=== PATIENT | female | born 1980 | race African-American/Black ===

== ENCOUNTER 2017-07-25 23:16 | Inpatient (IN) | payer OTHER ==
[2017-07-25 23:51] LABS: #Eosinphils 0.1 thou/uL (0.0-0.7); #Lymphocytes 2.3 thou/uL (1.20-3.40); #Monocytes 0.5 thou/uL (0.11-0.59); %Basophils 0.2 % (0.0-1.0); %Eosinophils 0.7 % (0.0-10.0); %Lymphocytes 15.5 % (21.0-51.0); %Monocytes 3.2 % (0.0-10.0); Hematocrit 41.9 % (36.0-47.0); Mean Platelet Volume 6.8 fL (7.4-10.4); Red Blood Cell (RBC) Count 4.53 mill/uL (4.20-5.40); White Blood Cell (WBC) Count 14.9 thou/uL (4.8-10.8)
[2017-07-26] MEDS ORDERED: niCARdipine 20MG In NaCl 20 MG/200 ML BAG ONE ×2 (00:06→06:13)
[2017-07-26 00:18] LABS: ALT (SGPT) 34 U/L (8-55); AST (SGOT) 27 U/L (5-34); Alkaline Phosphatase 141 U/L (40-150); Anion Gap 14 mmol/L (10-20); BUN (Urea Nitrogen) 11 mg/dL (7.0-18.7); Bilirubin, Total 0.3 mg/dL (0.2-1.2); CK (CPK) 45 U/L (29-168); Calc. Creatinine Clearance 0 mL/min (70-130); Calcium 9.8 mg/dL (7.8-10.44); Carbon Dioxide 25 mmol/L (22-29); Chloride 101 mmol/L (98-107); Estimated GFR-MDRD Greater than 90; Globulin 4.7 g/dL (2.4-3.5); Lipase 20 U/L (8-78); Protein, Total 8.9 g/dL (6.0-8.3)
[2017-07-26 00:18] LABS: Prothrombin Time 12.8 SEC (12.0-14.7)
[2017-07-26 00:26] LABS: Acetaminophen Less than 6.0 mcg/mL (10.0-30.0); Salicylate Less than 8.0 mg/dL (15.0-30.0)
[2017-07-26] MEDS ORDERED: Ondansetron HCl/PF 4 MG/2 ML Vial ONE ×4 (00:44→06:05)
[2017-07-26 04:46] LABS: Troponin I 0.043 ng/mL (< 0.028)
[2017-07-26 04:58] LABS: Bilirubin Negative (Negative); Blood, Urine Negative (Negative); Glucose, Urine (Dipstick) Negative (Negative); Ketone, Urine 40 mg/dL (Negative); Nitrite Negative (Negative); Protein, Urine (Dipstick) 100 mg/dL (Neg-Trace); Urobilinogen 0.2 mg/dL (0.2-1.0)
[2017-07-26 05:01] LABS: Bacteria/HPF 1+ HPF (None Seen); RBC/HPF 0-3 HPF (0-3); Squamous Epithelial 21-50 HPF (0-3)
[2017-07-26 05:20] LABS: Hyaline Casts/LPF NONE SEEN LPF (0-3 Hyaline)
[2017-07-26 05:21] LABS: Amphetamine Not Detected (NotDetected); Methadone Not Detected (NotDetected); Methamphetamine Not Detected (NotDetected)
[2017-07-26] MEDS ORDERED: niCARdipine 20MG In NaCl 20 MG/200 ML BAG IVPB SCH (06:15)
[2017-07-26] MEDS ORDERED: Ondansetron HCl/PF 4 MG/2 ML Vial IVP PRN (07:17)
[2017-07-26] MEDS ORDERED: Sodium Chloride 0.9% 1,000 ML IV SCH (07:17)
[2017-07-26] MEDS ORDERED: Ondansetron ODT 4 MG TAB SL PRN (07:17)
[2017-07-26] MEDS ORDERED: niCARdipine HCl 25 MG in Sodium Chloride 0.9% 250 ML 240 ML IVPB SCH (07:30)
[2017-07-26 07:37] LABS: Troponin I 0.052 ng/mL (< 0.028)
--- NOTE | 2017-07-26 08:11 | RAD ---
SINGLE VIEW OF THE CHEST: COMPARISON: 05/05/2017 HISTORY: High blood pressure and chest pain. FINDINGS: Single view of the chest shows a normal sized cardiomediastinal silhouette. There is no evidence of consolidation, mass, or pleural effusion. The bones are unremarkable. IMPRESSION: No evidence of acute cardiopulmonary disease. POS: [facility]
[2017-07-26 08:25] VITALS: BMI 46.6
--- NOTE | 2017-07-26 08:41 | CT ---
PRELIMINARY REPORT/[facility]/EMERGENCY AFTER HOURS PROCEDURE: EXAM: CT Angiography Chest With Intravenous Contrast CLINICAL HISTORY: 36 years old, female; Pain; Chest pain; Type not specified; Abdominal pain; Generalized; Patient HX: R/O dissection TECHNIQUE: Axial computed tomographic angiography images of the chest with intravenous contrast using pulmonary embolism protocol. CONTRAST: 100 mL of ISOVUE administered intravenously. COMPARISON: No relevant prior studies available. FINDINGS: Pulmonary arteries: There is no evidence of peripheral filling defects within the pulmonary arterial circulation to suggest pulmonary embolism. Aorta: The aorta is normal. There is no evidence of aortic dissection, leak, rupture, or other compl ications. Compression. Lungs: Normal. No mass. No consolidation. Pleural space: Normal. No significant effusion. No pneumothorax. Heart: Normal. No cardiomegaly. No significant pericardial effusion. No evidence of RV dysfunction. Bones/joints: No acute fracture. No dislocation. Soft tissues: Normal. Lymph nodes: Normal. No enlarged lymph nodes. IMPRESSION: There is no CT evidence of acute pulmonary embolism. EXAM: CT Angiography Abdomen With Intravenous Contrast EXAM DATE/TIME: Exam ordered 07/26/2017 4:58 AM CLINICAL HISTORY: 36 years old, female; Pain; Chest pain; Type not specified; Abdominal pain; Generalized; Patient HX: R/O dissection TECHNIQUE: Axial computed tomographic angiography images of the abdomen with intravenous contrast. CONTRAST: 100 mL of ISOVUE administered intravenously. COMPARISON: No relevant prior studies available. FINDINGS: Lower thorax: No acute findings. Aorta: There is no evidence of aortic dissection, leak, rupture, or other complications. Celiac trunk and mesenteric arteries: No acute findings. No occlusion or significant stenosis. Renal arteries: No acute findings. No occlusion or significant stenosis. Liver: There are no focal liver lesions present. Gallbladder and bile ducts: There has been a cholecystectomy. No ductal dilation. Pancreas: The pancreas is normal. No ductal dilation. Spleen: The spleen is normal. Adrenals: The adrenal glands are normal. Kidneys and ureters: The kidneys are normal. No hydronephrosis. Stomach and bowel: The stomach is normal. The duodenum is unremarkable. The colon is normal. No obst ruction. No mucosal thickening. Appendix: A normal appendix is identified. Intraperitoneal space: Normal. No significant fluid collection. No free air. Bones/joints: No acute fracture. No dislocation. Soft tissues: Normal. No mass. Lymph nodes: Normal. No enlarged lymph nodes. Other findings: The uterus is normal. IMPRESSION: There is no evidence of aortic dissection, leak, rupture, or other complications. Thank you for allowing us to participate in the care of your patient. Dictated and Authenticated by: Luis Briseno MD 07/26/2017 5:20 AM Central Time ([place] \T\ [place]) FINAL REPORT CT AORTIC DISSECTION PROTOCOL: Date: 07/25/17 FINDINGS: I agree with the preliminary report provided by [facility]. No central pulmonary embolus is evident. The v isualized aorta is of normal caliber. The celiac, SMA, renal, and NATALIE arteries are widely patent. Th e common iliac arteries and iliac bifurcations are widely patent. There is fatty infiltration of the liver, Pancreas, spleen, kidneys, and adrenal glands are normal a ppearing. No free fluid is evident. There is a normal appendix in the right lower quadrant. No definite acute osseous abnormality is evident. IMPRESSION: No acute aortic stenosis, occlusion, or aneurysm formation demonstrated. POS: [facility]
[2017-07-26] MEDS ORDERED: Dextrose 5% in Water 1,000 ML IV PRN ×2 (08:45→08:50)
[2017-07-26] MEDS ORDERED: Dextrose 50% Abboject 50 ML SYRINGE SLOW IVP PRN ×2 (08:45→08:50)
[2017-07-26] MEDS ORDERED: Metoclopramide HCl 10 MG TAB PO PRN (08:51)
[2017-07-26] MEDS ORDERED: traMADol HCl 50 MG TAB PO PRN (08:51)
[2017-07-26] MEDS ORDERED: FLU VACC QS2017-18 36 mo. & older 0.5 ML SYRINGE IM ONE (09:15)
[2017-07-26] MEDS: Pantoprazole 40 MG VIAL IVP SCH ×2 (09:59→21:39)
[2017-07-26] MEDS: Lisinopril 20 MG TAB PO SCH (09:59)
[2017-07-26] MEDS ORDERED: Labetalol HCl 100 MG/20 ML VIAL SLOW IVP PRN (11:34)
[2017-07-26] MEDS ORDERED: Carvedilol 25 MG TAB PO SCH (11:45)
[2017-07-26] MEDS: Sucralfate 1 GM/10 ML UDCUP PO SCH ×3 (11:48→21:41)
--- NOTE | 2017-07-26 11:58 | HP ---
PRIMARY CARE PHYSICIAN: Not unspecified at [facility]. SPECIALISTS: None. HISTORY OF PRESENT ILLNESS: The patient is a 36-year-old female with a past medical history of hypertension, diabetes mellitus complicated by gastroparesis for which the patient is on Reglan and as needed Zofran at home, presented to the emergency room at [facility] with a chief complaint of upper abdominal pain and chest pain for 2 days. The patient reports that she had onset of aggressively increasing nausea, vomiting beginning approximately 2 days ago follow by the patient unable to keep her medications down. This eventually resulted in upper abdominal pain with intractable nausea and vomiting. The patient reports that she has had small specks of blood in her emesis, but no gross bleeding. The patient reports that she is unable to keep all of her medications down including her lisinopril and Coreg. She does report that she ran out of her clonidine 4 days ago. She does report blurriness in her right eye which has resolved and also seeing \\\\"stars\\\\" which also resolves. She reports having some mild numbness in her left second toe as well as her left fifth finger. The patient reports the pain in her mid abdomen will radiate to back. Reports incidental pain in her left knee and her right great toe. She endorses headache in the bilateral temporal regions which are approximately 5/10 in severity. She is otherwise compliant with the medications other than running out of her clonidine 2 days ago. The patient has had a similar presentation in 10/2016. From review of previous records she underwent a cardiac catheterization by Dr. Celestin around 03/2016, which was negative for obstructive atherosclerotic cardiovascular disease. Denies any blood per rectum, hematuria, muscle weakness or any other episodes of numbness. Currently no chest pain, no shortness of breath. The patient is hungry. PAST MEDICAL HISTORY: 1. Diabetes mellitus type 2 complicated by diabetic gastroparesis. 2. Essential hypertension. 3. Morbid obesity, body mass index of 46. 4. Chronic low back pain. 5. History of gout. PAST SURGICAL HISTORY: 1. Laparoscopic cholecystectomy in 08/[address] Dutton . 2. section x2. 3. Cardiac catheterization in 03/[address] Celestin. ALLERGIES: NKDA. The patient does report having headache with nausea with nitroglycerin. SOCIAL HISTORY: Denies any tobacco, alcohol or drug use. The patient is single , has a single mother. FAMILY HISTORY: Notable for mother having heart disease, high blood pressure and stroke. No history of diabetes in the family. No blood clots or cancer. REVIEW OF SYSTEMS: A 14-point review of systems reviewed and negative with the exception to HPI. OUTPATIENT MEDICATIONS: Please see medication reconciliation form, which includes clonidine 0.2 mg t.i.d., Coreg 25 mg b.i.d., lisinopril 20 mg daily, metformin 500 mg once daily, Reglan 10 mg t.i.d. as needed, Indomethacin as needed. PHYSICAL EXAMINATION: VITAL SIGNS: Blood pressure 170/85 with a Cardene drip running at 12.5 mg per hour, pulse of 119, respiration rate 18, O2 saturation 100% on 2 liters nasal cannula. GENERAL: The patient is awake, alert, in no apparent distress, obese. HEENT: Atraumatic, normocephalic. Extraocular movements intact. Pupils react to light and accommodation. Posterior pharynx is clear. NECK: Supple, no lymphadenopathy, no thyromegaly, no carotid bruits noted upon exam. LUNGS: Clear to auscultation bilaterally with equal expansion. No wheeze or rhonchi. CARDIOVASCULAR: S1, S2, tachycardia, no murmurs appreciated. Peripheral pulses are 2+ and symmetrical in the bilateral radial, dorsalis pedis and posterior tibialis pulses. ABDOMEN: Soft, nondistended. Positive bowel sounds. There is mild epigastric tenderness with deep palpation. No palpable aortic pulse. No rebound, no guarding. MUSCULOSKELETAL: Strength is 5/5 in all 4 extremities, full range of motion. NEUROLOGIC: Sensation is diminished in the left great toe and left fifth digit , otherwise intact. Motor function grossly intact, 5/5. Cranial nerves II-XII grossly intact. PSYCHOLOGICAL: Alert and oriented x3. No psychomotor agitation. Appropriate mood, affect, insight and judgment. PERTINENT LABORATORY AND RADIOGRAPHICAL DATA: White blood cell count 14.9, hemoglobin 13.6, platelets 482, glucose 196, creatinine 0.84, bicarbonate 25, potassium 4. Troponin; #1 0.052, #2 is 0.043, #3 0.040. Urinalysis revealing positive for protein. However, leukocyte esterase or nitrite are negative and there are multiple squamous cells. Urine drug screening negative. CT scan of the abdomen and pelvis dissection protocol was negative for aneurysm or dissection. Imaging of intra-abdominal organs are all grossly within normal limits. No evidence of colitis or bowel inflammation. Renal architecture is grossly within normal limits. Chest x-ray; no mediastinal enlargement. INR 1.0. Serum negative. EKG revealed a normal sinus rhythm, 98 beats per minute, left ventricular hypertrophy pattern noted, QTC 439 milliseconds, no ST elevations or depressions. ASSESSMENT AND PLAN: 1. Hypertensive crisis, attributed to diabetic gastroparesis exacerbation: The gastroparesis led to the patient's intractable nausea and vomiting ultimately unable to keep her antihypertensive regimen down. This is independent of the patient "running out" of her clonidine 0.2 mg t.i.d. approximately 4 days ago. The patient is unaware of what her blood pressure is when she is not taking her clonidine. Currently, the patient's blood pressure has been stabilized with a Cardene drip, currently, 12.5 mg per hour. We will initiated her lisinopril therapy and continue to stabilize her blood pressure and maintain permissive hypertension at this point in time and slowly decrease her blood pressure over the next 24-48 hours. Anticipate initiating Coreg therapy in the morning on 07/27/2017 with further titration down of her Cardene drip and then resuming her clonidine. We will repeat her troponin in the morning. The patient had a cardiac catheterization performed by Dr. Celestin on 03/19/2016 reveals no significant atherosclerotic cardiovascular disease with a left ventricular ejection fraction 65%. We will check a CT scan of the head without contrast to rule out for signs of ischemia or hemorrhage; however, clinically this is low suspicion. 2. Elevated troponin consistent with demand ischemia. As noted, the patient does have no evidence of atherosclerotic cardiovascular disease in 03/2016. There is no true spike in her troponin's and we will trend her troponin once again in the morning. Should there be any concerns for cardiovascular issues, Dr. Celestin and his team of cardiologists can be consulted. 3. Diabetes mellitus type 2. The patient is on metformin monotherapy; however , cannot recall if she is on extended release version or not. We will utilize sliding scale coverage for now as the patient did receive contrast earlier this morning. Anticipate on resuming metformin no sooner than on 07/29/2017. 4. Upper gastrointestinal bleeding. This is a trace blood specks with intractable nausea and vomiting, very likely be early signs of Mindi-Balderas tears. We will continue with proton pump inhibitor therapy and add Carafate as needed. 5. Morbid obesity, body mass index 46. Lifestyle modifications will need to be addressed prior to discharge. 6. Left great toe gout exacerbation. Continue with indomethacin as needed. Time spent approximately 1 hour. [facility]
--- NOTE | 2017-07-26 12:05 | CT ---
CT HEAD WITHOUT IV CONTRAST: Date: 07-26-17 History: Hypertensive crisis. Headache, blurred vision. Comparison: 05-22-14 FINDINGS: There is no evidence of a hemorrhage, acute infarction, mass effect, or midline shift. Ventricular s ystem is normal in size, shape, and position. Again noted is a metallic foreign body which appears t o be within the subcutaneous soft tissues in the region of the right eyelid anterior to the right gl obe. This is unchanged in position. Calvarial structures are intact. There has been no interval read ge from the prior exam. IMPRESSION: l. No acute cardiopulmonary process. 2. Punctate metallic foreign body anterior to the right globe and appears to be within the subcutane ous soft tissues of the right eyelid. POS: [facility]
--- NOTE | 2017-07-26 13:53 | CON ---
DATE OF SERVICE: 07/26/2017 SERVICE: Pulmonary Medicine. HISTORY OF PRESENT ILLNESS: The patient is a 36-year-old -[place] female with past medical history significant for horrendous hypertension. She is on multiple medications including clonidine. She ran out of these medications at the end of last week. She started having some headaches with nausea. She had blurred vision and some neurologic changes. She presented to the Emergency Department with the same. She was started on a Cardene drip and placed in the ICU. She currently denies any fevers, chills, nausea, or vomiting. The headache is much improved and otherwise has returned to her usual state of health. She remains on the Cardene drip at a fairly good clip. Otherwise, there were no changes overnight. Her nausea is no longer present. She is starting to tolerate some p.o. PAST MEDICAL HISTORY: 1. Hypertension. 2. Type 2 diabetes mellitus. 3. Gastroparesis. PAST SURGICAL HISTORY: Cholecystectomy. SOCIAL HISTORY: Negative for alcohol, tobacco or illicit drug use. She denies any exposure to chemicals, dust, asbestos or tuberculosis. FAMILY HISTORY: Noncontributory. ALLERGIES: No known drug allergies. MEDICATIONS LIST: Her inpatient medicines were reviewed. Multiple updates were made at this time. REVIEW OF SYSTEMS: General, head, ears, eyes, nose, throat, cardiovascular, respiratory, GI, , musculoskeletal, neurologic and skin is negative except as mentioned in the HPI. PHYSICAL EXAMINATION: VITAL SIGNS: Afebrile, pulse 124, blood pressure 157/79, respirations 19, saturation 98% on room air. GENERAL: Patient is awake, alert, in no apparent distress. LUNGS: Excellent air entry. No prolonged expiratory phase, wheeze, rhonchi or crackles. HEART: Normal rate, regular. ABDOMEN: Soft, nontender, nondistended, bowel sounds positive. MUSCULOSKELETAL: No cyanosis or clubbing. No pitting in the bilateral lower extremities. NEUROLOGIC: Grossly nonfocal. LABORATORY DATA: WBC 14.9, hemoglobin 13.6, platelets 482,000. INR 1.0. Troponin 0.052 and gently up trending. Basic metabolic profile, liver function studies are otherwise unremarkable. BNP is normal. Urinalysis is unremarkable and is not a very good clean catch. There is a little bit of proteinuria. Opiates are positive. Urine drug screen is otherwise unremarkable. Salicylates , acetaminophen, and alcohol were all unremarkable. IMAGIN. Chest x-ray demonstrates no evidence for acute cardiopulmonary disease. 2. CT of the aorta demonstrates no evidence of acute pulmonary embolism or dissection. 3. CT of the brain demonstrates no evidence of intracranial hemorrhage. Official radiology read is currently pending. ASSESSMENT: 1. Hypertensive emergency. 2. Gastroparesis. PLAN: We will resume the patient's home medicines including clonidine. We will wean off the Cardizem drip if possible. IV fluids will be interrupted. We will continue to follow while the patient remains in the ICU. JENNA
[2017-07-26] MEDS: Indomethacin 25 mg Capsule PO PRN (14:17)
[2017-07-26] MEDS: Metoclopramide HCl 10 MG TAB PO SCH ×2 (14:21→21:38)
[2017-07-26] MEDS: Carvedilol 25 MG TAB PO SCH (16:52)
[2017-07-26] MEDS: HumaLOG 300 UNITS/3 ML VIAL SC PRN (17:07)
[2017-07-26] MEDS ORDERED: Aluminum & Magnesium Hydroxide 60 ML, Lidocaine 2% Viscous Solution 30 ML, diphenhydrAM... SSW PRN ×3 (17:31)
[2017-07-26] MEDS: Morphine Sulfate 2 MG/ML SYRINGE SLOW IVP PRN ×2 (18:02→21:53)
[2017-07-26] MEDS: Zolpidem Tartrate 5 MG TAB PO SCH (21:38)
[2017-07-27] MEDS: Morphine Sulfate 2 MG/ML SYRINGE SLOW IVP PRN (04:32)
[2017-07-27] MEDS: Sucralfate 1 GM/10 ML UDCUP PO SCH ×4 (04:38→22:40)
[2017-07-27 05:03] LABS: Hematocrit 33.4 % (36.0-47.0); Mean Platelet Volume 7.1 fL (7.4-10.4); Red Blood Cell (RBC) Count 3.59 mill/uL (4.20-5.40); White Blood Cell (WBC) Count 11.7 thou/uL (4.8-10.8)
[2017-07-27 05:05] LABS: Neutrophil 74 % (42-75)
[2017-07-27 05:22] LABS: Anion Gap 14 mmol/L (10-20); BUN (Urea Nitrogen) 18 mg/dL (7.0-18.7); Calc. Creatinine Clearance 141 mL/min (70-130); Calcium 8.4 mg/dL (7.8-10.44); Carbon Dioxide 24 mmol/L (22-29); Chloride 102 mmol/L (98-107); Estimated GFR-MDRD 71; Magnesium 1.7 mg/dL (1.6-2.6); Phosphorus 3.5 mg/dL (2.3-4.7)
[2017-07-27] MEDS ORDERED: Acetaminophen 325 MG TAB PO PRN (07:22)
[2017-07-27] MEDS ORDERED: Potassium Chloride 20 MEQ TAB PO SCH (07:30)
--- NOTE | 2017-07-27 07:51 | PRG ---
DATE OF SERVICE: 07/27/2017 SERVICE: Pulmonary Medicine INTERVAL HISTORY: The patient is doing really well from a cardiovascular and respiratory standpoint . She denies any current fevers, chills, nausea, vomiting or chest discomfort. Her blood pressures have been under excellent control ever since restarting her home medicines. She continues to wake up from a deep sleep and when prompted, has 8/10 pain, requesting morphine. Otherwise, there were n o events overnight. PHYSICAL EXAMINATION: VITAL SIGNS: Afebrile, pulse 77, blood pressure 124/77, respirations 16, saturation 99% on room air . GENERAL: Patient is awake, alert, in no apparent distress. LUNGS: Excellent air entry with no prolonged expiratory phase, wheezing, rhonchi or crackles. HEART: Normal rate, regular. ABDOMEN: Soft, nontender, nondistended. Bowel sounds positive. MUSCULOSKELETAL: No cyanosis or clubbing. No pitting in the bilateral lower extremities. NEUROLOGIC: Grossly nonfocal. LABORATORY DATA: WBC 11.7, hemoglobin 10.9, platelets 340,000. Basic metabolic profile, magnesium, and phosphorus are all unremarkable. Potassium is 3.6. ASSESSMENT: 1. Hypertensive emergency, improved. 2. Gastroparesis. PLAN: Morphine will once again be discontinued. We will give the patient Tylenol as needed for gagan n. I will back off on her clonidine a little bit and we might should try to get rid of this medicat ion in the outpatient setting as I believe her presentation was largely secondary to rebound hyperte nsion associated withdrawal from clonidine. The potassium is 3.6 and will be replaced. We will tra nsition the patient out of the ICU to the floor.
[2017-07-27] MEDS: cloNIDine HCl 0.1 MG TAB PO SCH ×3 (08:05→20:56)
[2017-07-27] MEDS: Metoclopramide HCl 10 MG TAB PO SCH ×3 (08:06→20:56)
[2017-07-27] MEDS: Lisinopril 20 MG TAB PO SCH (08:06)
[2017-07-27] MEDS: Carvedilol 25 MG TAB PO SCH ×2 (08:06→18:06)
--- NOTE | 2017-07-27 08:51 | PRG ---
DATE OF SERVICE: 07/27/2017 SUBJECTIVE: The patient seen and examined at the bedside. She is doing very well. She had some co mplaints of abdominal discomfort, but she does not have more vomiting. She ate her breakfast withou t any problems, tolerating food. OBJECTIVE: VITAL SIGNS: Blood pressure is 115/68, pulse is 97, respiratory rate is 18, and pulse oximetry is 9 9% on room air. HEENT: Head is atraumatic, normocephalic. Eyes PERRLA. Conjunctivae pinkish. Oral mucosa is mois t. NECK: Supple, no lymphadenopathy. Thyroid is not palpable. LUNGS: Clear. HEART: S1, S2 normal, no S3, no S4, no murmur. ABDOMEN: Somewhat distended, obese. Bowel sounds present. There is tenderness in the mid portion of the abdomen, most likely related to protracted vomiting for the last 2-3 days. Bowel sounds are present. EXTREMITIES: No clubbing, cyanosis or edema. NEUROLOGIC: She is alert and oriented x4. There is no sensory or motor deficits present. Cranial nerves are intact. LABORATORY DATA: Showed a white count of 11.7, hemoglobin 10.9, hematocrit 33.4, platelet count is 340, normal BNP. Glycemia is ranging from 138 to 112. Rest of chemistry within normal limits IMPRESSION: 1. Hypertensive emergency, improved status post Cardene drip which was discontinued and she was tra nsferred to p.o. meds. The patient was seen by Dr. Mortensen, operations support specialist. This morning he recommended to decrease the dose of clonidine since her blood pressure is down to 115. She is g oing to be transferred to the telemetry floor. 2. Diabetes mellitus type 2. 3. Morbid obesity with body mass index of 46. 4. Chronic low back pain. 5. Abdominal pain secondary to protracted vomiting. 6. History of gout. PLAN: She will continue on her carvedilol 25 mg twice a day, clonidine was decreased to 0.1 mg 3 ti mes a day. She will continue lisinopril 20 mg once a day and her glycemia is in good range, so we a re going to keep holding her metformin and she would be put on her metformin tomorrow when she is di scharged from the hospital if she is stable.
[2017-07-27] MEDS: Indomethacin 25 mg Capsule PO PRN (10:51)
--- NOTE | 2017-07-27 14:38 | EKG ---
Test Reason : CHEST PAIN Blood Pressure : / mmHG Vent. Rate : 098 BPM Atrial Rate : 098 BPM P-R Int : 136 ms QRS Dur : 072 ms QT Int : 344 ms P-R-T Axes : 053 032 051 degrees QTc Int : 439 ms Normal sinus rhythm with sinus arrhythmia Possible Left atrial enlargement Left ventricular hypertrophy Abnormal ECG Confirmed by ANNY GOYAL, ANA ([id number]), editor farm journal PEGGY HAWTHORNE ([id number]) on 07/27/2017 2:37:56 PM Referred By: Confirmed By:ANA MCCORMICK MD
[2017-07-27] MEDS: traMADol HCl 50 MG TAB PO PRN ×2 (15:48→22:39)
[2017-07-27] MEDS: HumaLOG 300 UNITS/3 ML VIAL SC PRN (18:08)
[2017-07-27] MEDS: Zolpidem Tartrate 5 MG TAB PO SCH (20:56)
[2017-07-28] MEDS: traMADol HCl 50 MG TAB PO PRN ×4 (04:27→23:56)
[2017-07-28] MEDS: Sucralfate 1 GM/10 ML UDCUP PO SCH ×4 (04:29→23:57)
[2017-07-28] MEDS: Carvedilol 25 MG TAB PO SCH ×2 (08:39→17:35)
[2017-07-28] MEDS: cloNIDine HCl 0.1 MG TAB PO SCH (08:39)
[2017-07-28] MEDS: Metoclopramide HCl 10 MG TAB PO SCH ×3 (08:40→20:36)
[2017-07-28] MEDS: Lisinopril 20 MG TAB PO SCH ×2 (08:40→20:35)
[2017-07-28] MEDS ORDERED: cloNIDine HCl 0.1 MG TAB PO SCH ×2 (09:13→09:30)
[2017-07-28 12:35] LABS: Troponin I 0.049 ng/mL (< 0.028)
--- NOTE | 2017-07-28 18:38 | PRG ---
DATE OF SERVICE: 07/28/2017 SERVICE: Pulmonary Medicine. INTERVAL HISTORY: The patient is doing fine from a respiratory standpoint. She denies any current fevers, chills, nausea or vomiting or chest discomfort. She continues to have some back discomfort, which is slightly worse than what she has on a daily basis at home. There were no overnight events . Her blood pressure is under much better control. PHYSICAL EXAMINATION: VITAL SIGNS: Afebrile with a T-max of 99.2, pulse 76, blood pressure 160/96, respirations 16, satur ation 100% on room air. GENERAL: Patient is awake and alert, in no apparent distress. LUNGS: Excellent air entry. There is no prolonged expiratory phase, wheezing, rhonchi or crackles. HEART: Normal rate, regular. ABDOMEN: Soft, nontender, nondistended, bowel sounds positive. MUSCULOSKELETAL: No cyanosis or clubbing. No pitting in the bilateral lower extremities. NEUROLOGIC: Grossly nonfocal. LABORATORY DATA: Troponin is down trending to 0.049. Blood sugars ranged from 115-246 Urine cultu res negative to date. ASSESSMENT: 1. Hypertensive emergency, improving. 2. Gastroparesis. PLAN: The patient no longer has requirements for Pulmonary or Critical Care opinion. She will like ly require a daily diuretic in the outpatient setting to help control her severe blood pressures. I f she decompensates., clinically please give me a phone call.
[2017-07-28] MEDS: Zolpidem Tartrate 5 MG TAB PO SCH (20:35)
[2017-07-29] MEDS: traMADol HCl 50 MG TAB PO PRN ×2 (05:56→12:09)
[2017-07-29] MEDS: Sucralfate 1 GM/10 ML UDCUP PO SCH ×2 (05:57→12:08)
[2017-07-29] MEDS: Lisinopril 20 MG TAB PO SCH (08:48)
[2017-07-29] MEDS: Metoclopramide HCl 10 MG TAB PO SCH (08:48)
[2017-07-29] MEDS: Carvedilol 25 MG TAB PO SCH (08:48)
[2017-07-29 09:10] VITALS: TEMP 98.1
[2017-07-29 12:09] VITALS: BP 160/91
--- NOTE | 2017-07-29 21:39 | DIS ---
DATE OF ADMISSION: 07/26/2017 DATE OF DISCHARGE: 07/29/2017 PRIMARY CARE PHYSICIAN: [facility]. ADMITTING DIAGNOSES: 1. Hypertensive crisis. 2. Elevated troponin. 3. Diabetes mellitus type 2 without long-term insulin therapy. 4. Upper gastrointestinal bleed. 5. Morbid obesity, BMI 46. 6. Left great toe gout exacerbation. DISCHARGE DIAGNOSES: 1. Hypertensive crisis. 2. Elevated troponin due to demand ischemia. 3. Diabetes mellitus type 2, controlled. 4. Upper gastrointestinal bleed secondary to Mindi-Balderas tear. 5. Morbid obesity, BMI of 46. 6. History of gout with left great toe (podagra). DISPOSITION: Home. CONSULTANTS: [facility], Dr. Mortensen. PHYSICAL EXAMINATION: GENERAL: On the day of discharge, the patient is awake and alert, no complaints. Tolerating oral d iet. Reports that she feels much better since admission. Denies any blood per rectum, no dyspepsia . VITAL SIGNS: Blood pressure ranging from 127/74-179/111, pulse was 78, respiration rate 18 and satu ration 97% on room air. LUNGS: Clear to auscultation bilaterally with equal expansion, rales or rhonchi. CARDIOVASCULAR: S1 and S2. No murmurs. ABDOMEN: Soft, nontender and nondistended. Positive bowel sounds. NEUROLOGIC: Nonfocal. PERTINENT LABORATORY AND RADIOGRAPHICAL DATA: Creatinine 0.84. Troponin ranging from 0.040-0.052. BRIEF HISTORY AND HOSPITAL COURSE: The patient is a 36-year-old female with a past medical history of morbid obesity, essential hypertension, diabetes mellitus type 2 on metformin monotherapy, gout, presented to the emergency room at [facility] in 07/26/2017, with a chief complaint of upper abdominal pain and chest pain for 2 days. Please see history and physical for details. Patient's initial blood pressure upon presentation has been as high as 170/85 while on a Cardene adm inistered in the emergency room. Patient's blood pressure does frequently escalate into the 220+ ra nge systolic when off of the Cardene. Patient was initially admitted to the ICU for the Cardene dri p. Patient's nausea was controlled with scheduled p.r.n. antiemetics. The patient was initiated on her antihypertensive regimen and was able to be weaned off of her Cardene drip. Patient was monito red and treated medically for her gastroparesis and associated symptoms, which prevented her from to lerating her oral intake. By the day of discharge, the patient has been tolerating her oral diet an d has had a blood pressure as low as in the 120s and as high as in the 179 range. The patient's mary kate nidine will be revealed at this time and she is instructed to take this every 8 hours instead of t.i .d. for better 24-hour control. In addition, amlodipine 5 mg daily will be added to her regimen. T he patient will be asked to follow up with her primary care physician at [facility] for fur ther management. Otherwise, patient's other medical comorbidities are stable at this time. DISCHARGE MEDICATIONS: Please see medication reconciliation form. Time spent approximately 40 minutes.
== END 2017-07-29 13:37 | disposition home or self-care (01) | DRG 304 ==
LOC: ERS 23:16 → CCU 07-26 05:28 → 2NO 07-27 08:41
PROVIDERS: ADMIT Family Medicine; ATTEND Family Medicine
DX: I16.9 Hypertensive crisis, unspecified (principal); K22.6 Gastro-esophageal laceration-hemorrhage syndrome; I24.8 Other forms of acute ischemic heart disease; Z68.42 Body mass index [BMI] 45.0-49.9, adult; K31.84 Gastroparesis; E11.43 Type 2 diabetes mellitus with diabetic autonomic (poly)neuropathy; E66.01 Morbid (severe) obesity due to excess calories; M10.9 Gout, unspecified; M54.5 Low back pain; G89.29 Other chronic pain; Z79.4 Long term (current) use of insulin
CPT/HCPCS: 36415; 36416; 36556; 51701; 70450; 71010; 71275; 80048; 80053; 80306; 80307; 81003; 81015; 82553; 83690; 83735; 83880; 84100; 84443; 84484; 84703; 85007; 85025; 85027; 85610; 85730; 87086; 93005; 96365; 96366; 96375; 96376; A4216; A4353; C9113; J2270; J2405; J7050

== ENCOUNTER 2017-08-15 03:47 | Emergency (ER) | payer OTHER ==
[2017-08-15 04:32] LABS: #Eosinphils 0.1 thou/uL (0.0-0.7); #Lymphocytes 2.9 thou/uL (1.20-3.40); #Monocytes 0.7 thou/uL (0.11-0.59); #Neutrophils 9.1 thou/uL (1.40-6.50); %Basophils 0.3 % (0.0-1.0); %Lymphocytes 22.8 % (21.0-51.0); %Monocytes 5.1 % (0.0-10.0); Hematocrit 38.6 % (36.0-47.0); Mean Platelet Volume 6.9 fL (7.4-10.4); Red Blood Cell (RBC) Count 4.21 mill/uL (4.20-5.40); White Blood Cell (WBC) Count 12.8 thou/uL (4.8-10.8)
[2017-08-15] MEDS ORDERED: Ondansetron HCl/PF 4 MG/2 ML Vial ONE (04:40)
[2017-08-15] MEDS ORDERED: Milk Of Magnesia 30 ML UDCUP ONE (04:40)
[2017-08-15] MEDS ORDERED: cloNIDine 0.1 MG TAB ONE (04:40)
[2017-08-15] MEDS ORDERED: Lidocaine Viscous Sol 2% 15 ml UD Cup ONE (04:40)
[2017-08-15] MEDS ORDERED: Ondansetron ODT 4 MG TAB ONE (04:41)
[2017-08-15 04:43] LABS: ALT (SGPT) 30 U/L (8-55); AST (SGOT) 26 U/L (5-34); Alkaline Phosphatase 123 U/L (40-150); Anion Gap 12 mmol/L (10-20); BUN (Urea Nitrogen) 12 mg/dL (7.0-18.7); Bilirubin, Total 0.3 mg/dL (0.2-1.2); Calc. Creatinine Clearance 0 mL/min (70-130); Calcium 10.1 mg/dL (7.8-10.44); Carbon Dioxide 28 mmol/L (22-29); Chloride 103 mmol/L (98-107); Estimated GFR-MDRD Greater than 90; Globulin 4.3 g/dL (2.4-3.5); Lipase 18 U/L (8-78); Magnesium 1.9 mg/dL (1.6-2.6); Protein, Total 8.5 g/dL (6.0-8.3)
[2017-08-15 04:46] LABS: Troponin I 0.016 ng/mL (< 0.028)
[2017-08-15] MEDS ORDERED: Potassium Chloride 20 MEQ TAB ONE (05:18)
[2017-08-15] MEDS ORDERED: Sucralfate 1 GM/10 ML UDCUP ONE ×2 (05:52→05:55)
--- NOTE | 2017-08-15 07:58 | CT ---
PRELIMINARY REPORT/[facility]/EMERGENCY AFTER HOURS PROCEDURE: EXAM: CT Head Without Intravenous Contrast CLINICAL HISTORY: 36 years old, female; Signs and symptoms; Altered mental status/memory loss; Confusion or disorienta tion; Patient HX: AMS TECHNIQUE: Axial computed tomography images of the head/brain without intravenous contrast. COMPARISON: Head CT report dated 05/22/2014 FINDINGS: Brain: Mild volume loss No hemorrhage. No significant white matter disease. No edema. Ventricles: Unremarkable. No ventriculomegaly. Bones/joints: Unremarkable. No acute fracture. Soft tissues: Right periorbital 3 mm radiopaque foreign body may be related to remote trauma Sinuses: Unremarkable as visualized. No acute sinusitis. Mastoid air cells: Unremarkable as visualized. No mastoid effusion. IMPRESSION: No intracranial hemorrhage.Please see discussion above. Thank you for allowing us to participate in the care of your patient. Dictated and Authenticated by: Oneal Rey MD 08/15/2017 5:13 AM Central Time ([place] \[place]\ [place]) FINAL REPORT EMERGENT AFTER HOURS CT HEAD WITHOUT IV CONTRAST: 08/15/2017 HISTORY: Altered mental status. COMPARISON: 07/26/2017 IMPRESSION: 1. No acute intracranial abnormality is demonstrated. 2. Stable metallic foreign body anterior to the right globe in the region of the eyelid which may be related to either metallic foreign body or possibly iatrogenic. Clinical correlation recommended. Nevertheless, this is a stable finding. 3. Findings are in agreement with preliminary report by [facility]. POS: [facility]
--- NOTE | 2017-08-15 08:02 | RAD ---
PORTABLE AP CHEST X-RAY: 08/15/2017 HISTORY: Chest pain for the past 2 days. COMPARISON: 07/26/2017 FINDINGS: Cardiac silhouette is magnified by projection but stable in size from prior study. Pulmonary vascul ature is within normal limits, and the lungs remain clear. There has been no interval change from t he prior study. IMPRESSION: No acute cardiopulmonary process. POS: [facility]
--- NOTE | 2017-08-17 20:12 | EKG ---
Test Reason : Blood Pressure : / mmHG Vent. Rate : 074 BPM Atrial Rate : 074 BPM P-R Int : 136 ms QRS Dur : 076 ms QT Int : 408 ms P-R-T Axes : 045 029 021 degrees QTc Int : 452 ms Normal sinus rhythm Possible Left atrial enlargement Borderline ECG Confirmed by MARIAM WHITTEN D.O. ([id number]), sports editor PEGGY HAWTHORNE ([id number]) on 08/17/2017 8:12:18 PM Referred By: Confirmed By:MARIAM WHITTEN D.O.
== END 2017-08-15 06:00 | disposition home or self-care (01) ==
LOC: ERS 03:47
DX: K29.00 Acute gastritis without bleeding (principal); I10 Essential (primary) hypertension; M10.9 Gout, unspecified; E11.9 Type 2 diabetes mellitus without complications; Z79.84 Long term (current) use of oral hypoglycemic drugs; Z79.899 Other long term (current) drug therapy
CPT/HCPCS: 36416; 70450; 71010; 80053; 82553; 83690; 83735; 83880; 84484; 85025; 93005; J2405; Q0162

== ENCOUNTER 2017-10-03 00:38 | Emergency (ER) | payer OTHER | END 2017-10-03 02:16 | disposition home or self-care (01) | LOC: ERS 00:38 | DX: M10.9 Gout, unspecified (principal); E11.9 Type 2 diabetes mellitus without complications; I10 Essential (primary) hypertension; G89.29 Other chronic pain; F17.200 Nicotine dependence, unspecified, uncomplicated; Z79.84 Long term (current) use of oral hypoglycemic drugs; Z79.899 Other long term (current) drug therapy | CPT/HCPCS: 99283 ==

== ENCOUNTER 2017-10-30 12:10 | Emergency (ER) | payer OTHER ==
[2017-10-30 12:50] LABS: #Basophils 0.1 thou/uL (0.0-0.2); #Lymphocytes 1.4 thou/uL (1.20-3.40); #Monocytes 0.1 thou/uL (0.11-0.59); #Neutrophils 10.8 thou/uL (1.40-6.50); %Basophils 0.5 % (0.0-1.0); %Eosinophils 0.1 % (0.0-10.0); %Lymphocytes 11.1 % (21.0-51.0); %Monocytes 0.5 % (0.0-10.0); %Neutrophils 87.8 % (42.0-75.0); Hemoglobin 14.1 g/dL (12.0-16.0); Mean Corpuscular Hemoglobin 28.9 pg (27.0-31.0); Mean Corpuscular Volume 90.6 fl (81.0-99.0); Mean Platelet Volume 7.1 fL (7.4-10.4); Platelet Count 409 thou/uL (130-400); Red Blood Cell (RBC) Count 4.86 mill/uL (4.20-5.40); White Blood Cell (WBC) Count 12.2 thou/uL (4.8-10.8)
[2017-10-30] MEDS ORDERED: Ketorolac Tromethamine 30 MG/ML VIAL ONE (13:09)
[2017-10-30] MEDS ORDERED: cloNIDine 0.1 MG TAB ONE (13:09)
--- NOTE | 2017-10-30 13:09 | RAD ---
CHEST ONE VIEW: History: Dyspnea. Comparison: 08-15-17 FINDINGS: Cardiac silhouette is magnified by projection. Pulmonary vasculature is unremarkable. Mediastinum is midline. There is no lobar consolidation or evidence of pneumothorax. ammunition and explosives handler leads overlie t he chest. IMPRESSION: 1. No active cardiopulmonary abnormalities are demonstrated. POS: [facility]
[2017-10-30 13:17] LABS: ALT (SGPT) 17 U/L (8-55); AST (SGOT) 14 U/L (5-34); Albumin 4.4 g/dL (3.5-5.0); Alkaline Phosphatase 88 U/L (40-150); Anion Gap 20 mmol/L (10-20); BUN (Urea Nitrogen) 13 mg/dL (7.0-18.7); Bilirubin, Total 0.2 mg/dL (0.2-1.2); CK (CPK) 45 U/L (29-168); Calc. Creatinine Clearance 0 mL/min (70-130); Calcium 10.7 mg/dL (7.8-10.44); Carbon Dioxide 20 mmol/L (22-29); Chloride 101 mmol/L (98-107); Estimated GFR-MDRD 86; Globulin 4.1 g/dL (2.4-3.5); Glucose 199 mg/dL (70-105); Potassium 3.7 mmol/L (3.5-5.1); Protein, Total 8.5 g/dL (6.0-8.3); Sodium 137 mmol/L (136-145)
[2017-10-30 13:21] LABS: CKMB 0.8 ng/mL (0-6.6); Troponin I 0.055 ng/mL (< 0.028)
[2017-10-30] MEDS ORDERED: Ondansetron HCl/PF 4 MG/2 ML Vial ONE (14:28)
[2017-10-30] MEDS ORDERED: Colchicine 0.6 MG TAB PO SCH (14:30)
[2017-10-30 14:34] LABS: Bilirubin Negative (Negative); Blood, Urine Trace (Negative); Clarity CLEAR (Clear); Glucose, Urine (Dipstick) 250 mg/dL (Negative); Leukocyte Negative (Negative); Nitrite Negative (Negative); Protein, Urine (Dipstick) 100 mg/dL (Neg-Trace); Specific Gravity, Urine 1.015 (1.002-1.036); Urobilinogen 0.2 mg/dL (0.2-1.0)
[2017-10-30 14:37] LABS: Bacteria/HPF None Seen HPF (None Seen); Hyaline Casts/LPF 0-3 HYALINE CAST LPF (0-3 Hyaline); RBC/HPF 0-3 HPF (0-3); Squamous Epithelial 0-3 HPF (0-3); WBC/HPF 0-3 HPF (0-3)
== END 2017-10-30 15:23 | disposition home or self-care (01) ==
LOC: ERS 12:10
DX: M25.572 Pain in left ankle and joints of left foot (principal); M25.571 Pain in right ankle and joints of right foot; M10.9 Gout, unspecified; E11.9 Type 2 diabetes mellitus without complications; I10 Essential (primary) hypertension; Z79.899 Other long term (current) drug therapy; Z79.84 Long term (current) use of oral hypoglycemic drugs
CPT/HCPCS: 36415; 71045; 80053; 81003; 81015; 82553; 83605; 84484; 85025; 93005; 94760; 96361; 96374; 96375; J1885; J2405

== ENCOUNTER 2017-12-01 17:59 | Observation (INO) | payer OTHER ==
[~2017-12-01 17:59] MED LIST: ISOVUE-370 76%-LOCM 1 ML ONE
[2017-12-01] MEDS ORDERED: Metoclopramide HCl 10 MG/2 ML VIAL ONE ×2 (18:27→22:39)
[2017-12-01 18:52] LABS: #Lymphocytes 2.3 thou/uL (1.20-3.40); #Monocytes 0.7 thou/uL (0.11-0.59); #Neutrophils 7.6 thou/uL (1.40-6.50); %Basophils 0.4 % (0.0-1.0); %Eosinophils 0.2 % (0.0-10.0); %Lymphocytes 21.6 % (21.0-51.0); %Monocytes 6.1 % (0.0-10.0); %Neutrophils 71.6 % (42.0-75.0); Hemoglobin 13.7 g/dL (12.0-16.0); Mean Corpuscular HGB CONC 32.2 g/dL (32.0-36.0); Mean Corpuscular Hemoglobin 29.9 pg (27.0-31.0); Mean Corpuscular Volume 92.8 fl (81.0-99.0); Mean Platelet Volume 7.1 fL (7.4-10.4); Platelet Count 382 thou/uL (130-400); RBC Distribution Width 14.3 % (11.5-14.5); Red Blood Cell (RBC) Count 4.57 mill/uL (4.20-5.40); White Blood Cell (WBC) Count 10.6 thou/uL (4.8-10.8)
[2017-12-01] MEDS ORDERED: hydrALAZINE 20 MG/ML VIAL ONE (19:09)
[2017-12-01 19:14] LABS: ALT (SGPT) 83 U/L (8-55); AST (SGOT) 71 U/L (5-34); Albumin 4.3 g/dL (3.5-5.0); Alkaline Phosphatase 102 U/L (40-150); Anion Gap 19 mmol/L (10-20); BUN (Urea Nitrogen) 13 mg/dL (7.0-18.7); Bilirubin, Total 0.4 mg/dL (0.2-1.2); CK (CPK) 141 U/L (29-168); Calc. Creatinine Clearance 0 mL/min (70-130); Calcium 9.5 mg/dL (7.8-10.44); Carbon Dioxide 21 mmol/L (22-29); Chloride 100 mmol/L (98-107); Estimated GFR-MDRD 73; Globulin 3.8 g/dL (2.4-3.5); Glucose 205 mg/dL (70-105); Lipase 14 U/L (8-78); Magnesium 1.6 mg/dL (1.6-2.6); Potassium 3.5 mmol/L (3.5-5.1); Protein, Total 8.1 g/dL (6.0-8.3); Sodium 136 mmol/L (136-145)
[2017-12-01 19:18] LABS: CKMB 0.8 ng/mL (0-6.6); Troponin I 0.076 ng/mL (< 0.028)
[2017-12-01 19:21] LABS: Base Excess-Venous -1.1 mmol/L (-30.0-30.0); Bicarbonate (HCO3v) 21.9 mmol/L (1.0-85.0); CO2 Tension (PvCO2) 31.3 mmHg (41.0-51.0); Calcium, Ionized 0.98 mmol/L (1.12-1.32); Hemoglobin - Calc 15.3 g/dL (12.0-18.0); O2 Tension (PvO2) 90.7 mmHg (35.0-45.0); Potassium 3.5 mmol/L (3.4-4.7); T. Carbon Dioxide 22.8 mmol/L (1.0-85.0); pH (Venous) 7.452 (7.35-7.45); vO2 Saturation-calc 97.5 % (0.0-100.0)
[2017-12-01] MEDS ORDERED: Promethazine HCl 25 MG/ML VIAL ONE ×2 (19:40→22:39)
[2017-12-01 19:47] LABS: Bilirubin Moderate (Negative); Blood, Urine Large (Negative); Clarity TURBID (Clear); Glucose, Urine (Dipstick) 250 mg/dL (Negative); Leukocyte Trace (Negative); Nitrite Negative (Negative); Protein, Urine (Dipstick) 100 mg/dL (Neg-Trace); pH, Urine 5.5 (5.0-9.0)
[2017-12-01 19:48] LABS: Bacteria/HPF Rare-Few HPF (None Seen); RBC/HPF GREATER THAN 50-TNTC HPF (0-3)
[2017-12-01 19:55] LABS: Hyaline Casts/LPF 4-6 HYALINE CAST LPF (0-3 Hyaline); Manual Microscopic Reviewed? No Path Casts Seen; Pathc Cast-AUWi Flag 2.84 (0-2.49); Renal Epithelial None Seen HPF (0-3); Transitional Epithelial NONE SEEN HPF (0-3)
--- NOTE | 2017-12-01 20:15 | RAD ---
FRONTAL VIEW CHEST: Indication: Chest pain. Comparison: 08-15-17 FINDINGS: There is no consolidation, effusion, or pneumothorax. Cardiac silhouette is within normal in size for portable technique. IMPRESSION: No focal consolidation. POS: [facility]
--- NOTE | 2017-12-01 21:52 | CT ---
ABDOMEN AND PELVIC CT WITH CONTRAST: Indication: Abdominal pain, nausea, vomiting, diarrhea. Comparison: 09-22-17 FINDINGS: No significant abnormality at the imaged lung bases. Punctate ground glass subpleural nodularity is t oo small to definitely characterize. Fatty infiltration of the liver is present with evidence of prio r cholecystectomy. No hydronephrosis of the kidneys or evidence of adrenal mass. No peripancreatic in flammation. Spleen is unremarkable. Bowel is not reliably assessed without enteric contrast. There is no free air seen. There is a right adnexal cyst which may be physiologic if patient is premenopausal . Correlate clinically. Aorta is normal in caliber. No ascites of significance visualized. Mild colon ic diverticulosis is present. No acute osseous pathology. Non-inflamed fat containing periumbilical h ernia present. IMPRESSION: 1. Hepatic steatosis with evidence of prior cholecystectomy. 2. Presumed physiologic cyst at the right adnexa if the patient is premenopausal. 6 week follow up pe lvic ultrasound would prove useful to document resolution. 3. Incomplete assessment of the bowel without enteric contrast administration. POS: [facility]
[2017-12-01] MEDS ORDERED: Dextrose 5% in Water 1,000 ML IV PRN (23:37)
[2017-12-01] MEDS ORDERED: HYDROcodone/Acetaminophen 5/325 mg Tablet PO PRN (23:37)
[2017-12-01] MEDS ORDERED: Dextrose 50% Abboject 50 ML SYRINGE SLOW IVP PRN (23:37)
[2017-12-01] MEDS ORDERED: Acetaminophen 325 MG TAB PO PRN (23:37)
[2017-12-01] MEDS ORDERED: HYDROcodone/Acetaminophen 7.5/325 mg Tablet PO PRN (23:37)
[2017-12-01] MEDS ORDERED: HumaLOG 300 UNITS/3 ML VIAL SC PRN (23:37)
[2017-12-01] MEDS ORDERED: Promethazine HCl 25 MG/ML VIAL IM/IV PRN (23:40)
[2017-12-01] MEDS ORDERED: cloNIDine 0.2 MG TAB PO SCH (23:45)
--- NOTE | 2017-12-02 00:24 | HP ---
CHIEF COMPLAINT: Nausea, vomiting, and chest discomfort. HISTORY OF PRESENT ILLNESS: The patient is a 36-year-old female, who presents with 3 days' worth of nausea and vomiting. Nausea and vomiting is also accompanied by some chest discomfort. The patient has not been able to keep anything down from a p.o. standpoint. She states that she has had prior ch est discomfort and has been admitted last year; however, had not had a full evaluation. PAST MEDICAL HISTORY: Patient significant for coronary artery disease, type 2 diabetes, and hyperten martha as well as gastroparesis and gastritis. PAST SURGICAL HISTORY: The patient has had prior cholecystectomy, x2, and left thumb cyst removed. SOCIAL HISTORY: Negative tobacco or alcohol use. REVIEW OF SYSTEMS: See HPI. Rest of 14-point review of system is negative. FAMILY HISTORY: Reviewed and noncontributory. LABORATORY AND X-RAY DATA: Patient's CBC white count is 10, H and H 13 and 42 with a platelet of 382 . Sodium 136, potassium 3.5, chloride 100, bicarbonate 21, BUN 13, creatinine 1.0. Troponin 0.076. Patient's chest x-ray was unremarkable. CT of the abdomen and pelvis does not show any acute changes . PHYSICAL EXAMINATION: VITAL SIGNS: Initial blood pressure was 199/113, pulse 146, respirations 18. The patient satting 95 % on room air. T-max is 98.4. GENERAL: Patient is awake, alert, and oriented x3, somewhat nauseous and in slight distress from thi s. HEENT: Pupils equal, round, react to light and accommodation. Extraocular muscles intact. TMs gisel r. No thyromegaly. NECK: No JVD, no lymphadenopathy. CARDIOVASCULAR: Regular rhythm. LUNGS: Clear to auscultation bilaterally and positive bowel sounds. ABDOMEN: Soft, nontender, nondistended. EXTREMITIES: No clubbing, cyanosis, or edema. NEUROLOGIC: Cranial nerves II through XII are grossly intact. Muscle strength was equal throughout and 5/5. PSYCHIATRIC: Psychiatrically, the patient is cooperative and answering questions appropriately. ASSESSMENT AND PLAN: 1. Chest discomfort. Continue her serial EKGs and enzymes further risk stratification as warranted. 2. Nausea, vomiting, most likely secondary to gastroparesis. Continue with symptom control. Contin ue with blood pressure control. 3. Type 2 diabetes. Continue with outpatient regimen and insulin sliding scale. 4. Hypertension. Restart outpatient meds. Control nausea symptoms to improve blood pressure. CODE STATUS: Patient is a FULL CODE.
[2017-12-02] MEDS: Sodium Chloride 0.9% 1,000 ML IV SCH ×2 (00:25→13:56)
[2017-12-02] MEDS ORDERED: Zolpidem Tartrate 5 MG TAB PO SCH ×2 (00:30→21:00)
[2017-12-02] MEDS: traMADol HCl 50 MG TAB PO PRN ×3 (01:06→18:55)
[2017-12-02 05:06] LABS: #Basophils 0.1 thou/uL (0.0-0.2); #Eosinphils 0.1 thou/uL (0.0-0.7); #Lymphocytes 2.5 thou/uL (1.20-3.40); #Monocytes 0.7 thou/uL (0.11-0.59); %Basophils 0.6 % (0.0-1.0); %Eosinophils 0.8 % (0.0-10.0); %Lymphocytes 30.2 % (21.0-51.0); %Monocytes 8.7 % (0.0-10.0); %Neutrophils 59.7 % (42.0-75.0); Hemoglobin 11.9 g/dL (12.0-16.0); Mean Corpuscular Hemoglobin 30.5 pg (27.0-31.0); Mean Corpuscular Volume 92.3 fl (81.0-99.0); Mean Platelet Volume 6.9 fL (7.4-10.4); Platelet Count 291 thou/uL (130-400); RBC Distribution Width 14.3 % (11.5-14.5); Red Blood Cell (RBC) Count 3.89 mill/uL (4.20-5.40); White Blood Cell (WBC) Count 8.3 thou/uL (4.8-10.8)
[2017-12-02 05:33] LABS: Anion Gap 17 mmol/L (10-20); BUN (Urea Nitrogen) 10 mg/dL (7.0-18.7); Calc. Creatinine Clearance 0 mL/min (70-130); Calcium 8.3 mg/dL (7.8-10.44); Carbon Dioxide 22 mmol/L (22-29); Chloride 105 mmol/L (98-107); Estimated GFR-MDRD Greater than 90; Glucose 152 mg/dL (70-105); Potassium 3.5 mmol/L (3.5-5.1); Sodium 140 mmol/L (136-145)
[2017-12-02 05:37] LABS: Troponin I 0.091 ng/mL (< 0.028)
[2017-12-02 05:46] VITALS: BMI 47.2
[2017-12-02] MEDS: cloNIDine 0.2 MG TAB PO SCH ×3 (06:25→23:10)
[2017-12-02] MEDS: Lisinopril 20 MG TAB PO SCH ×2 (08:40→23:11)
[2017-12-02] MEDS: metFORMIN 500 MG TAB PO SCH (08:40)
[2017-12-02] MEDS: Enoxaparin Sodium 30 MG/0.3 ML SYRINGE SC SCH (08:40)
[2017-12-02] MEDS: Carvedilol 25 MG TAB PO SCH ×2 (08:40→17:59)
[2017-12-02] MEDS: Amlodipine 5 MG TAB PO SCH (08:40)
[2017-12-02] MEDS: Aspirin 325 MG TAB PO SCH (08:40)
[2017-12-02] MEDS: Metoclopramide HCl 10 MG TAB PO PRN ×2 (12:14→18:55)
--- NOTE | 2017-12-02 12:30 | PDOC.PN ---
- Subjective Encounter Start Date: 12/02/17 Encounter Start Time: 12:29 Subjective: N/V resolved, epigastric pressure - Objective Resuscitation Status: Resuscitation Status FULL:Full Resuscitation MAR Reviewed: Yes Vital Signs & Weight: Vital Signs (12 hours) Temp Pulse Resp BP BP BP Pulse Ox 12/02/17 11:10 97.5 F L 97 24 H 96/52 L 100 12/02/17 08:00 98.6 F 120 H 16 12/02/17 07:15 98.6 F 120 H 16 134/86 100 12/02/17 06:25 169/89 H 12/02/17 03:01 99.2 F 119 H 26 H 128/58 L 100 12/02/17 01:59 98.9 F 127 H 20 12/02/17 01:51 178/100 H Weight Weight 275 lb 1.6 oz I&O: 12/01/17 12/02/17 12/03/17 06:59 06:59 06:59 Intake Total 641 Balance 641 Result Diagrams: 12/02/17 04:49 12/02/17 04:49 Additional Labs: Accuchecks 12/02/17 12/02/17 10:48 00:25 POC Glucose 152 H 169 H Phys Exam - Physical Examination Constitutional: NAD Neck: no JVD Respiratory: clear to auscultation bilateral Cardiovascular: RRR, no significant murmur Gastrointestinal: soft, positive bowel sounds Musculoskeletal: edema present Dx/Plan (1) Nausea & vomiting Code(s): R11.2 - NAUSEA WITH VOMITING, UNSPECIFIED Status: Acute Qualifiers: Vomiting Intractability: unspecified (2) Abnormal cardiac enzyme level Code(s): R74.8 - ABNORMAL LEVELS OF OTHER SERUM ENZYMES Status: Acute (3) Hypertensive emergency Code(s): I16.1 - HYPERTENSIVE EMERGENCY Status: Acute Comment: improving (4) Diabetes type 2, controlled Code(s): E11.9 - TYPE 2 DIABETES MELLITUS WITHOUT COMPLICATIONS Status: Chronic Qualifiers: Diabetes mellitus complication status: without complication (5) Gastroparesis Code(s): K31.84 - GASTROPARESIS Status: Chronic - Plan cont reglan etc -: stat troponin. probable sterss test * .
[2017-12-02 13:23] LABS: Troponin I 0.088 ng/mL (< 0.028)
[2017-12-03] MEDS: Sodium Chloride 0.9% 1,000 ML IV SCH (03:56)
[2017-12-03] MEDS: cloNIDine 0.2 MG TAB PO SCH (06:13)
[2017-12-03] MEDS ORDERED: Polyethylene Glycol 3350 17 GM Packet PO PRN (07:32)
[2017-12-03] MEDS: metFORMIN 500 MG TAB PO SCH (08:23)
[2017-12-03] MEDS: Aspirin 325 MG TAB PO SCH (08:23)
[2017-12-03] MEDS: Carvedilol 25 MG TAB PO SCH (08:23)
[2017-12-03] MEDS: Lisinopril 20 MG TAB PO SCH (08:23)
[2017-12-03] MEDS: Enoxaparin Sodium 30 MG/0.3 ML SYRINGE SC SCH (08:23)
[2017-12-03] MEDS: Amlodipine 5 MG TAB PO SCH (08:24)
--- NOTE | 2017-12-03 08:48 | DIS ---
DATE OF ADMISSION: 12/01/2017 DATE OF DISCHARGE: 12/03/2017 PRIMARY CARE PROVIDER: Matt Patel. DISCHARGE DISPOSITION: Discharged home. FINAL DIAGNOSES: 1. Nausea and vomiting, resolved. 2. Hypertensive urgency, resolved. 3. Diabetes mellitus type 2 with normal renal function. 4. Elevated troponins. DISCHARGE MEDICATIONS: Tramadol 50 mg q.6 hours p.r.n., metformin 500 mg a day, clonidine 0.2 mg q.8 hours, lisinopril 20 mg twice a day, Protonix 40 mg a day, Reglan 10 mg p.o. t.i.d. with meals, Core g 25 mg p.o. b.i.d., aspirin 325 mg a day, amlodipine 5 mg a day. ALLERGIES: NITROGLYCERIN. CODE STATUS: FULL. PENDING AT THE TIME OF DISCHARGE: Nothing. CONSULTATIONS: None. PROCEDURES: None. HOSPITAL COURSE: The patient was admitted with nausea, vomiting, some vague chest discomfort. It is really epigastric discomfort. The patient had a chest x-ray that was clear. A CT abdomen and pelvi s revealed nothing. Her laboratory admitting complete metabolic profile showed minimal elevations of AST and ALT 71 and 83. She did have elevated troponin 0.076, 0.091, 0.088. I have reviewed her old chart. This is consistent with previous numbers. It is pertinent that this young woman had a perfe ctly normal cardiac catheterization in less than 2 years ago. She was treated with IV Reglan and the n p.o. Reglan. Blood pressure has remained well controlled during her hospital stay. She is comfort able, desirous of going home. She is being discharged for followup with her PCP in 7 days.
[2017-12-03 11:49] VITALS: BP 132/75; TEMP 98.5
--- NOTE | 2017-12-07 17:05 | EKG ---
Test Reason : CP Blood Pressure : / mmHG Vent. Rate : 143 BPM Atrial Rate : 143 BPM P-R Int : 120 ms QRS Dur : 068 ms QT Int : 352 ms P-R-T Axes : 056 026 055 degrees QTc Int : 543 ms Sinus tachycardia Right atrial enlargement Moderate voltage criteria for LVH, may be normal variant Nonspecific T wave abnormality Abnormal ECG Confirmed by MARIAM WHITTEN D.O. ([id number]), graphics editor PEGGY HAWTHORNE ([id number]) on 12/07/2017 5:04:27 PM Referred By: Confirmed By:MARIAM WHITTEN D.O.
== END 2017-12-03 12:49 | disposition home or self-care (01) ==
LOC: ERS 17:59 → 2SW 21:19
PROVIDERS: ADMIT Hospitalist; ATTEND Hospitalist
DX: R11.2 Nausea with vomiting, unspecified (principal); I16.0 Hypertensive urgency; R79.89 Other specified abnormal findings of blood chemistry; R10.13 Epigastric pain; I25.10 Atherosclerotic heart disease of native coronary artery without angina pectoris; I10 Essential (primary) hypertension; E11.43 Type 2 diabetes mellitus with diabetic autonomic (poly)neuropathy; K31.84 Gastroparesis; Z79.84 Long term (current) use of oral hypoglycemic drugs; Z79.899 Other long term (current) drug therapy; Z88.8 Allergy status to other drugs, medicaments and biological substances
CPT/HCPCS: 36415; 36416; 71045; 74177; 80048; 80053; 81003; 81015; 82010; 82330; 82553; 82803; 83690; 83735; 84484; 85025; 93005; 96361; 96365; 96366; 96372; 96375; 96376; G0378; J0360; J1650; J2270; J2550; J2765

== ENCOUNTER 2017-12-20 03:24 | Inpatient (IN) | payer OTHER ==
[2017-12-20 04:09] LABS: #Basophils 0.1 thou/uL (0.0-0.2); #Eosinphils 0.1 thou/uL (0.0-0.7); #Monocytes 0.6 thou/uL (0.11-0.59); #Neutrophils 7.1 thou/uL (1.40-6.50); %Basophils 0.5 % (0.0-1.0); %Eosinophils 0.9 % (0.0-10.0); %Lymphocytes 27.6 % (21.0-51.0); %Monocytes 5.3 % (0.0-10.0); %Neutrophils 65.7 % (42.0-75.0); Hemoglobin 13.2 g/dL (12.0-16.0); Mean Corpuscular Hemoglobin 30.4 pg (27.0-31.0); Mean Corpuscular Volume 89.2 fl (81.0-99.0); Mean Platelet Volume 7.4 fL (7.4-10.4); Platelet Count 374 thou/uL (130-400); Red Blood Cell (RBC) Count 4.34 mill/uL (4.20-5.40); White Blood Cell (WBC) Count 10.8 thou/uL (4.8-10.8)
[2017-12-20] MEDS ORDERED: Ondansetron HCl/PF 4 MG/2 ML Vial ONE (04:14)
[2017-12-20] MEDS ORDERED: Morphine 4 MG/ML VIAL ONE ×2 (04:15→06:46)
[2017-12-20 04:29] LABS: ALT (SGPT) 99 U/L (8-55); AST (SGOT) 111 U/L (5-34); Alkaline Phosphatase 154 U/L (40-150); Anion Gap 18 mmol/L (10-20); BUN (Urea Nitrogen) 11 mg/dL (7.0-18.7); Bilirubin, Total 0.2 mg/dL (0.2-1.2); CK (CPK) 39 U/L (29-168); Calc. Creatinine Clearance 0 mL/min (70-130); Calcium 9.6 mg/dL (7.8-10.44); Carbon Dioxide 25 mmol/L (22-29); Chloride 99 mmol/L (98-107); Estimated GFR-MDRD Greater than 90; Globulin 3.9 g/dL (2.4-3.5); Glucose 187 mg/dL (70-105); Lipase 52 U/L (8-78); Potassium 3.8 mmol/L (3.5-5.1); Protein, Total 7.9 g/dL (6.0-8.3); Sodium 138 mmol/L (136-145)
[2017-12-20 04:46] LABS: CKMB 0.6 ng/mL (0-6.6); Troponin I 0.057 ng/mL (< 0.028)
[2017-12-20] MEDS ORDERED: Senokot 8.6 MG TAB PO PRN (05:09)
[2017-12-20] MEDS ORDERED: Benzonatate 100 MG CAP PO PRN (05:09)
[2017-12-20] MEDS ORDERED: Dextrose 5% in Water 1,000 ML IV PRN (05:09)
[2017-12-20] MEDS ORDERED: Ondansetron HCl/PF 4 MG/2 ML Vial IVP PRN (05:09)
[2017-12-20] MEDS ORDERED: Diabetic Tussin 200 MG/10 ML UDCUP PO PRN (05:09)
[2017-12-20] MEDS ORDERED: Acetaminophen 325 MG TAB PO PRN (05:09)
[2017-12-20] MEDS ORDERED: Calcium Carbonate 500 MG ChewTAB PO PRN ×2 (05:09)
[2017-12-20] MEDS ORDERED: Bisacodyl 5 MG TAB PO PRN (05:09)
[2017-12-20] MEDS ORDERED: hydrALAZINE 20 MG/ML VIAL SLOW IVP PRN (05:09)
[2017-12-20] MEDS ORDERED: Insulin Regular 300 UNITS/3 ML VIAL SC PRN ×2 (05:09)
[2017-12-20] MEDS ORDERED: cloNIDine 0.1 MG TAB PO PRN (05:09)
[2017-12-20] MEDS ORDERED: Mag-Al 1200 mg/1200 mg/30 ML UDCUP PO PRN ×2 (05:09)
[2017-12-20] MEDS ORDERED: Dextrose 50% Abboject 50 ML SYRINGE SLOW IVP PRN (05:09)
[2017-12-20] MEDS ORDERED: Nitroglycerin 0.4 MG TAB (25 Tab Bottle) ONE (05:12)
[2017-12-20 05:15] LABS: Bilirubin Small (Negative); Blood, Urine Negative (Negative); Clarity CLEAR (Clear); Glucose, Urine (Dipstick) 100 mg/dL (Negative); Leukocyte Negative (Negative); Nitrite Negative (Negative); Protein, Urine (Dipstick) 100 mg/dL (Neg-Trace); Specific Gravity, Urine 1.027 (1.002-1.036)
[2017-12-20 05:20] LABS: Bacteria/HPF None Seen HPF (None Seen); Hyaline Casts/LPF 4-6 HYALINE CAST LPF (0-3 Hyaline); RBC/HPF 0-3 HPF (0-3); Squamous Epithelial 0-3 HPF (0-3); WBC/HPF 0-3 HPF (0-3)
[2017-12-20] MEDS ORDERED: cloNIDine 0.1 MG TAB ONE (06:08)
[2017-12-20] MEDS ORDERED: Labetalol HCl 100 MG/20 ML VIAL ONE (06:10)
--- NOTE | 2017-12-20 06:34 | HP ---
DATE OF ADMISSION: 12/20/2017 PRIMARY CARE PHYSICIAN: [facility]. CHIEF COMPLAINT: Epigastric pain and right lower extremity pain. HISTORY OF PRESENT ILLNESS: Ms. Berumen is a pleasant 37-year-old obese -Guyanese female with p ast medical history of diabetes mellitus, hypertension as well as diabetic gastroparesis who presente d to the emergency room with the above-mentioned complaints. History is mainly obtained by the patie nt herself and her electronic medical records have been reviewed. The patient was recently admitted to our facility less than a month ago for further workup of chest pain, hypertensive urgency, nausea and vomiting. She was discharged on Reglan as needed. She was noted to have elevated troponin, whic h is actually largely chronic for this patient. She also has chronic elevation of liver enzymes on a nd off. Today, she came to the ER because she is having significant amount of epigastric pain for the last 2 days. She tried to take some Tums and Maalox without any benefit. She also has been having signific ant pain in her left knee, left ankle, and left big toe. She describes the leg pain as a sharp shoot ing pain. The epigastric pain is making her nauseous, but she is not throwing up. She denies any co nstipation or diarrhea. No fever or chills. Upon presentation to the emergency room, she was significantly hypertensive with a blood pressure of 198/110 and tachycardic, pulse of 111 because of the pain. She was found to have once again elevated borderline troponin of 0.057 with some EKG changes in the lateral leads. She has undergone lower ex tremity Doppler and CT angio of the chest because of an elevated D-dimer, both negative for any blood clots. Her liver enzymes were found to be elevated more than her usual. Her AST is 111, ALT is 99 and her alkaline phosphatase is 154. She is status post cholecystectomy, multiple years ago. Her ur inalysis shows bilirubin along with proteinuria and glucosuria. She is now being admitted for [facility] evaluation and care. She has a normal cardiac catheterization 2 years ago in 03/19/2016. PAST MEDICAL HISTORY: 1. Diabetes mellitus. 2. Hypertension. 3. Fatty liver. 4. Diabetic gastroparesis. PAST SURGICAL HISTORY: 1. Cholecystectomy. 2. section. 3. Left thumb cyst removal. SOCIAL HISTORY: She denies any drug, tobacco or alcohol abuse. FAMILY HISTORY: Notable for mother having heart disease, high blood pressure and stroke. No family history of diabetes. No blood clots or cancer. ALLERGIES: No known medication allergies. CURRENT MEDICATIONS: As per the most recent discharge summary on 12/03/2017, she takes the following : Metformin 500 mg in the morning, unclear if it is longer acting or not. Clonidine 0.2 mg every 8 hours, Protonix 40 mg daily, but the patient denies taking any antacid, Reglan 10 mg p.o. t.i.d. p.r. n., lisinopril 20 mg p.o. b.i.d., carvedilol 25 mg p.o. b.i.d., aspirin 325 mg daily, Norvasc 5 mg da beau. I am not sure if the patient is taking all of these medications or not. There is also some que stion of compliance. REVIEW OF SYSTEMS: The following complete review of systems was negative, unless otherwise mentioned in the HPI or below: Constitutional: Weight loss or gain, ability to conduct usual activities. Skin: Rash, itching. Eyes: Double vision, pain. ENT/Mouth: Nose bleeding, neck stiffness, pain, tenderness. Cardiovascular: Palpitations, dyspnea on exertion, orthopnea. Respiratory: Shortness of breath, wheezing, cough, hemoptysis, fever or night sweats. Gastrointestinal: Poor appetite, abdominal pain, heartburn, nausea, vomiting, constipation, or diarr hea. Genitourinary: Urgency, frequency, dysuria, nocturia. Musculoskeletal: Pain, swelling. Neurologic/Psychiatric: Anxiety, depression. Allergy/Immunologic: Skin rash, bleeding tendency. It is negative except for those mentioned in the history and physical. PHYSICAL EXAMINATION: VITAL SIGNS: Upon presentation, blood pressure 198/110, pulse of 111, respirations 22, temperature 9 8.9, and saturating 100% on room air. GENERAL: She appears uncomfortable and somewhat scared. She is having pain in the epigastric region . Otherwise, awake, alert, and oriented x3. HEENT: Mucous membrane is moist and pink. No oropharyngeal exudate or erythema. Head is normocepha lic, atraumatic. Pupils equal, reactive to light and accommodation. Extraocular movement intact. NECK: Supple without any lymphadenopathy, JVD or bruit. CHEST: Clear to auscultation without any wheezing, rales or rhonchi. Rate and rhythm is regular wit hout any murmur, rubs or gallops. ABDOMEN: Tender to palpation in the epigastric region, somewhat distended, but soft. She does have right upper quadrant tenderness on deep palpation. No rebound, guarding or rigidity. EXTREMITIES: Show some nonpitting edema both lower extremities. She does not have any joint swellin g, erythema, or warmth. NEUROLOGIC: Nonfocal. SKIN: Free of any rashes or bruises. PSYCHIATRIC: Normal affect. LABORATORY DATA: CBC is unremarkable. D-dimer elevated to 1.54. Serum chemistries, liver enzymes a s per HPI. Blood sugar 187. Lipase is normal. Urinalysis is negative for any evidence of infection . Chest x-ray by my review has no evidence to suggest pleural effusion, edema or infiltrate. Twelve lead EKG showed some lateral lead changes suggestive of ischemia, but are nonspecific. IMPRESSION AND PLAN: 1. Epigastric pain. This is most likely secondary to fatty liver, but retained common bile duct sto alverto cannot be ruled out. She also has elevated liver enzymes as well as high bilirubin in the urine. At this time, we will start her on proton pump inhibitor and consult Gastroenterology for further r ecommendations. A right upper quadrant ultrasound has been performed. I highly doubt that this is a cardiac pain. She has a normal cardiac catheterization 2 years ago. However, we will continue to t rend the serial cardiac enzymes. They are still in the indeterminate range, which is chronic for thi s patient. Continue symptomatic and supportive care. 2. Left leg pain, it does not seem like that the patient has any joint infection or effusion. It do es not appear to be gout. Most likely she has neuropathic pain, which has been untreated for so many years. We will start her on low dose gabapentin and she is instructed to follow up with PCP for up titration of the medication and monitoring of the side effects. 3. Hypertensive urgency. The patient will be restarted on her home medication and we will adjust as needed. She will be continued on amlodipine, carvedilol as well as lisinopril. 4. Chest pain, rather this is an epigastric pain. The patient does not really have any chest pain. Her CT angio is negative for any pulmonary embolism as a D-dimer was elevated. 5. Uncontrolled diabetes mellitus. We will restart her on metformin long-acting once a day instead of short-acting. Insulin while in the hospital. The patient will need glucometer at the time of dis charge with other supplies. At this time, she is not checking her blood sugars at home at all. 6. Morbid obesity. 7. Fatty liver. The patient has been educated about low fat diet and weight loss and healthy lifest yle. She is motivated. 8. History of diabetic gastroparesis, currently not having any symptoms. 9. Deep venous thrombosis and gastrointestinal prophylaxis. DISPOSITION: The patient is currently being admitted for further workup for epigastric pain and julien tment of hypertensive urgency. Estimated length of stay at this time is 2 to 3 midnights for treatme nt of hypertensive urgency and further evaluation of her epigastric pain. Further management will de pend upon her clinical course.
[2017-12-20 07:59] LABS: Troponin I 0.054 ng/mL (< 0.028)
[2017-12-20] MEDS ORDERED: metFORMIN 500 MG TAB PO SCH (08:00)
--- NOTE | 2017-12-20 08:05 | RAD ---
ONE VIEW CHEST: HISTORY: Pain. Nausea and vomiting. COMPARISON: 12/01/17. FINDINGS: Normal cardiac silhouette. The lungs and pleural spaces are clear. No pneumothorax or osseous abnor malities. IMPRESSION: No acute cardiopulmonary process. POS: [facility]
[2017-12-20 08:38] VITALS: BMI 49.6
[2017-12-20] MEDS ORDERED: Famotidine 20 MG TAB PO SCH (09:00)
--- NOTE | 2017-12-20 09:23 | CT ---
PRELIMINARY REPORT/[facility]/EMERGENCY AFTER HOURS PROCEDURE: EXAM: CT Angiography Chest With Intravenous Contrast CLINICAL HISTORY: 37 years old, female; Dyspnea, SOB; upper abdominal pain. left knee / left foot pain x 3 days. nausea and palpitations. TECHNIQUE: Axial computed tomographic angiography images of the chest with intravenous contrast using pulmonary embolism protocol. MIP reconstructed images were created and reviewed. Oblique reformatted images were created and reviewed. COMPARISON: No relevant prior studies available. FINDINGS: Pulmonary arteries: No evidence of pulmonary embolism. Aorta: Normal caliber thoracic aorta without dissection or aneurysm. Lungs: No alveolar infiltrate. No mass. Pleural space: No pleural fluid collection. No pneumothorax. Heart: No pericardial effusion. No evidence of RV dysfunction. Bones/joints: No acute fracture. No dislocation. Soft tissues: Unremarkable. Lymph nodes: No pathologically enlarged lymph nodes. Liver: Areas of mild geographic fatty infiltration in the liver. IMPRESSION: 1. No evidence of pulmonary embolism. 2. No alveolar infiltrate. Thank you for allowing us to participate in the care of your patient. Dictated and Authenticated by: Andrew Garay MD 12/20/2017 5:09 AM Central Time ([place] & [place]) FINAL REPORT CT ANGIOGRAM OF CHEST: COMPARISON: 09/11/16. HISTORY: Dyspnea. TECHNIQUE: CT angiogram of the chest was performed in the axial plane. Bilateral oblique and coronal 3-dimensio nal reformatted images are submitted for interpretation. FINDINGS: This report is in agreement with the preliminary report by [facility]. No evidence of pulmonary artery embo lism to the level of the segmental arteries. POS: [facility]
--- NOTE | 2017-12-20 09:25 | ULT ---
PRELIMINARY REPORT/[facility]/EMERGENCY AFTER HOURS PROCEDURE: EXAM: US Duplex Left Lower Extremity Veins CLINICAL HISTORY: 37 years old, female; LLE extremity pain and edema TECHNIQUE: Real-time ultrasound scan of the veins of the left lower extremity with color Doppler flow, spectral waveform analysis and compression. COMPARISON: No relevant prior studies available. FINDINGS: Deep veins: Unremarkable. No DVT in the visualized common femoral, femoral, proximal deep femoral or popliteal veins. The veins demonstrate normal color flow, are normally compressible, with normal phas ic flow and/or augmentation response. Superficial veins: Unremarkable. No thrombus in the visualized great saphenous vein. Soft tissues: No acute findings. No popliteal cyst. IMPRESSION: No deep venous thrombosis of the left lower extremity. Thank you for allowing us to participate in the care of your patient. Dictated and Authenticated by: Andrew Garay MD 12/20/2017 5:13 AM Central Time ([place] & [place]) FINAL REPORT BY DR. BLAKELY EMERGENCY AFTER HOURS STUDY ULTRASOUND WITH DOPPLER DUPLEX VENOUS LOWER EXTREMITY LEFT: HISTORY: 37-year-old female with left lower extremity pain and edema. TECHNIQUE: Color flow Doppler, spectral waveform analysis of pulsed Doppler, and navarrete-scale imaging with mariela martha and augmentation, were used to evaluate the left common femoral, femoral, popliteal, posterior t ibial, and superficial femoral, veins; and the proximal portions of the profunda femoral and greater saphenous, veins. FINDINGS: There is normal compressibility, demonstration of blood flow by color Doppler and pulsed Doppler, and response to augmentation, in all interrogated veins. This report agrees with the preliminary report by [facility]. IMPRESSION: Negative. No deep vein thrombosis in the left lower extremity. jn[] POS: [facility]
--- NOTE | 2017-12-20 09:36 | ULT ---
PRELIMINARY REPORT/[facility]/EMERGENCY AFTER HOURS PROCEDURE: EXAM: US Abdomen Limited, Right Upper Quadrant EXAM DATE/TIME: 12/20/2017 5:17 AM CLINICAL HISTORY: 37 years old, female; Pain; Abdominal pain; Epigastric; Prior surgery; Surgery date: 6+ months; Surge ry type: Cholecystectomy TECHNIQUE: Real-time ultrasound of the right upper quadrant with image documentation. COMPARISON: No relevant prior studies available. FINDINGS: Liver: -The liver is echogenic likely fatty infiltration. Liver 17 cm No intrahepatic bile duct dilat ion. Gallbladder: Prior cholecystectomy. Common bile duct: Common bile duct normal. Common bile duct 4 mm Pancreas: Visualized portions of the pancreas normal. Right kidney: Right kidney is normal. Right kidney 11.8 cm No stones. No hydronephrosis. IMPRESSION: 1. -The liver is echogenic likely fatty infiltration. 2. Prior cholecystectomy. Thank you for allowing us to participate in the care of your patient. Dictated and Authenticated by: Rigo Epstein MD 12/20/2017 5:47 AM Central Time ([place]) FINAL REPORT BY DR. BLAKELY EMERGENCY AFTER HOURS STUDY ULTRASOUND ABDOMEN LIMITED: (RIGHT UPPER QUADRANT) Date: 12/20/17 Time: 0530 hours HISTORY: 37-year-old female with epigastric pain. FINDINGS: Gallbladder: Surgically absent. Common duct: 4 mm. Liver: Diffusely increased echogenicity consistent with fatty liver. Mildly enlarged. Pancreas: Nonspecific sonographic appearance. Partially obscured by shadowing from bowel gas. Right kidney: Normal. This report agrees with the preliminary report by [facility]. IMPRESSION: 1. Status post cholecystectomy. 2. Hepatic steatosis and mild hepatomegaly. DEVIN Huddleston POS: [facility]
[2017-12-20 10:43] LABS: Troponin I 0.039 ng/mL (< 0.028)
[2017-12-20] MEDS: Aspirin 325 MG TAB PO SCH (10:48)
[2017-12-20] MEDS: Amlodipine 5 MG TAB PO SCH (10:48)
[2017-12-20] MEDS: traMADol HCl 50 MG TAB PO PRN ×3 (10:51→21:38)
[2017-12-20] MEDS: Lorazepam 1 MG TAB PO PRN ×3 (10:51→21:38)
[2017-12-20] MEDS: metFORMIN XR 500 MG TAB PO SCH (10:52)
[2017-12-20] MEDS: Gabapentin 300 MG CAP PO SCH ×3 (10:53→20:34)
[2017-12-20] MEDS: Carvedilol 25 MG TAB PO SCH ×2 (10:53→17:09)
[2017-12-20] MEDS: Lisinopril 20 MG TAB PO SCH ×2 (10:53→20:34)
[2017-12-20] MEDS: cloNIDine 0.2 MG TAB PO SCH ×3 (10:53→21:38)
[2017-12-20] MEDS: Enoxaparin Sodium 40 MG/0.4 ML SYRINGE SC SCH (10:54)
--- NOTE | 2017-12-20 12:41 | PDOC.PN ---
- Subjective Encounter Start Date: 12/20/17 Encounter Start Time: 10:15 Subjective: feels better, is able to tolerate oral intake this am - Objective MAR Reviewed: Yes Vital Signs & Weight: Vital Signs (12 hours) Temp Pulse Resp BP BP Pulse Ox 12/20/17 11:00 98 F 101 H 16 171/78 H 99 12/20/17 10:48 92 171/78 H 12/20/17 07:50 99 F 92 18 98 12/20/17 07:45 99 F 92 18 144/69 H 98 Weight Weight 289 lb 1 oz Result Diagrams: 12/20/17 04:05 12/20/17 03:46 Additional Labs: Accuchecks 12/20/17 10:45 POC Glucose 209 H Phys Exam - Physical Examination HEENT: PERRLA, moist MMs Neck: no JVD, supple Respiratory: no wheezing, no rales Cardiovascular: RRR, no significant murmur Gastrointestinal: soft, non-tender, positive bowel sounds Musculoskeletal: no edema, pulses present Neurological: non-focal, moves all 4 limbs Psychiatric: A&O x 3 Dx/Plan (1) Abnormal cardiac enzyme level Code(s): R74.8 - ABNORMAL LEVELS OF OTHER SERUM ENZYMES Status: Acute (2) Nausea & vomiting Code(s): R11.2 - NAUSEA WITH VOMITING, UNSPECIFIED Status: Acute Qualifiers: Vomiting type: unspecified (3) Diabetes type 2, controlled Code(s): E11.9 - TYPE 2 DIABETES MELLITUS WITHOUT COMPLICATIONS Status: Chronic Qualifiers: Diabetes mellitus complication status: with unspecified complications Diabetes mellitus fci insulin use: without petroleum terminal plant operator use Qualified Code( s): E11.8 - Type 2 diabetes mellitus with unspecified complications (4) Gastroparesis Code(s): K31.84 - GASTROPARESIS Status: Chronic (5) Morbid obesity with BMI of 45.0-49.9, adult Code(s): E66.01 - MORBID (SEVERE) OBESITY DUE TO EXCESS CALORIES; Z68.42 - BODY MASS INDEX (BMI) 45.0-49.9, ADULT Status: Chronic (6) HTN (hypertension) Code(s): I10 - ESSENTIAL (PRIMARY) HYPERTENSION Status: Chronic Qualifiers: Hypertension type: essential hypertension Qualified Code(s): I10 - Essential (primary) hypertension - Plan for EGD in am -: hemostable -: to ambulate in hallway as tolerated -: continue reglan prn -: htn is better controlled now * . Review of Systems - Medications/Allergies Allergies/Adverse Reactions: Allergies Allergy/AdvReac Type Severity Reaction Status Date / Time nitroglycerin Allergy Verified 12/20/17 08:13 Medications: Current Medications Acetaminophen (Tylenol) 650 mg PO Q4H PRN PRN Reason: Headache/Fever or Pain Al Hydroxide/Mg Hydroxide (Maalox) 30 ml PO Q6H PRN PRN Reason: Heartburn or Indigestion Al Hydroxide/Mg Hydroxide (Maalox) 15 ml PO Q4H PRN PRN Reason: Heartburn or Indigestion Amlodipine Besylate (Norvasc) 5 mg PO DAILY [facility] Last Admin: 12/20/17 10:48 Dose: 5 mg Aspirin (Aspirin) 325 mg PO DAILY [facility] Last Admin: 12/20/17 10:48 Dose: 325 mg Benzonatate (Tessalon) 100 mg PO Q4H PRN PRN Reason: Cough Bisacodyl (Dulcolax) 10 mg PO DAILYPRN PRN PRN Reason: Constipation Calcium Carbonate (Tums) 1,000 mg PO Q4H PRN PRN Reason: Heartburn or Indigestion Calcium Carbonate (Tums) 1,000 mg PO Q4H PRN PRN Reason: Heartburn or Indigestion Carvedilol (Coreg) 25 mg PO BID-[facility] Last Admin: 12/20/17 10:53 Dose: 25 mg Clonidine (Catapres) 0.1 mg PO Q4H PRN PRN Reason: Systolic BP > 160 Clonidine (Catapres) 0.2 mg PO Q8HR [facility] Last Admin: 12/20/17 10:53 Dose: Not Given Dextrose/Water (Dextrose 50%) 25 gm SLOW IVP PRN PRN PRN Reason: Hypoglycemia Enoxaparin Sodium (Lovenox) 40 mg SC 0900 [facility] Last Admin: 12/20/17 10:54 Dose: 40 mg Gabapentin (Neurontin) 300 mg PO TID [facility] Last Admin: 12/20/17 10:53 Dose: 300 mg Glucagon (Glucagon) 1 mg IM PRN PRN PRN Reason: Hypoglycemia Guaifenesin (Robitussin Sf) 200 mg PO Q4H PRN PRN Reason: Cough Hydralazine HCl (Apresoline) 10 mg SLOW IVP Q4H PRN PRN Reason: Systolic BP > 170 Dextrose/Water (D5w) 1,000 mls @ 0 mls/hr IV .Q0M PRN; As Directed PRN Reason: Hypoglycemia Insulin Human Regular (Humulin R) 0 units SC .MODERATE SLIDING SC PRN PRN Reason: Moderate Correctional Scale Insulin Human Regular (Humulin R) 0 units SC .BEDTIME SLIDING SC PRN PRN Reason: Bedtime Correctional Scale Lisinopril (Zestril) 20 mg PO BID [facility] Last Admin: 12/20/17 10:53 Dose: 20 mg Loratadine (Claritin) 10 mg PO DAILYPRN PRN PRN Reason: Sinus Symptoms Lorazepam (Ativan) 1 mg PO Q4H PRN PRN Reason: Anxiety/Agitation Last Admin: 12/20/17 10:51 Dose: 1 mg Metformin HCl (Glucophage Xr) 500 mg PO QA-[facility] Last Admin: 12/20/17 10:52 Dose: 500 mg Metoclopramide HCl (Reglan) 10 mg PO TIDPRN PRN PRN Reason: Nausea/Vomiting Ondansetron HCl (Zofran) 4 mg IVP Q6H PRN PRN Reason: Nausea/Vomiting Ondansetron HCl (Zofran) 4 mg IVP Q6H PRN PRN Reason: Nausea/Vomiting Pantoprazole Sodium (Protonix) 40 mg PO DAILY [facility] Last Admin: 12/20/17 10:53 Dose: 40 mg Senna (Senokot) 2 tab PO HSPRN PRN PRN Reason: Constipation Tramadol HCl (Ultram) 50 mg PO Q4H PRN PRN Reason: Moderate Pain (4-6) Last Admin: 12/20/17 10:51 Dose: 50 mg
[2017-12-20] MEDS: Loratadine 10 MG TAB PO PRN (13:28)
[2017-12-20] MEDS: Ondansetron HCl/PF 4 MG/2 ML Vial IVP PRN ×2 (13:29→21:44)
--- NOTE | 2017-12-20 17:53 | CON ---
DATE OF CONSULTATION: 12/20/2017 REFERRING PHYSICIAN: Dr. Belen De La Cruz REASON FOR CONSULTATION: Abdominal pain. HISTORY OF PRESENT ILLNESS: Ms. Aime Berumen is a 37-year-old female with diabetes mellitus and hypertension. The patient is status post laparoscopic cholecystectomy by Dr. José Miguel Dutton in 08/2016. The patient has been hospitalized several times in this hospital because of abdominal pain, nausea, and vomiting. She has seen me in 2016 and had an EGD done. The EGD was basically negative. At that time, she had an abdominal sonogram, which was negative for gallstones. She also had a negative HIDA scan. The patient has been hospitalized several times with abdominal pain, nausea, and vomiting. At one time, it was felt that she mostly had gastroparesis and was placed on Reglan. The patient was on Reglan for a while and then she stopped taking the Reglan. The patient's abdominal pain started about two days ago. The pain is in the epigastric area, and she has had nausea with it. The pain is worse after meals. This is the same pain what she had before. The patient has no heartburn or any painful swallowing. There is no history of fever. She is actually feeling better today. With the abdominal pain she has also had some pain over the right lower extremity. When she came to the ER she had markedly elevated blood pressure range of 198/110. Today, her pressure is much better dropping down to 171/70. At the time of the consultation, she appears very comfortable. She is in no distress. Her pain is not as bad as before, but she still had some pain. She was able to eat a few bites of food and she was able to keep it down and had no nausea and vomiting. No other relevant history. MEDICAL ILLNESSES: 1. Hypertension. 2. Diabetes mellitus. 3. Obesity. 4. Fatty liver. 5. Diabetic gastroparesis. 6. Status post laparoscopic cholecystectomy in 08/2016. 7. . 8. Left thumb cyst removed in the past. SOCIAL HISTORY: The patient denies any smoking or alcohol abuse. FAMILY HISTORY: Mother has heart disease, high blood pressure and stroke. No family history of cancer or diabetes. ALLERGIES: None. MEDICATIONS: List reviewed which include metformin, clonidine, Protonix, lisinopril, carvedilol, aspirin, . REVIEW OF SYSTEMS: A 10-point system review is remarkable for basically abdominal pain, nausea, pain in lower extremities. PHYSICAL EXAMINATION: GENERAL: Patient is obese, appears comfortable. VITAL SIGNS: Vital signs are much better this morning. Afebrile. Her pulse is around 78, blood pressure 170/78. HEENT: Conjunctivae clear. NECK: Supple. No adenitis or thyromegaly noted. CARDIOVASCULAR: First and second heart sounds normal. LUNGS: Clear to auscultation. ABDOMEN: Soft to palpate. Abdomen is nondistended. Abdomen is mildly tender over the epigastric area. There is no rebound or guarding. No organomegaly or masses. EXTREMITIES: No edema. LABORATORY DATA: CBC shows WBC 10,800, hemoglobin 13.2, hematocrit 38.7, MCV 89.2, platelet count 374,000, polymorphs 65, lymphocytes 27, monocytes 5. Serum chemistries: Sodium 138, potassium 3.8, chloride 99, bicarbonate is 25, BUN is 17.0, creatinine 0.77, glucose 187, calcium 9.6, bilirubin 0.2, AST 111, ALT 19, alkaline phosphatase 154, total protein 7.9, albumin 4, globulin 3.9, lipase 5852. Troponin 0.39. She had an abdominal sonogram this morning. The sonogram showed fatty liver, normal size bile duct at 4 mm. CLINICAL IMPRESSION: 1. Abdominal pain, etiology is unclear. Most likely gastroparesis. She had a negative EGD in 2016. She had negative abdominal sonogram and HIDA scan. She had a laparoscopic cholecystectomy in 08/2016 for bilious sludge. Abnormal liver function tests, possible fatty liver. The patient had no gallstones to begin with. It is very unlikely she has any bile duct stone. 2. Diabetes mellitus. 3. Hypertension. 4. Obesity. RECOMMENDATIONS: 1. Symptomatic treatment. 2. We will plan for EGD tomorrow. She had an EGD about 2 years ago and it is possible that she could have developed a new problem. 4. If the EGD is negative, will treat her symptomatically. MTDD
[2017-12-21] MEDS: Metoclopramide HCl 10 MG TAB PO PRN ×2 (03:15→13:04)
[2017-12-21] MEDS: Lorazepam 1 MG TAB PO PRN ×2 (03:15→12:58)
[2017-12-21] MEDS: traMADol HCl 50 MG TAB PO PRN ×2 (03:15→14:07)
[2017-12-21] MEDS: cloNIDine 0.2 MG TAB PO SCH ×3 (05:24→13:01)
[2017-12-21 05:32] LABS: ALT (SGPT) 97 U/L (8-55); AST (SGOT) 84 U/L (5-34); Albumin 3.7 g/dL (3.5-5.0); Alkaline Phosphatase 137 U/L (40-150); Anion Gap 14 mmol/L (10-20); BUN (Urea Nitrogen) 8 mg/dL (7.0-18.7); Bilirubin, Total 0.3 mg/dL (0.2-1.2); Calc. Creatinine Clearance 237 mL/min (70-130); Calcium 9.2 mg/dL (7.8-10.44); Carbon Dioxide 23 mmol/L (22-29); Chloride 102 mmol/L (98-107); Estimated GFR-MDRD Greater than 90; Globulin 3.4 g/dL (2.4-3.5); Glucose 152 mg/dL (70-105); Potassium 3.8 mmol/L (3.5-5.1); Protein, Total 7.1 g/dL (6.0-8.3); Sodium 135 mmol/L (136-145)
[2017-12-21] MEDS: Ondansetron HCl/PF 4 MG/2 ML Vial IVP PRN (07:49)
--- NOTE | 2017-12-21 11:51 | PDOC.PN ---
- Subjective Encounter Start Date: 12/21/17 Encounter Start Time: 09:30 Subjective: no new complaints - Objective MAR Reviewed: Yes Vital Signs & Weight: Vital Signs (12 hours) Temp Pulse Resp BP BP Pulse Ox 12/21/17 07:30 98.8 F 77 18 136/64 99 12/21/17 05:24 154/80 H 12/21/17 03:22 98.0 F 75 19 158/71 H 99 12/20/17 23:58 98.3 F 84 20 128/60 97 Weight Weight 287 lb 6.4 oz I&O: 12/20/17 12/21/17 12/22/17 06:59 06:59 07:59 Intake Total 1440 Output Total 1250 Balance 190 Result Diagrams: 12/20/17 04:05 12/21/17 05:02 Additional Labs: Accuchecks 12/21/17 12/20/17 12/20/17 05:37 20:14 16:30 POC Glucose 151 H 242 H 220 H Phys Exam - Physical Examination HEENT: PERRLA, moist MMs Neck: no JVD, supple Respiratory: no wheezing, no rales Cardiovascular: RRR, no significant murmur Gastrointestinal: soft, no distention, positive bowel sounds Musculoskeletal: no edema, pulses present Neurological: non-focal, moves all 4 limbs Psychiatric: A&O x 3 Dx/Plan (1) Abnormal cardiac enzyme level Code(s): R74.8 - ABNORMAL LEVELS OF OTHER SERUM ENZYMES Status: Acute Comment: resolving (2) Nausea & vomiting Code(s): R11.2 - NAUSEA WITH VOMITING, UNSPECIFIED Status: Acute Qualifiers: Vomiting type: unspecified (3) Diabetes type 2, controlled Code(s): E11.9 - TYPE 2 DIABETES MELLITUS WITHOUT COMPLICATIONS Status: Chronic Qualifiers: Diabetes mellitus complication status: with unspecified complications Diabetes mellitus medical terminologist insulin use: without medical terminologist use Qualified Code( s): E11.8 - Type 2 diabetes mellitus with unspecified complications (4) Gastroparesis Code(s): K31.84 - GASTROPARESIS Status: Chronic (5) Morbid obesity with BMI of 45.0-49.9, adult Code(s): E66.01 - MORBID (SEVERE) OBESITY DUE TO EXCESS CALORIES; Z68.42 - BODY MASS INDEX (BMI) 45.0-49.9, ADULT Status: Chronic (6) HTN (hypertension) Code(s): I10 - ESSENTIAL (PRIMARY) HYPERTENSION Status: Chronic Qualifiers: Hypertension type: essential hypertension Qualified Code(s): I10 - Essential (primary) hypertension - Plan htn is controlled better -: for EGD today -: may dc home if cleared by -: to continue norvasc, coreg, clonidine, lisinopril and asp if EGD is normal * . Review of Systems - Medications/Allergies Allergies/Adverse Reactions: Allergies Allergy/AdvReac Type Severity Reaction Status Date / Time nitroglycerin Allergy Verified 12/20/17 08:13 Medications: Current Medications Acetaminophen (Tylenol) 650 mg PO Q4H PRN PRN Reason: Headache/Fever or Pain Last Admin: 12/20/17 13:28 Dose: 650 mg Al Hydroxide/Mg Hydroxide (Maalox) 30 ml PO Q6H PRN PRN Reason: Heartburn or Indigestion Al Hydroxide/Mg Hydroxide (Maalox) 15 ml PO Q4H PRN PRN Reason: Heartburn or Indigestion Amlodipine Besylate (Norvasc) 5 mg PO DAILY [facility] Last Admin: 12/20/17 10:48 Dose: 5 mg Aspirin (Aspirin) 325 mg PO DAILY [facility] Last Admin: 12/20/17 10:48 Dose: 325 mg Benzonatate (Tessalon) 100 mg PO Q4H PRN PRN Reason: Cough Bisacodyl (Dulcolax) 10 mg PO DAILYPRN PRN PRN Reason: Constipation Calcium Carbonate (Tums) 1,000 mg PO Q4H PRN PRN Reason: Heartburn or Indigestion Calcium Carbonate (Tums) 1,000 mg PO Q4H PRN PRN Reason: Heartburn or Indigestion Carvedilol (Coreg) 25 mg PO BID-[facility] Last Admin: 12/20/17 17:09 Dose: 25 mg Clonidine (Catapres) 0.1 mg PO Q4H PRN PRN Reason: Systolic BP > 160 Clonidine (Catapres) 0.2 mg PO Q8HR [facility] Last Admin: 12/21/17 05:24 Dose: 0.2 mg Dextrose/Water (Dextrose 50%) 25 gm SLOW IVP PRN PRN PRN Reason: Hypoglycemia Enoxaparin Sodium (Lovenox) 40 mg SC 0900 [facility] Last Admin: 12/20/17 10:54 Dose: 40 mg Gabapentin (Neurontin) 300 mg PO TID [facility] Last Admin: 12/20/17 20:34 Dose: 300 mg Glucagon (Glucagon) 1 mg IM PRN PRN PRN Reason: Hypoglycemia Guaifenesin (Robitussin Sf) 200 mg PO Q4H PRN PRN Reason: Cough Hydralazine HCl (Apresoline) 10 mg SLOW IVP Q4H PRN PRN Reason: Systolic BP > 170 Dextrose/Water (D5w) 1,000 mls @ 0 mls/hr IV .Q0M PRN; As Directed PRN Reason: Hypoglycemia Insulin Human Regular (Humulin R) 0 units SC .MODERATE SLIDING SC PRN PRN Reason: Moderate Correctional Scale Last Admin: 12/20/17 17:14 Dose: 4 unit Insulin Human Regular (Humulin R) 0 units SC .BEDTIME SLIDING SC PRN PRN Reason: Bedtime Correctional Scale Last Admin: 12/20/17 20:35 Dose: 2 unit Lisinopril (Zestril) 20 mg PO BID [facility] Last Admin: 12/20/17 20:34 Dose: 20 mg Loratadine (Claritin) 10 mg PO DAILYPRN PRN PRN Reason: Sinus Symptoms Last Admin: 12/20/17 13:28 Dose: 10 mg Lorazepam (Ativan) 1 mg PO Q4H PRN PRN Reason: Anxiety/Agitation Last Admin: 12/21/17 03:15 Dose: 1 mg Metformin HCl (Glucophage Xr) 500 mg PO QAM-[facility] Last Admin: 12/20/17 10:52 Dose: 500 mg Metoclopramide HCl (Reglan) 10 mg PO TIDPRN PRN PRN Reason: Nausea/Vomiting Last Admin: 12/21/17 03:15 Dose: 10 mg Ondansetron HCl (Zofran) 4 mg IVP Q6H PRN PRN Reason: Nausea/Vomiting Last Admin: 12/21/17 07:49 Dose: 4 mg Ondansetron HCl (Zofran) 4 mg IVP Q6H PRN PRN Reason: Nausea/Vomiting Pantoprazole Sodium (Protonix) 40 mg PO DAILY [facility] Last Admin: 12/20/17 10:53 Dose: 40 mg Senna (Senokot) 2 tab PO HSPRN PRN PRN Reason: Constipation Tramadol HCl (Ultram) 50 mg PO Q4H PRN PRN Reason: Moderate Pain (4-6) Last Admin: 12/21/17 03:15 Dose: 50 mg
[2017-12-21] MEDS ORDERED: Morphine 2 MG/ML SYRINGE ONE (11:55)
[2017-12-21] MEDS ORDERED: hydrALAZINE 20 MG/ML VIAL ONE (12:03)
[2017-12-21] MEDS: Aspirin 325 MG TAB PO SCH (12:58)
[2017-12-21] MEDS: Lisinopril 20 MG TAB PO SCH (12:58)
[2017-12-21] MEDS: metFORMIN XR 500 MG TAB PO SCH (12:59)
[2017-12-21] MEDS: Carvedilol 25 MG TAB PO SCH (12:59)
[2017-12-21] MEDS: Gabapentin 300 MG CAP PO SCH ×2 (12:59→14:07)
[2017-12-21] MEDS: Amlodipine 5 MG TAB PO SCH (12:59)
[2017-12-21] MEDS: Enoxaparin Sodium 40 MG/0.4 ML SYRINGE SC SCH (13:00)
--- NOTE | 2017-12-21 13:21 | OP ---
DATE OF PROCEDURE: 12/21/2017 OPERATIVE PROCEDURE: Esophagogastroduodenoscopy. PREOPERATIVE DIAGNOSES: Abdominal pain and nausea. POSTOPERATIVE DIAGNOSES: Normal gastroscopy except for mild mucous hyperemia most likely from bile r eflux. Overall, the exam is benign and does not have any pathology except abdominal pain. PROCEDURE IN DETAIL: The patient was placed on her left lateral position and undergone sedation by A nesthesia Department. A [employer]ax video gastroscope under direct vision was passed in the oropharynx, p assed GE junction, into the stomach and subsequently into the descending duodenum. The esophageal mu cosa appeared normal throughout. The GE junction, no pathology seen. Retroflexion failed to show an y lesion in fundus and cardia. The gastric body, no pathology seen. The gastric and antral mucosa w as slightly hyperemic, mostly likely from bile reflux. The duodenal bulb and descending duodenum, no pathology seen. OVERALL IMPRESSION: Negative exam.
[2017-12-21] MEDS ORDERED: ISOVUE-370 76%-LOCM 1 ML ONE (13:37)
[2017-12-21] MEDS: Loratadine 10 MG TAB PO PRN (14:07)
[2017-12-21 15:18] VITALS: BP 132/63; TEMP 97.8
[2017-12-21] MEDS ORDERED: Propofol 200 MG/20 ML VIAL ONE (16:55)
[2017-12-21] MEDS ORDERED: Lidocaine 1% PF 5 ML VIAL ONE (16:55)
--- NOTE | 2017-12-21 19:07 | DIS ---
DATE OF ADMISSION: 12/20/2017 DATE OF DISCHARGE: 12/21/2017 DISCHARGE DISPOSITION: To home. PRIMARY DISCHARGE DIAGNOSES: Intractable nausea and vomiting, resolved; initial hypertensive emergen cy, secondary to nausea and vomiting, resolved; diabetes mellitus, type 2; history of gastroparesis; morbid obesity; hypertension. PROCEDURES DONE DURING HOSPITALIZATION: The patient has had ultrasound venous Doppler done of left l ower extremity, which showed no evidence of DVT. Ultrasound of the right upper quadrant done showed liver to be echogenic likely fatty infiltration with a prior history of cholecystectomy. CT angio ch est showed no evidence of PE. There was no acute infiltrate seen. Upper endoscopy done showed bright l gastroscopy except for mild mucosal hyperemia most likely from bile reflux. H&H 13 and 38, platele t count 374, BUN 8, creatinine 0.6, AST 84, ALT 97, alkaline phosphatase 137, albumin is 3.7. Has ch ronic indeterminate troponin, elevations with peaking up to 0.05. CK-MB 0.6. DISCHARGE MEDICATIONS: The patient to continue all her home medication as before including aspirin, clonidine 0.2 mg p.o. 3 times daily, lisinopril 20 mg daily, metformin 500 mg p.o. q.a.m., Reglan 10 mg p.o. 3 times daily p.r.n., Protonix 40 mg p.o. daily, Ultram p.r.n., Ambien 10 mg p.o. at bedtime. ALLERGIES: NITROGLYCERIN. INPATIENT CONSULTS: Dr. Luna for Gastroenterology. BRIEF COURSE DURING HOSPITALIZATION: The patient initially got admitted on the with complaints o f intractable nausea, vomiting, and epigastric pain. She also had elevated blood pressures on arriva l, likely due to her nauseating feeling. The patient was admitted to telemetry due to chronic indete rminate troponin. She has had multiple workups as mentioned above, which have all been negative. melania has had consultation with Dr. Luna for Gastroenterology as well. Her upper endoscopy did not reveal any significant pathology. She is tolerating oral solid diet. Her hypertension is well contr olled. She was counseled regarding medication compliance and dietary compliance. She has remained h emodynamically stable and will be shortly discharged home. Please see a [id number] documentation f or the day of discharge on [facility].
== END 2017-12-21 16:08 | disposition home or self-care (01) | DRG 305 ==
LOC: ERS 03:24 → 2NO 05:21 → OBSVTOIN 05:21
PROVIDERS: ADMIT Internal Medicine; ATTEND Internal Medicine
PROC: 0DJ08ZZ Inspection of Upper Intestinal Tract, Via Natural or Artificial Opening Endoscopic (ICD-10-PCS; principal; 2017-12-21)
DX: I16.0 Hypertensive urgency (principal); K31.84 Gastroparesis; E11.43 Type 2 diabetes mellitus with diabetic autonomic (poly)neuropathy; E66.01 Morbid (severe) obesity due to excess calories; K76.0 Fatty (change of) liver, not elsewhere classified; Z68.42 Body mass index [BMI] 45.0-49.9, adult; I16.1 Hypertensive emergency; R74.8 Abnormal levels of other serum enzymes; R11.2 Nausea with vomiting, unspecified; I10 Essential (primary) hypertension; K31.89 Other diseases of stomach and duodenum
CPT/HCPCS: 36415; 36416; 71045; 71275; 76705; 80053; 81003; 81015; 82550; 82553; 83690; 84484; 85025; 85379; 93005; 96361; 96374; 96375; 96376; J0360; J1650; J1815; J2001; J2270; J2405; J2704

== ENCOUNTER 2018-01-15 20:27 | Emergency (ER) | payer OTHER ==
[2018-01-15 22:03] LABS: #Eosinphils 0.1 thou/uL (0.0-0.7); #Lymphocytes 2.7 thou/uL (1.20-3.40); #Monocytes 0.5 thou/uL (0.11-0.59); #Neutrophils 7.5 thou/uL (1.40-6.50); %Basophils 0.1 % (0.0-1.0); %Lymphocytes 24.5 % (21.0-51.0); %Monocytes 4.8 % (0.0-10.0); %Neutrophils 69.6 % (42.0-75.0); Hemoglobin 13.2 g/dL (12.0-16.0); Mean Corpuscular HGB CONC 33.6 g/dL (32.0-36.0); Mean Corpuscular Hemoglobin 29.9 pg (27.0-31.0); Mean Corpuscular Volume 89.1 fl (81.0-99.0); Mean Platelet Volume 7.6 fL (7.4-10.4); Platelet Count 393 thou/uL (130-400); RBC Distribution Width 12.4 % (11.5-14.5); Red Blood Cell (RBC) Count 4.41 mill/uL (4.20-5.40); White Blood Cell (WBC) Count 10.8 thou/uL (4.8-10.8)
[2018-01-15 22:11] LABS: BHCG - Serum Negative (NEGATIVE); Pregs Control Background? CLEAR/WHITE (CLR/WHITE); Pregs Control Bar Appear? YES (CONTROL BAR)
[2018-01-15 22:42] LABS: ALT (SGPT) 27 U/L (8-55); AST (SGOT) 15 U/L (5-34); Albumin 4.3 g/dL (3.5-5.0); Alkaline Phosphatase 119 U/L (40-150); Anion Gap 16 mmol/L (10-20); BUN (Urea Nitrogen) 12 mg/dL (7.0-18.7); Bilirubin, Total Less than 0.2 mg/dL (0.2-1.2); Calc. Creatinine Clearance 0 mL/min (70-130); Carbon Dioxide 26 mmol/L (22-29); Chloride 97 mmol/L (98-107); Estimated GFR-MDRD Greater than 90; Glucose 191 mg/dL (70-105); Lipase 24 U/L (8-78); Potassium 3.8 mmol/L (3.5-5.1); Protein, Total 8.3 g/dL (6.0-8.3); Sodium 135 mmol/L (136-145)
[2018-01-15] MEDS ORDERED: Ondansetron HCl/PF 4 MG/2 ML Vial ONE (23:08)
[2018-01-15 23:11] LABS: Bilirubin Negative (Negative); Blood, Urine Large (Negative); Clarity CLEAR (Clear); Glucose, Urine (Dipstick) 100 mg/dL (Negative); Leukocyte Trace (Negative); Nitrite Negative (Negative); Protein, Urine (Dipstick) 100 mg/dL (Neg-Trace); Specific Gravity, Urine 1.019 (1.002-1.036)
[2018-01-15 23:12] LABS: Pregnancy Test - Urine (BHCG) Negative (Negative); Pregu Control Background? CLEAR/WHITE (CLR/WHITE); Pregu Control Bar Appear? YES (CONTROL BAR); Specific Gravity 1.019 (1.002-1.036)
[2018-01-15 23:13] LABS: Bacteria/HPF None Seen HPF (None Seen); Hyaline Casts/LPF 0-3 HYALINE CAST LPF (0-3 Hyaline); Pathc Cast-AUWi Flag 0.14 (0-2.49); RBC/HPF GREATER THAN 50-TNTC HPF (0-3); Squamous Epithelial 0-3 HPF (0-3)
[2018-01-15] MEDS ORDERED: Lidocaine Viscous Sol 2% 15 ml UD Cup ONE (23:48)
[2018-01-15] MEDS ORDERED: Mag-Al 1200 mg/1200 mg/30 ML UDCUP ONE (23:48)
[2018-01-15] MEDS ORDERED: Famotidine 20 MG TAB ONE (23:53)
[2018-01-16] MEDS ORDERED: Gabapentin 100 MG CAP PO SCH (00:15)
[2018-01-16] MEDS ORDERED: Acetaminophen/Codeine 30-300mg Tablet ONE (00:49)
--- NOTE | 2018-01-16 07:47 | RAD ---
LEFT KNEE 4 VIEWS: HISTORY: Left knee pain. FINDINGS/IMPRESSION: No fracture, dislocation, or bony destruction is identified. POS: [facility]
--- NOTE | 2018-01-16 07:48 | RAD ---
LEFT ANKLE 3 VIEWS: HISTORY: Left ankle pain. FINDINGS/IMPRESSION: The ankle mortise is maintained. No fracture, dislocation, or eve destruction is identified. POS: [facility]
--- NOTE | 2018-01-16 08:14 | RAD ---
ABDOMINAL SURVEY WITH UPRIGHT CHEST: PA chest and upright views of abdomen obtained. HISTORY: Abdominal pain. FINDINGS: Bowel gas pattern is unremarkable with scattered stool and gas in the colon. No free air. Lungs janna ear clear. IMPRESSION: Unremarkable bowel gas pattern. POS: [facility]
--- NOTE | 2018-01-16 09:43 | ULT ---
PRELIMINARY REPORT/[facility]/EMERGENTY AFTER-HOURS PROCEDURE US Duplex Left Lower Extremity Veins CLINICAL HISTORY: 37 years old, female; Pain; Foot and other: Left knee; Patient HX: Leg knee and foot pain x 3 day. Pain, on/off x 1 year TECHNIQUE: Real-time duplex ultrasound scan of the left lower extremity veins integrating B-mode two dimensional vascular structure, Doppler spectral analysis, color flow Doppler imaging and compression. COMPARISON: US Venous Doppler Lt Unilat 2017-12-20 04:44 FINDINGS: Deep veins: No acute findings. No DVT in the common femoral, femoral, popliteal, visualized calf vein s. The veins demonstrate normal color flow, are normally compressible, with normal phasic flow and/or augmentation response. Superficial veins: No acute findings. No thrombus in the visualized great saphenous vein. Soft tissues: No popliteal cyst. IMPRESSION: No deep venous thrombosis. Thank you for allowing us to participate in the care of your patient. Dictated and Authenticated by: Bobby Kelley MD 01/16/2018 12:31 AM Central Time ([place] & [place]) FINAL REPORT VENOUS DOPPLER ULTRASOUND OF LEFT LOWER EXTREMITY: Date: 01/15/18 FINDINGS/IMPRESSION: I agree with the preliminary report given by Savanah. POS: [facility]
== END 2018-01-16 01:02 | disposition home or self-care (01) ==
LOC: ERS 20:27
DX: G89.29 Other chronic pain (principal); M79.605 Pain in left leg; R10.13 Epigastric pain; E11.9 Type 2 diabetes mellitus without complications; I10 Essential (primary) hypertension; I25.2 Old myocardial infarction; M10.9 Gout, unspecified; Z79.84 Long term (current) use of oral hypoglycemic drugs; Z79.899 Other long term (current) drug therapy
CPT/HCPCS: 36415; 74022; 80053; 81003; 81015; 81025; 83690; 84703; 85025; 86140; 87086; 96374; J2405

== ENCOUNTER 2018-02-09 20:01 | Observation (INO) | payer OTHER ==
[2018-02-09 21:07] LABS: #Basophils 0.1 thou/uL (0.0-0.2); #Eosinphils 0.1 thou/uL (0.0-0.7); #Lymphocytes 2.5 thou/uL (1.20-3.40); #Monocytes 0.8 thou/uL (0.11-0.59); #Neutrophils 10.7 thou/uL (1.40-6.50); %Basophils 0.4 % (0.0-1.0); %Eosinophils 0.6 % (0.0-10.0); %Lymphocytes 17.6 % (21.0-51.0); %Monocytes 5.8 % (0.0-10.0); %Neutrophils 75.7 % (42.0-75.0); Hemoglobin 14.1 g/dL (12.0-16.0); Mean Corpuscular HGB CONC 33.3 g/dL (32.0-36.0); Mean Platelet Volume 7.3 fL (7.4-10.4); Platelet Count 430 thou/uL (130-400); RBC Distribution Width 12.8 % (11.5-14.5); Red Blood Cell (RBC) Count 4.71 mill/uL (4.20-5.40); White Blood Cell (WBC) Count 14.1 thou/uL (4.8-10.8)
--- NOTE | 2018-02-09 21:16 | RAD ---
PORTABLE CHEST ONE VIEW: Date: 02-09-18 Time: 9:05 p.m. History: Chest pain, epigastric pain. FINDINGS: Comparison made with exam of 12-20-17. The heart size is normal. The lungs are expanded without focal areas of consolidation, pneumothorax o r pleural effusions. IMPRESSION: No radiographic evidence of acute cardiopulmonary process. POS: [facility]
[2018-02-09] MEDS ORDERED: Morphine 4 MG/ML VIAL ONE (21:27)
[2018-02-09 21:28] LABS: ALT (SGPT) 27 U/L (8-55); AST (SGOT) 18 U/L (5-34); Albumin 4.5 g/dL (3.5-5.0); Alkaline Phosphatase 113 U/L (40-150); Anion Gap 21 mmol/L (10-20); BUN (Urea Nitrogen) 25 mg/dL (7.0-18.7); Bilirubin, Total 0.2 mg/dL (0.2-1.2); Calc. Creatinine Clearance 0 mL/min (70-130); Calcium 9.7 mg/dL (7.8-10.44); Carbon Dioxide 24 mmol/L (22-29); Chloride 94 mmol/L (98-107); Estimated GFR-MDRD 61; Globulin 4.3 g/dL (2.4-3.5); Glucose 258 mg/dL (70-105); Potassium 4.3 mmol/L (3.5-5.1); Protein, Total 8.8 g/dL (6.0-8.3); Sodium 135 mmol/L (136-145)
[2018-02-09] MEDS ORDERED: Ketorolac Tromethamine 30 MG/ML VIAL ONE (21:28)
--- NOTE | 2018-02-09 21:28 | RAD ---
LEFT KNEE FOUR VIEWS: History: Left knee pain. FINDINGS/IMPRESSION: No fracture, dislocation, or bony destruction identified. No joint effusion is seen. POS: NISSA
--- NOTE | 2018-02-09 21:29 | RAD ---
LEFT FOOT THREE VIEWS: History: Left foot pain. FINDINGS/IMPRESSION: No fracture, dislocation, or bony destruction is seen. POS: NISSA
[2018-02-09 21:32] LABS: CKMB 1.1 ng/mL (0-6.6); Troponin I 0.039 ng/mL (< 0.028)
[2018-02-09] MEDS ORDERED: Ondansetron ODT 4 MG TAB ONE (22:26)
[2018-02-09] MEDS ORDERED: Colchicine 0.6 MG TAB PO SCH (23:00)
[2018-02-09] MEDS ORDERED: Benzocaine 20% Spray 60 ML CAN ONE (23:01)
--- NOTE | 2018-02-09 23:11 | CT ---
CTA CHEST WITH IV CONTRAST AND 3D POST PROCESSING CTA ABDOMEN WITH IV CONTRAST AND 3D POST PROCESSING: History: Chest pain, epigastric pain. Concern for aortic dissection. Comparison: 07-26-17 FINDINGS: There is good contrast opacification of the thoracoabdominal aorta without aneurysmal dilatation or i ntimal flap dissection. The pulmonary arteries are well opacified without filling defects or aneurysm. No pericardial effusio ns are seen. No pneumothoraces, focal areas of consolidation, or masses identified. No free air, free fluid, or lymphadenopathy seen in the abdomen. Fatty infiltration of the liver is a gain seen. There are post op changes of cholecystectomy. Pancreas, adrenal glands, and kidneys are no rmal. There is good flow without significant stenosis in the renal arteries, celiac axis, SMA and NATALIE . IMPRESSION: 1. No CT evidence of aortic dissection or pulmonary embolism. 2. Fatty liver. POS: NISSA
[2018-02-09] MEDS ORDERED: Labetalol HCl 100 MG/20 ML VIAL ONE (23:52)
[2018-02-09] MEDS ORDERED: Dextrose 50% Abboject 50 ML SYRINGE SLOW IVP PRN (23:55)
[2018-02-09] MEDS ORDERED: HumaLOG 300 UNITS/3 ML VIAL SC PRN (23:55)
[2018-02-09] MEDS ORDERED: Dextrose 5% in Water 1,000 ML IV PRN (23:55)
[2018-02-10] MEDS ORDERED: hydrALAZINE 20 MG/ML VIAL SLOW IVP PRN (00:02)
[2018-02-10] MEDS ORDERED: Insulin Detemir 100 UNITS/ML 5 UNITS in Pre-Filled Syringe 1 EACH SC SCH ×2 (00:15→21:00)
[2018-02-10] MEDS ORDERED: Morphine 4 MG/ML VIAL SLOW IVP PRN (00:21)
[2018-02-10] MEDS ORDERED: Morphine 4 MG/ML VIAL ONE (00:50)
--- NOTE | 2018-02-10 01:15 | HP ---
PRIMARY CARE PHYSICIAN: [facility]. CHIEF COMPLAINT: Left foot pain and epigastric pain. HISTORY OF PRESENT ILLNESS: Patient is a very young 37-year-old female who presents to the hospital with complaints of left foot pain and epigastric pain which started today. The patient stated that h er left foot pain has been going on for the past couple of days; however, her epigastric pain started today. The patient states that she is nauseated, but denies any vomiting. She states that her pain around the epigastric area is sharp, which radiates to her back. She denies any fevers or chills. She denies any radiating of her pain to her right or left upper extremity. The patient also states t hat she has been constipated, has not had a bowel movement for the past 4 days. The patient states t hat she is compliant with her medication; however, she did run out of her clonidine. PAST MEDICAL HISTORY: Hypertension, diabetes. PAST SURGICAL HISTORY: Cholecystectomy, x2, history of orthopedic surgery, and a left cyst from the thumb removed. SOCIAL HISTORY: She denies any drug use, alcohol, or smoking history. FAMILY HISTORY: She said that her mother had a stroke when she was younger in her 50s. ALLERGIES: She is allergic to NITROGLYCERIN. CURRENT MEDICATIONS: She takes lisinopril 2.5 mg daily, metformin 500 mg p.o. daily, Ambien 10 mg at bedtime, clonidine 0.2 mg 1 tab 3 times a day, and hydrochlorothiazide unknown dose. REVIEW OF SYSTEMS: The following complete review of systems was negative, unless otherwise mentioned in the HPI or below: Constitutional: Weight loss or gain, ability to conduct usual activities. Sk in: Rash, itching. Eyes: Double vision, pain. ENT/Mouth: Nose bleeding, neck stiffness, pain, te nderness. Cardiovascular: Palpitations, dyspnea on exertion, orthopnea. Respiratory: Shortness of breath, wheezing, cough, hemoptysis, fever or night sweats. Gastrointestinal: Poor appetite, abdom inal pain, heartburn, nausea, vomiting, constipation, or diarrhea. Genitourinary: Urgency, frequenc y, dysuria, nocturia. Musculoskeletal: Pain, swelling. Neurologic/Psychiatric: Anxiety, depressio n. Allergy/Immunologic: Skin rash, bleeding tendency. PHYSICAL EXAMINATION: VITAL SIGNS: Temperature of 98.7, 99% on room air, respirations are 18, pulse is 105, blood pressure of 182/116. GENERAL: She is awake, alert, oriented x3, is obese, does not appear in distress. CARDIOVASCULAR: S1, S2 present. No murmurs, rubs, or gallops. LUNGS: Clear to auscultation. No rhonchi or wheezes noted. ABDOMEN: Obese. Bowel sounds are present x2. No pain upon palpation to her right upper quadrant or anywhere in her abdomen. No chest tenderness on palpation. Did not appreciate any hepatomegaly or splenomegaly. EXTREMITIES: No edema. Pedal pulses are present x2. However, she does have some pain on first tars al of her left foot. No swelling or erythema noted. She does have pain upon mild palpation and she also does have some pain on her right first toe on light palpation; however, she states that her left toe has more pain than her right. LABORATORY AND DIAGNOSTIC DATA: As the following: WBCs are 14.1, hemoglobin of 14.1, hematocrit of 42.4, platelets of 430,000. Chemistry: She has got sodium of 135, potassium of 4.3, BUN of 25, crea tinine 1.19, sugar of 258. Troponin x1 is 0.039. BNP is 35. Lipase is 38. She did have a CT disse ction protocol did indicate no evidence of aortic dissection or pulmonary embolism, but she does have a fatty liver. She also had an x-ray of her left knee and no fractures or dislocation noted. She h ad an x-ray of her left foot, did not indicate any fractures or any bony destruction. Chest x-ray th at was done indicates no cardiopulmonary process noted. No consolidations or effusions noted. ASSESSMENT AND PLAN: The patient is a very pleasant 37-year-old female who presents to the hospital with complaints of epigastric pain and also left foot pain. 1. Epigastric pain. It appears to be very atypical, most likely I would see atypical chest pain. P atient states that she feels a sharp pain that starts around her epigastric area and radiates to her back. CT of the chest negative for dissection or pulmonary embolism. We will start patient on Pepci d b.i.d. Also, she did have mildly positive troponins. We will continue to trend. If her troponins are in the intermediate range, we will order a stress test in the morning; however, if they continue to worsen, may consider getting Cardiology. No significant changes in her EKG. We will also check a lipid panel in the morning and check a hemoglobin A1c. We will start the patient on a statin. 2. Hypertension, uncontrolled. We will start the patient's home medications. I believe her medicat ions could be titrated up; however for now, we will continue with the clonidine. We will also add hy dralazine. We will hold off on the beta reno since she is going for a stress test and continue to monitor. 3. Diabetes. Her sugar was 258. We will check a hemoglobin A1c. We will put patient on sliding sc dylon. She takes metformin. Continue to monitor. 4. Left foot pain. The patient states that she has been diagnosed with gout in the past. We will c heck a uric acid. I do not see any erythema, it is just pain as this could be possible peripheral di abetic neuropathy. We will hold off on giving any anti-inflammatories since she does also have mild acute kidney injury. We will continue to monitor. 5. Morbid obesity. The patient appears to have metabolic syndrome. She is diabetic. She is obese and she has got a fatty liver on the scan. We did explain to her the importance of diet, exercise, w eight loss, and low-salt diet. We will consult dietary for further management of this patient.
[2018-02-10 01:48] VITALS: BMI 49.0
[2018-02-10] MEDS ORDERED: Zolpidem Tartrate 5 MG TAB PO SCH ×2 (02:30→21:00)
[2018-02-10] MEDS: traMADol HCl 50 MG TAB PO PRN ×2 (03:26→10:37)
[2018-02-10 04:27] LABS: Troponin I 0.026 ng/mL (< 0.028)
[2018-02-10] MEDS: Ondansetron ODT 4 MG TAB PO PRN ×3 (05:26→14:36)
[2018-02-10 06:38] LABS: Hemoglobin 12.5 g/dL (12.0-16.0); Mean Corpuscular HGB CONC 33.4 g/dL (32.0-36.0); Mean Corpuscular Hemoglobin 30.2 pg (27.0-31.0); Mean Corpuscular Volume 90.2 fl (81.0-99.0); Mean Platelet Volume 7.2 fL (7.4-10.4); Platelet Count 389 thou/uL (130-400); RBC Distribution Width 12.8 % (11.5-14.5); Red Blood Cell (RBC) Count 4.15 mill/uL (4.20-5.40); White Blood Cell (WBC) Count 13.8 thou/uL (4.8-10.8)
[2018-02-10 06:50] LABS: Band 3 % (5-11); Lymphocytes 27 % (21-51); MDiff Complete? YES; Monocytes 3 % (0-10); Neutrophil 67 % (42-75)
[2018-02-10 07:00] LABS: ALT (SGPT) 23 U/L (8-55); AST (SGOT) 14 U/L (5-34); Alkaline Phosphatase 91 U/L (40-150); Anion Gap 16 mmol/L (10-20); BUN (Urea Nitrogen) 21 mg/dL (7.0-18.7); Bilirubin, Total 0.3 mg/dL (0.2-1.2); Calc. Creatinine Clearance 177 mL/min (70-130); Calcium 8.7 mg/dL (7.8-10.44); Carbon Dioxide 23 mmol/L (22-29); Cardiac Risk 3.6 (Less than 4.5); Chloride 98 mmol/L (98-107); Cholesterol 158 mg/dl (< 200 Desired); Estimated GFR-MDRD 88; Globulin 3.5 g/dL (2.4-3.5); Glucose 179 mg/dL (70-105); HDL Cholesterol 44 mg/dL (>60 Neg Risk); LDL Cholesterol, Calculated 75 mg/dL; Potassium 3.9 mmol/L (3.5-5.1); Protein, Total 7.5 g/dL (6.0-8.3); Sodium 133 mmol/L (136-145); Triglycerides 193 mg/dL (Less than 150); Uric Acid 9.5 mg/dL (2.6-6.0)
[2018-02-10 07:05] LABS: CKMB 0.9 ng/mL (0-6.6); Troponin I 0.022 ng/mL (< 0.028)
[2018-02-10] MEDS: Heparin 5,000 UNITS/ML VIAL SC SCH ×2 (08:36→13:53)
[2018-02-10] MEDS ORDERED: cloNIDine 0.2 MG TAB PO SCH (09:00)
[2018-02-10] MEDS ORDERED: Aspirin 325 MG TAB PO SCH (09:00)
--- NOTE | 2018-02-10 11:27 | NM ---
CARDIAC SPECT: CLINICAL HISTORY: 37-year-old black female with chest pain, hypertension, and diabetes. TECHNIQUE: A stress-only myocardial perfusion scan was performed following the intravenous administration of 31 mCi technetium-99m sestamibi. Pharmacologic stress with Adenosine was monitored and interpreted by Dr Emerita Ferrera. FINDINGS: Homogeneous tracer distribution is seen in the myocardial segments on the post stress images. GATED SPECT LVEF: 59%. WALL MOTION EXAM: Normal. IMPRESSION: Normal post stress myocardial perfusion scan. POS: NISSA
[2018-02-10] MEDS ORDERED: Gabapentin 100 MG CAP PO SCH (15:00)
[2018-02-10] MEDS ORDERED: Hydrochlorothiazide 25 MG TAB PO SCH (15:45)
[2018-02-10] MEDS ORDERED: Lisinopril 20 MG TAB PO SCH (15:45)
[2018-02-10 15:48] VITALS: BP 182/97; TEMP 98.8
--- NOTE | 2018-02-11 02:50 | DIS ---
DATE OF ADMISSION: 02/09/2018 DATE OF DISCHARGE: 02/10/2018 DISCHARGE DIAGNOSES: 1. Acute gouty arthropathy. 2. Epigastric/chest pain, noncardiac. 3. Hypertension, labile. 4. Diabetes mellitus type 2, labile. 5. Morbid obesity. CONSULTATIONS: None. PERTINENT LABORATORY AND X-RAY FINDINGS: Hemoglobin A1c 8.0. Uric acid level 9.5. LFTs within norm al limits. Troponin I ranged between 0.022-0.040. Total cholesterol 158, triglycerides 193, HDL 44, LDL 75. CBC showed a white blood cell count ranged between 13.8-14.1. CT of the chest and abdomen with dissection protocol showed no evidence of aortic dissection or pulmonary embolism. Portable isidoro st x-ray dated 02/09/2018 showed no acute cardiopulmonary process. Three views of the left foot date d 02/09/2018 showed no acute process. Four views of the left knee dated 02/09/2018 showed no acute p rocess. Cardiolite stress test dated 02/10/2018 showed no evidence of reversible or fixed ischemia w ith calculated ejection fraction of 59%. HOSPITAL COURSE: The patient was observed on the telemetry unit after initially presenting with mide pigastric and left foot pain. The patient underwent extensive evaluation with multiple radiographic studies and metabolic workup essentially showing evidence of gouty arthropathy. The patient underwen t cardiac workup due to history of hypertension and diabetes, poorly controlled. Cardiolite stress t esting was unremarkable with calculated ejection fraction of 59%. The patient was treated with colch icine and gabapentin for lower extremity pain and likely acute gouty arthropathy. Current recommenda tions are to continue with colchicine as well as tramadol for pain relief after discharge. Telemetry monitoring showed a sinus mechanism with occasional tachycardia without evidence of acute arrhythmia or dysrhythmia. The patient overall remained clinically stable throughout the hospital course. I carlos valdes examined the patient and discussed laboratory and radiographic findings as well as followup instr uctions, at which the patient has verbalized agreement and understanding. The patient overall clinic ally stable and ready for discharge on 02/10/2018. DISCHARGE MEDICATIONS: 1. Aspirin 325 mg 1 tab p.o. daily. 2. Catapres 0.2 mg p.o. q.8 hours. 3. Colchicine 0.6 mg p.o. b.i.d. x7 days. 4. Neurontin 100 mg p.o. t.i.d. 5. Hydrochlorothiazide 25 mg p.o. daily. 6. Lisinopril 20 mg p.o. daily. 7. Metformin 500 mg p.o. q.a.m. 8. Reglan 10 mg p.o. t.i.d. p.r.n. 9. Protonix 40 mg p.o. daily. 10. Tramadol 50 mg p.o. q.6 hours p.r.n. pain, #20 given. 11. Ambien 10 mg p.o. at bedtime p.r.n. FOLLOWUP: The patient may follow up with [facility] in [place], [place] within 7 days of discharge. CONDITION ON DISCHARGE: Stable. ACTIVITY: Ad-darrian. DIET: Heart healthy and ADA. CODE STATUS: FULL. DISPOSITION: Home on 02/10/2018.
[2018-02-11] MEDS ORDERED: Lisinopril 20 MG TAB PO SCH (09:00)
[2018-02-11] MEDS ORDERED: Hydrochlorothiazide 25 MG TAB PO SCH (09:00)
--- NOTE | 2018-02-20 13:40 | STRESS ---
Acquisition Time: 2018-02-10 08:57:42 Total Exercise Time: 00:04:00 Test Indications: CHEST PAIN Medications: Protocol: ADENOSINE Max HR: 117 BPM 64% of Pred: 181 BPM Max BP: 168/080 mmHG Max Work Load: 1.0 METS RESTING ECG: NORMAL SINUS RHYTHM AT 90 BPM WITH NON-SPECIFIC ST SEGMENT AND T-WAVE CHANGES SYMPTOMS: NONE NORMAL BP RESPONSE ECTOPY: NONE ECG STRESS: NO SIGNIFICANT CHANGES; INFERIOR T-WAVE CHANGES/NON-SPECIFIC ST CHANGES INTERPRETATION: INDETERMINATE ECG/AWAIT NUCLEAR IMAGES FOR DEFINITIVE DIAGNOSIS Confirmed by DR. Albert LOPEZ ([id number]), editor book MILTON MUELLER ([id number]) on 02/20/2018 1:39:52 PM Referred By: MD Albert HINSON Confirmed By:DR. Albert LOPEZ
== END 2018-02-10 17:19 | disposition home or self-care (01) ==
LOC: ERS 20:01 → 2SW 23:30
PROVIDERS: ADMIT Internal Medicine; ATTEND Internal Medicine
DX: M10.072 Idiopathic gout, left ankle and foot (principal); R07.89 Other chest pain; R10.13 Epigastric pain; I10 Essential (primary) hypertension; E66.01 Morbid (severe) obesity due to excess calories; E11.65 Type 2 diabetes mellitus with hyperglycemia; K59.00 Constipation, unspecified; Z68.42 Body mass index [BMI] 45.0-49.9, adult; Z79.84 Long term (current) use of oral hypoglycemic drugs; Z79.82 Long term (current) use of aspirin; Z79.899 Other long term (current) drug therapy; Z88.8 Allergy status to other drugs, medicaments and biological substances; Z90.49 Acquired absence of other specified parts of digestive tract; Z98.891 History of uterine scar from previous surgery; Z98.890 Other specified postprocedural states
CPT/HCPCS: 36415; 36416; 71045; 71275; 78452; 80053; 80061; 82553; 83036; 83690; 83880; 84484; 84550; 85007; 85025; 85027; 93005; 93017; 94760; 96361; 96372; 96374; 96375; 96376; A9500; G0378; J0153; J1644; J1815; J1885; J2270; Q0162

== ENCOUNTER 2018-03-16 04:56 | Inpatient (IN) | payer OTHER ==
[2018-03-16] MEDS ORDERED: Ondansetron ODT 8 MG TAB ONE ×2 (05:35→06:21)
[2018-03-16] MEDS ORDERED: Morphine 4 MG/ML VIAL ONE (05:35)
[2018-03-16 05:43] LABS: #Eosinphils 0.1 thou/uL (0.0-0.7); #Lymphocytes 3.1 thou/uL (1.20-3.40); #Monocytes 0.5 thou/uL (0.11-0.59); #Neutrophils 4.5 thou/uL (1.40-6.50); %Eosinophils 1.4 % (0.0-10.0); %Lymphocytes 37.8 % (21.0-51.0); %Monocytes 5.5 % (0.0-10.0); %Neutrophils 55.2 % (42.0-75.0); Hemoglobin 14.3 g/dL (12.0-16.0); Mean Corpuscular HGB CONC 32.5 g/dL (32.0-36.0); Mean Corpuscular Volume 89.2 fl (81.0-99.0); Mean Platelet Volume 7.6 fL (7.4-10.4); Platelet Count 389 thou/uL (130-400); RBC Distribution Width 12.7 % (11.5-14.5); Red Blood Cell (RBC) Count 4.92 mill/uL (4.20-5.40); White Blood Cell (WBC) Count 8.1 thou/uL (4.8-10.8)
[2018-03-16 05:49] LABS: ALT (SGPT) 87 U/L (8-55); AST (SGOT) 46 U/L (5-34); Albumin 4.5 g/dL (3.5-5.0); Alkaline Phosphatase 117 U/L (40-150); Anion Gap 17 mmol/L (10-20); BUN (Urea Nitrogen) 11 mg/dL (7.0-18.7); Bilirubin, Total 0.3 mg/dL (0.2-1.2); CK (CPK) 106 U/L (29-168); Calc. Creatinine Clearance 0 mL/min (70-130); Calcium 9.6 mg/dL (7.8-10.44); Carbon Dioxide 22 mmol/L (22-29); Chloride 101 mmol/L (98-107); Estimated GFR-MDRD Greater than 90; Globulin 4.1 g/dL (2.4-3.5); Glucose 213 mg/dL (70-105); Potassium 3.5 mmol/L (3.5-5.1); Protein, Total 8.6 g/dL (6.0-8.3); Sodium 136 mmol/L (136-145)
[2018-03-16 05:53] LABS: CKMB 1.3 ng/mL (0-6.6); Troponin I 0.052 ng/mL (< 0.028)
[2018-03-16] MEDS ORDERED: Labetalol HCl 100 MG/20 ML VIAL ONE (06:07)
[2018-03-16] MEDS ORDERED: Enoxaparin Sodium 100 MG/ML SYRINGE ONE (06:21)
[2018-03-16] MEDS ORDERED: Nitroglycerin 2% Ointment 1 INCH/1 GM Packet ONE (06:21)
[2018-03-16] MEDS ORDERED: Acetaminophen 500 MG TAB ONE (06:22)
[2018-03-16] MEDS ORDERED: Acetaminophen 325 MG TAB ONE (06:27)
[2018-03-16] MEDS ORDERED: hydrALAZINE 20 MG/ML VIAL SLOW IVP PRN (06:35)
[2018-03-16] MEDS ORDERED: Dextrose 50% Abboject 50 ML SYRINGE SLOW IVP PRN (06:55)
[2018-03-16] MEDS ORDERED: Dextrose 5% in Water 1,000 ML IV PRN (06:55)
[2018-03-16] MEDS ORDERED: Lidocaine 2% Viscous Solution 10 ML, Aluminum & Magnesium Hydroxide 30 ML SSW SCH (07:00)
[2018-03-16 07:19] LABS: Bilirubin Negative (Negative); Blood, Urine Trace (Negative); Clarity CLEAR (Clear); Glucose, Urine (Dipstick) Negative (Negative); Leukocyte Negative (Negative); Nitrite Negative (Negative); Protein, Urine (Dipstick) 100 mg/dL (Neg-Trace); Specific Gravity, Urine 1.013 (1.002-1.036); Urobilinogen 0.2 mg/dL (0.2-1.0); pH, Urine 5.5 (5.0-9.0)
[2018-03-16 07:22] LABS: Bacteria/HPF None Seen HPF (None Seen); Hyaline Casts/LPF 0-3 HYALINE CAST LPF (0-3 Hyaline); RBC/HPF 0-3 HPF (0-3); Squamous Epithelial 0-3 HPF (0-3)
--- NOTE | 2018-03-16 07:22 | RAD ---
LEFT FOOT 3 VIEWS: Date: 03/16/18 HISTORY: 37-year-old female with history of foot pain. COMPARISON: 02/09/18. FINDINGS/IMPRESSION: Mild degenerative changes. No acute fracture or dislocation. Stable from 02/09/18. POS: CLAUDIA
--- NOTE | 2018-03-16 07:27 | HP ---
PRIMARY CARE PROVIDER: Sree Musa. CHIEF COMPLAINT: Epigastric pain. HISTORY OF PRESENT ILLNESS: Ms. Berumen is a pleasant 37-year-old lady who was seen at [facility] on 03/16/2018. She was hospitalized at this facility from 02/09/2018 to 02/10/2018 for left foot pain and epigastric pain. During that admission, she had a normal post-stress myocardial perfusion scan. She reports doing well until 3 days ago. Around that time, she developed left foot pain. She descri bes it as both sharp and dull, worse with walking. She denies any trauma to the foot. She reports t hat the pain is nonradiating and cannot recall any relieving factors. Two days ago, she developed epigastric pain. She describes it as a pressure-like sensation, radiatin g to her back, 10/10 at its worst, no known aggravating or relieving factors. She reports that it wa s accompanied by nausea, vomiting, and diarrhea. The diarrhea started last night. She reports havin g more than 10 loose stools overnight. She also reports vomiting multiple times yesterday. She has been unable to tolerate any oral diet. She took her medications yesterday morning, but it is unsure if she vomited them out. REVIEW OF SYSTEMS: All other systems reviewed and found to be negative. PAST MEDICAL HISTORY: Hypertension and diabetes. PAST SURGICAL HISTORY: Cholecystectomy, section x2 and removal of cyst from left thumb. SOCIAL HISTORY: She denies tobacco use, alcohol use or recreational drug use. FAMILY HISTORY: Her mother had a stroke when she was in her 50s. ALLERGIES: NITROGLYCERIN. CURRENT MEDICATIONS: Lisinopril 2.5 mg daily, metformin 500 mg daily, Ambien 10 mg at bedtime, cloni dine 0.2 mg 3 times a day, hydrochlorothiazide 25 mg daily, Reglan 10 mg 3 times a day. PHYSICAL EXAMINATION: GENERAL: Ms. Berumen is awake and alert, in mild distress. She is obese. VITAL SIGNS: Blood pressure is 197/136. Pulse is 132. She is breathing at rate of 20 and saturatin g 97% on room air. She is afebrile. EYES: No scleral icterus. No conjunctival pallor. ENT: Moist mucosal membranes, no oropharyngeal erythema or exudates. NECK: Supple, nontender, normal range of movement. Trachea is midline. RESPIRATORY: Accessory muscles of breathing are not active. Chest wall movements are symmetric bila terally. LUNGS: Clear to auscultation without wheeze, rhonchi or crepitations. CARDIOVASCULAR: S1 and S2 are heard, tachycardic and regular. Peripheral pulses palpable. No carot id bruit, no pericardial rub. ABDOMEN: She has epigastric tenderness, no guarding or rigidity. Bowel sounds are heard. No hepato megaly, no splenomegaly. NEUROLOGIC: Cranial nerves II through XII intact. Deep tendon reflexes are 2+. MUSCULOSKELETAL: Power is 5/5 in all 4 extremities. Left foot is tender over the arch of the foot a s well as the dorsum of the foot. LYMPHATIC: No cervical lymphadenopathy. SKIN: No rashes or subcutaneous nodules. PSYCHIATRIC: Normal mood, normal affect, patient is oriented to person, place, and time. LABORATORY DATA AND IMAGING: Ms. Sharp labs and investigations were reviewed. I reviewed her elect rocardiogram, which shows sinus tachycardia, no ST changes to suggest an acute coronary syndrome. I also reviewed her chest x-ray, which does not show any pulmonary infiltrates. She has a normal CBC, elevated D-dimer of 1.51, normal electrolytes, normal creatinine, normal total bilirubin, elevated T of 46, elevated ALT of 87, normal alkaline phosphatase, elevated troponin I of 0.052, last known tr oponin I 0.022 on 02/10/2018, normal BNP level, normal albumin level and normal calcium level. ASSESSMENT AND PLAN: Ms. Berumen is a pleasant 37-year-old lady who was seen at [facility] on 03/16/2018. Her problem list includes: 1. Epigastric pain: Etiology is unclear. We will administer GI cocktail. 2. Elevated troponin. I note that her troponins were elevated in the past as well. However, her mo re recent troponins were normal. Elevated troponin could be related to infection in the form of corina roenteritis or demand ischemia from a sinus tachycardia. We will consult Cardiology Service for opin ion, since she recently had a normal stress test. The patient is also awaiting a CT scan to rule out pulmonary embolism, given elevated D-dimer and elevated troponin. 3. Hypertensive urgency: The patient is currently in hypertensive urgency. She has received labeta lol. We will await effect of labetalol. I will also start her on p.r.n. IV antihypertensives in the form of hydralazine and labetalol. 4. Foot pain: She had foot pain during her last hospitalization as well, x-rays at that time were n egative. We will repeat x-rays to rule out any recent changes. I will start her on p.r.n. pain medi cations. 5. Diabetes mellitus type 2: Start the patient on Accu-Cheks, insulin sliding scale. 6. Nausea, vomiting, and diarrhea: Suspicious for gastroenteritis, either bacterial or viral. We w ill check stool cultures and Clostridium difficile screen. 7. Gout: Patient has a history of gout. Given her foot pain, we will trial colchicine to rule out gout flare. 8. Sinus tachycardia: The patient is currently awaiting CT angiogram to rule out pulmonary embolism . Many thanks for allowing me to participate in your patient's care. Please feel free to contact me wi th any questions or concerns. LEVEL OF RISK: High. LEVEL OF COMPLEXITY: High.
[2018-03-16] MEDS ORDERED: hydrALAZINE 20 MG/ML VIAL ONE ×2 (08:37→09:15)
[2018-03-16] MEDS ORDERED: cloNIDine 0.1 MG TAB ONE ×2 (09:14→09:15)
[2018-03-16] MEDS ORDERED: Promethazine HCl 25 MG/ML VIAL ONE (09:16)
--- NOTE | 2018-03-16 09:38 | RAD ---
UPRIGHT PORTABLE CHEST 1 VIEW: Date: 03/16/18 HISTORY: 37-year-old female with history of abdominal pain, elevated blood glucose. COMPARISON: 02/09/18. FINDINGS: Heart size is normal. The lungs are clear. IMPRESSION: No acute intrathoracic disease. Stable from prior study. POS: NISSA
[2018-03-16] MEDS ORDERED: niCARdipine 20MG In NaCl 20 MG/200 ML BAG ONE (10:14)
--- NOTE | 2018-03-16 10:14 | CT ---
CT ANGIOGRAM CHEST WITH 3D RENDERING: Date: 03/16/18 HISTORY: 37-year-old female with history of tachycardia, chest pain, and elevated D-Dimer. FINDINGS: Contrast density within the pulmonary artery system is somewhat suboptimal because of bolus timing. T here is certainly no evidence for central pulmonary artery thrombosis. Some of the smaller caliber pe ripheral pulmonary arteries are less than optimally opacified. No pleural effusion or pericardial eff usion. Marked fatty changes of the liver. IMPRESSION: No significant CT evidence for acute pulmonary embolism. The more peripheral smaller caliber pulmonar y arteries are somewhat less than optimum because of overall low contrast density. Marked fatty donahue es in the liver. POS: [facility]
[2018-03-16] MEDS ORDERED: Lisinopril 20 MG TAB PO SCH (10:15)
[2018-03-16] MEDS ORDERED: Hydrochlorothiazide 25 MG TAB PO SCH (10:15)
[2018-03-16] MEDS: Morphine 4 MG/ML VIAL SLOW IVP PRN ×3 (11:46→20:08)
[2018-03-16] MEDS: Sodium Chloride 0.9% 1,000 ML IV SCH ×3 (11:50→18:43)
[2018-03-16] MEDS: Colchicine 0.6 MG TAB PO SCH ×3 (11:50→20:53)
[2018-03-16] MEDS: Aspirin 325 MG TAB PO SCH (12:42)
[2018-03-16] MEDS: Enoxaparin Sodium 40 MG/0.4 ML SYRINGE SC SCH (12:43)
[2018-03-16] MEDS ORDERED: Lorazepam 2 MG/ML VIAL ONE (12:48)
[2018-03-16] MEDS ORDERED: Lorazepam 2 MG/ML VIAL SLOW IVP SCH (13:00)
[2018-03-16] MEDS: HumaLOG 300 UNITS/3 ML VIAL SC PRN ×3 (13:28→20:56)
[2018-03-16] MEDS: Labetalol HCl 100 MG/20 ML VIAL SLOW IVP PRN ×2 (13:52→18:45)
[2018-03-16] MEDS ORDERED: methylPREDNISolone Sod Succ/PF 125 MG/2 ML VIAL IVP SCH (14:15)
[2018-03-16] MEDS ORDERED: Fluticasone Propionate Nasal Spray 16 gm Bottle NASAL PRN (14:25)
--- NOTE | 2018-03-16 15:05 | CON ---
DATE OF CONSULTATION: 03/16/2018 REASON FOR CONSULTATION: Tachycardia and chest pain. HISTORY OF PRESENT ILLNESS: Mrs. Berumen is a pleasant 37-year-old -English female who comes t o the hospital for abdominal pain and foot pain. She is diagnosed with gout and thus probably the re ason for her foot pain, but she has been complaining of epigastric pain radiated to the left upper qu adrant and right upper quadrant for the last 2 days. She describes it as sharp. She was admitted as she was tachycardic in the 150s and blood pressure was also elevated in the 200s/120s range. She wa s admitted for hypertensive emergency. Her blood pressure is much better now in the 160s/90s and her heart rate has responded well to beta blockers in the 130s now. She is in sinus tachycardia. In my evaluation, her only complaint is epigastric pain. She does have a history of chest pains in the wa st with mildly elevated troponin. She had a heart catheterization back in 2015. At this point, she was found to have no significant coronary artery disease with normal anatomy. Her LV function was no rmal with an elevated LVEDP consistent with her hypertension. She had mildly elevated troponins in t he same manner as she is having today at that time when she was catheterized. PAST MEDICAL HISTORY: 1. Hypertension. 2. Type 2 diabetes. PAST SURGICAL HISTORY: 1. Cholecystectomy. 2. C-sections x2. 3. Cyst noted from left thumb. SOCIAL HISTORY: No alcohol, tobacco or drugs. FAMILY HISTORY: Noncontributory. ALLERGIES: NITROGLYCERIN. OUTPATIENT MEDICATIONS: Include; 1. Lisinopril 2.5 mg a day. 2. Metformin 500 mg. 3. Ambien 10 mg a day. 4. Clonidine 0.2 mg 3 times a day. 5. Hydrochlorothiazide 25 mg a day. 6. Reglan 10 mg 3 times a day. REVIEW OF SYSTEMS: A 12 point review of systems was done and is all negatives as stated in the histo ry of present illness. PHYSICAL EXAMINATION: VITAL SIGNS: Temperature 97.6; pulse 131 currently, but has been in the 150s; blood pressure 161/90; respiratory rate 18; satting 99% on 2 liters nasal cannula. GENERAL: Awake, alert, oriented x3, in mild pain. HEENT: Normocephalic, atraumatic. NECK: Supple. LUNGS: Clear. CARDIOVASCULAR: S1, S2, no S3, S4. No murmurs. ABDOMEN: Soft, positive bowel sounds. There is tenderness to palpation in the epigastric area as we ll as the right and left upper quadrants. No guarding or rebound. Hood sign is negative. EXTREMITIES: No edema. SKIN: Warm and dry. LABORATORY WORK: Reviewed. CBC is unremarkable. Coags: D-dimer is little bit high 1.5. Metabolic profile was unremarkable except for glucose of 213. Uric acid 9.3, AST of 46, ALT of 87, normal tot al bilirubin. Troponin was 0.05, 0.07, 0.09. Albumin of 4.5. BNP was 44. UA showed trace ketones and trace blood with 4-[address] of the chest showed no evidence of pulmonary embolism with fatty changes in the liver. ASSESSMENT: 1. Tachycardia. 2. Epigastric pain. 3. Normal coronaries 2 years ago. 4. Mildly elevated troponins. 5. Hypertensive emergency. 6. Toe pain, likely gouty arthritis. 7. Fatty liver. PLAN: 1. At this point, I doubt that her heart is an issue. I think she is in sinus tachycardia given her underlying condition. We will check a lipase to make sure she does not have pancreatitis as her gagan n is much worse than expected. We would also get lactic acid. We will get an echocardiogram to asse ss LV function and valvular structures to make sure they will remain unchanged from last evaluation. 2. No evidence of supraventricular tachycardia or any arrhythmias. Thank you for letting us participate in the care of your patient. We will follow.
[2018-03-16 17:08] LABS: Amphetamine Not Detected (NotDetected); Barbiturates Screen Not Detected (NotDetected); Benzodiazepine Screen Not Detected (NotDetected); Cocaine Metabolite Screen Not Detected (NotDetected); Medtox Control Line Valid? VALID (VALID); Medtox Reader # READER 4; Methadone Not Detected (NotDetected); Methamphetamine Not Detected (NotDetected); Opiate Screen Detected (NotDetected); Oxycodone Screen Not Detected (NotDetected); Phencyclidine (PCP) Not Detected (NotDetected); THC/Cannabinoid Screen Not Detected (NotDetected); Tricyclic Screen Not Detected (NotDetected)
[2018-03-16] MEDS ORDERED: Sodium Chloride 0.9% 1,000 ML IV SCH (17:45)
[2018-03-16] MEDS ORDERED: ISOVUE-370 76%-LOCM 1 ML ONE (18:34)
[2018-03-16] MEDS: Labetalol 100 MG TAB PO SCH (20:02)
[2018-03-16] MEDS: Gabapentin 100 MG CAP PO SCH (20:53)
[2018-03-16] MEDS ORDERED: Zolpidem Tartrate 5 MG TAB PO SCH (21:00)
[2018-03-16] MEDS: Acetaminophen 500 MG TAB PO PRN (22:38)
--- NOTE | 2018-03-17 02:17 | CON ---
DATE OF CONSULTATION: 03/16/2018 HISTORY OF PRESENT ILLNESS: Ms. Berumen is a 37-year-old female. Apparently, she presented before 7:0 0 this morning with complaints of toe pain. She had a chest x-ray done at 5:10 this morning and was normal. She had a CT pulmonary angiogram done that was normal with the exception of fatty infiltrati ve changes in her liver. There was peripheral opacification of pulmonary arteries. She had a foot films done showed no change from past foot films. The ER record says she presented for abdominal pain, but she told me she came in for toe pain. She says she has noted that her heart has been racing for 2 days. She says this has happened in the past, but never this bad. I found thyroid lab from last year that was not suggestive of a suppressed TSH. She has had multiple visits at this hospital and was in the ER inpatient. On 02/10, she had a stress test here with a nuclear imaging that was unremarkable. In December of this year, she was admitted for intractable nausea and vomiting as well as a hypertensive emergency. She has a history of gastroparesis and diabetes according to the discharge summary then. She has history of hypertension, says her blood pressure has been elevated lately. She has had a cholecystectomy, and a thumb cyst removed. SOCIAL HISTORY: She is a nonsmoker, nondrinker. She does not use drugs. FAMILY HISTORY: Negative for lung disease. SOCIAL HISTORY: She denies having major life stresses, but sometimes wonders if she has panic attack s. REVIEW OF SYSTEMS: Otherwise negative. She denies cough, chest congestion, headache. She said she was nauseated in the emergency room. She denies abdominal pain at the time I evaluated her. PHYSICAL EXAMINATION: VITAL SIGNS: Blood pressure 180/85, heart rate was 155, narrow complex when I arrived in the ICU. S he received a dose of IV labetalol and her heart rate came down to the 120s. It was noted to be a si nus rhythm, respiratory rate was in the high teens to low 20s. She denied shortness of breath. Oxim etry is 99%. HEENT: Pupils are equal. Sclerae is anicteric. NECK: Supple. LUNGS: Clear. HEART: Regular rhythm, no S3. ABDOMEN: Soft and nontender. I do not palpate any masses. LABORATORY DATA: White count 8.1, hemoglobin 14.3, platelets 389,000. Sodium 136, potassium 3.5, ch loride 101, bicarbonate 22, BUN 11, creatinine 0.8. Liver enzymes were mildly elevated consistent wi th fatty liver. Serum protein is 8.6, globulin is 4.1. IMPRESSION: Hypertension and tachycardia of unclear etiology. Her great toe certainly is tender on the left consistent with gout. Colchicine was already ordered and I ordered one dose of steroids. I doubt she is septic. Per response to labetalol, may be wonder about hyperthyroidism, but no lab recently has suggested claude t. I doubt she has a pheochromocytoma. I have asked Cardiology to look at her. They have seen her in the past. Critical care time was 30 minutes.
[2018-03-17] MEDS: Morphine 4 MG/ML VIAL SLOW IVP PRN ×5 (02:37→20:33)
[2018-03-17] MEDS: HumaLOG 300 UNITS/3 ML VIAL SC PRN ×4 (04:11→16:55)
[2018-03-17] MEDS: Sodium Chloride 0.9% 1,000 ML IV SCH ×2 (04:12→16:49)
[2018-03-17] MEDS: Acetaminophen 500 MG TAB PO PRN ×2 (04:16→10:13)
[2018-03-17 05:56] LABS: Anion Gap 21 mmol/L (10-20); BUN (Urea Nitrogen) 7 mg/dL (7.0-18.7); Calc. Creatinine Clearance 156 mL/min (70-130); Calcium 9.2 mg/dL (7.8-10.44); Carbon Dioxide 14 mmol/L (22-29); Cardiac Risk 4.5 (Less than 4.5); Chloride 106 mmol/L (98-107); Cholesterol 172 mg/dl (< 200 Desired); Estimated GFR-MDRD 78; Glucose 267 mg/dL (70-105); HDL Cholesterol 38 mg/dL (>60 Neg Risk); LDL Cholesterol, Calculated 116 mg/dL; Potassium 3.8 mmol/L (3.5-5.1); Sodium 137 mmol/L (136-145); Triglycerides 89 mg/dL (Less than 150)
[2018-03-17] MEDS: Labetalol HCl 100 MG/20 ML VIAL SLOW IVP PRN (06:03)
[2018-03-17 06:04] LABS: Band 3 % (5-11); Hemoglobin 14.2 g/dL (12.0-16.0); Lymphocytes 9 % (21-51); MDiff Complete? YES; Mean Corpuscular Hemoglobin 29.3 pg (27.0-31.0); Mean Corpuscular Volume 91.4 fl (81.0-99.0); Mean Platelet Volume 8.6 fL (7.4-10.4); Monocytes 3 % (0-10); Neutrophil 85 % (42-75); PLT Morphology Comment Appears Adequate; Platelet Count 299 thou/uL (130-400); RBC Distribution Width 13.1 % (11.5-14.5); Red Blood Cell (RBC) Count 4.84 mill/uL (4.20-5.40); White Blood Cell (WBC) Count 10.9 thou/uL (4.8-10.8)
[2018-03-17 06:07] LABS: Free T4 (Free Thyroxine) 0.99 ng/dL (0.70-1.48)
[2018-03-17 06:16] LABS: Thyroid Stimulating Hormone 0.3022 uIU/mL (0.35-4.94)
[2018-03-17] MEDS: niCARdipine HCl 25 MG in Sodium Chloride 0.9% 250 ML 240 ML IVPB SCH ×2 (06:56→11:35)
[2018-03-17] MEDS: Aspirin 325 MG TAB PO SCH (07:48)
[2018-03-17] MEDS: Enoxaparin Sodium 40 MG/0.4 ML SYRINGE SC SCH (07:48)
[2018-03-17] MEDS: Labetalol 100 MG TAB PO SCH ×2 (07:48→20:34)
[2018-03-17] MEDS: Gabapentin 100 MG CAP PO SCH ×3 (07:49→20:35)
[2018-03-17] MEDS: Colchicine 0.6 MG TAB PO SCH (07:49)
[2018-03-17 07:57] LABS: Hemoglobin A1c 8.7 % (4.0-6.0)
[2018-03-17] MEDS: ALPRAZolam 0.25 MG TAB PO PRN ×2 (10:13→20:41)
[2018-03-17] MEDS: Ondansetron HCl/PF 4 MG/2 ML Vial IVP PRN ×2 (11:50→20:33)
[2018-03-17] MEDS ORDERED: Dextrose 50% Abboject 50 ML SYRINGE SLOW IVP PRN (12:41)
[2018-03-17] MEDS ORDERED: Dextrose 5% in Water 1,000 ML IV PRN (12:41)
--- NOTE | 2018-03-17 12:56 | PDOC.CTH ---
Cardiology Progress Note - Subjective She is doing better. Her HR remains in the 120's after fluid and her BP has been in the 150's over 90's with nicardipine drip. - Objective Vital Signs Temp Pulse Resp BP Pulse Ox 03/17/18 12:00 98.5 F 03/17/18 08:00 98.4 F 100 16 98 03/17/18 07:48 125 H 176/98 H 03/17/18 06:03 125 H 176/98 H 03/17/18 04:00 98.6 F Admit Weight 276 lb Weight 276 lb 14.409 oz 03/16/18 03/17/18 03/18/18 06:59 06:59 06:59 Intake Total 5743 720 Output Total 5865 500 Balance -122 220 - Physical Examination General/Neuro: alert & oriented x3, NAD Neck: no JVD present Lungs: CTA, unlabored respirations Heart: RRR Abdomen: NT/ND Extremities: + edema B (trace) - Telemetry Telemetry Rhythm: S tach - Labs Result Diagrams: 03/17/18 04:32 03/17/18 04:32 Troponin/CKMB CK-MB (CK-2) 1.3 ng/mL (0-6.6) 03/16/18 05:24 Troponin I 0.090 ng/mL (< 0.028) H 03/16/18 13:08 - Assessment/Plan 1. Sinus tachycardia 2. Hyperdynamic LV 3. Hypertension, malignant. 4. LVH, cannot rule out LVOT obstruction but patient not hypotensive. PLAN: - Will switch nicardipine to diltiazem to get better HR control. - No obvious source of her tachycardia.
[2018-03-17] MEDS ORDERED: Diltiazem 125 MG in Sodium Chloride 0.9% 100 ML IVPB SCH (13:00)
--- NOTE | 2018-03-17 13:48 | PRG ---
DATE OF SERVICE: 03/17/2018 SUBJECTIVE: Aime Berumen has no new complaints. She says her toe feels a little bit better, but sudha gao sometimes feels like it is on fire. Not sure all of her symptoms involving her toes were gout rela ria. PHYSICAL EXAMINATION: VITAL SIGNS: Heart rate is 115, blood pressure 159/92, respiratory rate is 13, oximetry is 100%. LUNGS: Clear. HEART: Regular rhythm. ABDOMEN: Soft. LABORATORY DATA: White count 10.9, hemoglobin 14.2, platelets 299. Sodium 137, potassium 3.8, chlor rosalinda 106, bicarbonate 14, BUN 7, creatinine 0.96, and glucose 267, anion gap 17. IMPRESSION: 1. Resting tachycardia with a negative CT angiogram. 2.? gout. 3. Hypertrophic cardiomyopathy. 4. Severe hypertension on presentation. 5. Metabolic acidosis with an anion gap of 17. We will check blood gas today. LABORATORY DATA: Her TSH is suppressed. Her free T4 is normal. Free thyroxine index was ordered an d is pending. Continue to keep her in the Critical Care Unit because of variability of her vital signs and the stephany rity of her hypertrophic cardiomyopathy. It is absolutely imperative to get blood pressure under con trol and her heart rate as well. This appears to be sinus tachycardia. I doubt she is hyperthyroid.
[2018-03-17] MEDS ORDERED: Lidocaine 2% Viscous Solution 10 ML, Aluminum & Magnesium Hydroxide 30 ML SSW SCH (15:45)
[2018-03-17 17:22] LABS: Free Thyroxine Index 1.99 (1.4-3.1); T4 7.9 ug/dL (4.87-11.72)
[2018-03-17] MEDS ORDERED: Famotidine/PF 20 mg/2ml Vial SLOW IVP SCH (21:00)
--- NOTE | 2018-03-17 21:53 | PDOC.PN ---
- Subjective Encounter Start Date: 03/17/18 Encounter Start Time: 13:00 Subjective: pt up in bed complains of pain to her epigastric area - Objective Vital Signs & Weight: Vital Signs (12 hours) Temp Pulse Resp BP Pulse Ox 03/17/18 20:34 130 H 183/103 H 03/17/18 20:00 99.7 F H 03/17/18 19:49 99.7 F H 130 H 25 H 99 03/17/18 16:00 98.9 F 03/17/18 12:00 98.5 F Weight Admit Weight 276 lb Weight 276 lb 14.409 oz Most Recent Monitor Data Heart Rate from ECG 118 NIBP 135/80 NIBP BP-Mean 105 Respiration from ECG 24 SpO2 99 I&O: 03/16/18 03/17/18 03/18/18 06:59 06:59 06:59 Intake Total 5743 3063.9 Output Total 5865 1375 Balance -122 1688.9 Result Diagrams: 03/17/18 04:32 03/17/18 04:32 Additional Labs: Accuchecks 03/17/18 03/17/18 03/17/18 16:54 11:35 07:01 POC Glucose 180 H 258 H 255 H 03/17/18 04:08 POC Glucose 278 H Phys Exam - Physical Examination HEENT: PERRLA, moist MMs, sclera anicteric, TM's clear, oral pharynx no lesions , 2+ tonsils Neck: no nodes, no JVD, supple, full ROM Respiratory: no wheezing, no rales, no rhonchi, wheezing present, clear to auscultation bilateral tachycardia sinus obse, bs x2, tenderness on palpation of epigastric area and RUQ Musculoskeletal: no edema, pulses present, edema present Dx/Plan - Plan 1) epigastric pain 2) n/v 3) sinus tachycardia 4) Hypertension uncontrolled 5) left foot pain most likely gout 6) fatty liver plan: pt has been put on pepcid today. She is s/p cholecystectomy will mild elevated lfts but normal bili most likely due to fatty liver. Pt continues to have n/v. lipase is normal. if pt's epigastric pain does not improve may consider gi consult. unclear etiology for her ST. Thyroid is normal, ?pain related. Pt was on nicardipine hich has been changed to cardizem. pt on colchicine stated on 03/17 will continue until her left foot pain resolves. * . Review of Systems - Review of Systems Respiratory: negative: Cough, Dry, Shortness of Breath, Hemoptysis, SOB with Excertion, Pleuritic Pain, Sputum, Wheezing Gastrointestinal: Nausea, Abdominal Pain Genitourinary: negative: Dysuria, Frequency, Incontinence, Hematuria, Retention , Other Musculoskeletal: negative: Neck Pain, Shoulder Pain, Arm Pain, Back Pain, Hand Pain, Leg Pain, Foot Pain, Other - Medications/Allergies Allergies/Adverse Reactions: Allergies Allergy/AdvReac Type Severity Reaction Status Date / Time nitroglycerin Allergy Verified 02/10/18 01:40 Medications: Current Medications Acetaminophen (Tylenol) 1,000 mg PO Q6H PRN PRN Reason: Headache/Fever or Pain Last Admin: 03/17/18 10:13 Dose: 1,000 mg Alprazolam (Xanax) 0.25 mg PO QIDPRN PRN PRN Reason: Anxiety Last Admin: 03/17/18 20:41 Dose: 0.25 mg Aspirin (Aspirin) 325 mg PO DAILY [facility] Last Admin: 03/17/18 07:48 Dose: 325 mg Colchicine (Colcrys) 0.6 mg PO DAILY [facility] Last Admin: 03/17/18 07:49 Dose: 0.6 mg Dextrose/Water (Dextrose 50%) 25 gm SLOW IVP PRN PRN PRN Reason: Hypoglycemia Dextrose/Water (Dextrose 50%) 25 gm SLOW IVP PRN PRN PRN Reason: Hypoglycemia Enoxaparin Sodium (Lovenox) 40 mg SC 0900 [facility] Last Admin: 03/17/18 07:48 Dose: 40 mg Famotidine (Pepcid) 20 mg PO BID [facility] Last Admin: 03/18/18 00:53 Dose: 20 mg Fluticasone Propionate (Flonase Nasal [place]) 0 gm NASAL DAILYPRN PRN PRN Reason: Allergies Gabapentin (Neurontin) 100 mg PO TID [facility] Last Admin: 03/17/18 20:35 Dose: 100 mg Glucagon (Glucagon) 1 mg IM PRN PRN PRN Reason: Hypoglycemia Glucagon (Glucagon) 1 mg IM PRN PRN PRN Reason: Hypoglycemia Hydralazine HCl (Apresoline) 10 mg SLOW IVP Q6H PRN PRN Reason: SBP Greater Than 170 Dextrose/Water (D5w) 1,000 mls @ 0 mls/hr IV .Q0M PRN; As Directed PRN Reason: Hypoglycemia Sodium Chloride (Normal Saline 0.9%) 1,000 mls @ 100 mls/hr IV .Q10H [facility] Last Admin: 03/18/18 02:17 Dose: 1,000 mls Dextrose/Water (D5w) 1,000 mls @ 0 mls/hr IV .Q0M PRN; As Directed PRN Reason: Hypoglycemia Diltiazem HCl 125 mg/ Sodium (Chloride) 125 mls @ 10 mls/hr IVPB INF [facility]; 10 MG /HR PRN Reason: Protocol Last Admin: 03/18/18 02:56 Dose: 125 mls Insulin Human Lispro (Humalog) 0 units SC .MODERATE SLIDING SC PRN PRN Reason: Moderate Correctional Scale Last Admin: 03/17/18 16:55 Dose: 2 unit Labetalol HCl (Normodyne) 10 mg SLOW IVP Q4H PRN PRN Reason: SBP Greater Than 180 Last Admin: 03/18/18 04:12 Dose: 10 mg Labetalol HCl (Normodyne) 200 mg PO BID [facility] Last Admin: 03/17/18 20:34 Dose: 200 mg Morphine Sulfate (Morphine) 2 mg SLOW IVP Q4H PRN PRN Reason: Pain Last Admin: 03/18/18 05:29 Dose: 2 mg Ondansetron HCl (Zofran) 4 mg IVP Q6H PRN PRN Reason: Nausea/Vomiting Last Admin: 03/17/18 20:33 Dose: 4 mg Sodium Chloride (Flush - Normal Saline) 10 ml IVF Q12HR [facility] Last Admin: 03/17/18 20:35 Dose: 10 ml Sodium Chloride (Flush - Normal Saline) 10 ml IVF PRN PRN PRN Reason: Saline Flush Zolpidem Tartrate (Ambien) 10 mg PO HSPRN PRN PRN Reason: SLEEP. Last Admin: 03/18/18 00:54 Dose: 10 mg
[2018-03-18] MEDS ORDERED: Zolpidem Tartrate 5 MG TAB PO PRN (00:04)
[2018-03-18] MEDS: Famotidine 20 MG TAB PO SCH ×3 (00:53→20:19)
[2018-03-18] MEDS: Morphine 4 MG/ML VIAL SLOW IVP PRN ×3 (00:54→09:47)
[2018-03-18] MEDS: Sodium Chloride 0.9% 1,000 ML IV SCH ×2 (02:17→15:10)
[2018-03-18] MEDS ORDERED: Diltiazem 125 MG in Sodium Chloride 0.9% 100 ML IVPB SCH (02:45)
[2018-03-18] MEDS: Labetalol HCl 100 MG/20 ML VIAL SLOW IVP PRN ×2 (04:12→09:47)
[2018-03-18] MEDS: HumaLOG 300 UNITS/3 ML VIAL SC PRN (05:31)
[2018-03-18] MEDS: Labetalol 100 MG TAB PO SCH (08:01)
[2018-03-18] MEDS: Gabapentin 100 MG CAP PO SCH ×3 (08:01→20:18)
[2018-03-18] MEDS: Acetaminophen 500 MG TAB PO PRN (08:01)
[2018-03-18] MEDS: Aspirin 325 MG TAB PO SCH (08:01)
[2018-03-18] MEDS: Colchicine 0.6 MG TAB PO SCH (08:01)
[2018-03-18] MEDS: ALPRAZolam 0.25 MG TAB PO PRN ×2 (08:01→16:13)
[2018-03-18] MEDS: Enoxaparin Sodium 40 MG/0.4 ML SYRINGE SC SCH (08:02)
--- NOTE | 2018-03-18 11:18 | PRG ---
DATE OF SERVICE: 03/18/2018 SERVICE: Pulmonary Medicine. INTERVAL HISTORY: The patient is doing fantastic from a respiratory standpoint. She does not have any shortness of breath. Her chest pain is resolved. She continues to have left foot pain, but it seems to be improving. Otherwise, there has been no interval change to her condition. PHYSICAL EXAMINATION: VITAL SIGNS: Afebrile, pulse 107, blood pressure 170/89, respirations 18, saturation 99% on room air. GENERAL: The patient is awake and alert, in no apparent distress. LUNGS: Excellent air entry. There is no prolonged expiratory phase, wheezing, rhonchi, or crackles present. HEART: Tachycardic. Regular. ABDOMEN: Soft, nontender, nondistended. Bowel sounds are positive. MUSCULOSKELETAL: No cyanosis or clubbing. There is no pitting in the bilateral lower extremities. NEUROLOGIC: Grossly nonfocal. LABORATORY DATA: WBC 10.9, hemoglobin 14.2, platelets 299,000. Neutrophils 85% . D-dimer 1.51. Hemoglobin A1c 8.7. Basic metabolic profile is essentially unremarkable otherwise. Anion gap is trending upward to 21, bicarbonate was previously decreasing to 14. TSH 0.3. ASSESSMENT: 1. Hypertrophic cardiomyopathy. 2. Obstructive sleep apnea, suspected. 3. Hypertension. DISCUSSION AND PLAN: Antihypertensive medications per Cardiology. From my perspective, she is stable for transition out of the IMCU to the telemetry unit. Pulmonary Critical Care will continue to follow along in this location. In the outpatient setting, the patient would benefit from following up with Dr. Chappell to set her up for a polysomnogram. [facility]PITALGabby
[2018-03-18] MEDS ORDERED: Labetalol 100 MG TAB PO SCH (12:58)
--- NOTE | 2018-03-18 12:58 | PDOC.CTH ---
Cardiology Progress Note - Subjective She is doing better. Her BP is better after PRN's labetalol on top of her scheduled PO dose. - Objective Vital Signs Temp Pulse Resp BP BP BP Pulse Ox 03/18/18 11:35 98.9 F 96 22 H 145/86 H 98 03/18/18 09:47 107 H 199/100 H 03/18/18 08:01 107 H 177/101 H 03/18/18 08:00 98.3 F 107 H 18 99 03/18/18 07:39 98.2 F 107 H 22 H 100 03/18/18 05:00 170/89 H 03/18/18 04:12 112 H 173/103 H 03/18/18 04:00 98.3 F 112 H 16 173/103 H 99 Admit Weight 276 lb Weight 287 lb 12.8 oz 03/17/18 03/18/18 03/19/18 06:59 06:59 06:59 Intake Total 5743 4735.9 Output Total 5865 2025 Balance -122 2710.9 - Physical Examination General/Neuro: alert & oriented x3, NAD Neck: no JVD present Lungs: CTA, unlabored respirations Heart: RRR Abdomen: NT/ND Extremities: + edema B (trace) - Telemetry Telemetry Rhythm: NSR - Labs Result Diagrams: 03/17/18 04:32 03/17/18 04:32 Troponin/CKMB CK-MB (CK-2) 1.3 ng/mL (0-6.6) 03/16/18 05:24 Troponin I 0.090 ng/mL (< 0.028) H 03/16/18 13:08 - Assessment/Plan 1. Sinus tachycardia 2. Hyperdynamic LV 3. Hypertension, malignant. 4. LVH, cannot rule out LVOT obstruction but patient not hypotensive. PLAN: - Will switch diltiazem to PO. - Will increase her home labelatolol to 300 mg BID and will switch her IV drip to PO dilt. - May transfer to medical floor .
[2018-03-18] MEDS ORDERED: traMADol HCl 50 MG TAB PO PRN (15:01)
[2018-03-18] MEDS: traMADol HCl 50 MG TAB PO PRN ×2 (16:13→22:14)
[2018-03-18] MEDS: cloNIDine 0.2 MG TAB PO SCH ×2 (16:13→22:14)
--- NOTE | 2018-03-18 18:28 | EKG ---
Test Reason : Blood Pressure : / mmHG Vent. Rate : 137 BPM Atrial Rate : 137 BPM P-R Int : 142 ms QRS Dur : 072 ms QT Int : 372 ms P-R-T Axes : 065 044 013 degrees QTc Int : 561 ms Sinus tachycardia Right atrial enlargement Left ventricular hypertrophy with repolarization abnormality Abnormal ECG When compared with ECG of 09-FEB-2018 20:12, T wave inversion more evident in Inferior leads T wave inversion now evident in Lateral leads Confirmed by Marian CASTELLANOS ([id number]) on 03/18/2018 6:28:06 PM Referred By: HUMZA Confirmed By:Marian CASTELLANOS
[2018-03-18] MEDS ORDERED: Gabapentin 100 MG CAP PO SCH (21:00)
[2018-03-18] MEDS ORDERED: Diltiazem HCl SR 60 mg Capsule PO SCH (21:00)
--- NOTE | 2018-03-18 23:27 | PDOC.PN ---
- Subjective Encounter Start Date: 03/18/18 Encounter Start Time: 10:45 Subjective: pt up in bed still has some pain to her left foot - Objective Vital Signs & Weight: Vital Signs (12 hours) Temp Pulse Resp BP BP Pulse Ox 03/18/18 22:14 179/109 H 03/18/18 20:19 105 H 03/18/18 20:00 98.3 F 105 H 18 139/80 97 03/18/18 17:58 98 F 105 H 18 157/89 H 97 03/18/18 16:13 179/109 H 03/18/18 15:45 98.4 F 109 H 17 172/98 H 98 03/18/18 11:35 98.9 F 96 22 H 145/86 H 98 Weight Admit Weight 276 lb Weight 287 lb 12.8 oz Most Recent Monitor Data Heart Rate from ECG 118 NIBP 135/80 NIBP BP-Mean 105 Respiration from ECG 24 SpO2 99 I&O: 03/17/18 03/18/18 03/19/18 06:59 06:59 06:59 Intake Total 5743 4735.9 Output Total 5865 2024 Balance -122 2710.9 Result Diagrams: 03/17/18 04:32 03/17/18 04:32 Additional Labs: Accuchecks 03/18/18 03/18/18 03/18/18 20:07 10:27 05:30 POC Glucose 210 H 201 H 216 H Phys Exam - Physical Examination HEENT: PERRLA, moist MMs, sclera anicteric, TM's clear, oral pharynx no lesions , 2+ tonsils Neck: no nodes, no JVD, supple, full ROM Respiratory: no wheezing, no rales, no rhonchi, wheezing present, clear to auscultation bilateral Cardiovascular: RRR, no significant murmur, no rub, gallop, irregular Gastrointestinal: soft mild pain on palpation of epigastric area pt has pain on palpation of left foot Dx/Plan - Plan 1) epigastric pain 2) n/v 3) sinus tachycardia 4) Hypertension uncontrolled 5) left foot pain most likely gout 6) fatty liver plan: pt has been put on pepcid today. She is s/p cholecystectomy will mild elevated lfts but normal bili most likely due to fatty liver. Pt continues to have n/v. lipase is normal. if pt's epigastric pain does not improve may consider gi consult. unclear etiology for her ST. Thyroid is normal, ?pain related. Pt was on nicardipine hich has been changed to cardizem. pt on colchicine stated on 03/17 will continue until her left foot pain resolves. * . 03/18 pt's iv cardizem has been converted to po. will start her home meds. Also pt has been eating and states that her abdominal pain has improved. will discontinue her morphine and will increase her tramadol. pt also is on colchicine. pt states that indomethacin and naproxen has not worked for her in the past. * . Review of Systems - Review of Systems Eyes: negative: Pain, Vision Change, Conjunctivae Inflammation, Eyelid Inflammation, Redness, Other ENT: negative: Ear Pain, Ear Discharge, Nose Pain, Nose Discharge, Nose Congestion, Mouth Pain, Mouth Swelling, Throat Pain, Throat Swelling, Other Gastrointestinal: Abdominal Pain Musculoskeletal: Other (foot pain left) - Medications/Allergies Allergies/Adverse Reactions: Allergies Allergy/AdvReac Type Severity Reaction Status Date / Time nitroglycerin Allergy Verified 02/10/18 01:40 Medications: Current Medications Acetaminophen (Tylenol) 1,000 mg PO Q6H PRN PRN Reason: Headache/Fever or Pain Last Admin: 03/18/18 08:01 Dose: 1,000 mg Alprazolam (Xanax) 0.25 mg PO QIDPRN PRN PRN Reason: Anxiety Last Admin: 03/18/18 16:13 Dose: 0.25 mg Aspirin (Aspirin) 325 mg PO DAILY [facility] Last Admin: 03/18/18 08:01 Dose: 325 mg Clonidine (Catapres) 0.2 mg PO Q8H [facility] Last Admin: 03/18/18 22:14 Dose: 0.2 mg Colchicine (Colcrys) 0.6 mg PO DAILY [facility] Last Admin: 03/18/18 08:01 Dose: 0.6 mg Dextrose/Water (Dextrose 50%) 25 gm SLOW IVP PRN PRN PRN Reason: Hypoglycemia Dextrose/Water (Dextrose 50%) 25 gm SLOW IVP PRN PRN PRN Reason: Hypoglycemia Diltiazem HCl (Cardizem Sr) 60 mg PO BID [facility] Last Admin: 03/18/18 20:18 Dose: 60 mg Enoxaparin Sodium (Lovenox) 40 mg SC 0900 [facility] Last Admin: 03/18/18 08:02 Dose: 40 mg Famotidine (Pepcid) 20 mg PO BID [facility] Last Admin: 03/18/18 20:19 Dose: 20 mg Fluticasone Propionate (Flonase Nasal [place]) 0 gm NASAL DAILYPRN PRN PRN Reason: Allergies Gabapentin (Neurontin) 100 mg PO TID [facility] Last Admin: 03/18/18 20:18 Dose: 100 mg Glucagon (Glucagon) 1 mg IM PRN PRN PRN Reason: Hypoglycemia Glucagon (Glucagon) 1 mg IM PRN PRN PRN Reason: Hypoglycemia Hydralazine HCl (Apresoline) 10 mg SLOW IVP Q6H PRN PRN Reason: SBP Greater Than 170 Hydrochlorothiazide (Hydrochlorothiazide) 25 mg PO QAM [facility] Dextrose/Water (D5w) 1,000 mls @ 0 mls/hr IV .Q0M PRN; As Directed PRN Reason: Hypoglycemia Dextrose/Water (D5w) 1,000 mls @ 0 mls/hr IV .Q0M PRN; As Directed PRN Reason: Hypoglycemia Insulin Human Lispro (Humalog) 0 units SC .MODERATE SLIDING SC PRN PRN Reason: Moderate Correctional Scale Last Admin: 03/18/18 05:31 Dose: 4 unit Labetalol HCl (Normodyne) 10 mg SLOW IVP Q4H PRN PRN Reason: SBP Greater Than 180 Last Admin: 03/18/18 09:47 Dose: 10 mg Labetalol HCl (Normodyne) 300 mg PO BID [facility] Last Admin: 03/18/18 20:19 Dose: 300 mg Lisinopril (Zestril) 20 mg PO DAILY [facility] Ondansetron HCl (Zofran) 4 mg IVP Q6H PRN PRN Reason: Nausea/Vomiting Last Admin: 03/17/18 20:33 Dose: 4 mg Sodium Chloride (Flush - Normal Saline) 10 ml IVF Q12HR [facility] Last Admin: 03/18/18 20:19 Dose: 10 ml Sodium Chloride (Flush - Normal Saline) 10 ml IVF PRN PRN PRN Reason: Saline Flush Tramadol HCl (Ultram) 100 mg PO Q6H PRN PRN Reason: Pain Last Admin: 03/18/18 22:14 Dose: 100 mg Zolpidem Tartrate (Ambien) 10 mg PO HSPRN PRN PRN Reason: SLEEP. Last Admin: 03/18/18 00:54 Dose: 10 mg Zolpidem Tartrate (Ambien) 10 mg PO HS PRN PRN Reason: Insomnia
[2018-03-19] MEDS: Zolpidem Tartrate 5 MG TAB PO PRN ×2 (00:09→21:48)
[2018-03-19] MEDS: traMADol HCl 50 MG TAB PO PRN ×3 (04:59→17:11)
[2018-03-19] MEDS: HumaLOG 300 UNITS/3 ML VIAL SC PRN ×2 (06:59→11:11)
[2018-03-19] MEDS: cloNIDine 0.2 MG TAB PO SCH ×3 (06:59→23:45)
[2018-03-19 07:29] LABS: Calcium 9.1 mg/dL (7.8-10.44); Chloride 106 mmol/L (98-107); Magnesium 1.5 mg/dL (1.6-2.6); Potassium 3.4 mmol/L (3.5-5.1); Sodium 140 mmol/L (136-145)
[2018-03-19 07:30] LABS: Glucose 174 mg/dL (70-105)
[2018-03-19 07:32] LABS: Anion Gap 14 mmol/L (10-20); Carbon Dioxide 23 mmol/L (22-29)
[2018-03-19 07:34] LABS: BUN (Urea Nitrogen) 11 mg/dL (7.0-18.7); Calc. Creatinine Clearance 226 mL/min (70-130); Estimated GFR-MDRD Greater than 90
[2018-03-19] MEDS ORDERED: Labetalol 100 MG TAB PO SCH (08:14)
--- NOTE | 2018-03-19 08:21 | PDOC.CTH ---
Cardiology Progress Note - Subjective She is doing better. She is not feeling her heart racing anymore. - Objective Vital Signs Temp Pulse Resp BP BP Pulse Ox 03/19/18 07:00 99.5 F 92 16 185/103 H 96 03/19/18 06:59 179/109 H 03/19/18 04:00 95 18 141/80 H 97 03/18/18 23:47 97.9 F 84 20 133/77 98 03/18/18 22:14 179/109 H Admit Weight 276 lb Weight 287 lb 12.8 oz 03/18/18 03/19/18 03/20/18 06:59 06:59 06:59 Intake Total 4735.9 Output Total 2025 Balance 2710.9 - Physical Examination General/Neuro: alert & oriented x3, NAD Neck: no JVD present Lungs: CTA, unlabored respirations Heart: RRR Abdomen: NT/ND Extremities: + edema B (trace) - Telemetry Telemetry Rhythm: NSR - Labs Result Diagrams: 03/17/18 04:32 03/19/18 06:47 Troponin/CKMB CK-MB (CK-2) 1.3 ng/mL (0-6.6) 03/16/18 05:24 Troponin I 0.090 ng/mL (< 0.028) H 03/16/18 13:08 - Assessment/Plan 1. Sinus tachycardia 2. Hyperdynamic LV 3. Hypertension, malignant. 4. LVH, cannot rule out LVOT obstruction but patient not hypotensive. PLAN: - Will up titrate diltiazem to 90 mg BID. - Will increase her home labelatolol to 400 mg BID. - Home in the next 24 to 48 hrs. - Replace Albert
[2018-03-19] MEDS: Enoxaparin Sodium 40 MG/0.4 ML SYRINGE SC SCH (08:29)
[2018-03-19] MEDS: Insulin Glargine 8 UNITS in Pre-Filled Syringe 1 EACH SC SCH (08:29)
[2018-03-19] MEDS: ALPRAZolam 0.25 MG TAB PO PRN ×3 (08:30→21:38)
[2018-03-19] MEDS: Gabapentin 100 MG CAP PO SCH ×3 (08:30→21:38)
[2018-03-19] MEDS: Lisinopril 10 MG TAB PO SCH (08:30)
[2018-03-19] MEDS: Famotidine 20 MG TAB PO SCH ×2 (08:30→21:38)
[2018-03-19] MEDS: Colchicine 0.6 MG TAB PO SCH (08:30)
[2018-03-19] MEDS: Hydrochlorothiazide 25 MG TAB PO SCH (08:30)
[2018-03-19] MEDS: Aspirin 325 MG TAB PO SCH (08:30)
[2018-03-19] MEDS: Diltiazem HCl SR 90 mg Capsule PO SCH ×2 (08:31→21:47)
[2018-03-19] MEDS: Labetalol 100 MG TAB PO SCH ×2 (09:06→21:47)
--- NOTE | 2018-03-19 09:34 | PDOC.PN ---
- Subjective Encounter Start Date: 03/19/18 Encounter Start Time: 09:33 Subjective: no complaints today - Objective MAR Reviewed: Yes Vital Signs & Weight: Vital Signs (12 hours) Temp Pulse Resp BP BP Pulse Ox 03/19/18 09:06 102 H 140/88 03/19/18 07:00 99.5 F 92 16 185/103 H 96 03/19/18 06:59 179/109 H 03/19/18 04:00 95 18 141/80 H 97 03/18/18 23:47 97.9 F 84 20 133/77 98 03/18/18 22:14 179/109 H Weight Admit Weight 276 lb Weight 287 lb 12.8 oz Most Recent Monitor Data Heart Rate from ECG 118 NIBP 135/80 NIBP BP-Mean 105 Respiration from ECG 24 SpO2 99 I&O: 03/18/18 03/19/18 03/20/18 06:59 06:59 06:59 Intake Total 4735.9 240 Output Total 2025 Balance 2710.9 240 Result Diagrams: 03/17/18 04:32 03/19/18 06:47 Additional Labs: Accuchecks 03/19/18 03/18/18 03/18/18 05:56 20:07 10:27 POC Glucose 185 H 210 H 201 H Phys Exam - Physical Examination Neck: no JVD Respiratory: clear to auscultation bilateral Cardiovascular: RRR, no significant murmur Gastrointestinal: soft, non-tender, positive bowel sounds Musculoskeletal: edema present morbid obesity Dx/Plan (1) HTN (hypertension), malignant Code(s): I10 - ESSENTIAL (PRIMARY) HYPERTENSION Status: Chronic (2) Abnormal cardiac enzyme level Code(s): R74.8 - ABNORMAL LEVELS OF OTHER SERUM ENZYMES Status: Chronic Comment: resolving (3) Diabetes type 2, controlled Code(s): E11.9 - TYPE 2 DIABETES MELLITUS WITHOUT COMPLICATIONS Status: Chronic Qualifiers: Diabetes mellitus halfway insulin use: without terminal operations supervisor use Diabetes mellitus complication status: with unspecified complications Qualified Code(s) : E11.8 - Type 2 diabetes mellitus with unspecified complications (4) Gastroparesis Code(s): K31.84 - GASTROPARESIS Status: Chronic (5) Morbid obesity with BMI of 45.0-49.9, adult Code(s): E66.01 - MORBID (SEVERE) OBESITY DUE TO EXCESS CALORIES; Z68.42 - BODY MASS INDEX (BMI) 45.0-49.9, ADULT Status: Chronic (6) Sinus tachycardia Code(s): R00.0 - TACHYCARDIA, UNSPECIFIED Status: Acute - Plan BP still labile with diastolic BP > 100 at times -: discuss with Dr Celestin -: cont diltiazem, labetalol. EVELYN, diuretic -: accu high, cont SS/ reinstitute metformin * .
[2018-03-19] MEDS: Acetaminophen 500 MG TAB PO PRN ×2 (11:11→17:11)
--- NOTE | 2018-03-19 12:32 | PRG ---
DATE OF SERVICE: 03/19/2018 SERVICE: Pulmonary Medicine. INTERVAL HISTORY: The patient is doing fine from a respiratory standpoint. She is breathing comfort ably. She has no chest pain, shortness of breath, nausea or vomiting. She has been able to walk trung und the room a little bit. Her foot discomfort is much improved. Otherwise, there has been no inter ashley change to her condition. PHYSICAL EXAMINATION: VITAL SIGNS: Afebrile, pulse 80, blood pressure 116/74, respirations 15, saturation 98% on room air. GENERAL: The patient is awake, alert, no apparent distress. LUNGS: Excellent air entry with no prolonged expiratory phase, wheezing, rhonchi or crackles. HEART: Normal rate, regular. ABDOMEN: Soft, nontender, and nondistended. Bowel sounds are positive. MUSCULOSKELETAL: No cyanosis or clubbing. No pitting in the bilateral lower extremities. NEUROLOGIC: Grossly nonfocal. LABORATORY DATA: Magnesium 1.5, potassium 3.4, otherwise basic metabolic profile is completely unrem arkable. Blood cultures x2 are negative. ASSESSMENT: 1. Hypertrophic cardiomyopathy. 2. Obstructive sleep apnea, suspected. 3. Hypertension. DISCUSSION AND PLAN: I will replace magnesium and potassium today. From a purely lung perspective, the patient is stable for transition out of the hospital. She will need a follow up with Dr. Misti friend n the outpatient setting to pursue polysomnogram. At this point, she has no further requirements for inpatient Pulmonary or Critical Care opinion and I will sign off. Please call with additional quest ions or concerns.
[2018-03-19] MEDS ORDERED: Magnesium 2 GM/NS 0.9% 100 ML 2 GM in Premix Bag 1 BAG IVPB SCH (12:45)
[2018-03-19] MEDS: Potassium Chloride 20 MEQ TAB PO SCH ×2 (12:57→17:10)
[2018-03-19 13:00] VITALS: BMI 49.4
[2018-03-19] MEDS ORDERED: Clopidogrel Bisulfate 75 MG TAB ONE (16:10)
[2018-03-20] MEDS: traMADol HCl 50 MG TAB PO PRN ×4 (01:43→21:16)
[2018-03-20] MEDS: Acetaminophen 500 MG TAB PO PRN (01:45)
[2018-03-20] MEDS: cloNIDine 0.2 MG TAB PO SCH ×2 (04:04→15:18)
[2018-03-20] MEDS: ALPRAZolam 0.25 MG TAB PO PRN ×4 (04:06→21:17)
[2018-03-20] MEDS: HumaLOG 300 UNITS/3 ML VIAL SC PRN ×2 (06:44→12:42)
[2018-03-20] MEDS: Aspirin 325 MG TAB PO SCH (08:55)
[2018-03-20] MEDS: Colchicine 0.6 MG TAB PO SCH (08:55)
[2018-03-20] MEDS: Hydrochlorothiazide 25 MG TAB PO SCH (08:55)
[2018-03-20] MEDS: Famotidine 20 MG TAB PO SCH ×2 (08:55→21:15)
[2018-03-20] MEDS: Lisinopril 10 MG TAB PO SCH (08:55)
[2018-03-20] MEDS: Labetalol 100 MG TAB PO SCH ×2 (08:58→21:15)
[2018-03-20] MEDS: Diltiazem HCl SR 90 mg Capsule PO SCH ×2 (08:59→21:15)
[2018-03-20] MEDS: metFORMIN 500 MG TAB PO SCH (08:59)
[2018-03-20] MEDS: Gabapentin 100 MG CAP PO SCH ×3 (08:59→21:16)
[2018-03-20] MEDS: Insulin Glargine 8 UNITS in Pre-Filled Syringe 1 EACH SC SCH (09:00)
[2018-03-20] MEDS: Enoxaparin Sodium 40 MG/0.4 ML SYRINGE SC SCH (09:00)
--- NOTE | 2018-03-20 10:34 | PDOC.PN ---
- Subjective Encounter Start Date: 03/20/18 Encounter Start Time: 10:32 Subjective: palpatations - Objective MAR Reviewed: Yes Vital Signs & Weight: Vital Signs (12 hours) Temp Pulse Resp BP BP Pulse Ox 03/20/18 08:58 175/101 H 03/20/18 08:55 175/101 H 03/20/18 08:00 98.0 F 83 18 175/101 H 99 03/20/18 04:04 106/80 03/20/18 03:58 97.8 F 98 19 166/94 H 98 03/19/18 23:52 98.5 F 89 16 122/84 96 03/19/18 23:45 106/80 Weight Admit Weight 285 lb 11.505 oz Weight 287 lb 12.8 oz Most Recent Monitor Data Heart Rate from ECG 118 NIBP 135/80 NIBP BP-Mean 105 Respiration from ECG 24 SpO2 99 I&O: 03/19/18 03/20/18 03/21/18 06:59 06:59 06:59 Intake Total 1460 240 Output Total 1650 Balance -190 240 Result Diagrams: 03/17/18 04:32 03/19/18 06:47 Additional Labs: Accuchecks 03/20/18 03/19/18 03/19/18 06:02 20:37 16:16 POC Glucose 263 H 195 H 132 H 03/19/18 11:02 POC Glucose 246 H Phys Exam - Physical Examination Neck: no JVD Respiratory: clear to auscultation bilateral Cardiovascular: RRR, no significant murmur Gastrointestinal: soft, positive bowel sounds Musculoskeletal: edema present Dx/Plan (1) HTN (hypertension), malignant Code(s): I10 - ESSENTIAL (PRIMARY) HYPERTENSION Status: Chronic (2) Abnormal cardiac enzyme level Code(s): R74.8 - ABNORMAL LEVELS OF OTHER SERUM ENZYMES Status: Chronic Comment: resolving (3) Diabetes type 2, controlled Code(s): E11.9 - TYPE 2 DIABETES MELLITUS WITHOUT COMPLICATIONS Status: Chronic Qualifiers: Diabetes mellitus intermediate manager insulin use: without nursing home use Diabetes mellitus complication status: with unspecified complications Qualified Code(s) : E11.8 - Type 2 diabetes mellitus with unspecified complications (4) Gastroparesis Code(s): K31.84 - GASTROPARESIS Status: Chronic (5) Morbid obesity with BMI of 45.0-49.9, adult Code(s): E66.01 - MORBID (SEVERE) OBESITY DUE TO EXCESS CALORIES; Z68.42 - BODY MASS INDEX (BMI) 45.0-49.9, ADULT Status: Chronic (6) Sinus tachycardia Code(s): R00.0 - TACHYCARDIA, UNSPECIFIED Status: Acute - Plan increase lisinopril to 20 bid -: cont hctz, labetolol, diltiazem * .
--- NOTE | 2018-03-20 16:24 | PDOC.CTH ---
Cardiology Progress Note - Subjective Doing better. HR better controlled but still hypertensive. - Objective Vital Signs Temp Pulse Resp BP BP Pulse Ox 03/20/18 15:18 136/63 03/20/18 12:00 97.5 F L 85 16 140/76 97 03/20/18 08:58 175/101 H 03/20/18 08:55 175/101 H 03/20/18 08:00 98.0 F 83 18 175/101 H 99 Admit Weight 285 lb 11.505 oz Weight 287 lb 12.8 oz 03/19/18 03/20/18 03/21/18 06:59 06:59 06:59 Intake Total 1460 480 Output Total 1650 Balance -190 480 - Physical Examination General/Neuro: alert & oriented x3, NAD Neck: no JVD present Lungs: CTA, unlabored respirations Heart: RRR Abdomen: NT/ND Extremities: + edema B (trace) - Telemetry Telemetry Rhythm: NSR, Stach - Labs Result Diagrams: 03/17/18 04:32 03/19/18 06:47 Troponin/CKMB CK-MB (CK-2) 1.3 ng/mL (0-6.6) 03/16/18 05:24 Troponin I 0.090 ng/mL (< 0.028) H 03/16/18 13:08 - Assessment/Plan 1. Sinus tachycardia 2. Hyperdynamic LV 3. Hypertension, malignant. 4. Severe LVH without significnat LVOT obstruction. PLAN: - Will start work up for secondary causes. - Free plasma metanephrines, renin activity, aldosterone level, renal dupplex. - Continue other meds. - Agree with increased ACEI dose.
[2018-03-20] MEDS: Lisinopril 20 MG TAB PO SCH (21:15)
[2018-03-20] MEDS: Zolpidem Tartrate 5 MG TAB PO PRN (21:18)
[2018-03-21] MEDS: cloNIDine 0.2 MG TAB PO SCH ×2 (00:17→08:14)
[2018-03-21] MEDS: ALPRAZolam 0.25 MG TAB PO PRN ×2 (05:06→11:13)
[2018-03-21] MEDS: traMADol HCl 50 MG TAB PO PRN ×2 (05:06→11:13)
[2018-03-21] MEDS: Insulin Glargine 8 UNITS in Pre-Filled Syringe 1 EACH SC SCH (08:08)
--- NOTE | 2018-03-21 08:08 | ULT ---
RENAL SONOGRAM: HISTORY: Hypertension. Renal artery stenosis. FINDINGS: The right kidney is 10.5 cm and the left is 12.2 cm. Each has a normal sonographic appearance with n o evidence of hydronephrosis or mass. Urinary bladder is obscured by bowel gas and decompressed. Good color and spectral Doppler flow are present within each renal artery. No abnormally elevated pe ak systolic velocities. Resistive index associated with the arcuate arteries of the right kidney is 0.6 and the left kidney 0.5. IMPRESSION: 1. Elevated resistive indices associated with the arcuate arteries of the left kidney is nonspecific and often reflects chronic renal disease. 2. No evidence of urinary tract obstruction. POS: H
[2018-03-21] MEDS: Enoxaparin Sodium 40 MG/0.4 ML SYRINGE SC SCH (08:09)
[2018-03-21] MEDS: HumaLOG 300 UNITS/3 ML VIAL SC PRN (08:09)
[2018-03-21] MEDS: Hydrochlorothiazide 25 MG TAB PO SCH (08:10)
[2018-03-21] MEDS: metFORMIN 500 MG TAB PO SCH (08:10)
[2018-03-21] MEDS: Gabapentin 100 MG CAP PO SCH (08:10)
[2018-03-21] MEDS: Diltiazem HCl SR 90 mg Capsule PO SCH (08:10)
[2018-03-21] MEDS: Famotidine 20 MG TAB PO SCH (08:10)
[2018-03-21] MEDS: Lisinopril 20 MG TAB PO SCH (08:10)
[2018-03-21] MEDS: Colchicine 0.6 MG TAB PO SCH (08:10)
[2018-03-21] MEDS: Labetalol 100 MG TAB PO SCH (08:11)
[2018-03-21] MEDS: Aspirin 325 MG TAB PO SCH (08:11)
--- NOTE | 2018-03-21 08:42 | PDOC.CTH ---
Cardiology Progress Note - Subjective She is doing better. No chest pain. HR and BP controlled. - Objective Vital Signs Temp Pulse Resp BP BP Pulse Ox 03/21/18 08:11 83 03/21/18 03:34 98.5 F 83 14 131/90 94 L 03/21/18 00:17 136/88 03/21/18 00:00 75 136/88 03/20/18 21:15 83 135/79 Admit Weight 285 lb 11.505 oz Weight 287 lb 12.8 oz 03/20/18 03/21/18 03/22/18 06:59 06:59 06:59 Intake Total 1460 1760 Output Total 1650 900 Balance -190 860 - Physical Examination General/Neuro: alert & oriented x3, NAD Neck: no JVD present Lungs: CTA, unlabored respirations Heart: RRR Abdomen: NT/ND Extremities: + edema B (trace) - Telemetry Telemetry Rhythm: NSR, HR 80-90's - Labs Result Diagrams: 03/17/18 04:32 03/19/18 06:47 Troponin/CKMB CK-MB (CK-2) 1.3 ng/mL (0-6.6) 03/16/18 05:24 Troponin I 0.090 ng/mL (< 0.028) H 03/16/18 13:08 - Assessment/Plan 1. Sinus tachycardia 2. Hyperdynamic LV 3. Hypertension, malignant. 4. Severe LVH without significnat LVOT obstruction. PLAN: - No renal artery stenosis. - Other studies pending. - BP and HR back to normal. - Pain well controlled. - She may be discharged home from cardiac perspective. - Follow up in office in 1 month. - Will sign off. Please call with any questions.
--- NOTE | 2018-03-21 09:55 | DIS ---
TRANSFER OF CARE NOTE PRIMARY CARE PROVIDER: Yamilet Balbuena DATE OF ADMISSION: 03/16/2018 DATE OF DISCHARGE: 03/21/2018 DISPOSITION: Discharged home. DISCHARGE DIAGNOSES: 1. Hypertensive urgency with malignant hypertension. 2. Diabetes mellitus type 2. 3. Gout. 4. Obstructive sleep apnea. 5. Morbid obesity. 6. History of gastroparesis. DISCHARGE MEDICATIONS: Gabapentin 100 mg 3 times a day, colchicine 0.6 mg b.i.d., aspirin 325 mg a d ay, metoprolol, Reglan 10 mg p.o. t.i.d. with meals, clonidine 0.2 mg p.o. q.8h., hydrochlorothiazide 25 mg a day, tramadol 50 mg p.o. q.6 hours p.r.n., metformin 500 mg a day, Zestril 20 mg p.o. b.i.d. , labetalol 400 mg p.o. b.i.d., Cardizem 90 mg p.o. b.i.d. ALLERGIES: NITROGLYCERIN. CODE STATUS: FULL. PENDING AT THE TIME OF DISCHARGE: Aldosterone level, catecholamine fractionation, metanephrine fract ionation, rennin activity. HOSPITAL COURSE: The patient was admitted to [facility] with epigastric pain. Blood pressure 197/136, pulse 132. EKG showed sinus tachycardia, no evide nce of acute coronary syndrome. She had some minimal elevations of the liver function studies, eleva ria troponin at 0.05, normal BNP. Electrolyte panel was normal. Uric acid was 9.3. Toxicology scre en was unremarkable except for opiates. CBC was normal. CONSULTS OBTAINED DURING HOSPITAL STAY: Dr. Kamar Chappell, Pulmonology, Dr. Pratik Celestin, Cardiolo gy. Echocardiogram done revealed LVH with an EF of 70-75%. Renal ultrasound was unrevealing. The patien t's blood pressure proved difficult to control requiring frequent adjustments. It is now well contro lled with 131/90, 136/88, 135/79, 140/76. She is being discharged home. Prescriptions have been written. She has stable cardiopulmonary status, reveals clear lungs. Heart has a regular rate and rhythm with no murmurs or gallops. She has no edema. She is being discharged to follow up with [facility] in 1 week, to follow up with Dr. Chappell for a sleep study for obstructi ve sleep apnea. Follow up with Dr. Celestin in 1 month Thirty-five minutes spent preparing this discharge.
[2018-03-21 12:40] VITALS: BP 133/85; TEMP 98.3
[2018-03-24 18:09] LABS: Metanephrine,Plasma <10 pg/mL (0-62); Normetanephrine,Pl 40 pg/mL (0-145)
[2018-03-25 08:22] LABS: Dopamine Less than 30 pg/mL (0-48); Epinephrine 22 pg/mL (0-62); Norepinephrine 801 pg/mL (0-874)
--- NOTE | 2018-03-25 12:46 | ULT ---
RENAL SONOGRAM: ABD PEL DUPART SHREYA FLOW CMP: HISTORY: Hypertension. Renal artery stenosis. FINDINGS: The right kidney is 10.5 cm and the left is 12.2 cm. Each has a normal sonographic appearance with n o evidence of hydronephrosis or mass. Urinary bladder is obscured by bowel gas and decompressed. Good color and spectral Doppler flow are present within each renal artery. No abnormally elevated pe ak systolic velocities. Resistive index associated with the arcuate arteries of the right kidney is 0.6 and the left kidney 0.5. IMPRESSION: 1. Elevated resistive indices associated with the arcuate arteries of the left kidney is nonspecific and often reflects chronic renal disease. 2. No evidence of urinary tract obstruction.
== END 2018-03-21 12:10 | disposition home or self-care (01) | DRG 305 ==
LOC: ERS 04:56 → CCU 10:05 → IMCU/EMU 03-17 20:53 → 2NO 03-18 17:37
PROVIDERS: ADMIT Internal Medicine; ATTEND Internal Medicine
DX: I16.1 Hypertensive emergency (principal); E87.2 Acidosis; Z68.42 Body mass index [BMI] 45.0-49.9, adult; I42.2 Other hypertrophic cardiomyopathy; E66.09 Other obesity due to excess calories; E11.9 Type 2 diabetes mellitus without complications; I10 Essential (primary) hypertension; Z88.8 Allergy status to other drugs, medicaments and biological substances; Z79.899 Other long term (current) drug therapy; Z79.84 Long term (current) use of oral hypoglycemic drugs; G47.33 Obstructive sleep apnea (adult) (pediatric); R00.0 Tachycardia, unspecified; M10.9 Gout, unspecified; K76.0 Fatty (change of) liver, not elsewhere classified; K31.84 Gastroparesis
CPT/HCPCS: 36415; 36416; 71045; 71275; 76700; 76770; 80048; 80053; 80061; 80306; 81003; 81015; 82088; 82384; 82553; 83036; 83605; 83690; 83735; 83835; 83880; 84244; 84436; 84439; 84443; 84479; 84484; 84550; 85025; 85379; 87040; 93005; 93010; 93306; 94760; 96361; 96365; 96368; 96372; 96375; 96376; A4216; J0360; J1650; J2060; J2270; J2405; J2550; J2930; J3475; J7050

== ENCOUNTER 2018-05-06 23:23 | Emergency (ER) | payer OTHER ==
[2018-05-07 00:14] LABS: Bilirubin Negative (Negative); Blood, Urine Negative (Negative); Clarity CLEAR (Clear); Glucose, Urine (Dipstick) Negative (Negative); Leukocyte Negative (Negative); Nitrite Negative (Negative); Protein, Urine (Dipstick) Negative (Neg-Trace); Specific Gravity, Urine 1.006 (1.002-1.036); Urobilinogen 0.2 mg/dL (0.2-1.0); pH, Urine 5.5 (5.0-9.0)
== END 2018-05-06 23:55 | disposition home or self-care (01) ==
LOC: ERS 23:23
DX: M10.9 Gout, unspecified (principal); L25.9 Unspecified contact dermatitis, unspecified cause; E11.9 Type 2 diabetes mellitus without complications; I10 Essential (primary) hypertension; I25.2 Old myocardial infarction
CPT/HCPCS: 81003; 99283

== ENCOUNTER 2018-05-08 15:51 | Emergency (ER) | payer OTHER ==
[2018-05-08] MEDS ORDERED: Ketorolac Tromethamine 60 MG/2 ML VIAL ONE (16:43)
== END 2018-05-08 16:54 | disposition home or self-care (01) ==
LOC: ERS 15:51
DX: K02.9 Dental caries, unspecified (principal); M10.9 Gout, unspecified; I25.2 Old myocardial infarction; E11.9 Type 2 diabetes mellitus without complications; I10 Essential (primary) hypertension; Z79.899 Other long term (current) drug therapy; Z79.84 Long term (current) use of oral hypoglycemic drugs
CPT/HCPCS: 96372; J1885

== ENCOUNTER 2018-05-10 11:48 | Inpatient (IN) | payer OTHER ==
[2018-05-10] MEDS ORDERED: Promethazine HCl 25 MG/ML VIAL ONE (11:55)
[2018-05-10 13:59] LABS: #Lymphocytes 1.5 thou/uL (1.20-3.40); #Monocytes 0.3 thou/uL (0.11-0.59); #Neutrophils 7.9 thou/uL (1.40-6.50); %Basophils 0.2 % (0.0-1.0); %Eosinophils 0.5 % (0.0-10.0); %Lymphocytes 15.6 % (21.0-51.0); %Monocytes 3.5 % (0.0-10.0); %Neutrophils 80.3 % (42.0-75.0); Hemoglobin 13.8 g/dL (12.0-16.0); Mean Corpuscular HGB CONC 33.7 g/dL (32.0-36.0); Mean Corpuscular Hemoglobin 30.8 pg (27.0-31.0); Mean Corpuscular Volume 91.5 fL (78.0-98.0); Mean Platelet Volume 7.2 fL (7.4-10.4); Platelet Count 305 thou/uL (130-400); RBC Distribution Width 12.7 % (11.5-14.5); Red Blood Cell (RBC) Count 4.47 mill/uL (4.20-5.40); White Blood Cell (WBC) Count 9.8 thou/uL (4.8-10.8)
[2018-05-10] MEDS ORDERED: Lidocaine Viscous Sol 2% 15 ml UD Cup ONE (14:20)
[2018-05-10 14:21] LABS: ALT (SGPT) 39 U/L (8-55); AST (SGOT) 30 U/L (5-34); Albumin 4.6 g/dL (3.5-5.0); Alkaline Phosphatase 103 U/L (40-150); Anion Gap 22 mmol/L (10-20); BUN (Urea Nitrogen) 8 mg/dL (7.0-18.7); Bilirubin, Total 0.3 mg/dL (0.2-1.2); CK (CPK) 89 U/L (29-168); Calc. Creatinine Clearance 0 mL/min (70-130); Calcium 9.5 mg/dL (7.8-10.44); Carbon Dioxide 18 mmol/L (22-29); Chloride 104 mmol/L (98-107); Estimated GFR-MDRD 88; Globulin 3.7 g/dL (2.4-3.5); Glucose 207 mg/dL (70-105); Lipase 41 U/L (8-78); Potassium 3.2 mmol/L (3.5-5.1); Protein, Total 8.3 g/dL (6.0-8.3); Sodium 141 mmol/L (136-145)
[2018-05-10] MEDS ORDERED: Pantoprazole 40 MG VIAL ONE ×2 (14:21→18:04)
[2018-05-10] MEDS ORDERED: Ondansetron HCl/PF 4 MG/2 ML Vial ONE (14:21)
[2018-05-10] MEDS ORDERED: Mag-Al 1200 mg/1200 mg/30 ML UDCUP ONE (14:21)
[2018-05-10] MEDS ORDERED: Labetalol HCl 100 MG/20 ML VIAL ONE (14:21)
[2018-05-10 14:25] LABS: CKMB 1.3 ng/mL (0-6.6)
[2018-05-10 14:29] LABS: Bilirubin Negative (Negative); Blood, Urine Negative (Negative); Clarity CLOUDY (Clear); Glucose, Urine (Dipstick) 250 mg/dL (Negative); Leukocyte Negative (Negative); Nitrite Negative (Negative); Protein, Urine (Dipstick) 100 mg/dL (Neg-Trace); Specific Gravity, Urine 1.014 (1.002-1.036); Urobilinogen 0.2 mg/dL (0.2-1.0); pH, Urine 5.5 (5.0-9.0)
[2018-05-10 14:30] LABS: Troponin I 0.049 ng/mL (< 0.028)
[2018-05-10 14:32] LABS: Bacteria/HPF Rare-Few HPF (None Seen); Hyaline Casts/LPF 4-6 HYALINE CAST LPF (0-3 Hyaline); Pathc Cast-AUWi Flag 1.16 (0-2.49); RBC/HPF 0-3 HPF (0-3)
[2018-05-10] MEDS ORDERED: Haloperidol Lactate 5 MG/ML VIAL ONE ×2 (15:22→20:21)
[2018-05-10 15:49] LABS: Amphetamine Not Detected (NotDetected); Barbiturates Screen Not Detected (NotDetected); Benzodiazepine Screen Not Detected (NotDetected); Cocaine Metabolite Screen Not Detected (NotDetected); Medtox Control Line Valid? VALID (VALID); Medtox Reader # READER 1; Methadone Not Detected (NotDetected); Methamphetamine Not Detected (NotDetected); Opiate Screen Detected (NotDetected); Oxycodone Screen Not Detected (NotDetected); Phencyclidine (PCP) Not Detected (NotDetected); THC/Cannabinoid Screen Not Detected (NotDetected); Tricyclic Screen Not Detected (NotDetected)
[2018-05-10] MEDS ORDERED: Ketorolac Tromethamine 30 MG/ML VIAL ONE (16:20)
[2018-05-10] MEDS ORDERED: niCARdipine 20MG In NaCl 20 MG/200 ML BAG ONE (18:04)
[2018-05-10] MEDS ORDERED: cloNIDine 0.3mg/24 Hour PATCH TD SCH (19:00)
[2018-05-10 19:07] LABS: Troponin I 0.073 ng/mL (< 0.028)
[2018-05-10] MEDS ORDERED: Ondansetron HCl/PF 4 MG/2 ML Vial IVP PRN (21:04)
[2018-05-10] MEDS ORDERED: Acetaminophen 325 MG TAB PO PRN ×2 (21:04→21:32)
[2018-05-10] MEDS ORDERED: Ondansetron ODT 4 MG TAB SL PRN (21:04)
[2018-05-10] MEDS ORDERED: niCARdipine HCl 25 MG in Sodium Chloride 0.9% 250 ML 240 ML IVPB SCH (21:15)
[2018-05-10 21:26] VITALS: BMI 46.6
[2018-05-10] MEDS ORDERED: Magnesium Sulfate 4 GM in Sodium Chloride 0.9% 250 ML 250 ML IVPB SCH (21:30)
[2018-05-10] MEDS ORDERED: Senokot 8.6 MG TAB PO PRN (21:32)
[2018-05-10] MEDS ORDERED: Dextrose 5% in Water 1,000 ML IV PRN (21:32)
[2018-05-10] MEDS ORDERED: Dextrose 50% Abboject 50 ML SYRINGE SLOW IVP PRN (21:32)
[2018-05-10] MEDS ORDERED: traZODone HCl 50 MG TAB PO PRN (21:32)
[2018-05-10] MEDS ORDERED: Loratadine 10 MG TAB PO PRN (21:32)
[2018-05-10] MEDS ORDERED: traMADol HCl 50 MG TAB PO PRN (21:32)
[2018-05-10] MEDS ORDERED: Benzonatate 100 MG CAP PO PRN (21:32)
[2018-05-10] MEDS ORDERED: Diabetic Tussin 200 MG/10 ML UDCUP PO PRN (21:32)
[2018-05-10] MEDS ORDERED: Lorazepam 2 MG/ML VIAL SLOW IVP PRN (21:32)
[2018-05-10] MEDS ORDERED: Bisacodyl 5 MG TAB PO PRN (21:32)
[2018-05-10] MEDS ORDERED: cloNIDine 0.1 MG TAB PO PRN (21:32)
[2018-05-10] MEDS ORDERED: hydrALAZINE 20 MG/ML VIAL SLOW IVP PRN (21:32)
[2018-05-10] MEDS ORDERED: CCU Electrolyte Replacement 1 EACH FS ONE (21:33)
[2018-05-10] MEDS ORDERED: Potassium Chloride 40 MEQ in Sodium Chloride 0.9% 250 ML 250 ML IVPB PRN (21:46)
[2018-05-10] MEDS ORDERED: Potassium Phosphate 12 MMOL in Sodium Chloride 0.9% 250 ML 250 ML IV PRN (21:46)
[2018-05-10] MEDS ORDERED: Magnesium Oxide 400 MG TAB PO PRN ×2 (21:46)
[2018-05-10] MEDS ORDERED: Magnesium 2 GM/NS 0.9% 100 ML 2 GM in Premix Bag 1 BAG IVPB PRN (21:46)
[2018-05-10] MEDS ORDERED: Potassium Chloride 20 MEQ TAB PO PRN (21:46)
[2018-05-10] MEDS ORDERED: Potassium Phosphate 9 MMOL in Sodium Chloride 0.9% 100 ML IVPB PRN (21:46)
[2018-05-10] MEDS ORDERED: CCU ELECTROLYTE REPLACEMENT PROTOCOL FS PRN (21:46)
[2018-05-10] MEDS ORDERED: Potassium Phosphate 15 MMOL in Sodium Chloride 0.9% 250 ML 250 ML IV PRN (21:46)
[2018-05-10] MEDS ORDERED: Potassium Chloride 40 MEQ in Premix Bag 1 BAG IVPB PRN (21:46)
[2018-05-10] MEDS ORDERED: Gabapentin 100 MG CAP PO SCH ×2 (22:00)
[2018-05-10] MEDS ORDERED: Colchicine 0.6 MG TAB PO SCH (22:00)
[2018-05-10] MEDS ORDERED: Diltiazem HCl SR 90 mg Capsule PO SCH (22:00)
[2018-05-10] MEDS ORDERED: Labetalol 100 MG TAB PO SCH (22:00)
[2018-05-10] MEDS ORDERED: Lisinopril 20 MG TAB PO SCH (22:00)
[2018-05-10] MEDS ORDERED: Zolpidem Tartrate 5 MG TAB PO SCH (22:00)
[2018-05-10] MEDS: HumaLOG 300 UNITS/3 ML VIAL SC PRN (22:53)
[2018-05-10 22:56] LABS: Troponin I 0.066 ng/mL (< 0.028)
[2018-05-10] MEDS ORDERED: Haloperidol Lactate 5 MG/ML VIAL SLOW IVP SCH (23:30)
[2018-05-10] MEDS: Labetalol HCl 100 MG/20 ML VIAL SLOW IVP PRN (23:38)
[2018-05-11] MEDS: cloNIDine 0.2 MG TAB PO SCH ×4 (00:38→21:40)
[2018-05-11 01:04] LABS: Troponin I 0.064 ng/mL (< 0.028)
--- NOTE | 2018-05-11 01:43 | HP ---
DATE OF ADMISSION: 05/10/2018 Please note that the patient was seen prior to midnight. CHIEF COMPLAINT: Nausea and vomiting. PRIMARY CARE PHYSICIAN: Sree Patel. HISTORY OF PRESENT ILLNESS: Ms. Berumen is a 37-year-old female with known history of difficult to con trol hypertension as well as diabetes who came to the emergency room with the above-mentioned complai nt. History is mainly obtained by the patient herself who actually is a poor historian at this time and she is not feeling very well. Electronic medical records have been reviewed. The patient was recently admitted to our hospital last month from 03/16/2018 to 03/21/2018. At that time, she underwent extensive evaluation for uncontrolled hypertension. This is actually her fifth a dmission this year. Last admission in March, she underwent Cardiology evaluation for hypertensive urg ency. She underwent ultrasound of the renal arteries for renal artery stenosis, which was negative. She underwent workup for secondary hypertension including aldosterone, catecholamine, metanephrine, and renin activity, which are negative. She was discharged on lot of antihypertensives and the patie nt states that she is compliant with her medications up until this morning when she started to have v omiting and could not take them. She reports that she started to have abdominal pain earlier today with the pain radiating to her back and then started to throw up for the last 24 or more hours. She also reports pain to her left knee and left ankle. She denies any fever or chills. She denies any diarrhea. Upon presentation to the emergency room, she was significantly hypertensive 200/176 at one point. She required multiple dosag es of IV medications and eventually was started on IV Cardene drip when her blood pressure remained u ncontrolled. She is now being admitted to the hospital for uncontrolled hypertension, and hypertensi ve urgency. Her cardiac enzymes are in the indeterminant range, which seems to be rather chronic for this patient. PAST MEDICAL HISTORY: Hypertension, diabetes mellitus, diabetic gastroparesis, fatty liver, gout, an d morbid obesity. PAST SURGICAL HISTORY: Cholecystectomy, section, left thumb cyst removal. SOCIAL HISTORY: No history of drug, tobacco, or alcohol abuse. FAMILY HISTORY: No significant family history of premature coronary artery disease, stroke, or cance r. ALLERGIES: NITROGLYCERIN and TRAMADOL. CURRENT HOME MEDICATIONS: As follows: Metformin 500 mg in the morning, Catapres 0.2 mg every 8 hour s, Ambien 10 mg at bedtime, Reglan 10 mg p.o. t.i.d., lisinopril 20 mg p.o. b.i.d., labetalol 400 mg p.o. b.i.d., hydrochlorothiazide 25 mg in the morning, Neurontin 100 mg t.i.d., diltiazem 90 mg p.o. b.i.d., colchicine 0.6 mg p.o. b.i.d., aspirin 325 mg daily. REVIEW OF SYSTEMS: It is difficult to obtain as the patient is very nauseated at this time and is no t able to complete the review of systems. She denies any recent illnesses. She denies any chest gagan n at this time. She denies any shortness of breath. LABORATORY DATA: CBC is unremarkable. Serum chemistry shows potassium of 3.2, bicarbonate 18, anion gap of 22, blood sugar 207, magnesium of 1.1, troponin 0.049 with normal CK-MB. Lipase is normal. Urinalysis shows squamous epithelial cells with some wbc's. Urine drug screen is positive for opiate s. PHYSICAL EXAMINATION: VITAL SIGNS: Most recent vital signs, blood pressure 174/97, heart rate of 116, oxygen saturation 98 % on room air, temperature 98.9. GENERAL: No acute distress. She is lying in bed and keeps her eyes closed. She is feeling sick to her stomach at this time. HEENT: Mucous membrane is moist and pink. No oropharyngeal exudate or erythema. Head is normocepha lic, atraumatic. Pupils equal, reactive to light and accommodation. Extraocular movement intact. NECK: Supple without any lymphadenopathy, JVD or bruit. CHEST: Clear to auscultation without any wheezing, rales or rhonchi. Rate and rhythm is regular wit hout any murmur, rubs or gallops. ABDOMEN: Obese, soft, nontender, nondistended, positive bowel sounds. EXTREMITIES: Free of any cyanosis, clubbing, or edema. NEUROLOGIC: Nonfocal. SKIN: Free of any rashes or bruises. I feel warm and dry to touch. PSYCHIATRIC: Normal affect. IMPRESSION AND PLAN: 1. Hypertensive urgency. The patient will be continued on Cardene drip and we will start her on her home medications. The patient has received multiple dosages of Phenergan and Zofran and Haldol and is still nauseated, which is exacerbating her hypertension and tachycardia. We will repeat one dose of Haldol at this time and monitor symptoms closely. We will add p.r.n. labetalol as well given her tachycardia. The patient has extensive workup done during her recent hospitalization which was rathe r unremarkable. Given the fact that this is her fifth admission this year, most likely reason is med ication noncompliance. We will consult Nephrology Dr. Whitmore for blood pressure management and outp atient followup as well as in his hypertension clinic. 2. Diabetes mellitus. We will start her on insulin sliding scale with frequent Accu-Cheks. Hold th e metformin for now given acidosis and high anion gap. 3. History of gout. We will restart her medications once she is more stable. 4. Sinus tachycardia secondary to uncontrolled hypertension and nausea. Continue to monitor and use labetalol as permitted. 5. Elevated troponin. This seems to be chronic for the patient. She has cardiological evaluation i n the past which was unremarkable. Echocardiogram done last month was within normal limit. 6. Morbid obesity. DISPOSITION: Ms. Berumen is currently being admitted to the CCU for hypertensive urgency. Estimated l ength of stay at this time is at least 2-3 midnights. Further management will depend upon her clinic al course.
[2018-05-11] MEDS ORDERED: niCARdipine HCl 25 MG in Sodium Chloride 0.9% 250 ML 240 ML IVPB SCH (03:15)
[2018-05-11] MEDS: Labetalol HCl 100 MG/20 ML VIAL SLOW IVP PRN (03:49)
[2018-05-11 04:16] LABS: #Monocytes 0.9 thou/uL (0.11-0.59); #Neutrophils 9.6 thou/uL (1.40-6.50); %Basophils 0.3 % (0.0-1.0); %Eosinophils 0.1 % (0.0-10.0); %Lymphocytes 15.9 % (21.0-51.0); %Monocytes 6.9 % (0.0-10.0); %Neutrophils 76.8 % (42.0-75.0); Hemoglobin 13.5 g/dL (12.0-16.0); Mean Corpuscular HGB CONC 33.7 g/dL (32.0-36.0); Mean Corpuscular Hemoglobin 30.8 pg (27.0-31.0); Mean Corpuscular Volume 91.2 fL (78.0-98.0); Mean Platelet Volume 7.5 fL (7.4-10.4); Platelet Count 331 thou/uL (130-400); RBC Distribution Width 12.9 % (11.5-14.5); Red Blood Cell (RBC) Count 4.37 mill/uL (4.20-5.40); White Blood Cell (WBC) Count 12.5 thou/uL (4.8-10.8)
[2018-05-11 04:31] LABS: Anion Gap 20 mmol/L (10-20); BUN (Urea Nitrogen) 8 mg/dL (7.0-18.7); Calc. Creatinine Clearance 196 mL/min (70-130); Calcium 9.3 mg/dL (7.8-10.44); Carbon Dioxide 21 mmol/L (22-29); Chloride 100 mmol/L (98-107); Estimated GFR-MDRD Greater than 90; Glucose 224 mg/dL (70-105); Potassium 3.4 mmol/L (3.5-5.1); Sodium 138 mmol/L (136-145)
[2018-05-11 04:34] LABS: Troponin I 0.063 ng/mL (< 0.028)
[2018-05-11] MEDS ORDERED: Pantoprazole 40 MG VIAL IVP SCH (06:00)
[2018-05-11] MEDS: HumaLOG 300 UNITS/3 ML VIAL SC PRN ×3 (06:24→16:44)
[2018-05-11] MEDS: Aspirin 325 MG TAB PO SCH (09:08)
[2018-05-11] MEDS: Hydrochlorothiazide 25 MG TAB PO SCH (09:08)
[2018-05-11] MEDS: Labetalol 100 MG TAB PO SCH ×2 (09:09→21:40)
[2018-05-11] MEDS: Lisinopril 20 MG TAB PO SCH ×2 (09:09→21:40)
[2018-05-11] MEDS: Metoclopramide HCl 10 MG TAB PO SCH ×3 (09:10→16:33)
[2018-05-11] MEDS: Enoxaparin Sodium 40 MG/0.4 ML SYRINGE SC SCH (09:10)
[2018-05-11] MEDS: Gabapentin 100 MG CAP PO SCH ×3 (09:10→21:39)
[2018-05-11] MEDS: Colchicine 0.6 MG TAB PO SCH ×2 (09:14→21:44)
[2018-05-11] MEDS ORDERED: Haloperidol Lactate 5 MG/ML VIAL SLOW IVP SCH (09:45)
--- NOTE | 2018-05-11 09:49 | PDOC.PN ---
- Subjective Encounter Start Date: 05/11/18 Encounter Start Time: 09:47 Ms. Berumen was seen today in followup of Hypertensive Urgency. She is still feeling a bit nauseated. She also notes some pain in her back, she says she has had this before, but it is a bit worse. She says Morphine helped which was given in the ER. - Objective MAR Reviewed: Yes Vital Signs & Weight: Vital Signs (12 hours) Temp Pulse BP 05/11/18 09:09 138/73 05/11/18 08:00 99.8 F H 05/11/18 05:27 139/74 05/11/18 04:00 99.5 F 05/11/18 03:49 115 H 181/91 H 05/11/18 00:39 125 H 174/97 H 05/11/18 00:38 169/85 H 05/11/18 00:00 98.9 F 05/10/18 23:38 125 H 174/97 H Most Recent Monitor Data Heart Rate from ECG 118 NIBP 118/77 NIBP BP-Mean 96 Respiration from ECG 15 SpO2 100 I&O: 05/10/18 05/11/18 05/12/18 06:59 06:59 06:59 Intake Total 880 Output Total 1200 0 Balance -320 0 Result Diagrams: 05/11/18 03:32 05/11/18 03:32 Phys Exam - Physical Examination HEENT: PERRLA Respiratory: no wheezing, no rales, no rhonchi, clear to auscultation bilateral Cardiovascular: RRR, no significant murmur, no rub Gastrointestinal: soft, non-tender, positive bowel sounds Musculoskeletal: edema present trace pedal edema Dx/Plan (1) Diabetes type 2, controlled Code(s): E11.9 - TYPE 2 DIABETES MELLITUS WITHOUT COMPLICATIONS Status: Chronic Qualifiers: Diabetes mellitus sql bi developer insulin use: without penitentiary use Diabetes mellitus complication status: with unspecified complications Qualified Code(s) : E11.8 - Type 2 diabetes mellitus with unspecified complications (2) Gastroparesis Code(s): K31.84 - GASTROPARESIS Status: Chronic (3) HTN (hypertension), malignant Code(s): I10 - ESSENTIAL (PRIMARY) HYPERTENSION Status: Chronic (4) Morbid obesity with BMI of 45.0-49.9, adult Code(s): E66.01 - MORBID (SEVERE) OBESITY DUE TO EXCESS CALORIES; Z68.42 - BODY MASS INDEX (BMI) 45.0-49.9, ADULT Status: Chronic - Plan * HTN urgency- she is now off the Cardene drip- Her blood pressure has been in acceptable range * Nausea and vomiting- I suspect due to Diabetic gastroparesis- will treat symptomatically- and re-start reglan * DM-will continue to hold Metformin and treat with a SSI * Back pain- she has had similar symptoms, and a CT Dissection was done earlier this year in January- I suspect this may be musculoskeletal in origin- will to avoid strong opiates
[2018-05-11] MEDS: Diltiazem HCl SR 90 mg Capsule PO SCH ×2 (10:00→21:39)
[2018-05-11] MEDS ORDERED: Sodium Chloride 0.9% 500 ML IV SCH (10:15)
--- NOTE | 2018-05-11 14:19 | CON ---
DATE OF CONSULTATION: 05/11/2018 HISTORY OF PRESENT ILLNESS: Aime Berumen is a 37-year-old morbidly obese -English female, who saw Dr. Mascorro in 2016 for uncontrolled hypertension. She now states she has no primary care physi landon. In the process of finding one over the last 24-48 hours. She has had nausea and vomiting, whi ch has precluded her from taking her medication. She additionally tells me she has got a headache. Additionally, she says that, as of a year ago, she was hospitalized at [facility], and they told her she had an NE. She is having some abdominal discomfort, though she has had a bowel movement. Blood pressure was markedly elevated. She was started on a Cardene drip in the ICU. PAST MEDICAL HISTORY: Myocardial infarction, apparently diagnosed at [facility]; history of diabetes; h ypertension; unknown GI problem; gastritis. PAST SURGICAL HISTORY: Gallbladder, , left thumb surgery. Denies alcohol or tobacco abuse. MEDICATIONS: Her list of medicine from home has included metformin 500 a day, Catapres 0.2 every 8 h ours, Ambien 10, Reglan 10 three times a day, lisinopril 20 twice a day, Normodyne 400 b.i.d., hydroc hlorothiazide 25, Neurontin 100, Cardizem 90, colchicine 0.6, aspirin. SOCIAL/FAMILY HISTORY: She is presently unemployed. REVIEW OF SYSTEMS: Otherwise, 10-point negative. PHYSICAL EXAMINATION: GENERAL: Morbidly obese female. VITAL SIGNS: Blood pressure right now off the Cardene is 118/70, pulse rate is 18, sat 99%. CHEST: No wheezing, no crackles. CARDIAC: Normal S1 and S2, no gallops. ABDOMEN: Soft. EXTREMITIES: No edema. ENT: Throat reveals a Mallampati score of 4. LABORATORY DATA: White count 12,000, H and H 13 and 39, platelet count is normal. Electrolytes are normal. Urine was unremarkable. She had in March abdominal ultrasound done, which shows no evidence of any UT I. In fact, she was hospitalized in March for hypertrophic cardiomyopathy and controlled hypertension. PLAN: 1. Restart home medication. 2. Continue supportive care and PT. 3. Advised her to get a primary care physician. This is an ICU consultation note, 70 minutes, 50% in direct patient care.
--- NOTE | 2018-05-11 21:10 | CON ---
DATE OF CONSULTATION: 05/11/2018 CONSULTING PHYSICIAN: Dr. De La Cruz. REASON FOR CONSULTATION: Hypertensive urgency. REASON FOR ADMISSION: Nausea. HISTORY OF PRESENT ILLNESS: This is a 37-year-old -[place] female with history of hypertensi on, type 2 diabetes, gastroparesis, came to the hospital with hypertensive urgency and Nephrology is consulted for blood pressure management. No fever or chills. The patient is in pain and not able to give good history. No chest pain or palpitation, no diarrhea reported. No chest pain. PAST MEDICAL HISTORY: Positive for hypertension, type 2 diabetes, diabetic gastroparesis, fatty live r, and morbid obesity. PAST SURGICAL HISTORY: Cholecystectomy, . HOME MEDICATIONS: Metformin, Catapres, Ambien, Reglan, lisinopril, labetalol, hydrochlorothiazide, N eurontin, diltiazem, colchicine, and aspirin. ALLERGIES: NITROGLYCERIN and TRAMADOL. SOCIAL HISTORY: No smoking. Alcohol socially. FAMILY HISTORY: No history of any kidney disease. REVIEW OF SYSTEMS: The following complete review of systems was negative, unless otherwise mentioned in the HPI or below: CONSTITUTIONAL: Weight loss or gain, ability to conduct usual activities. SKIN: Rash, itching. EYES: Double vision, pain. ENT/MOUTH: Nose bleeding, neck stiffness, pain, tenderness. CARDIOVASCULAR: Palpitations, dyspnea on exertion, orthopnea. RESPIRATORY: Shortness of breath, wheezing, cough, hemoptysis, fever or night sweats. GASTROINTESTINAL: Poor appetite, abdominal pain, heartburn, nausea, vomiting, constipation, or diarr hea. GENITOURINARY: Urgency, frequency, dysuria, nocturia. MUSCULOSKELETAL: Pain, swelling. NEUROLOGIC/PSYCHIATRIC: Anxiety, depression. ALLERGY/IMMUNOLOGIC: Skin rash, bleeding tendency. PHYSICAL EXAMINATION: GENERAL: This is an obese female in no apparent distress. VITAL SIGNS: Temperature 99.8, pulse 79, respiratory rate 18, blood pressure 105/65. HEENT: Atraumatic, normocephalic. Oral mucosa is moist. NECK: Supple, no masses. HEART: S1, S2. Rate and rhythm regular. RESPIRATORY: Clear. GASTROINTESTINAL: Abdomen is soft. MUSCULOSKELETAL: 1+ edema. DERMATOLOGIC: No rash. NEUROLOGIC: Alert, awake. PSYCHIATRIC: Mood and affect normal. LABORATORY DATA: Hemoglobin is 13.5, potassium 3.4, BUN 8, creatinine 0.7. Urine with pyuria. She had a workup with , metanephrine which was all negative and she also had a renal ultrasound negative for any renal artery stenosis. ASSESSMENT AND PLAN: 1. Hypertensive urgency with resistant hypertension, most likely from obesity, noncompliance with me dication. The patient is currently on Cardene drip. Blood pressure is controlled, slowly up titrate the medication when she is able to tolerate p.o. and we will follow. 2. Hypokalemia, mild. 3. Chronic kidney disease, stage 2. 4. Edema, controlled. 5. Morbid obesity. Patient needs weight control and compliance with her medication. I will be happy to follow her as outpatient for blood pressure control. Thank you for the consult. We will follow.
[2018-05-11] MEDS: Zolpidem Tartrate 5 MG TAB PO SCH (21:39)
[2018-05-12] MEDS: cloNIDine 0.2 MG TAB PO SCH ×3 (06:06→21:21)
[2018-05-12] MEDS: metFORMIN 500 MG TAB PO SCH (07:36)
[2018-05-12] MEDS: Metoclopramide HCl 10 MG TAB PO SCH ×4 (07:36→16:02)
[2018-05-12] MEDS: Aspirin 325 MG TAB PO SCH (07:36)
[2018-05-12] MEDS: Enoxaparin Sodium 40 MG/0.4 ML SYRINGE SC SCH (09:19)
[2018-05-12] MEDS: Colchicine 0.6 MG TAB PO SCH ×2 (09:19→21:19)
[2018-05-12] MEDS: Ibuprofen 600 MG TAB PO PRN ×2 (09:19→16:02)
[2018-05-12] MEDS: Gabapentin 100 MG CAP PO SCH ×3 (09:20→21:21)
[2018-05-12] MEDS: Hydrochlorothiazide 25 MG TAB PO SCH (09:20)
[2018-05-12] MEDS: Labetalol 100 MG TAB PO SCH ×2 (10:18→21:22)
[2018-05-12] MEDS: Diltiazem HCl SR 90 mg Capsule PO SCH ×2 (10:19→21:22)
[2018-05-12] MEDS ORDERED: Ondansetron HCl/PF 4 MG/2 ML Vial IVP PRN (10:27)
[2018-05-12] MEDS ORDERED: Ondansetron ODT 8 MG TAB SL PRN (10:27)
[2018-05-12] MEDS: Lisinopril 20 MG TAB PO SCH ×2 (10:44→21:22)
--- NOTE | 2018-05-12 10:45 | PRG ---
DATE OF SERVICE: 05/12/2018 SUBJECTIVE: This is a 37-year-old female being seen for hypertension. The patient denies any nausea , vomiting or chest pain. PHYSICAL EXAMINATION: GENERAL: Patient is awake, alert. VITAL SIGNS: Afebrile, pulse 74, breathing 16, blood pressure 116/91. OBJECTIVE: See above. Awake, alert, in no acute distress. GENERAL APPEARANCE AND MENTAL STATUS: Fair. HEAD/NECK: Normocephalic. Atraumatic. EYES: EOMI. No deformity. EARS: Clear. No ulcers. NOSE: Intact. No lesions. MOUTH: Clear. No discharge. THROAT: Clear. No exudate. LUNGS: Clear. No crackles. CARDIAC: S1, S2. No rub. ABDOMEN: Benign. BS+. GENITALIA/RECTUM: Vargas absent. BACK/EXTREMITIES: Edema 0+ Ulcer- NEUROLOGICAL: Alert and motor intact. SKIN: Rash- Bruise- LYMPHATICS: Edema- Ulcer- LABORATORY: Creatinine was 0.75. ASSESSMENT AND RECOMMENDATIONS: 1. Chronic kidney disease, stage 2, stable. 2. Hypertension, stable. 3. Anemia, stable. 4. Medications based on glomerular filtration rate are appropriate. I will sign off on this patient. Please reconsult as needed.
--- NOTE | 2018-05-12 11:43 | PDOC.PN ---
- Subjective Encounter Start Date: 05/12/18 Encounter Start Time: 11:39 Ms. Berumen was seen today in follow-up of uncontrolled HTN. She says she continues to have nausea, and continues to have back pain in her mid back which radiates to to mid chest. - Objective MAR Reviewed: Yes Vital Signs & Weight: Vital Signs (12 hours) Temp Pulse Resp BP BP Pulse Ox 05/12/18 10:44 102/57 L 05/12/18 10:18 74 05/12/18 09:19 116/91 H 05/12/18 07:42 98.5 F 75 20 96/51 L 94 L 05/12/18 06:06 102/57 L 05/12/18 00:10 98.0 F 74 16 110/53 L Most Recent Monitor Data Heart Rate from ECG 113 NIBP 126/79 NIBP BP-Mean 91 Respiration from ECG 21 SpO2 98 I&O: 05/11/18 05/12/18 05/13/18 06:59 06:59 06:59 Intake Total 880 1010 Output Total 1200 325 Balance -320 685 Result Diagrams: 05/11/18 03:32 05/11/18 03:32 Additional Labs: Accuchecks 05/12/18 05/11/18 05/11/18 06:08 21:47 16:24 POC Glucose 174 H 132 H 161 H 05/11/18 05/10/18 06:25 22:51 POC Glucose 226 H 231 H Phys Exam - Physical Examination HEENT: PERRLA Respiratory: no wheezing, no rales, no rhonchi, clear to auscultation bilateral Cardiovascular: RRR, no significant murmur, no rub Gastrointestinal: soft, non-tender, positive bowel sounds Musculoskeletal: no edema Dx/Plan (1) Diabetes type 2, controlled Code(s): E11.9 - TYPE 2 DIABETES MELLITUS WITHOUT COMPLICATIONS Status: Chronic Qualifiers: Diabetes mellitus snf insulin use: without snf use Diabetes mellitus complication status: with unspecified complications Qualified Code(s) : E11.8 - Type 2 diabetes mellitus with unspecified complications (2) Gastroparesis Code(s): K31.84 - GASTROPARESIS Status: Chronic (3) HTN (hypertension), malignant Code(s): I10 - ESSENTIAL (PRIMARY) HYPERTENSION Status: Chronic (4) Morbid obesity with BMI of 45.0-49.9, adult Code(s): E66.01 - MORBID (SEVERE) OBESITY DUE TO EXCESS CALORIES; Z68.42 - BODY MASS INDEX (BMI) 45.0-49.9, ADULT Status: Chronic - Plan * HTN- her blood pressure is now low- ? due to volume depletion- continue IV saline infusion * I do not believe she is sure how well her blood pressure is controlled on average, as an outpatient- she does not check it regularly, but says when she was on all of her medication it was around 140 systolic on her last office visit , which was about 2 months ago- will likely need to watch her a few days to see what her trend will be, and if she needs adjustment up or even down on her blood pressure medication. * DM- blood glucose is stable * Diabetic gastroparesis- continue Reglan, and nausea medication
[2018-05-12] MEDS ORDERED: Iopamidol 370 76% 100 ML VIAL ONE (11:55)
[2018-05-12 12:06] LABS: #Basophils 0.1 thou/uL (0.0-0.2); #Eosinphils 0.1 thou/uL (0.0-0.7); #Lymphocytes 2.6 thou/uL (1.20-3.40); #Monocytes 0.6 thou/uL (0.11-0.59); #Neutrophils 5.2 thou/uL (1.40-6.50); %Basophils 0.7 % (0.0-1.0); %Eosinophils 1.4 % (0.0-10.0); %Lymphocytes 30.7 % (21.0-51.0); %Monocytes 6.9 % (0.0-10.0); %Neutrophils 60.3 % (42.0-75.0); Hemoglobin 11.4 g/dL (12.0-16.0); Mean Corpuscular HGB CONC 33.9 g/dL (32.0-36.0); Mean Corpuscular Volume 91.6 fL (78.0-98.0); Platelet Count 254 thou/uL (130-400); RBC Distribution Width 12.9 % (11.5-14.5); Red Blood Cell (RBC) Count 3.67 mill/uL (4.20-5.40); White Blood Cell (WBC) Count 8.6 thou/uL (4.8-10.8)
[2018-05-12] MEDS: Sodium Chloride 0.9% 1,000 ML IV SCH ×2 (12:07→22:33)
[2018-05-12] MEDS: HYDROcodone/Acetaminophen 5/325 mg Tablet PO PRN ×2 (12:24→21:20)
--- NOTE | 2018-05-12 12:43 | RAD ---
THORACIC SPINE THREE VIEWS: 05/12/18 HISTORY: Back pain. Minimal scoliotic change to the spine is seen. There is some degenerative osteophytes. Pedicles are i ntact. IMPRESSION: Minimal scoliosis and some very mild arthritic changes of the spine. POS: NISSA
[2018-05-12 12:45] LABS: BHCG - Serum Negative (NEGATIVE); Pregs Control Background? CLEAR/WHITE (CLR/WHITE); Pregs Control Bar Appear? YES (CONTROL BAR)
[2018-05-12 14:43] LABS: Chloride 101 mmol/L (98-107)
[2018-05-12 14:44] LABS: Calcium 8.3 mg/dL (7.8-10.44); Glucose 176 mg/dL (70-105); Potassium 3.3 mmol/L (3.5-5.1); Sodium 136 mmol/L (136-145)
[2018-05-12 14:46] LABS: Anion Gap 15 mmol/L (10-20); Carbon Dioxide 23 mmol/L (22-29)
[2018-05-12 14:49] LABS: BUN (Urea Nitrogen) 22 mg/dL (7.0-18.7)
[2018-05-12 14:50] LABS: Calc. Creatinine Clearance 95 mL/min (70-130); Estimated GFR-MDRD 45
--- NOTE | 2018-05-12 15:42 | CT ---
CT ANGIOGRAM CHEST AND ABDOMEN: 05/12/2018 COMPARISON: 02/09/2018 TECHNIQUE: Serial axial CT imaging at 2.5 mm intervals, from the thoracic inlet through the upper sacrum, with I V contrast, using a CT angiogram protocol. Coronal and sagittal 3D reformatted imaging obtained. FINDINGS: The imaged thyroid parenchyma is grossly unremarkable. No axillary, mediastinal, or hilar lymphadeno marii. No pleural, pericardial, or mediastinal fluid. Bronchial lesion noted. No pneumothorax. No air space disease/focal consolidation or suspicious pulmonary parenchymal mass l esion or nodule on either side. No evidence for aneurysm or dissection of the thoracic aorta. The pelvis is not imaged on this exam. The hepatic parenchyma is diffusely hypodense, evidence of st eatosis. Cholecystectomy clips are present. The spleen, pancreas, adrenal glands, and kidneys are g rossly unremarkable. No evidence for aneurysm or dissection of the abdominal aorta. Small fat-containing umbilical hernia noted. Imaged bowel grossly unremarkable. Osseous structures of abdomen demonstrate no acute findings. No abdominal lymphadenopathy. IMPRESSION: No evidence for abdominal aortic aneurysm or dissection. Incidental findings as detailed above. POS: NISSA
[2018-05-12] MEDS ORDERED: tiZANidine HCl 4 MG TAB PO PRN (16:12)
[2018-05-12] MEDS: Zolpidem Tartrate 5 MG TAB PO SCH (21:21)
[2018-05-12] MEDS: HumaLOG 300 UNITS/3 ML VIAL SC PRN (21:23)
[2018-05-12] MEDS: Lorazepam 1 MG TAB PO PRN (22:03)
[2018-05-13] MEDS: cloNIDine 0.2 MG TAB PO SCH ×2 (05:30→15:41)
[2018-05-13] MEDS: HYDROcodone/Acetaminophen 5/325 mg Tablet PO PRN ×3 (05:36→15:41)
[2018-05-13] MEDS: HumaLOG 300 UNITS/3 ML VIAL SC PRN (05:40)
[2018-05-13] MEDS: Lorazepam 1 MG TAB PO PRN ×3 (05:46→15:44)
[2018-05-13 06:29] LABS: #Basophils 0.1 thou/uL (0.0-0.2); #Eosinphils 0.1 thou/uL (0.0-0.7); #Lymphocytes 2.1 thou/uL (1.20-3.40); #Monocytes 0.4 thou/uL (0.11-0.59); #Neutrophils 3.8 thou/uL (1.40-6.50); %Basophils 0.9 % (0.0-1.0); %Eosinophils 2.1 % (0.0-10.0); %Lymphocytes 32.4 % (21.0-51.0); %Monocytes 5.7 % (0.0-10.0); %Neutrophils 58.9 % (42.0-75.0); Hemoglobin 12.1 g/dL (12.0-16.0); Mean Corpuscular HGB CONC 34.1 g/dL (32.0-36.0); Mean Corpuscular Volume 90.9 fL (78.0-98.0); Mean Platelet Volume 7.3 fL (7.4-10.4); Platelet Count 287 thou/uL (130-400); RBC Distribution Width 12.6 % (11.5-14.5); Red Blood Cell (RBC) Count 3.89 mill/uL (4.20-5.40); White Blood Cell (WBC) Count 6.5 thou/uL (4.8-10.8)
[2018-05-13 06:44] LABS: Anion Gap 15 mmol/L (10-20); BUN (Urea Nitrogen) 16 mg/dL (7.0-18.7); Calc. Creatinine Clearance 171 mL/min (70-130); Calcium 9.1 mg/dL (7.8-10.44); Carbon Dioxide 24 mmol/L (22-29); Chloride 103 mmol/L (98-107); Estimated GFR-MDRD 89; Glucose 185 mg/dL (70-105); Potassium 3.3 mmol/L (3.5-5.1); Sodium 139 mmol/L (136-145)
[2018-05-13] MEDS: Labetalol 100 MG TAB PO SCH ×2 (08:32→11:33)
[2018-05-13] MEDS: Enoxaparin Sodium 40 MG/0.4 ML SYRINGE SC SCH (08:32)
[2018-05-13] MEDS: Gabapentin 100 MG CAP PO SCH ×2 (08:32→15:42)
[2018-05-13] MEDS: Metoclopramide HCl 10 MG TAB PO SCH ×3 (08:33→15:42)
[2018-05-13] MEDS: Lisinopril 20 MG TAB PO SCH (08:33)
[2018-05-13] MEDS: Diltiazem HCl SR 90 mg Capsule PO SCH (08:33)
[2018-05-13] MEDS: metFORMIN 500 MG TAB PO SCH (08:34)
[2018-05-13] MEDS: Ibuprofen 600 MG TAB PO PRN (08:34)
[2018-05-13] MEDS: Colchicine 0.6 MG TAB PO SCH (08:34)
[2018-05-13] MEDS: Aspirin 325 MG TAB PO SCH (08:34)
[2018-05-13 11:36] VITALS: TEMP 98.7
[2018-05-13 16:01] VITALS: BP 138/76
--- NOTE | 2018-05-13 16:04 | PDOC.PN ---
- Subjective Encounter Start Date: 05/13/18 Encounter Start Time: 16:02 Ms. Berumen was seen today in follow-up of hypertensive Urgency. She is feeling better. Keeping food down. - Objective MAR Reviewed: Yes Vital Signs & Weight: Vital Signs (12 hours) Temp Pulse Resp BP BP BP Pulse Ox 05/13/18 15:41 167/100 H 05/13/18 13:10 138/76 05/13/18 11:35 98.7 F 88 20 167/100 H 05/13/18 11:33 88 167/100 H 05/13/18 08:33 110/75 05/13/18 08:32 80 119/61 05/13/18 08:15 98.7 F 88 20 05/13/18 07:46 98.9 F 80 20 119/61 99 05/13/18 05:32 98.2 F 84 18 110/75 97 05/13/18 05:30 110/75 Most Recent Monitor Data Heart Rate from ECG 113 NIBP 126/79 NIBP BP-Mean 91 Respiration from ECG 21 SpO2 98 I&O: 05/12/18 05/13/18 05/14/18 06:59 06:59 06:59 Intake Total 1010 1450 Output Total 325 850 Balance 685 600 Result Diagrams: 05/13/18 06:11 05/13/18 06:11 Additional Labs: Accuchecks 05/13/18 05/13/18 05/13/18 15:49 11:11 05:39 POC Glucose 114 H 171 H 166 H 05/12/18 05/12/18 20:54 17:09 POC Glucose 231 H 221 H Phys Exam - Physical Examination HEENT: PERRLA Respiratory: no wheezing, no rales, no rhonchi, clear to auscultation bilateral Cardiovascular: RRR, no significant murmur, no rub Gastrointestinal: soft, non-tender, positive bowel sounds Musculoskeletal: no edema Dx/Plan (1) Diabetes type 2, controlled Code(s): E11.9 - TYPE 2 DIABETES MELLITUS WITHOUT COMPLICATIONS Status: Chronic Qualifiers: Diabetes mellitus skilled nursing insulin use: without manager intermediate use Diabetes mellitus complication status: with unspecified complications Qualified Code(s) : E11.8 - Type 2 diabetes mellitus with unspecified complications (2) Gastroparesis Code(s): K31.84 - GASTROPARESIS Status: Chronic (3) HTN (hypertension), malignant Code(s): I10 - ESSENTIAL (PRIMARY) HYPERTENSION Status: Chronic (4) Morbid obesity with BMI of 45.0-49.9, adult Code(s): E66.01 - MORBID (SEVERE) OBESITY DUE TO EXCESS CALORIES; Z68.42 - BODY MASS INDEX (BMI) 45.0-49.9, ADULT Status: Chronic - Plan * .HTN- blood pressure is better * DM- better controlled * stable for discharge home.
--- NOTE | 2018-05-14 00:32 | DIS ---
DATE OF ADMISSION: 05/10/2018 DATE OF DISCHARGE: 05/13/2018 PRIMARY CARE PHYSICIAN: Sree Oliver. DISCHARGE DISPOSITION: Home. PRIMARY DISCHARGE DIAGNOSES: 1. Hypertensive urgency. 2. Nausea and vomiting, likely secondary to diabetic gastroparesis. 3. Diabetes mellitus, type 2. 4. Chronic low back pain. 5. Morbid obesity. DISCHARGE MEDICATIONS: Include Ambien 10 mg at bedtime, Zanaflex 4 mg t.i.d. as needed, Reglan 10 mg t.i.d. with meals, metformin 500 mg daily, Zestril 20 mg twice a day, Normodyne 400 mg twice a day, hydrochlorothiazide 25 mg daily, Neurontin 100 mg t.i.d., Cardizem 90 mg twice a day, colchicine 0.6 mg twice daily, clonidine 0.2 mg as needed, and aspirin 325 mg daily. PROCEDURES DONE DURING ADMISSION: The patient had a CT dissection protocol, which was negative for d issection and an x-ray of the thoracic spine which showed some DJD and minimal scoliosis. CODE STATUS: FULL CODE. ALLERGIES: NITROGLYCERIN and TRAMADOL. HOSPITAL COURSE: Ms. Berumen is a pleasant 37-year-old female who came to the emergency room with naus ea and vomiting and was also found to have a blood pressure which was extremely elevated. She has a history of known hypertension and difficult to control blood pressure. She had not been able to keep her medications down due to the nausea and vomiting. She was admitted and placed in the ICU on a Ca rdene drip. Her blood pressure was controlled as well as her nausea and vomiting. She complained of some back pain which she was asking for morphine periodically. For this reason, a CT scan of the est dissection protocol was done given her admission for hypertensive urgency. This was negative. Robert velázquez also got a plain x-ray of the thoracic spine which showed some minimal degenerative joint disease a nd mild scoliosis. Her complaints of pain seemed out of proportion to her clinical findings and that she appeared very comfortable. She would be asleep a lot of times shortly either before or after as marivel for pain medication. For this reason, we will not be sending her home on any narcotic pain medi cations. We will sent her home on a muscle relaxer in addition to the gabapentin which she had alfred mota been taken and she can discuss this further with her primary care physician.
== END 2018-05-13 16:40 | disposition home or self-care (01) | DRG 305 ==
LOC: ERS 11:48 → CCU 20:49 → 3SE 05-11 19:57
PROVIDERS: ADMIT Internal Medicine; ATTEND Internal Medicine
DX: I16.0 Hypertensive urgency (principal); Z68.42 Body mass index [BMI] 45.0-49.9, adult; E11.43 Type 2 diabetes mellitus with diabetic autonomic (poly)neuropathy; K31.84 Gastroparesis; M10.9 Gout, unspecified; E66.9 Obesity, unspecified; I12.9 Hypertensive chronic kidney disease with stage 1 through stage 4 chronic kidney disease, or unspecified chronic kidney disease; N18.2 Chronic kidney disease, stage 2 (mild); E11.22 Type 2 diabetes mellitus with diabetic chronic kidney disease; D64.9 Anemia, unspecified; Z88.8 Allergy status to other drugs, medicaments and biological substances
CPT/HCPCS: 36415; 36416; 71275; 72072; 80048; 80053; 80306; 81003; 81015; 82553; 83690; 83735; 84484; 84703; 85025; 93005; 94760; 96365; 96366; 96367; 96375; 96376; A4216; C9113; J1630; J1650; J1885; J2060; J2270; J2405; J2550; J3475; J3480; J7050

== ENCOUNTER 2018-06-10 12:35 | Outpatient (CLI) | payer OTHER | END 2018-06-10 12:36 | disposition home or self-care (01) | LOC: BICRAD 12:35 | PROVIDERS: ATTEND Specialist | DX: M25.562 Pain in left knee (principal); M54.5 Low back pain; M79.89 Other specified soft tissue disorders; E11.00 Type 2 diabetes mellitus with hyperosmolarity without nonketotic hyperglycemic-hyperosmolar coma (NKHHC); I10 Essential (primary) hypertension | CPT/HCPCS: 36415; 72100; 80053; 80061; 81003; 82043; 83036; 84550; 85025; 85652 ==

== ENCOUNTER 2018-10-30 14:54 | Emergency (ER) | payer OTHER ==
[2018-10-30 17:33] LABS: #Eosinphils 0.1 thou/uL (0.0-0.7); #Lymphocytes 2.7 thou/uL (1.20-3.40); #Monocytes 0.5 thou/uL (0.11-0.59); #Neutrophils 9.9 thou/uL (1.40-6.50); %Basophils 0.3 % (0.0-1.0); %Eosinophils 0.6 % (0.0-10.0); %Lymphocytes 20.5 % (21.0-51.0); %Monocytes 3.6 % (0.0-10.0); Hemoglobin 13.8 g/dL (12.0-16.0); Mean Corpuscular HGB CONC 32.9 g/dL (32.0-36.0); Mean Corpuscular Hemoglobin 30.9 pg (27.0-31.0); Mean Corpuscular Volume 93.9 fL (78.0-98.0); Mean Platelet Volume 8.2 fL (7.4-10.4); Platelet Count 450 thou/uL (130-400); RBC Distribution Width 12.1 % (11.5-14.5); Red Blood Cell (RBC) Count 4.46 mill/uL (4.20-5.40); White Blood Cell (WBC) Count 13.2 thou/uL (4.8-10.8)
[2018-10-30 17:58] LABS: ALT (SGPT) 34 U/L (8-55); AST (SGOT) 19 U/L (5-34); Albumin 4.4 g/dL (3.5-5.0); Alkaline Phosphatase 203 U/L (40-150); Anion Gap 14 mmol/L (10-20); BUN (Urea Nitrogen) 17 mg/dL (7.0-18.7); Bilirubin, Total 0.4 mg/dL (0.2-1.2); Calc. Creatinine Clearance 0 mL/min (70-130); Calcium 10.4 mg/dL (7.8-10.44); Carbon Dioxide 27 mmol/L (22-29); Chloride 89 mmol/L (98-107); Estimated GFR-MDRD 38; Magnesium 1.9 mg/dL (1.6-2.6); Phosphorus 3.1 mg/dL (2.3-4.7); Potassium 4.5 mmol/L (3.5-5.1); Protein, Total 8.4 g/dL (6.0-8.3); Sodium 125 mmol/L (136-145)
[2018-10-30 17:59] LABS: Glucose 552 mg/dL (70-105)
[2018-10-30] MEDS ORDERED: Acetaminophen 500 MG TAB ONE (21:25)
[2018-10-30] MEDS ORDERED: Ondansetron PF 4 MG/2 ML Vial ONE (21:25)
[2018-10-30] MEDS ORDERED: Morphine 4 MG/ML VIAL ONE (22:01)
[2018-10-30] MEDS ORDERED: Insulin Regular 300 UNITS/3 ML VIAL ONE (22:01)
--- NOTE | 2018-10-30 22:15 | RAD ---
RIGHT LOWER LEG TWO VIEWS: 10/30/18 HISTORY: Right leg injury. FINDINGS: Tibia and fibula are intact. No acute fracture or dislocation. IMPRESSION: No acute osseous abnormalities are demonstrated. POS: BST
[2018-10-30 23:00] LABS: Bilirubin Negative (Negative); Blood, Urine Negative (Negative); Clarity CLEAR (Clear); Glucose, Urine (Dipstick) >=1000 mg/dL (Negative); Leukocyte Negative (Negative); Nitrite Negative (Negative); Protein, Urine (Dipstick) Negative (Neg-Trace); Specific Gravity, Urine 1.034 (1.002-1.036); Urobilinogen 0.2 mg/dL (0.2-1.0)
[2018-10-30 23:01] LABS: Pregnancy Test - Urine (BHCG) Negative (Negative); Pregu Control Background? CLEAR/WHITE (CLR/WHITE); Pregu Control Bar Appear? YES (CONTROL BAR); Specific Gravity 1.034 (1.002-1.036)
== END 2018-10-31 00:24 | disposition home or self-care (01) ==
LOC: ERS 14:54
DX: E11.65 Type 2 diabetes mellitus with hyperglycemia (principal); I25.2 Old myocardial infarction; I10 Essential (primary) hypertension; M10.9 Gout, unspecified
CPT/HCPCS: 36415; 36416; 80053; 81003; 81025; 82010; 83690; 83735; 84100; 85025; 93005; 96361; 96374; 96375; J1815; J2270; J2405

== ENCOUNTER 2019-01-12 09:31 | Emergency (ER) | payer OTHER ==
[2019-01-12 10:24] LABS: #Basophils 0.1 thou/uL (0.0-0.2); #Eosinphils 0.1 thou/uL (0.0-0.7); #Lymphocytes 3.8 thou/uL (1.20-3.40); #Monocytes 0.7 thou/uL (0.11-0.59); #Neutrophils 9.1 thou/uL (1.40-6.50); %Basophils 0.8 % (0.0-1.0); %Eosinophils 0.9 % (0.0-10.0); %Lymphocytes 27.5 % (21.0-51.0); %Monocytes 4.9 % (0.0-10.0); Hemoglobin 13.4 g/dL (12.0-16.0); Mean Corpuscular Hemoglobin 30.2 pg (27.0-31.0); Mean Corpuscular Volume 91.6 fL (78.0-98.0); Mean Platelet Volume 7.9 fL (7.4-10.4); Platelet Count 427 thou/uL (130-400); Red Blood Cell (RBC) Count 4.42 mill/uL (4.20-5.40); White Blood Cell (WBC) Count 13.8 thou/uL (4.8-10.8)
[2019-01-12 10:39] LABS: ALT (SGPT) 20 U/L (8-55); AST (SGOT) 9 U/L (5-34); Albumin 3.8 g/dL (3.5-5.0); Alkaline Phosphatase 115 U/L (40-150); Anion Gap 14 mmol/L (10-20); BUN (Urea Nitrogen) 27 mg/dL (7.0-18.7); Bilirubin, Total 0.2 mg/dL (0.2-1.2); Calc. Creatinine Clearance 0 mL/min (70-130); Calcium 9.5 mg/dL (7.8-10.44); Carbon Dioxide 26 mmol/L (22-29); Chloride 92 mmol/L (98-107); Estimated GFR-MDRD 55; Globulin 3.6 g/dL (2.4-3.5); Glucose 437 mg/dL (70-105); Potassium 3.9 mmol/L (3.5-5.1); Protein, Total 7.4 g/dL (6.0-8.3); Sodium 128 mmol/L (136-145)
[2019-01-12] MEDS ORDERED: Morphine 4 MG/ML VIAL ONE (10:52)
[2019-01-12] MEDS ORDERED: Ketorolac Tromethamine 30 MG/ML VIAL ONE (10:52)
[2019-01-12] MEDS ORDERED: Insulin Regular 300 UNITS/3 ML VIAL ONE (10:53)
[2019-01-12 11:14] LABS: Base Excess-Venous -0.6 mmol/L (-2.0 to 3.0); Bicarbonate (HCO3v) 26.3 mmol/L (22.0-28.0); CO2 Tension (PvCO2) 50.8 mmHg (40.0-50.0); Calcium, Ionized 1.12 mmol/L (See Comments:); Chloride 94 mmol/L (98-107); Hemoglobin - Calc 15.8 g/dL (12.0-16.0); O2 Tension (PvO2) 34.8 mmHg (35.0-45.0); Potassium 3.9 mmol/L (3.5-5.1); Sodium 129 mmol/L (138-145); T. Carbon Dioxide 27.9 mmol/L (22.0-28.0); pH (Venous) 7.322 (7.320-7.430); vO2 Saturation-calc 61.3 % (60.0-85.0)
--- NOTE | 2019-01-12 12:06 | RAD ---
LEFT KNEE 4 VIEWS: HISTORY: Injury, left knee pain. FINDINGS: Comparison is made with the exam of 02/09/2018. The bones are intact. No fracture, dislocation, or bony destruction is seen. No joint effusion is i dentified. POS: TPC
== END 2019-01-12 13:29 | disposition home or self-care (01) ==
LOC: ERS 09:31
DX: E11.65 Type 2 diabetes mellitus with hyperglycemia (principal); S80.02XA Contusion of left knee, initial encounter; S80.01XA Contusion of right knee, initial encounter; I25.2 Old myocardial infarction; I10 Essential (primary) hypertension; M10.9 Gout, unspecified; F41.9 Anxiety disorder, unspecified; W19.XXXA Unspecified fall, initial encounter
CPT/HCPCS: 36416; 80053; 82010; 82330; 82803; 85025; 96361; 96374; 96375; J1815; J1885; J2270

== ENCOUNTER 2019-02-15 11:35 | Emergency (ER) | payer OTHER ==
[2019-02-15] MEDS ORDERED: Ketorolac Tromethamine 30 MG/ML VIAL ONE (12:52)
--- NOTE | 2019-02-15 13:11 | RAD ---
EXAM: XR Foot Lt 3 View STANDARD PROVIDED CLINICAL HISTORY: Pain without injury FINDINGS: There is no evidence for fracture or other acute osseous abnormality. Alignment appears anatomic. Keren nt spaces appear preserved. Small plantar calcaneal enthesophyte. IMPRESSION: No evidence for an acute osseous abnormality. If there is persistent clinical concern, conservative m anagement and follow-up imaging advised.
--- NOTE | 2019-02-15 14:45 | ULT ---
LEFT LOWER EXTREMITY PAIN: FINDINGS: Left lower extremity venous Doppler ultrasound evaluation is performed on 02/15/2019. Comparison study is not available. Multiple longitudinal and transverse images of the left lower extremity venous systems obtained using MultiHertz linear array transducer. Real-time, color flow and spectral waveform Doppler analysis are used to evaluate the left lower extremity venous system. No evidence of acute or old clot seen in the left common femoral, superficial femoral, femoral profun da, popliteal, posterior tibial vein and greater saphenous vein. IMPRESSION: No evidence of left lower extremity deep venous thrombosis seen. Transcribed Date/Time: 02/15/2019 2:47 PM
[2019-02-15] MEDS ORDERED: HYDROcodone/Acetaminophen 7.5/325 mg Tablet ONE (15:03)
== END 2019-02-15 15:06 | disposition home or self-care (01) ==
LOC: ERS 11:35
DX: M79.672 Pain in left foot (principal); M25.562 Pain in left knee; I25.2 Old myocardial infarction; E11.9 Type 2 diabetes mellitus without complications; I10 Essential (primary) hypertension; E11.40 Type 2 diabetes mellitus with diabetic neuropathy, unspecified; F41.9 Anxiety disorder, unspecified; M10.9 Gout, unspecified
CPT/HCPCS: 96372; J1885

== ENCOUNTER 2019-02-22 17:55 | Observation (INO) | payer OTHER ==
[~2019-02-22 17:55] MED LIST changes: -ISOVUE-370 76%-LOCM 1 ML ONE; +Iopamidol 370 76% 100 ML VIAL ONE
--- NOTE | 2019-02-22 18:13 | RAD ---
Exam: Chest one view HISTORY:Chest pain. Comparison: 03/16/2018 FINDINGS: Cardiac silhouette: Normal Pulmonary vessels: Normal Costophrenic angles: Clear LUNGS: No masses or consolidation. Pneumothorax: None Osseous abnormalities: None IMPRESSION: No acute cardiopulmonary process.
[2019-02-22 18:45] LABS: #Basophils 0.1 thou/uL (0.0-0.2); #Eosinphils 0.2 thou/uL (0.0-0.7); #Monocytes 0.6 thou/uL (0.11-0.59); #Neutrophils 10.4 thou/uL (1.40-6.50); %Basophils 0.4 % (0.0-1.0); %Eosinophils 1.3 % (0.0-10.0); %Lymphocytes 20.9 % (21.0-51.0); %Monocytes 4.4 % (0.0-10.0); Hemoglobin 13.2 g/dL (12.0-16.0); Mean Corpuscular HGB CONC 34.5 g/dL (32.0-36.0); Mean Corpuscular Hemoglobin 32.4 pg (27.0-31.0); Mean Corpuscular Volume 93.9 fL (78.0-98.0); Mean Platelet Volume 7.5 fL (7.4-10.4); Platelet Count 437 thou/uL (130-400); RBC Distribution Width 12.2 % (11.5-14.5); Red Blood Cell (RBC) Count 4.07 mill/uL (4.20-5.40); White Blood Cell (WBC) Count 14.2 thou/uL (4.8-10.8)
[2019-02-22 19:13] LABS: ALT (SGPT) 91 U/L (8-55); AST (SGOT) 69 U/L (5-34); Albumin 4.3 g/dL (3.5-5.0); Alkaline Phosphatase 160 U/L (40-150); Anion Gap 20 mmol/L (10-20); BUN (Urea Nitrogen) 23 mg/dL (7.0-18.7); Bilirubin, Total 0.2 mg/dL (0.2-1.2); Calc. Creatinine Clearance 0 mL/min (70-130); Calcium 9.5 mg/dL (7.8-10.44); Carbon Dioxide 20 mmol/L (22-29); Chloride 99 mmol/L (98-107); Estimated GFR-MDRD 69; Globulin 4.2 g/dL (2.4-3.5); Glucose 256 mg/dL (70-105); Lipase 96 U/L (8-78); Potassium 4.5 mmol/L (3.5-5.1); Protein, Total 8.5 g/dL (6.0-8.3); Sodium 134 mmol/L (136-145)
[2019-02-22] MEDS ORDERED: Morphine 4 MG/ML VIAL ONE ×2 (19:14→19:54)
[2019-02-22] MEDS ORDERED: Ondansetron PF 4 MG/2 ML Vial ONE (19:14)
[2019-02-22 19:34] LABS: CKMB 0.6 ng/mL (0-6.6)
[2019-02-22] MEDS ORDERED: Labetalol HCl 100 MG/20 ML VIAL ONE (19:36)
[2019-02-22] MEDS ORDERED: Metoclopramide HCl 10 MG/2 ML VIAL ONE (19:54)
--- NOTE | 2019-02-22 19:56 | CT ---
Exam: CT angiogram of the chest HISTORY: Chest pain COMPARISON: 03/16/2018 TECHNIQUE: CT angiogram of the chest is performed in the axial plane. Three-dimensional reformatted i mages are submitted for interpretation FINDINGS: Mediastinum: No mass, lymphadenopathy or hematoma. HEART: Normal size. No significant pericardial fluid. Aorta: No aneurysm or dissection Upper solid abdominal viscera: Hepatic steatosis. Otherwise, unremarkable visualized upper solid orga ns Trachea and central bronchi: Patent Pleural spaces: No effusion Lung parenchyma: No masses or consolidation. Pneumothorax: None Osseous structures: No lytic or blastic lesions Pulmonary arteries: Adequate contrast opacification pulmonary arterial system to the level of segment al arteries. No filling defect to suggest pulmonary embolism IMPRESSION: 1. No evidence of pulmonary artery embolism to the level segmental arteries 2. Hepatic steatosis.
[2019-02-22] MEDS ORDERED: Acetaminophen 325 MG TAB PO PRN (20:45)
[2019-02-22] MEDS ORDERED: Ondansetron PF 4 MG/2 ML Vial IVP PRN (20:45)
[2019-02-22] MEDS ORDERED: Ondansetron ODT 4 MG TAB PO PRN (20:45)
[2019-02-22] MEDS ORDERED: tiZANidine HCl 4 MG TAB PO PRN (20:50)
[2019-02-22] MEDS ORDERED: Zolpidem Tartrate 5 MG TAB PO SCH (21:00)
[2019-02-22] MEDS ORDERED: cloNIDine 0.2 MG TAB PO SCH (21:00)
[2019-02-22] MEDS ORDERED: Aspirin 325 MG TAB PO SCH (21:00)
[2019-02-22] MEDS ORDERED: Dextrose 50% Abboject 50 ML SYRINGE SLOW IVP PRN (21:10)
[2019-02-22] MEDS ORDERED: HumaLOG 300 UNITS/3 ML VIAL SC PRN (21:10)
[2019-02-22] MEDS ORDERED: Dextrose 5% in Water 1,000 ML IV PRN (21:10)
[2019-02-22 21:38] LABS: Troponin I 0.054 ng/mL (< 0.028)
--- NOTE | 2019-02-22 21:38 | HP ---
CODE STATUS: The patient goes to [facility]. CODE STATUS: Full code. TIME OF EVALUATION: 08:40 CHIEF COMPLAINT: Chest pain. HISTORY OF PRESENT ILLNESS: This is a 38-year-old female patient with past medical history of diabetes, previous [place], came to the hospital after having chest pain that was severe, pressure-like in the middle of the chest radiating to the back with no clear triggers. No alleviating factors associated with nausea. REVIEW OF SYSTEMS: CONSTITUTIONAL: No fever, chills, or generalized weakness. RESPIRATORY: No cough, sputum production, or shortness of breath. CARDIOVASCULAR: The patient has chest pain. No palpitations. GASTROINTESTINAL: No nausea, no vomiting, diarrhea, or abdominal pain. ASSEMBLER CARDS AND ANNOUNCEMENTS: No dizziness, headache, or feeling lightheaded. GENITOURINARY: No burning on urination. EXTREMITIES: No leg swelling. All other systems were reviewed and negative except for the findings mentioned above. PAST MEDICAL HISTORY: Includes myocardial infarction, diabetes type 2, hypertension, gastritis, gout, duodenal cyst, neuropathy. PAST SURGICAL HISTORY: The patient has a history of cholecystectomy, . PSYCHIATRIC HISTORY: Anxiety. SOCIAL HISTORY: No alcohol. No drug use. No smoking history. KNOWN ALLERGIES: Nitroglycerin and tramadol. FAMILY HISTORY:Reviewed and non contributory to current presentation. REPORTED MEDICATIONS: 1. Metformin. 2. Ambien. 3. Clonidine. 4. Gabapentin. 5. Allopurinol. PHYSICAL EXAMINATION: VITAL SIGNS: On presentation, blood pressure 129/89 with heart rate 109, respiratory rate was 18, temperature 99.1, pain 10/10. Oxygen saturation was 100% on room air. GENERAL APPEARANCE: The patient is alert, oriented, not in acute distress. HEENT: Eyes, normal conjunctiva. Moist oral mucosa. Anicteric. No JVD. RESPIRATORY: Bilateral air entry. No rales. No wheezing. Symmetric expansion. CARDIOVASCULAR: Normal rate. Regular rhythm. No murmurs. No gallop. No edema. ABDOMEN: Soft. Normal bowel sounds. MUSCULOSKELETAL: Baseline range of motion and strength. No tenderness. SKIN: Warm, intact. No pallor. No rash. No redness. Peripheral pulses are present. Capillary refill seems to be intact. NEUROLOGIC: No evidence of any new focal weakness. Baseline speech. Cranial nerves seems to be intact. PSYCHIATRIC: Patient is in good mood. No anxiety. Optimal judgment. EKG was reviewed. The patient has sinus tachycardia at a rate of 117, MD 134, QRS 72, QT corrected 465. Atrial enlargement. T-wave abnormality with inferolateral ischemia. Chest x-ray was reviewed. The patient has no acute cardiopulmonary process. Chest CT angio was done. The patient had no evidence of pulmonary artery embolism to the level of segmental arteries and hepatic steatosis. LABORATORY DATA: Reviewed. The patient has white count 14.2, hemoglobin 13.2, MCV 93.9, platelet count 437. Coagulation; D-dimer 1.32. Chemistry; sodium 134, potassium 4.5, chloride 99, carbon dioxide 20, anion gap 20, BUN 23, creatinine 1.0. GFR 69, glucose 256, calcium 9.5, AST 69, ALT 91, alkaline phosphatase 116, lipase 96. ASSESSMENT AND PLAN: The patient will be placed in the hospital with following medical problems; 1. Chest pain, rule out acute coronary syndrome. The patient has a previous history of coronary artery disease and diabetes, hypertension. We will trend troponins, monitor on tele. We will do a stress test in the morning if initial workup is negative. 2. Positive D-dimer of 1.32, however, CT angio was negative. 3. Leukocytosis with white count 14.2. No clear evidence. No source of infection at this point, might be due to acute physical distress. We will monitor. 4. Hyponatremia. Sodium 134, this is mild, we will monitor and replace as needed. 5. Uncontrolled diabetes with blood sugar of 256, reconcile home medication and start the patient on sliding scale. 6. Hypertensive urgency with systolic blood pressure 204 and diastolic 118. By the time of my examination, the blood pressure got back in control. We will reconcile home medications. We will monitor and might need IV p.r.n. medications for optimal control of blood pressure. 7. History of coronary artery disease. We will reconcile home medications. We will adjust treatment as needed. Job ID: [id number] [facility]
[2019-02-22 23:06] VITALS: BMI 43.3
[2019-02-22] MEDS: Colchicine 0.6 MG TAB PO SCH (23:17)
[2019-02-22] MEDS: Lisinopril 20 MG TAB PO SCH (23:17)
[2019-02-22] MEDS: Gabapentin 100 MG CAP PO SCH (23:18)
[2019-02-22] MEDS: Labetalol 100 MG TAB PO SCH (23:18)
[2019-02-22] MEDS: Diltiazem HCl SR 90 mg Capsule PO SCH (23:29)
[2019-02-23 00:52] LABS: #Eosinphils 0.2 thou/uL (0.0-0.7); #Lymphocytes 2.6 thou/uL (1.20-3.40); #Monocytes 0.6 thou/uL (0.11-0.59); #Neutrophils 7.9 thou/uL (1.40-6.50); %Basophils 0.3 % (0.0-1.0); %Eosinophils 1.5 % (0.0-10.0); %Lymphocytes 23.2 % (21.0-51.0); %Monocytes 5.2 % (0.0-10.0); %Neutrophils 69.8 % (42.0-75.0); Mean Corpuscular HGB CONC 33.3 g/dL (32.0-36.0); Mean Corpuscular Hemoglobin 31.3 pg (27.0-31.0); Mean Corpuscular Volume 94.1 fL (78.0-98.0); Mean Platelet Volume 7.1 fL (7.4-10.4); Platelet Count 357 thou/uL (130-400); RBC Distribution Width 11.9 % (11.5-14.5); Red Blood Cell (RBC) Count 3.52 mill/uL (4.20-5.40); White Blood Cell (WBC) Count 11.3 thou/uL (4.8-10.8)
[2019-02-23 01:16] LABS: Troponin I 0.043 ng/mL (< 0.028)
[2019-02-23 01:31] LABS: Anion Gap 16 mmol/L (10-20); BUN (Urea Nitrogen) 20 mg/dL (7.0-18.7); Calc. Creatinine Clearance 149 mL/min (70-130); Calcium 8.5 mg/dL (7.8-10.44); Carbon Dioxide 22 mmol/L (22-29); Chloride 104 mmol/L (98-107); Estimated GFR-MDRD 83; Glucose 282 mg/dL (70-105); Potassium 3.4 mmol/L (3.5-5.1); Sodium 139 mmol/L (136-145)
[2019-02-23] MEDS ORDERED: HYDROcodone/Acetaminophen 5/325 mg Tablet PO SCH (02:15)
[2019-02-23] MEDS: cloNIDine 0.2 MG TAB PO SCH ×2 (05:58→12:51)
[2019-02-23] MEDS ORDERED: Nitroglycerin 2% Ointment 1 INCH/1 GM Packet TOP SCH (09:00)
[2019-02-23] MEDS ORDERED: Allopurinol 300 MG TAB PO SCH (09:00)
[2019-02-23] MEDS ORDERED: Enoxaparin Sodium 40 MG/0.4 ML SYRINGE SC SCH (09:00)
[2019-02-23] MEDS ORDERED: Lisinopril 20 MG TAB PO SCH (09:00)
[2019-02-23] MEDS ORDERED: Hydrochlorothiazide 25 MG TAB PO SCH (09:00)
[2019-02-23] MEDS ORDERED: Aspirin 325 mg Enteric Coated Tablet PO SCH (09:00)
[2019-02-23] MEDS ORDERED: traMADol HCl 50 MG TAB PO PRN (09:09)
[2019-02-23] MEDS ORDERED: ADENOSINE 60 MG/20 ML VIAL ONE (09:48)
[2019-02-23] MEDS: Metoclopramide HCl 10 MG TAB PO SCH ×3 (10:46→17:20)
[2019-02-23] MEDS: Colchicine 0.6 MG TAB PO SCH (10:46)
[2019-02-23] MEDS: Gabapentin 100 MG CAP PO SCH ×2 (10:47→12:51)
[2019-02-23] MEDS: Labetalol 100 MG TAB PO SCH (10:48)
[2019-02-23] MEDS ORDERED: Pantoprazole 40 MG VIAL IVP SCH (11:00)
[2019-02-23] MEDS: Diltiazem HCl SR 90 mg Capsule PO SCH (12:52)
[2019-02-23] MEDS: Lisinopril 20 MG TAB PO SCH (13:02)
--- NOTE | 2019-02-23 13:16 | NM ---
EXAM: Cardiac SPECT HISTORY: Chest pain PROTOCOL: Stress only, single isotope TYPE OF STRESS: Pharmacologic stress with adenosine was monitored and interpreted by Dr. Flores RADIOPHARMACEUTICAL: 33 mCi technetium 99m-sestamibi injected intravenously FINDINGS: Homogeneous tracer distribution is seen in the myocardial segments on the post stress images. Gated SPECT LVEF: 64% Wall motion exam: Normal IMPRESSION: Normal post stress myocardial perfusion scan.
[2019-02-23] MEDS ORDERED: Ibuprofen 200 MG TAB PO PRN (15:00)
[2019-02-23] MEDS ORDERED: Gabapentin 300 MG CAP PO SCH (15:00)
[2019-02-23 15:08] LABS: ALT (SGPT) 64 U/L (8-55); AST (SGOT) 30 U/L (5-34); Albumin 3.9 g/dL (3.5-5.0); Alkaline Phosphatase 129 U/L (40-150); Bilirubin, Direct 0.1 mg/dL (0.1-0.3); Bilirubin, Total 0.2 mg/dL (0.2-1.2)
[2019-02-23 16:00] VITALS: BP 114/56; TEMP 98.3
--- NOTE | 2019-02-23 16:51 | ULT ---
SONOGRAM RIGHT UPPER QUADRANT: History: Right upper quadrant pain. Abnormal liver function test. FINDINGS: Gallbladder is surgically absent. Common duct is 0.2 cm. Liver is diffusely echogenic without focal m ass or intrahepatic biliary dilation. No free fluid. IMPRESSION: 1. Status post cholecystectomy. No evidence of biliary obstruction. 2. Hepatosteatosis. POS: CET
[2019-02-24] MEDS ORDERED: Alogliptin 25 MG TAB PO SCH (09:00)
--- NOTE | 2019-02-24 11:25 | DIS ---
DATE OF ADMISSION: 02/22/2019 DATE OF DISCHARGE: 02/23/2019 DISCHARGE DIAGNOSES: 1. Chest pain. 2. Positive D-dimer. 3. Leukocytosis. 4. Hyponatremia. 5. Diabetes. 6. Obesity. 7. Elevated LFTs, most likely from metabolic syndrome. 8. Hepatic steatosis. HOSPITAL COURSE: The patient is a 38-year-old female with past medical history of diabetes and obesity, who came into the hospital with complaints of chest pain. The patient at this time was evaluated for possible chest pain rule out. She did have some mildly elevated troponins; however, no significant EKG changes. She also had a CTA of her chest to rule out for possible PE, which was no evidence of PE was noted. She did have hepatic steatosis. The patient at this time underwent a stress test, which indicated an EF of 64% and normal post-stress myocardial perfusion scan. The patient also had a right upper quadrant ultrasound given her elevated LFTs indicated just hepatic steatosis, status post cholecystectomy. No evidence of biliary obstruction. The patient's LFTs continued to improve. She was just discharged home. PHYSICAL EXAMINATION: VITAL SIGNS: Temperature 98.3, heart rate 85, respirations 12, oxygen saturation 99% on room air, blood pressure 114/56. GENERAL: She is awake, alert, and oriented x3. Does not appear in distress. CV: S1 and S2 present. No murmurs, rubs, or gallops. ABDOMEN: Soft and nontender. Bowel sounds are present x2. MEDICATIONS: She is on, 1. Reglan 10 mg t.i.d. 2. Ambien 10 mg at bedtime. 3. Clonidine 0.2 q.8 hours. 4. Metformin 500 b.i.d. 5. Hydrochlorothiazide 25 daily. 6. Lisinopril 20 mg daily. 7. Gabapentin 300 mg t.i.d. 8. Allopurinol 300 mg daily. 9. Aspirin 325 daily. 10. Latuda 20 mg daily. 11. Zoloft 100 mg at bedtime. 12. Onglyza 5 mg p.o. daily. Initially given her metabolic syndrome, she should be on a statin. However, given her mildly elevated LFTs, I will defer this to her primary care doctor. I have advised her to follow up with her primary care doctor in a week or so for post hospital followup. The patient stated that she understood. Job ID: [id number]
--- NOTE | 2019-02-28 15:37 | EKG ---
Test Reason : Blood Pressure : / mmHG Vent. Rate : 117 BPM Atrial Rate : 117 BPM P-R Int : 134 ms QRS Dur : 072 ms QT Int : 334 ms P-R-T Axes : 046 033 -77 degrees QTc Int : 465 ms Sinus tachycardia Right atrial enlargement Voltage criteria for left ventricular hypertrophy T wave abnormality, consider inferolateral ischemia Abnormal ECG Confirmed by AMANDA LALA M.D. ([id number]), editorial intern IVETTE DUBON ([id number]) on 02/28/2019 3:36:55 PM Referred By: Confirmed By:AMANDA LALA M.D.
== END 2019-02-23 18:21 | disposition home or self-care (01) ==
LOC: ERS 17:55 → 2SW 20:15
PROVIDERS: ADMIT Hospitalist; ATTEND Hospitalist
DX: R07.89 Other chest pain (principal); I25.2 Old myocardial infarction; M10.9 Gout, unspecified; E11.40 Type 2 diabetes mellitus with diabetic neuropathy, unspecified; F41.9 Anxiety disorder, unspecified; E87.1 Hypo-osmolality and hyponatremia; I16.0 Hypertensive urgency; I25.10 Atherosclerotic heart disease of native coronary artery without angina pectoris; K76.0 Fatty (change of) liver, not elsewhere classified; R79.89 Other specified abnormal findings of blood chemistry; R79.1 Abnormal coagulation profile; D72.829 Elevated white blood cell count, unspecified; E66.9 Obesity, unspecified; Z68.43 Body mass index [BMI] 50.0-59.9, adult; Z79.82 Long term (current) use of aspirin; Z79.84 Long term (current) use of oral hypoglycemic drugs; Z79.899 Other long term (current) drug therapy; Z88.5 Allergy status to narcotic agent; Z88.8 Allergy status to other drugs, medicaments and biological substances
CPT/HCPCS: 36415; 36416; 71045; 71275; 76705; 78452; 80048; 80053; 80076; 82553; 83690; 83880; 84484; 85025; 85379; 93005; 93017; 94760; 96361; 96365; 96375; 96376; A9500; C9113; G0378; J0153; J2270; J2405; J2765; J8597; Q9967

== ENCOUNTER 2019-03-03 16:26 | Observation (INO) | payer OTHER ==
[~2019-03-03 16:26] MED LIST changes: +ISOVUE-370 76%-LOCM 1 ML ONE; -Iopamidol 370 76% 100 ML VIAL ONE
[2019-03-03 17:17] LABS: #Basophils 0.1 thou/uL (0.0-0.2); #Eosinphils 0.1 thou/uL (0.0-0.7); #Lymphocytes 2.7 thou/uL (1.20-3.40); #Monocytes 0.6 thou/uL (0.11-0.59); #Neutrophils 5.2 thou/uL (1.40-6.50); %Basophils 0.9 % (0.0-1.0); %Eosinophils 1.4 % (0.0-10.0); %Lymphocytes 30.9 % (21.0-51.0); %Monocytes 6.6 % (0.0-10.0); %Neutrophils 60.2 % (42.0-75.0); Hemoglobin 13.3 g/dL (12.0-16.0); Mean Corpuscular HGB CONC 33.3 g/dL (32.0-36.0); Mean Corpuscular Hemoglobin 30.6 pg (27.0-31.0); Mean Corpuscular Volume 91.7 fL (78.0-98.0); Mean Platelet Volume 7.7 fL (7.4-10.4); Platelet Count 387 thou/uL (130-400); RBC Distribution Width 11.6 % (11.5-14.5); Red Blood Cell (RBC) Count 4.35 mill/uL (4.20-5.40); White Blood Cell (WBC) Count 8.6 thou/uL (4.8-10.8)
[2019-03-03] MEDS ORDERED: cloNIDine 0.1 MG TAB ONE ×2 (17:36→19:58)
[2019-03-03 17:46] LABS: Chloride 98 mmol/L (98-107); Potassium 3.5 mmol/L (3.5-5.1); Sodium 137 mmol/L (136-145)
[2019-03-03 17:47] LABS: Calcium 10.4 mg/dL (7.8-10.44)
[2019-03-03 17:48] LABS: Glucose 223 mg/dL (70-105); Protein, Total 8.4 g/dL (6.0-8.3)
[2019-03-03 17:49] LABS: Anion Gap 14 mmol/L (10-20); Carbon Dioxide 29 mmol/L (22-29)
[2019-03-03 17:50] LABS: Alkaline Phosphatase 195 U/L (40-150); Bilirubin, Total 0.2 mg/dL (0.2-1.2)
[2019-03-03 17:51] LABS: Calc. Creatinine Clearance 0 mL/min (70-130); Estimated GFR-MDRD Greater than 90
[2019-03-03 17:52] LABS: BUN (Urea Nitrogen) 17 mg/dL (7.0-18.7)
[2019-03-03 17:53] LABS: AST (SGOT) 124 U/L (5-34)
[2019-03-03 17:54] LABS: ALT (SGPT) 113 U/L (8-55)
[2019-03-03] MEDS ORDERED: Lorazepam 2 MG/ML VIAL ONE (18:10)
[2019-03-03 18:15] LABS: Albumin 4.4 g/dL (3.5-5.0)
--- NOTE | 2019-03-03 19:44 | RAD ---
AP view chest. HISTORY: Chest pain and palpitations. AP view chest obtained on 03/03/2019. Comparison made to previous exam from 02/22/2019. AP view chest demonstrates the lungs to be well aerated. No evidence of active intrathoracic disease seen. No evidence of effusions, pneumonia or pneumothorax seen. IMPRESSION: Unremarkable AP view chest.
[2019-03-03 19:50] LABS: Amphetamine Not Detected (NotDetected); Barbiturates Screen Not Detected (NotDetected); Benzodiazepine Screen Not Detected (NotDetected); Cocaine Metabolite Screen Not Detected (NotDetected); Medtox Control Line Valid? VALID (VALID); Medtox Reader # READER 1; Methadone Not Detected (NotDetected); Methamphetamine Not Detected (NotDetected); Opiate Screen Not Detected (NotDetected); Oxycodone Screen Not Detected (NotDetected); Phencyclidine (PCP) Not Detected (NotDetected); THC/Cannabinoid Screen Not Detected (NotDetected); Tricyclic Screen Not Detected (NotDetected)
[2019-03-03] MEDS ORDERED: Fentanyl 100 MCG/2 ML VIAL ONE (19:57)
[2019-03-03] MEDS ORDERED: Ondansetron PF 4 MG/2 ML Vial ONE (19:58)
[2019-03-03 21:46] LABS: CKMB 0.6 ng/mL (0-6.6)
--- NOTE | 2019-03-03 22:11 | CT ---
Contrast-enhanced CTA chest. HISTORY: Chest pain Contrast-enhanced CTA of the chest performed. 2-D and 3-D reconstruction images used to evaluate the pulmonary vessels. The lungs are well aerated. No evidence of pneumonia or masses seen. The mediastinum is unremarkable. The aorta and pulmonary arteries are unremarkable. No evidence of filling defects seen to suggest pul monary emboli. No evidence of pleural or pericardial effusion seen. IMPRESSION: No evidence of pulmonary emboli.
[2019-03-03] MEDS ORDERED: hydrALAZINE 20 MG/ML VIAL ONE (22:17)
[2019-03-03] MEDS ORDERED: Ketorolac Tromethamine 30 MG/ML VIAL ONE (22:17)
[2019-03-03] MEDS ORDERED: Morphine 4 MG/ML VIAL ONE (23:09)
[2019-03-03] MEDS ORDERED: Aspirin 325 mg Enteric Coated Tablet PO SCH (23:45)
[2019-03-03] MEDS ORDERED: Acetaminophen 325 MG TAB PO PRN (23:50)
[2019-03-03] MEDS ORDERED: Ketorolac Tromethamine 30 MG/ML VIAL IVP PRN (23:52)
[2019-03-03] MEDS ORDERED: Ondansetron PF 4 MG/2 ML Vial IVP PRN (23:55)
[2019-03-03] MEDS ORDERED: Ondansetron ODT 4 MG TAB PO PRN (23:55)
[2019-03-04] MEDS: cloNIDine 0.2 MG TAB PO SCH ×3 (00:37→15:23)
[2019-03-04] MEDS ORDERED: Zolpidem Tartrate 5 MG TAB PO SCH ×2 (00:45→21:00)
[2019-03-04 00:52] LABS: Troponin I 0.026 ng/mL (< 0.028)
[2019-03-04] MEDS ORDERED: Dextrose 5% in Water 1,000 ML IV PRN (01:46)
[2019-03-04] MEDS ORDERED: Dextrose 50% Abboject 50 ML SYRINGE SLOW IVP PRN (01:46)
--- NOTE | 2019-03-04 02:35 | HP ---
PRIMARY CARE PHYSICIAN: The patient goes to [facility]. CODE STATUS: Full code. TIME OF EVALUATION: 11:10 p.m. CHIEF COMPLAINT: Chest pain. HISTORY OF PRESENT ILLNESS: This is a 38-year-old female patient with past medical history of myocardial infarction in 2016, diabetes type 2, hypertension, gastritis, gout, duodenal cyst, and neuropathy. The patient came to the hospital after having chest pain in the middle of the chest radiating to the back with no clear triggers. No alleviating factors. Only associated factor was very high blood pressure with systolic in the 220 and diastolic 117. The patient describes the pain as aching , pressure-like, symptoms were severe. The symptoms have been present since early today. REVIEW OF SYSTEMS: CONSTITUTIONAL: No fever, chills, or generalized weakness. RESPIRATORY: No cough, sputum production, or shortness of breath. CARDIOVASCULAR: The patient has chest pain. No palpitation. GASTROINTESTINAL: No nausea, vomiting, diarrhea or abdominal pain. DESIGN TECHNICIAN: No dizziness, headache, or feeling lightheaded. GENITOURINARY: No burning on urination. EXTREMITIES: No leg swelling. All other systems were reviewed and negative except for the findings mentioned above. PAST MEDICAL HISTORY: Positive for the findings mentioned in HPI. PAST SURGICAL HISTORY: History of cholecystectomy, history of x2, left thumb. PSYCHIATRIC HISTORY: Anxiety. FAMILY HISTORY: Reviewed and no contributory to current presentation. SOCIAL HISTORY: No alcohol. No drugs. No smoking history. KNOWN ALLERGIES: Nitroglycerin and tramadol. REPORTED MEDICATIONS: 1. Metformin. 2. Ambien. 3. Clonidine. 4. Gabapentin. 5. Allopurinol. 6. Lisinopril. 7. Hydrochlorothiazide. 8. Aspirin. PHYSICAL EXAMINATION: VITAL SIGNS: On presentation, heart rate 130, blood pressure 160/129, respiratory rate 25, temperature 98.4, pain 9/10, oxygen saturation was 99% on room air. GENERAL APPEARANCE: The patient is alert, oriented, not in acute distress. HEENT: Eyes, normal conjunctivae. Moist oral mucosa. Anicteric. No JVD. RESPIRATORY: Bilateral air entry. No rales. No wheezing. Symmetric expansion. CARDIOVASCULAR: Normal rate, regular rhythm. No murmurs. No gallop. No edema. ABDOMEN: Soft. Normal bowel sounds. MUSCULOSKELETAL: Baseline range of motion and strength. No tenderness. SKIN: Warm and intact. No pallor. No rash. No redness. Peripheral pulses are present. Capillary refill seems to be intact. NEUROLOGIC: No evidence of any new focal weakness. Baseline speech. Cranial nerves seems to be intact. PSYCHIATRIC: The patient is in good mood. No anxiety. Optimal judgment. DIAGNOSTIC STUDIES: EKG was reviewed. The patient has sinus tachycardia at the rate of 115 with GA 134, QRS 70, QT corrected 459. ST-T wave abnormality, considered inferior ischemia present in V5, V6. Chest x-ray was reviewed. The patient has unremarkable AP view chest. Chest CTA was done and reviewed. The patient has no evidence of pulmonary embolism. Aorta and pulmonary arteries are unremarkable. No pneumonia. LABORATORY DATA: Labs were reviewed. The patient has white count 8.6, hemoglobin 13.3, hematocrit 39.8, MCV 91.7, platelet count 387. D-dimer 0.86. Sodium 139, potassium 3.5, chloride 98, carbon dioxide 29, anion gap 14, BUN 17, creatinine 0.84, GFR greater than 90, glucose 223, calcium 10.4, total bilirubin 0.2, AST 124, ALT 113, alkaline phosphatase 195. Troponin 0.017, second one 0.030, third one 0.026. Serum total protein 8.4, albumin 4.4, globulin 4.0. TSH was normal. Toxicology was negative. ASSESSMENT AND PLAN: The patient will be placed in the hospital with following medical problems: 1. Chest pain. This seems to be secondary to hypertensive urgency. There is no significant positive troponin level, the patient has stress test negative a week ago, so most likely may be secondary to high blood pressure. We will treat her underlying condition. 2. Hypertensive urgency. The patient has presented with very high blood pressure. She reported that she ran out of clonidine and was not taking the other medications. Home medications have been reconciled and restarted. The heart rates also has been on the high side, we will treat the pain. 3. Hyperglycemia due to uncontrolled diabetes. We will reconcile home medications. We will start the patient on a sliding scale for optimal control. 4. Positive D-dimer with negative CT angio. Now clinically significant. 5. History of coronary artery disease in 2005. As reported, the patient has normal stress test a week ago. Troponins are not significantly high. 6. DVT prophylaxis. Job ID: [id number] [facility]
[2019-03-04 04:28] LABS: #Eosinphils 0.1 thou/uL (0.0-0.7); #Lymphocytes 1.9 thou/uL (1.20-3.40); #Monocytes 0.6 thou/uL (0.11-0.59); %Basophils 0.2 % (0.0-1.0); %Eosinophils 1.6 % (0.0-10.0); %Lymphocytes 25.1 % (21.0-51.0); %Monocytes 7.3 % (0.0-10.0); %Neutrophils 65.7 % (42.0-75.0); Mean Corpuscular HGB CONC 32.8 g/dL (32.0-36.0); Mean Corpuscular Hemoglobin 30.2 pg (27.0-31.0); Mean Platelet Volume 7.9 fL (7.4-10.4); Platelet Count 365 thou/uL (130-400); RBC Distribution Width 11.7 % (11.5-14.5); Red Blood Cell (RBC) Count 3.97 mill/uL (4.20-5.40); White Blood Cell (WBC) Count 7.7 thou/uL (4.8-10.8)
[2019-03-04 04:44] LABS: Anion Gap 13 mmol/L (10-20); BUN (Urea Nitrogen) 14 mg/dL (7.0-18.7); Calc. Creatinine Clearance 186 mL/min (70-130); Calcium 9.5 mg/dL (7.8-10.44); Carbon Dioxide 27 mmol/L (22-29); Chloride 101 mmol/L (98-107); Estimated GFR-MDRD Greater than 90; Glucose 252 mg/dL (70-105); Potassium 3.4 mmol/L (3.5-5.1); Sodium 138 mmol/L (136-145)
[2019-03-04] MEDS: HumaLOG 300 UNITS/3 ML VIAL SC PRN ×2 (05:48→12:03)
[2019-03-04] MEDS ORDERED: Morphine 4 MG/ML VIAL SLOW IVP SCH (06:15)
[2019-03-04] MEDS: Metoclopramide HCl 10 MG TAB PO SCH ×2 (08:56→12:04)
[2019-03-04] MEDS: Gabapentin 300 MG CAP PO SCH ×2 (08:56→14:44)
[2019-03-04] MEDS ORDERED: Lurasidone HCl 40 MG TABLET PO SCH (09:00)
[2019-03-04] MEDS ORDERED: Aspirin 325 MG TAB PO SCH (09:00)
[2019-03-04] MEDS ORDERED: Hydrochlorothiazide 25 MG TAB PO SCH (09:00)
[2019-03-04] MEDS ORDERED: Allopurinol 300 MG TAB PO SCH (09:00)
[2019-03-04] MEDS ORDERED: Enoxaparin Sodium 40 MG/0.4 ML SYRINGE SC SCH (09:00)
[2019-03-04] MEDS ORDERED: Non-Formulary Item 1 EACH (Saxagliptin Hcl [Onglyza] 5 MG) PO SCH (09:00)
[2019-03-04] MEDS ORDERED: Alogliptin 25 MG TAB PO SCH (09:00)
[2019-03-04] MEDS ORDERED: Lisinopril 20 MG TAB PO SCH (09:00)
[2019-03-04] MEDS ORDERED: ALPRAZolam 0.25 MG TAB PO SCH (14:30)
[2019-03-04] MEDS ORDERED: Ketorolac Tromethamine 30 MG/ML VIAL IVP SCH (15:00)
[2019-03-04 15:24] VITALS: BP 136/73
[2019-03-04 15:50] VITALS: TEMP 98.1
--- NOTE | 2019-03-05 05:36 | DIS ---
DATE OF ADMISSION: 03/03/2019 DATE OF DISCHARGE: 03/04/2019 ADMITTING DIAGNOSIS: Chest pain. FINAL DIAGNOSES: 1. Chest pain-noncardiac/pleuritic in nature, resolved, stress test last week negative for ischemia, CTA this hospitalization negative for pulmonary embolism. 2. Accelerated hypertension, secondary to medication noncompliance, resolved. 3. Indeterminate troponin, chronic. 4. Left ventricular hypertrophy. 5. Known history of inappropriate sinus tachycardia, resolved after reinstating the patient's beta reno. 6. Obesity. 7. Noncompliance with medical treatment. 8. Anxiety and depression. BRIEF HOSPITAL COURSE: Aime Berumen is a 38-year-old female with past medical history significant for recurrent and chronic chest and back pain, left ventricular hypertrophy, and sinus tachycardia, followed by Dr. Celestin, and recent negative stress test performed at this facility, who presented to the emergency room with complaints of sharp chest pain, which radiated to the back. CTA was performed, which was negative for PE. The patient's troponin was indeterminate; however, this is a known and chronic finding for her. The patient was admitted for observation. Her chest pain did resolve with Toradol and Xanax. The patient was tachycardic and hypertensive secondary to noncompliance with medical therapy. Her beta-reno was reinstated along with her clonidine, and her blood pressure has been well controlled in the 110s to 120s systolic. Her heart rate trended down from low 100s to the 80s. CONDITION AT DISCHARGE: Stable. DISCHARGE DISPOSITION: Home. DISCHARGE INSTRUCTIONS: The patient has been counseled heavily on the importance of low-sodium diet along with taking her medications as prescribed. She will follow up with both her primary care physician and Dr. Celestin, who is her primary health and fitness instructor at this time. DISCHARGE MEDICATIONS: 1. Allopurinol 300 mg p.o. daily. 2. Gabapentin 300 mg p.o. t.i.d. 3. Hydrochlorothiazide 25 mg p.o. q.a.m. 4. Lisinopril 20 mg tablet p.o. daily. 5. Latuda 40 mg tablet 1/2 tablet p.o. daily. 6. Metformin 500 mg tablet p.o. b.i.d. 7. Onglyza 5 mg tablet p.o. daily. 8. Sertraline 100 mg tablet p.o. at bedtime. 9. Ambien 10 mg tablet p.o. at bedtime. 10. Aspirin 325 mg daily. 11. Reglan 10 mg tablet 1 tablet p.o. t.i.d. Prescriptions have been sent in for the following medications: 1. Clonidine 0.2 mg tablet 1 tablet p.o. q.8 hours. 2. Metoprolol succinate 25 mg tablet 1 tablet p.o. daily. The patient will be discharged in good condition today. The care of this patient has been discussed with Dr. Mullins, who agrees with the above. Job ID: [id number]
== END 2019-03-04 16:35 | disposition home or self-care (01) ==
LOC: ERS 16:26 → 2SW 23:43
PROVIDERS: ADMIT Hospitalist; ATTEND Hospitalist
DX: R07.1 Chest pain on breathing (principal); I25.2 Old myocardial infarction; E11.40 Type 2 diabetes mellitus with diabetic neuropathy, unspecified; M10.9 Gout, unspecified; F41.9 Anxiety disorder, unspecified; I16.0 Hypertensive urgency; E11.65 Type 2 diabetes mellitus with hyperglycemia; I25.10 Atherosclerotic heart disease of native coronary artery without angina pectoris; I11.9 Hypertensive heart disease without heart failure; F32.9 Major depressive disorder, single episode, unspecified; E66.9 Obesity, unspecified; Z68.41 Body mass index [BMI] 40.0-44.9, adult; Z79.82 Long term (current) use of aspirin; Z79.84 Long term (current) use of oral hypoglycemic drugs; Z79.899 Other long term (current) drug therapy; Z88.5 Allergy status to narcotic agent; Z88.8 Allergy status to other drugs, medicaments and biological substances; Z91.14 Patient's other noncompliance with medication regimen
CPT/HCPCS: 36415; 36416; 71045; 71275; 80048; 80053; 80306; 82553; 84443; 84484; 85025; 85379; 93005; 96361; 96372; 96374; 96375; 96376; G0378; J0360; J1650; J1885; J2060; J2270; J2405; J3010; J8597; Q9966

== ENCOUNTER 2019-03-31 03:18 | Observation (INO) | payer OTHER ==
[2019-03-31 03:45] LABS: #Eosinphils 0.2 thou/uL (0.0-0.7); #Lymphocytes 4.5 thou/uL (1.20-3.40); #Monocytes 0.6 thou/uL (0.11-0.59); #Neutrophils 5.2 thou/uL (1.40-6.50); %Basophils 0.4 % (0.0-1.0); %Eosinophils 1.6 % (0.0-10.0); %Lymphocytes 42.2 % (21.0-51.0); %Neutrophils 49.8 % (42.0-75.0); Mean Corpuscular HGB CONC 33.1 g/dL (32.0-36.0); Mean Corpuscular Hemoglobin 30.3 pg (27.0-31.0); Mean Corpuscular Volume 91.8 fL (78.0-98.0); Mean Platelet Volume 7.5 fL (7.4-10.4); Platelet Count 380 thou/uL (130-400); RBC Distribution Width 11.8 % (11.5-14.5); Red Blood Cell (RBC) Count 4.27 mill/uL (4.20-5.40); White Blood Cell (WBC) Count 10.5 thou/uL (4.8-10.8)
[2019-03-31 04:05] LABS: ALT (SGPT) 76 U/L (8-55); AST (SGOT) 77 U/L (5-34); Alkaline Phosphatase 125 U/L (40-150); Anion Gap 17 mmol/L (10-20); BUN (Urea Nitrogen) 12 mg/dL (7.0-18.7); Bilirubin, Total 0.4 mg/dL (0.2-1.2); Calc. Creatinine Clearance 0 mL/min (70-130); Calcium 9.4 mg/dL (7.8-10.44); Carbon Dioxide 22 mmol/L (22-29); Chloride 100 mmol/L (98-107); Estimated GFR-MDRD 73; Globulin 3.8 g/dL (2.4-3.5); Glucose 285 mg/dL (70-105); Lipase 91 U/L (8-78); Potassium 3.7 mmol/L (3.5-5.1); Protein, Total 7.8 g/dL (6.0-8.3); Sodium 135 mmol/L (136-145)
[2019-03-31 04:30] LABS: Troponin I 0.057 ng/mL (< 0.028)
[2019-03-31] MEDS ORDERED: Ondansetron PF 4 MG/2 ML Vial ONE ×3 (04:37→11:22)
[2019-03-31] MEDS ORDERED: Morphine 4 MG/ML VIAL ONE ×3 (04:37→06:58)
[2019-03-31] MEDS ORDERED: Senokot S 8.6-50 MG TAB PO PRN (05:35)
[2019-03-31] MEDS ORDERED: HumaLOG 300 UNITS/3 ML VIAL SC PRN (05:36)
[2019-03-31] MEDS ORDERED: Dextrose 50% Abboject 50 ML SYRINGE SLOW IVP PRN (05:36)
[2019-03-31] MEDS ORDERED: Dextrose 5% in Water 1,000 ML IV PRN (05:36)
[2019-03-31 05:54] LABS: Hemoglobin A1c 10.6 % (4.0-6.0)
--- NOTE | 2019-03-31 07:18 | HP ---
CHIEF COMPLAINT: Nausea, vomiting, abdominal pain. HISTORY OF PRESENT ILLNESS: The patient is a 38-year-old female with past medical history of diabetes, hypertension, who presents to the hospital with complaints of nausea, vomiting, and nausea, vomiting, abdominal pain x3 days. The patient stated that about 3 days ago, she started having significant epigastric pain followed by nausea and vomiting. The patient states that a few months ago, she was admitted at [facility] with pancreatitis. The patient states that she has been compliant with her medications and her sugars at home have been running around 300s. The patient also complains of bilateral lower extremity pain. She describes this sensation as lightening sensation. Her left foot is worse than the right foot. She denies any fevers or chills. The patient states that for the past 2-3 days she has been taking clear liquids with some powder and some Gatorade. PAST MEDICAL HISTORY: She has a history of 1. Diabetes type 2. 2. Hypertension. 3. Gastritis. 4. Gout. 5. Neuropathy. 6. She has had morbid obesity and fatty liver. PAST SURGICAL HISTORY: She has had a cholecystectomy. She has had a . She has a left thumb cyst removal. SOCIAL HISTORY: She denies any drug use or alcohol use. She is a full code. Lives with her family. FAMILY HISTORY: No significant history of premature coronary artery disease, strokes, or cancers. ALLERGIES: SHE IS ALLERGIC TO NITROGLYCERIN AND TRAMADOL. HOME MEDICATIONS: As of the following; 1. She is on metoclopramide 10 mg t.i.d. 2. Metformin 500 mg b.i.d. 3. Metoprolol 25 mg daily. 4. She is on Onglyza 5 mg p.o. daily. 5. She is on sertraline 100 mg at bedtime. 6. She is on gabapentin 300 mg t.i.d. 7. She is on allopurinol 300 mg daily. 8. She is on hydrochlorothiazide 25 mg q.a.m. and lisinopril 20 mg daily. 9. She is also on aspirin 325 mg daily. 10. Clonidine 0.2 mg q.8 hours. REVIEW OF SYSTEMS: All negative except for the ones mentioned above in the HPI. PHYSICAL EXAMINATION: VITAL SIGNS: Are as of the following; temperature of 98.8, oxygen 100% on room air, respirations 18, blood pressure 159/112, her heart rate is 125. GENERAL: She is awake, alert, and oriented x3. Does not appear in any distress. HEENT: Normocephalic, atraumatic. No lymphadenopathy noted. Pupils are equal and reactive to light. CV: S1 and S2 present. No murmurs, rubs, or gallops. LUNGS: Clear to auscultation. No rhonchi or wheezes noted. ABDOMEN: Soft and nontender. Bowel sounds are present x2. EXTREMITIES: No extremity pitting edema. She does have significant pain upon palpation to her left foot, ankle area. No erythema has been noted. She also has some pain upon palpation to her right foot. NEUROVASCULAR: No focal deficits noted. SKIN: No cuts, lesions, or bruises noted. LABORATORY RESULTS: WBCs of 10.5, hemoglobin of 13.0, hematocrit of 39.2, platelets are 380. ESR is 74. Chemistry; sodium of 135, potassium of 3.7, BUN of 12, creatinine of 1.01. Her glucose is 285, mildly elevated AST, ALT. Her troponins are mildly elevated. Her C-reactive protein is elevated. She does have a CT chest, abdomen, pelvis has been ordered, which is pending. ASSESSMENT AND PLAN: The patient is a 38-year-old female who presents to the hospital with complaints of nausea, vomiting, abdominal pain. 1. Nausea, vomiting, abdominal pain could be secondary to possible gastritis versus gastroparesis versus pancreatitis. The patient's ESR is 74. Her CRP is mildly elevated at 1.41. Her lipase is 91. I will put her on some Pepcid b.i.d. CT of abdomen and pelvis is pending and we will continue to monitor her. We will also start hydrating her, keep her n.p.o. for now. I am not sure if the patient is compliant with her medications at home. 2. Bilateral foot pain, most likely secondary to either neuropathy versus gout. The patient is on Neurontin 300 mg t.i.d. She might require some dose adjustment. I have emphasized to her the importance of controlling her blood sugars, especially since she tells me that her sugars have been 300 at home on a daily basis. The patient states that she has been trying to control it with some diet and according to her, she has been compliant with her medications. 3. Diabetes. Her hemoglobin A1c is 10.6. I will continue her home medications. 4. Mild elevated troponins. This could be secondary to demand related, we will trend it out. 5. Deep venous thrombosis prophylaxis. We will put the patient on subcu heparin. Job ID: [id number]
[2019-03-31 07:37] LABS: Troponin I 0.044 ng/mL (< 0.028)
[2019-03-31] MEDS ORDERED: Metoclopramide HCl 10 MG TAB PO SCH (08:00)
--- NOTE | 2019-03-31 08:15 | CT ---
CT ABDOMEN AND PELVIS WITH CONTRAST: HISTORY: Pancreatitis. FINDINGS: The lung bases are unremarkable. No evidence of free intraperitoneal air is seen. The patient has a defect in the region of the umbilicus, compatible with a small umbilical hernia. Hepatic steatosis is seen. The gallbladder has been surgically removed. The pancreas is unremarkable with n o evidence of obvious pancreatitis. The abdominal aorta is unremarkable. The celiac artery, superior mesenteric artery, and portal veins are unremarkable. No dilated loops of small bowel seen. No definite evidence of colonic abnormality seen. There is a right femoral central line in place. IMPRESSION: Hepatic steatosis. Transcribed Date/Time: 03/31/2019 8:57 AM
--- NOTE | 2019-03-31 08:15 | CT ---
CT PULMONARY ANGIOGRAM WITH IV CONTRAST AND 3-D POSTPROCESSING: HISTORY:Mid chest pain FINDINGS: There is good contrast opacification of the pulmonary arterial vasculature without filling defects to suggest pulmonary embolism. The thoracic aorta is well opacified without aneurysm or dissection. No pleural or pericardial effusions are seen. No pneumothoraces, focal areas of consolidation or lung nodules are noted. There are degenerative changes in the spine. IMPRESSION: No CT evidence of pulmonary embolism.
[2019-03-31] MEDS ORDERED: Famotidine/PF 20 mg/2ml Vial SLOW IVP SCH (09:00)
[2019-03-31] MEDS ORDERED: Metoprolol Tartrate 25 MG TAB ONE (09:24)
[2019-03-31] MEDS ORDERED: Famotidine/PF 20 mg/2ml Vial ONE (09:24)
[2019-03-31] MEDS ORDERED: Aspirin 325 MG TAB ONE (09:24)
[2019-03-31] MEDS: Sodium Chloride 0.9% 1,000 ML IV SCH ×2 (09:27→18:23)
[2019-03-31] MEDS: Aspirin 325 MG TAB PO SCH (09:28)
[2019-03-31] MEDS ORDERED: ISOVUE-370 76%-LOCM 1 ML ONE (09:37)
--- NOTE | 2019-03-31 09:40 | RAD ---
LEFT FOOT THREE VIEWS: HISTORY: Bilateral foot pain. COMPARISON: 02/15/2019 FINDINGS: Three views of the left foot show no evidence of acute fracture or dislocation. No degenerative read ges are seen. No soft tissue swelling is seen. IMPRESSION: No evidence of acute osseous abnormality. POS: NISSA
[2019-03-31] MEDS: Gabapentin 300 MG CAP PO SCH ×3 (10:01→21:18)
[2019-03-31] MEDS: Heparin 5,000 UNITS/ML VIAL SC SCH ×3 (10:01→21:20)
[2019-03-31 10:31] LABS: Troponin I 0.049 ng/mL (< 0.028)
[2019-03-31] MEDS: Ondansetron PF 4 MG/2 ML Vial IVP PRN (11:26)
[2019-03-31 12:16] VITALS: BMI 50.3
[2019-03-31] MEDS: Metoclopramide HCl 10 MG/2 ML VIAL IVP SCH ×3 (12:42→22:55)
[2019-03-31] MEDS: cloNIDine 0.2 MG TAB PO SCH ×3 (12:42→21:18)
[2019-03-31] MEDS: Insulin Glargine 12 UNITS in Pre-Filled Syringe 1 EACH SC SCH (12:43)
[2019-03-31] MEDS: Morphine 4 MG/ML VIAL SLOW IVP PRN ×3 (14:02→23:00)
[2019-03-31] MEDS: Famotidine 20 MG TAB PO SCH (21:18)
[2019-03-31] MEDS: Acetaminophen 325 MG TAB PO PRN (21:19)
[2019-03-31] MEDS ORDERED: Zolpidem Tartrate 5 MG TAB PO PRN (23:12)
[2019-04-01] MEDS: Morphine 4 MG/ML VIAL SLOW IVP PRN ×2 (04:57→08:54)
[2019-04-01] MEDS: cloNIDine 0.2 MG TAB PO SCH ×2 (04:58→13:27)
[2019-04-01 05:50] LABS: #Eosinphils 0.2 thou/uL (0.0-0.7); #Lymphocytes 2.2 thou/uL (1.20-3.40); #Monocytes 0.4 thou/uL (0.11-0.59); #Neutrophils 3.4 thou/uL (1.40-6.50); %Basophils 0.7 % (0.0-1.0); %Eosinophils 3.1 % (0.0-10.0); %Lymphocytes 35.7 % (21.0-51.0); %Monocytes 5.8 % (0.0-10.0); %Neutrophils 54.7 % (42.0-75.0); Hemoglobin 11.3 g/dL (12.0-16.0); Mean Corpuscular HGB CONC 33.6 g/dL (32.0-36.0); Mean Corpuscular Volume 92.3 fL (78.0-98.0); Mean Platelet Volume 7.6 fL (7.4-10.4); Platelet Count 274 thou/uL (130-400); RBC Distribution Width 12.1 % (11.5-14.5); Red Blood Cell (RBC) Count 3.63 mill/uL (4.20-5.40); White Blood Cell (WBC) Count 6.2 thou/uL (4.8-10.8)
[2019-04-01] MEDS: Metoclopramide HCl 10 MG/2 ML VIAL IVP SCH (06:13)
[2019-04-01] MEDS: Sodium Chloride 0.9% 1,000 ML IV SCH (06:13)
[2019-04-01 06:16] LABS: Anion Gap 12 mmol/L (10-20); BUN (Urea Nitrogen) 10 mg/dL (7.0-18.7); Calc. Creatinine Clearance 214 mL/min (70-130); Calcium 8.8 mg/dL (7.8-10.44); Carbon Dioxide 25 mmol/L (22-29); Chloride 105 mmol/L (98-107); Estimated GFR-MDRD Greater than 90; Glucose 180 mg/dL (70-105); Potassium 3.5 mmol/L (3.5-5.1); Sodium 138 mmol/L (136-145); Uric Acid 6.1 mg/dL (2.6-6.0)
[2019-04-01] MEDS: Gabapentin 300 MG CAP PO SCH (08:49)
[2019-04-01] MEDS: Aspirin 325 MG TAB PO SCH (08:49)
[2019-04-01] MEDS: Heparin 5,000 UNITS/ML VIAL SC SCH (08:49)
[2019-04-01] MEDS: Famotidine 20 MG TAB PO SCH (08:49)
[2019-04-01] MEDS: Insulin Glargine 12 UNITS in Pre-Filled Syringe 1 EACH SC SCH (08:50)
[2019-04-01] MEDS ORDERED: Gabapentin 300 MG CAP PO SCH (09:30)
[2019-04-01 12:58] VITALS: TEMP 98.6
[2019-04-01] MEDS: Acetaminophen 325 MG TAB PO PRN (13:25)
[2019-04-01] MEDS: Ondansetron PF 4 MG/2 ML Vial IVP PRN (13:25)
[2019-04-01 13:28] VITALS: BP 154/79
[2019-04-01] MEDS ORDERED: traMADol HCl 50 MG TAB PO SCH (14:15)
--- NOTE | 2019-04-02 08:26 | DIS ---
DATE OF ADMISSION: 03/31/2019 DATE OF DISCHARGE: 04/01/2019 DISCHARGE DIAGNOSES: 1. Abdominal pain, questionable etiology, improved. 2. Pancreatitis, mild, improved. 3. Nausea and vomiting secondary to #1, resolved. 4. Peripheral neuropathy secondary to diabetes mellitus type 2. 5. Hypertension, labile. 6. Morbid obesity. CONSULTATIONS: None. PERTINENT LABORATORY AND X-RAY FINDINGS: Hemoglobin A1c 10.6, previously 7.9 on 06/10/2018. Uric acid level 6.1, previously 8.9 on 06/10/2018. CRP 1.41. Lipase 91. AST 77, ALT 76, alkaline phosphatase 125, total bilirubin 0.4. CBC within normal limits. Beta-hydroxybutyrate level 0.94. CT of the abdomen and pelvis dated 03/31/2019, showed hepatic steatosis. CT angiogram of the chest dated 03/31/2019, showed no evidence for pulmonary embolus. Three views of the left foot dated 03/31/2019, showed no acute process. HOSPITAL COURSE: The patient was initially placed in observation after presenting with nausea, vomiting, and abdominal pain. The patient underwent extensive evaluation including CT imaging of the abdomen and pelvis showing no acute process. Metabolic screening showed mildly elevated lipase suggestive of mild pancreatitis. The patient was placed on IV morphine sulfate in addition to intravenous normal saline and conservatively monitored. The patient transitioned to clear liquids tolerating without difficulty or worsening abdominal pain. The patient was also treated for worsening neuropathic pain in the context of diabetes mellitus. The patient was increased on gabapentin to 600 mg t.i.d. for symptom control. Overall, the patient remained clinically stable during the hospital course with telemetry monitoring showing sinus mechanism without acute arrhythmia or dysrhythmia. I have examined the patient at the time of discharge and discussed followup instructions. The patient verbalizes understanding and agreement ready for discharge on 04/01/2019. DISCHARGE MEDICATIONS: 1. Allopurinol 300 mg p.o. daily. 2. Norvasc 5 mg p.o. daily. 3. Hydrochlorothiazide 25 mg p.o. daily. 4. Lisinopril 20 mg p.o. daily. 5. Metformin 1000 mg p.o. b.i.d. 6. Onglyza 5 mg p.o. daily. 7. Zoloft 100 mg p.o. at bedtime. 8. Tramadol 50 mg p.o. q.6 hours p.r.n. pain. 9. Trazodone 50 mg p.o. at bedtime. 10. Ambien 10 mg p.o. at bedtime. 11. Aspirin 325 mg p.o. daily. 12. Clonidine 0.2 mg p.o. t.i.d. 13. Gabapentin 600 mg p.o. t.i.d. 14. Metoprolol succinate 25 mg p.o. daily. FOLLOWUP: The patient to follow up with [facility] within 7 days of discharge. CONDITION ON DISCHARGE: Fair. ACTIVITY: Ad-darrian. DIET: ADA and heart healthy. CODE STATUS: Full. DISPOSITION: Home on 04/01/2019. Job ID: [id number]
--- NOTE | 2019-04-04 12:27 | EKG ---
Test Reason : Blood Pressure : / mmHG Vent. Rate : 141 BPM Atrial Rate : 141 BPM P-R Int : 122 ms QRS Dur : 066 ms QT Int : 356 ms P-R-T Axes : 049 016 075 degrees QTc Int : 545 ms Sinus tachycardia Right atrial enlargement Left ventricular hypertrophy with repolarization abnormality Abnormal ECG Confirmed by HASEEB HOLDEN ([id number]), editor publications IVETTE DUBON ([id number]) on 04/04/2019 12:26:38 PM Referred By: Confirmed By:HASEEB HOLDEN
== END 2019-04-01 15:18 | disposition home or self-care (01) ==
LOC: ERS 03:18 → ERHOLD 07:19 → 2SW 12:01
PROVIDERS: ADMIT Internal Medicine; ATTEND Internal Medicine
DX: R10.9 Unspecified abdominal pain (principal); R11.2 Nausea with vomiting, unspecified; I10 Essential (primary) hypertension; E11.42 Type 2 diabetes mellitus with diabetic polyneuropathy; M10.9 Gout, unspecified; M19.90 Unspecified osteoarthritis, unspecified site; K76.0 Fatty (change of) liver, not elsewhere classified; K85.90 Acute pancreatitis without necrosis or infection, unspecified; E66.01 Morbid (severe) obesity due to excess calories; Z68.42 Body mass index [BMI] 45.0-49.9, adult; Z79.82 Long term (current) use of aspirin; Z79.84 Long term (current) use of oral hypoglycemic drugs; Z79.899 Other long term (current) drug therapy
CPT/HCPCS: 36415; 36416; 36556; 71275; 74177; 80048; 80053; 82010; 83036; 83690; 83930; 84484; 84550; 85025; 85652; 86140; 93005; 96361; 96374; 96375; 96376; G0378; J1644; J1815; J2270; J2405; J2765; S0028

== ENCOUNTER 2019-04-30 20:01 | Emergency (ER) | payer OTHER ==
[2019-04-30 20:30] LABS: #Eosinphils 0.2 thou/uL (0.0-0.7); #Lymphocytes 2.9 thou/uL (1.20-3.40); #Monocytes 0.5 thou/uL (0.11-0.59); #Neutrophils 8.1 thou/uL (1.40-6.50); %Basophils 0.3 % (0.0-1.0); %Eosinophils 1.3 % (0.0-10.0); %Monocytes 4.2 % (0.0-10.0); %Neutrophils 69.2 % (42.0-75.0); Mean Corpuscular Hemoglobin 29.8 pg (27.0-31.0); Mean Corpuscular Volume 93.2 fL (78.0-98.0); Mean Platelet Volume 7.7 fL (7.4-10.4); Platelet Count 349 thou/uL (130-400); RBC Distribution Width 12.3 % (11.5-14.5); Red Blood Cell (RBC) Count 4.37 mill/uL (4.20-5.40); White Blood Cell (WBC) Count 11.7 thou/uL (4.8-10.8)
[2019-04-30] MEDS ORDERED: Ketorolac Tromethamine 60 MG/2 ML VIAL ONE (20:32)
[2019-04-30] MEDS ORDERED: Acetaminophen/Codeine 30-300mg Tablet ONE (20:32)
--- NOTE | 2019-04-30 20:35 | RAD ---
EXAM: XR Foot Lt 3 View STANDARD PROVIDED CLINICAL HISTORY: Pain FINDINGS: Comparison 03/31/2019. There is no evidence for fracture or other acute osseous abnormality. Alignment appears anatomic. Joint spaces appear preserved. IMPRESSION: No evidence for an acute osseous abnormality. If there is persistent clinical concern, conservative m anagement and follow-up imaging advised.
[2019-04-30 20:50] LABS: ALT (SGPT) 35 U/L (8-55); AST (SGOT) 33 U/L (5-34); Albumin 4.4 g/dL (3.5-5.0); Alkaline Phosphatase 126 U/L (40-150); Anion Gap 17 mmol/L (10-20); BUN (Urea Nitrogen) 13 mg/dL (7.0-18.7); Bilirubin, Total 0.4 mg/dL (0.2-1.2); CK (CPK) 55 U/L (29-168); Calc. Creatinine Clearance 0 mL/min (70-130); Calcium 9.9 mg/dL (7.8-10.44); Carbon Dioxide 25 mmol/L (22-29); Chloride 98 mmol/L (98-107); Estimated GFR-MDRD 90; Globulin 4.1 g/dL (2.4-3.5); Glucose 206 mg/dL (70-105); Potassium 3.3 mmol/L (3.5-5.1); Protein, Total 8.5 g/dL (6.0-8.3); Sodium 137 mmol/L (136-145); Uric Acid 6.9 mg/dL (2.6-6.0)
== END 2019-04-30 21:39 | disposition home or self-care (01) ==
LOC: ERS 20:01
DX: M10.9 Gout, unspecified (principal); E11.40 Type 2 diabetes mellitus with diabetic neuropathy, unspecified; F41.9 Anxiety disorder, unspecified; I10 Essential (primary) hypertension; I25.2 Old myocardial infarction; Z79.82 Long term (current) use of aspirin; Z79.899 Other long term (current) drug therapy
CPT/HCPCS: 36415; 80053; 82550; 84550; 85025; 96372; J1885

== ENCOUNTER 2019-05-04 13:27 | Emergency (ER) | payer OTHER ==
[2019-05-04] MEDS ORDERED: ISOVUE-370 76%-LOCM 1 ML ONE (14:00)
[2019-05-04] MEDS ORDERED: cloNIDine 0.1 MG TAB ONE (14:24)
[2019-05-04] MEDS ORDERED: Promethazine HCl 25 MG/ML VIAL ONE ×2 (14:24→15:37)
--- NOTE | 2019-05-04 14:37 | RAD ---
CHEST 1 VIEW PORTABLE: Date: 05/04/19 HISTORY: Hypertensive crisis. Headache. Abdominal pain. COMPARISON: 03/03/19. FINDINGS: Heart size is normal. The lungs are clear. No pneumonia, edema, or pleural effusion, or other acute p rocess. IMPRESSION: No acute intrathoracic disease. Stable chest. POS: RRE
[2019-05-04 14:59] LABS: #Lymphocytes 1.5 thou/uL (1.20-3.40); #Monocytes 0.8 thou/uL (0.11-0.59); #Neutrophils 14.8 thou/uL (1.40-6.50); %Basophils 0.2 % (0.0-1.0); %Eosinophils 0.3 % (0.0-10.0); %Lymphocytes 8.9 % (21.0-51.0); %Monocytes 4.5 % (0.0-10.0); %Neutrophils 86.2 % (42.0-75.0); Hemoglobin 13.5 g/dL (12.0-16.0); Mean Corpuscular HGB CONC 31.7 g/dL (32.0-36.0); Mean Corpuscular Hemoglobin 29.9 pg (27.0-31.0); Mean Corpuscular Volume 94.6 fL (78.0-98.0); Platelet Count 457 thou/uL (130-400); RBC Distribution Width 12.6 % (11.5-14.5); Red Blood Cell (RBC) Count 4.52 mill/uL (4.20-5.40); White Blood Cell (WBC) Count 17.2 thou/uL (4.8-10.8)
[2019-05-04 15:07] LABS: BHCG - Serum Negative (NEGATIVE); Pregs Control Background? CLEAR/WHITE (CLR/WHITE); Pregs Control Bar Appear? YES (CONTROL BAR)
[2019-05-04 15:30] LABS: ALT (SGPT) 66 U/L (8-55); AST (SGOT) 51 U/L (5-34); Albumin 4.7 g/dL (3.5-5.0); Alkaline Phosphatase 132 U/L (40-150); Anion Gap 19 mmol/L (10-20); BUN (Urea Nitrogen) 31 mg/dL (7.0-18.7); Bilirubin, Total 0.3 mg/dL (0.2-1.2); CK (CPK) 36 U/L (29-168); Calc. Creatinine Clearance 0 mL/min (70-130); Calcium 10.4 mg/dL (7.8-10.44); Carbon Dioxide 25 mmol/L (22-29); Chloride 92 mmol/L (98-107); Estimated GFR-MDRD 49; Globulin 4.4 g/dL (2.4-3.5); Glucose 392 mg/dL (70-105); Lipase 22 U/L (8-78); Potassium 3.4 mmol/L (3.5-5.1); Protein, Total 9.1 g/dL (6.0-8.3); Sodium 133 mmol/L (136-145)
--- NOTE | 2019-05-04 16:14 | CT ---
CT ANGIOGRAM CHEST WITH 3D RENDERING: HISTORY: Chest pain and headache. COMPARISON: 03/31/2019 FINDINGS: Contrast concentration within the pulmonary arteries is somewhat limited, although adequate, because of technical issues. No convincing CT evidence for acute pulmonary embolism. No evidence for aortic aneurysm or dissection. Marked fatty changes in the liver. No pleural effusion or pericardial effu martha. No acute pulmonary parenchymal process. IMPRESSION: 1. No convincing CT evidence for acute pulmonary embolism. 2. Fatty changes in the liver. POS: RRE
[2019-05-04 17:06] LABS: Troponin I 0.077 ng/mL (< 0.028)
== END 2019-05-04 18:15 | disposition home or self-care (01) ==
LOC: ERS 13:27
DX: I10 Essential (primary) hypertension (principal); R07.89 Other chest pain; M10.9 Gout, unspecified; E11.40 Type 2 diabetes mellitus with diabetic neuropathy, unspecified; F41.9 Anxiety disorder, unspecified; Z79.899 Other long term (current) drug therapy; Z79.82 Long term (current) use of aspirin
CPT/HCPCS: 36415; 71045; 71275; 80053; 82550; 82553; 83690; 84484; 84703; 85025; 93005; 96374; J2550; Q9966

== ENCOUNTER 2020-06-26 19:00 | Outpatient (CLI) | payer MEDICARE, OTHER | END 2020-06-26 19:01 | disposition home or self-care (01) | LOC: SLEEPLAB 19:00 | PROVIDERS: ATTEND Family Medicine | DX: G47.9 Sleep disorder, unspecified (principal); G47.10 Hypersomnia, unspecified; R53.83 Other fatigue; R51 Headache; G47.00 Insomnia, unspecified; K21.9 Gastro-esophageal reflux disease without esophagitis; E11.9 Type 2 diabetes mellitus without complications; I10 Essential (primary) hypertension; F41.9 Anxiety disorder, unspecified; R06.83 Snoring; E66.9 Obesity, unspecified; Z68.41 Body mass index [BMI] 40.0-44.9, adult | CPT/HCPCS: 95810 ==

== ENCOUNTER 2020-08-07 00:45 | Inpatient (IN) | payer MEDICARE, MEDICAID ==
[2020-08-07] MEDS ORDERED: Dextrose 5 %-0.45 % NaCl 1,000 ML IV PRN (00:59)
[2020-08-07] MEDS ORDERED: Ondansetron PF 4 MG/2 ML Vial IVP PRN (00:59)
[2020-08-07] MEDS ORDERED: Sodium Chloride 0.9% 1,000 ML IV PRN ×4 (00:59)
[2020-08-07] MEDS ORDERED: NS 0.9% w/ 20 MEQ KCL 1,000 ML IV PRN ×2 (00:59)
[2020-08-07] MEDS ORDERED: Electrolyte Replacement Protoc 1 EACH EACH IVPB PRN (00:59)
[2020-08-07] MEDS ORDERED: HUMULIN R 100 UNITS in Sodium Chloride 0.9% 100 ML IVPB SCH (01:15)
[2020-08-07 01:55] LABS: Anion Gap 21 mmol/L (10-20); BUN (Urea Nitrogen) 14 mg/dL (7.0-18.7); Calc. Creatinine Clearance 305 mL/min (70-130); Calcium 9.5 mg/dL (7.8-10.44); Carbon Dioxide 19 mmol/L (22-29); Chloride 105 mmol/L (98-107); Estimated GFR-MDRD 79; Glucose 243 mg/dL (70-105); Potassium 3.5 mmol/L (3.5-5.1); Sodium 141 mmol/L (136-145)
[2020-08-07] MEDS: Labetalol HCl 100 MG/20 ML VIAL SLOW IVP PRN ×2 (02:06→13:48)
[2020-08-07] MEDS: D5 1/2 NS w/20 mEq KCL 1,000 ML IV PRN ×2 (02:06→10:03)
--- NOTE | 2020-08-07 02:11 | PDOC.EVN ---
Event Note - Event Note Event Note: [id number] HP dictated
--- NOTE | 2020-08-07 02:22 | HP ---
CHIEF COMPLAINT: Abdominal pain, nausea, and vomiting. HISTORY OF PRESENT ILLNESS: Ms. Berumen is a 39-year-old female, with past medical history of diabetes mellitus, hypertension, gout, gastritis, neuropathy, and myocardial infarction, among others presented to [facility] with chief complaint of mid epigastric pain associated with vomiting that started earlier today. Patient denies any sick contacts. She had similar symptoms in the past and she had an episode of pancreatitis. She has a history of cholecystectomy and two C-sections without other abdominal surgeries. She tried to take her tramadol at home without relief. She does have history of diabetes mellitus and peripheral neuropathy and hypertension. Workup in the emergency room, patient was found to be in ?DKA with elevated anion gap of 22. Patient had CT abdomen and pelvis which showed fatty changes of borderline size liver, small containing paraumbilical hernia, but no other acute findings. Patient was started on IV fluids; insulin drip; pain, nausea, and vomiting medications. Patient continues to have significant pain and nausea. Patient is transferred to our medical facility for IMCU care and management. PAST MEDICAL HISTORY: As mentioned above in history of present illness. PAST SURGICAL HISTORY: 1. Cholecystectomy. 2. Caesarian section. 3. Left thumb surgery. PAST PSYCHIATRIC HISTORY: Anxiety. SOCIAL HISTORY: Denies alcohol use. Denies drug use. No smoking history. ALLERGIES: TRAMADOL? HOME MEDICATIONS: See home medication reconciliation form for updated medications. REVIEW OF SYSTEMS: Review of 14 systems negative, except what is mentioned in history of present illness. PHYSICAL EXAMINATION: GENERAL: Patient is awake, alert, in moderate/severe distress. VITAL SIGNS: Blood pressure 178/96, pulse is 98, respiratory rate is 18, temperature is 98.5, and oxygen saturations 100% on room air. HEAD AND NECK: Normocephalic, atraumatic. NECK: Supple. No JVD. CHEST: Fair bilateral air entry. ABDOMEN: Mild diffuse tenderness. Soft bowel sounds present. NEUROLOGIC: Awake, alert, and oriented x3. PSYCH: Anxious. EXTREMITIES: No clubbing or cyanosis. LABORATORY DATA: WBC 16.5, hemoglobin 14.5, and platelets are 421. Sodium 143, potassium 3.5, BUN is 16, creatinine 0.9, and anion gap is 23. Troponin is 0.05. CT abdomen and pelvis as mentioned above in history of present illness. ASSESSMENT: 1. Diabetic ketoacidosis? 2. Acute abdominal pain. 3. Intractable nausea and vomiting. 4. Hypertensive urgency. 5. Detectable troponin. PLAN: 1. Admit to IMCU. 2. Keep n.p.o. 3. IV fluids. 4. Insulin drip. 5. Monitor and correct electrolytes. 6. Pain management with close monitoring of vital signs and pulse ox if patient requires high dose of IV opiates. 7. Serial troponins. 8. Reconcile home medications. 9. DVT prophylaxis as appropriate. 10. Expected length of stay, 2 midnights or more. Job ID: [id number]
[2020-08-07 02:37] LABS: Troponin I 0.062 ng/mL (< 0.028)
[2020-08-07] MEDS: Promethazine HCl 12.5 MG in Sodium Chloride 0.9% 50 ML IVPB PRN ×2 (03:11→08:25)
[2020-08-07] MEDS: niCARdipine 25 MG in Sodium Chloride 0.9% 250 ML 240 ML IVPB SCH ×4 (04:18→13:05)
[2020-08-07] MEDS ORDERED: Labetalol HCl 100 MG/20 ML VIAL ONE (05:13)
[2020-08-07] MEDS: Morphine 4 MG/ML VIAL ONE ×2 (05:24→06:09)
[2020-08-07] MEDS ORDERED: Morphine 4 MG/ML VIAL SLOW IVP PRN (05:51)
--- NOTE | 2020-08-07 05:59 | PDOC.BPN ---
- Brief Progress Note Encounter Date: 08/07/20 Encounter Time: 05:00 Residents were called to place central line due to patient needing nicardipine drip for elevated BPs. On arrival, patient was in excruciating chest pain radiating to the back and experiencing intractable nausea and vomiting, unable to lie still or flat for extended period of time. Patients HR was between 110- 130 with BPs in 220s/110s. We gave patient 10 mg of labetalol upon evaluation in attempt to get HR and BP down. There was concern for MT vs. Aortic dissection. The nurse was asked to call the hospitalists to evaluate at this time as well. Due to patient's pain and inability to lay flat for extended period, we were unable to place central line at this time. We would be more than happy to perform central line once patient becomes more stable for the procedure.
[2020-08-07] MEDS ORDERED: cloNIDine 0.2 MG TAB PO SCH ×2 (06:15→09:15)
[2020-08-07] MEDS ORDERED: Potassium Chloride 20 MEQ TAB PO SCH (06:30)
[2020-08-07 06:36] VITALS: BMI 41.4
--- NOTE | 2020-08-07 07:00 | PDOC.EVN ---
Event Note - Event Note Event Note: patient seen and examined CTA chest ordered to R/O dissection. Current BP 160/90 with improvrmrnt in pain. patient reciev ed labetolol will restart home clonidine. to be followed by daytime hospitalist.
--- NOTE | 2020-08-07 08:04 | CT ---
CTA Angio Chest W Con History: Chest pain Comparison: None. Findings: CT angiogram chest performed after the intravenous administration of contrast. 3-D renderin g provided. Impression: Findings and impression are concordant with the preliminary report. Code QA
[2020-08-07] MEDS ORDERED: VORTIOXETINE HYDROBROMIDE 5 MG PO SCH (09:00)
[2020-08-07] MEDS ORDERED: Vortioxetine Hydrobromide [Trintellix] 5 MG PO SCH (09:00)
[2020-08-07] MEDS ORDERED: Famotidine/PF 20 mg/2ml Vial SLOW IVP SCH (09:00)
[2020-08-07] MEDS ORDERED: Non-Formulary Item 1 EACH (Omeprazole [Omeprazole] 20 MG Capsule.Dr) PO SCH (09:00)
[2020-08-07] MEDS ORDERED: Insulin Glargine 10 UNITS in Pre-Filled Syringe 1 EACH SC SCH (09:15)
[2020-08-07] MEDS: Morphine 4 MG/ML VIAL SLOW IVP PRN ×2 (09:37→15:06)
[2020-08-07 09:48] LABS: Anion Gap 20 mmol/L (10-20); BUN (Urea Nitrogen) 10 mg/dL (7.0-18.7); Calc. Creatinine Clearance 151 mL/min (70-130); Calcium 9.1 mg/dL (7.8-10.44); Carbon Dioxide 18 mmol/L (22-29); Chloride 102 mmol/L (98-107); Estimated GFR-MDRD 89; Glucose 300 mg/dL (70-105); Potassium 3.3 mmol/L (3.5-5.1); Sodium 137 mmol/L (136-145)
[2020-08-07] MEDS: Enoxaparin Sodium 40 MG/0.4 ML SYRINGE SC SCH (09:54)
[2020-08-07 10:04] LABS: Troponin I 0.061 ng/mL (< 0.028)
[2020-08-07] MEDS ORDERED: Iopamidol-370 76% 500 ML 1 ML ONE (10:09)
--- NOTE | 2020-08-07 10:10 | PRG ---
DATE OF SERVICE: 08/07/2020 REASON FOR CONSULTATION: DKA, hypertension out of control. HISTORY OF PRESENT ILLNESS: The patient is a 39-year-old who presented to the ER earlier this morning with complaints of abdominal pain, nausea and vomiting. She was found to be grossly hyperglycemic. She has also had an elevated blood pressure. I think there were some IV access issues and she did not get all of her medication last night. She is complaining of abdominal pain. She says only morphine and Phenergan work on her abdominal pain. She is also complaining of peripheral neuropathy symptoms in her feet. PAST MEDICAL HISTORY: 1. Diabetes mellitus type 2. 2. Hypertension. 3. Gout. 4. Peripheral neuropathy. 5. Gastritis. 6. Coronary artery disease. PAST SURGICAL HISTORY: 1. Cholecystectomy. 2. . 3. Thumb surgery. PSYCHIATRIC HISTORY: Remarkable for anxiety. SOCIAL HISTORY: No tobacco, alcohol, or illicit drug use. ALLERGIES: H AND P INDICATES THAT SHE IS ALLERGIC TO TRAMADOL. THE PATIENT SAYS SHE TAKES THIS AT HOME, SO I AM NOT SURE, IF THAT IS TRULY AN ALLERGY OR NOT. HOME MEDICATIONS: 1. Glargine insulin. 2. Colchicine. 3. . 4. Victoza. 5. Omeprazole. 6. Metoclopramide. 7. Trintellix. 8. Januvia. 9. Buspirone. 10. Pravastatin. 11. Lisinopril. 12. Tramadol. 13. Clonidine. 14. Hydrochlorothiazide. 15. Gabapentin. 16. Aspirin. 17. Allopurinol, dose is listed under home medications section chart. REVIEW OF SYSTEMS: Remarkable for peripheral neuropathy symptoms. Otherwise, negative. PHYSICAL EXAMINATION: VITAL SIGNS: Temperature 97.4, pulse 125, blood pressure 187/98, O2 saturation 100%. She is currently on nicardipine drip at 7.5 mg/hour. HEENT: Unremarkable. NECK: No adenopathy. No JVD. LUNGS: Clear. CARDIAC: S1, S2. Regular without audible murmur, rub, or gallop. ABDOMEN: Diffusely tender to palpation. No rebound. EXTREMITIES: No clubbing, cyanosis, or edema. She has pain over her feet. IMAGING: CT pulmonary angiogram was basically unremarkable for dissection. LABORATORY DATA: Sodium 141, potassium 3.5, chloride 105, CO2 of 19, BUN 14, creatinine 0.9, glucose now 188. White blood cell count 16.5, hematocrit 43.6, and platelet count 421. ASSESSMENT: 1. Mild diabetic ketoacidosis. 2. Hypertension. 3. Pain. PLAN: I agree with the current management of DKA by the hospitalist group in the management of her hypertension. Hopefully, she can be off the drips later this afternoon and transfer to the floor. further care as needed. Job ID: [id number]
[2020-08-07] MEDS: Hydrochlorothiazide 25 MG TAB PO SCH (10:39)
[2020-08-07] MEDS: NIFEdipine XL 60 MG TAB PO SCH (10:39)
[2020-08-07] MEDS: Gabapentin 300 MG CAP PO SCH ×3 (10:39→21:24)
[2020-08-07] MEDS: Aspirin 325 MG TAB PO SCH (10:40)
[2020-08-07] MEDS: Allopurinol 300 MG TAB PO SCH (10:40)
[2020-08-07] MEDS: Alogliptin 6.25 MG TAB PO SCH (10:41)
[2020-08-07] MEDS: busPIRone HCl 10 MG TAB PO SCH ×2 (10:41→21:24)
[2020-08-07] MEDS: Lisinopril 10 MG TAB PO SCH (10:41)
[2020-08-07] MEDS ORDERED: Metoclopramide HCl 10 MG/2 ML VIAL IVP SCH (11:45)
--- NOTE | 2020-08-07 12:32 | PDOC.HOSPP ---
- Subjective Encounter Date: 08/07/20 Encounter Time: 11:00 Subjective: c/o epigastric pain radiating to back, has nausea no chest pain or palp is moving all extremities - Objective Vital Signs & Weight: Vital Signs (12 hours) Temp Pulse BP Pulse Ox 08/07/20 12:00 98.8 F 08/07/20 10:41 182/99 H 08/07/20 10:40 182/99 H 08/07/20 10:39 137 H 182/99 H 08/07/20 08:00 98.7 F 100 08/07/20 06:14 164/86 H 08/07/20 05:24 112 H 240/132 H 08/07/20 05:21 97.8 F 08/07/20 04:35 98 08/07/20 03:35 97.4 F L 08/07/20 02:06 112 H 240/132 H 08/07/20 01:02 98 F 100 Weight Weight 241 lb 9.6 oz Most Recent Monitor Data Heart Rate from ECG 136 NIBP 171/86 NIBP BP-Mean 114 Respiration from ECG 25 SpO2 100 I&O: 08/06/20 08/07/20 08/08/20 06:59 06:59 06:59 Intake Total 1310 Output Total 1470 1350 Balance -160 -1350 Result Diagrams: 08/07/20 09:19 Additional Labs: Accuchecks 08/07/20 08/07/20 08/07/20 12:15 11:11 10:10 POC Glucose 154 H 266 H 304 H 08/07/20 08/07/20 08/07/20 07:58 06:33 05:08 POC Glucose 282 H 264 H 188 H 08/07/20 08/07/20 08/07/20 04:14 03:16 02:11 POC Glucose 159 H 179 H 211 H Hospitalist ROS - Medication Medications: Active Medications Generic Name Dose Route Start Last Admin Trade Name Freq PRN Reason Stop Dose Admin Allopurinol 300 mg 08/07/20 09:00 08/07/20 10:40 Allopurinol 300 Mg Tab PO 300 mg DAILY VENUS Administration Alogliptin Benzoate 12.5 mg 08/07/20 09:00 08/07/20 10:41 Alogliptin 6.25 Mg Tab PO 12.5 mg DAILY VENUS Administration Aspirin 325 mg 08/07/20 09:00 08/07/20 10:40 Aspirin 325 Mg Tab PO 325 mg DAILY VENUS Administration Buspirone HCl 10 mg 08/07/20 09:00 08/07/20 10:41 Buspirone Hcl 10 Mg Tab PO 10 mg BID VENUS Administration Enoxaparin Sodium 40 mg 08/07/20 09:00 08/07/20 09:54 Enoxaparin Sodium 40 Mg/0.4 Ml Syringe SC 40 mg 0900 VENUS Administration Famotidine 20 mg 08/07/20 09:00 08/07/20 09:54 Famotidine/Pf 20 Mg/2ml Vial SLOW IVP 20 mg Q12HR VENUS Administration Gabapentin 600 mg 08/07/20 09:00 08/07/20 10:39 Gabapentin 300 Mg Cap PO 600 mg TID VENUS Administration Hydrochlorothiazide 25 mg 08/07/20 09:00 08/07/20 10:39 Hydrochlorothiazide 25 Mg Tab PO 25 mg QAM VENUS Administration Insulin Human Regular 100 101 mls @ 0 mls/hr 08/07/20 01:15 08/07/20 01:42 units/ Sodium Chloride IVPB 101 mls INF VENUS Administration Protocol Titrate Sodium Chloride 1,000 mls @ 500 mls/hr 08/07/20 00:59 08/07/20 01:27 Normal Saline 0.9% IV 1,000 mls .Q2H PRN Administration Step 2 of DKA Protocol Protocol Potassium Chloride/Dextrose/Sod Cl 1,000 mls @ 250 mls/hr 08/07/20 00:59 08/07/20 02:06 D5 1/2 Ns W/20 Meq Kcl IV 1,000 mls .Q4H PRN Administration Step 4 of DKA Protocol Protocol Potassium Chloride/Sodium Chloride 1,000 mls @ 500 mls/hr 08/07/20 00:59 08/07/20 10:38 Ns 0.9% W/ 20 Meq Kcl IV 1,000 mls .Q2H PRN Administration Step 2 of DKA Protocol Protocol Promethazine HCl 12.5 mg/ 50.5 mls @ 202 mls/hr 08/07/20 01:41 08/07/20 08:25 Sodium Chloride IVPB 50.5 mls Q4H PRN Administration Nausea/Vomiting Nicardipine HCl 25 mg/ Sodium 250 mls @ 0 mls/hr 08/07/20 03:45 08/07/20 10:22 Chloride IVPB 250 mls INF VENUS Administration Protocol Titrate Labetalol HCl 10 mg 08/07/20 01:53 08/07/20 02:06 Labetalol Hcl 100 Mg/20 Ml Vial SLOW IVP 2 ml Q4H PRN Administration SBP Greater Than 180 Lisinopril 10 mg 08/07/20 09:00 08/07/20 10:41 Lisinopril 10 Mg Tab PO 10 mg DAILY VENUS Administration Metoclopramide HCl 10 mg 08/07/20 11:45 08/07/20 11:44 Metoclopramide Hcl 10 Mg/2 Ml Vial IVP 08/07/20 13:00 10 mg NOW VENUS Administration Morphine Sulfate 4 mg 08/07/20 08:56 08/07/20 09:37 Morphine 4 Mg/Ml Vial SLOW IVP 4 mg Q2H PRN Administration Pain Nifedipine 60 mg 08/07/20 09:00 08/07/20 10:39 Nifedipine Xl 60 Mg Tab PO 60 mg DAILY VENUS Administration Pantoprazole Sodium 40 mg 08/07/20 09:00 08/07/20 10:42 Pantoprazole 40 Mg Tab PO 40 mg DAILY VENUS Administration Sodium Chloride 10 ml 08/07/20 09:00 08/07/20 10:22 Flush - Normal Saline 10 Ml Syringe IVF 10 ml Q12HR VENUS Administration - Exam General Appearance: awake alert Eye: PERRL, anicteric sclera ENT: no oropharyngeal lesions, moist mucosa Neck: supple, no JVD Heart: RRR, no murmur Respiratory: no wheezes, no rales Gastrointestinal: soft, non-distended, normal bowel sounds, no guarding, no rigidity Extremities: no cyanosis, no edema Neurological: cranial nerve grossly intact, no focal deficits Psychiatric: A&O x 3 Hosp A/P (1) Hypertensive emergency Code(s): I16.1 - HYPERTENSIVE EMERGENCY Status: Acute (2) Nausea & vomiting Code(s): R11.2 - NAUSEA WITH VOMITING, UNSPECIFIED Status: Acute Qualifiers: Vomiting type: unspecified Vomiting Intractability: intractable Qualified Code(s): R11.2 - Nausea with vomiting, unspecified (3) CKD stage 3 due to type 2 diabetes mellitus Code(s): E11.22 - TYPE 2 DIABETES MELLITUS W DIABETIC CHRONIC KIDNEY DISEASE; N18.3 - CHRONIC KIDNEY DISEASE, STAGE 3 (MODERATE) * DO NOT USE * Status: Chronic (4) Diabetic gastroparesis Code(s): E11.43 - TYPE 2 DIABETES W DIABETIC AUTONOMIC (POLY)NEUROPATHY; K31.84 - GASTROPARESIS Status: Chronic (5) Obesity Code(s): E66.9 - OBESITY, UNSPECIFIED Status: Chronic Qualifiers: Obesity classification: adult class 3 (BMI >= 40) Body mass index: BMI 40.0-44.9 - Plan home meds for htn, add procardia xl taper and dc cardene drip in 2 hrs february tx to tele once she is off cardene drip CT abd and dissection protocols show no ac findings to explain her abd pain, likely due to gastroparesis avoid narcotics, start reglan iv tid, use phenergan very sparingly sbp around 140's on cardene drip now she denies drug use, will get UDS denies noncompliance with meds?
[2020-08-07] MEDS: Sodium Chloride 0.9% 1,000 ML IV SCH (13:48)
[2020-08-07] MEDS: cloNIDine 0.2 MG TAB PO SCH ×3 (14:29→21:43)
[2020-08-07] MEDS: Metoclopramide HCl 10 MG/2 ML VIAL IVP SCH ×3 (14:29→21:25)
[2020-08-07] MEDS ORDERED: Dextrose 50% Abboject 50 ML SYRINGE SLOW IVP PRN (16:08)
[2020-08-07] MEDS ORDERED: Dextrose 5% in Water 1,000 ML IV PRN (16:08)
[2020-08-07] MEDS: Insulin Glargine 10 UNITS in Pre-Filled Syringe 1 EACH SC SCH (21:23)
[2020-08-07] MEDS: Simvastatin 10 MG TAB PO SCH (21:25)
[2020-08-07] MEDS: HumaLOG 300 UNITS/3 ML VIAL SC PRN (21:28)
[2020-08-07] MEDS ORDERED: Acetaminophen 325 MG TAB PO PRN (22:07)
[2020-08-07 23:02] LABS: Anion Gap 19 mmol/L (10-20); Carbon Dioxide 17 mmol/L (22-29); Chloride 105 mmol/L (98-107); Potassium 3.6 mmol/L (3.5-5.1); Sodium 137 mmol/L (136-145)
[2020-08-07 23:23] LABS: #Eosinphils 0.1 thou/uL (0.0-0.7); #Lymphocytes 2.9 thou/uL (1.20-3.40); #Monocytes 0.8 thou/uL (0.11-0.59); %Basophils 0.2 % (0.0-1.0); %Eosinophils 0.6 % (0.0-10.0); %Lymphocytes 19.2 % (21.0-51.0); %Monocytes 5.7 % (0.0-10.0); %Neutrophils 74.3 % (42.0-75.0); Hemoglobin 13.3 g/dL (12.0-16.0); Mean Corpuscular HGB CONC 33.1 g/dL (32.0-36.0); Mean Corpuscular Hemoglobin 31.6 pg (27.0-31.0); Mean Corpuscular Volume 95.5 fL (78.0-98.0); Mean Platelet Volume 8.1 fL (7.4-10.4); Platelet Count 390 thou/uL (130-400); RBC Distribution Width 12.7 % (11.5-14.5); White Blood Cell (WBC) Count 14.9 thou/uL (4.8-10.8)
[2020-08-08] MEDS: Melatonin 3 MG TAB PO PRN ×2 (01:58→21:47)
[2020-08-08 02:32] LABS: Lactic Acid 2.9 mmol/L (0.5-2.2)
[2020-08-08] MEDS: HumaLOG 300 UNITS/3 ML VIAL SC PRN ×3 (06:22→17:49)
[2020-08-08] MEDS: Metoclopramide HCl 10 MG/2 ML VIAL IVP SCH ×3 (06:24→21:49)
[2020-08-08 06:39] LABS: Anion Gap 17 mmol/L (10-20); BUN (Urea Nitrogen) 20 mg/dL (7.0-18.7); Calc. Creatinine Clearance 69 mL/min (70-130); Calcium 7.9 mg/dL (7.8-10.44); Carbon Dioxide 16 mmol/L (22-29); Chloride 109 mmol/L (98-107); Estimated GFR-MDRD 36; Glucose 368 mg/dL (70-105); Potassium 4.2 mmol/L (3.5-5.1); Sodium 138 mmol/L (136-145)
[2020-08-08] MEDS: Allopurinol 300 MG TAB PO SCH (07:57)
[2020-08-08] MEDS: Alogliptin 6.25 MG TAB PO SCH (07:57)
[2020-08-08] MEDS: cloNIDine 0.2 MG TAB PO SCH ×3 (07:58→21:48)
[2020-08-08] MEDS: Aspirin 325 MG TAB PO SCH (07:58)
[2020-08-08] MEDS: busPIRone HCl 10 MG TAB PO SCH ×2 (07:58→21:48)
[2020-08-08] MEDS: Gabapentin 300 MG CAP PO SCH ×3 (07:59→21:48)
[2020-08-08] MEDS: Enoxaparin Sodium 40 MG/0.4 ML SYRINGE SC SCH (07:59)
[2020-08-08] MEDS: Hydrochlorothiazide 25 MG TAB PO SCH (07:59)
[2020-08-08] MEDS: Lisinopril 10 MG TAB PO SCH (07:59)
[2020-08-08] MEDS: NIFEdipine XL 60 MG TAB PO SCH (08:00)
[2020-08-08 08:32] LABS: Bilirubin Negative (Negative); Blood, Urine Negative (Negative); Clarity Clear (Clear); Glucose, Urine (Dipstick) Greater than 1000 mg/dL (Negative); Ketone, Urine Negative (Negative); Leukocyte 250 Leu/uL (Negative); Nitrite Negative (Negative); Protein, Urine (Dipstick) 10 mg/dL (Neg-Trace); RBC/HPF 0-3 HPF (0-3); Urobilinogen Normal mg/dL (Less than 2)
[2020-08-08 08:33] LABS: Bacteria/HPF 1+ HPF (None Seen)
[2020-08-08 08:34] LABS: Urine Culture Reflex No No
[2020-08-08] MEDS: Insulin Glargine 10 UNITS in Pre-Filled Syringe 1 EACH SC SCH ×2 (09:17→21:49)
[2020-08-08] MEDS: Sodium Chloride 0.9% 1,000 ML IV SCH (09:19)
[2020-08-08] MEDS: traMADol HCl 50 MG TAB PO PRN ×2 (09:22→17:51)
[2020-08-08 09:59] LABS: Anion Gap 19 mmol/L (10-20); BUN (Urea Nitrogen) 20 mg/dL (7.0-18.7); Calc. Creatinine Clearance 83 mL/min (70-130); Calcium 8.2 mg/dL (7.8-10.44); Carbon Dioxide 16 mmol/L (22-29); Chloride 112 mmol/L (98-107); Estimated GFR-MDRD 44; Glucose 219 mg/dL (70-105); Potassium 4.7 mmol/L (3.5-5.1); Sodium 142 mmol/L (136-145)
[2020-08-08] MEDS: Morphine 4 MG/ML VIAL SLOW IVP PRN ×3 (14:39→21:46)
[2020-08-08] MEDS ORDERED: cloNIDine 0.1 MG TAB PO SCH (15:15)
--- NOTE | 2020-08-08 19:02 | PDOC.HOSPP ---
- Subjective Encounter Date: 08/08/20 Subjective: Continues to report some abdominal pain. Still reports nausea. Says she is never formally been diagnosed with gastroparesis. She has been told that is what she has she has never had any testing or imaging. - Objective Vital Signs & Weight: Vital Signs (12 hours) Temp Pulse Resp BP Pulse Ox 08/08/20 15:43 98.7 F 103 H 19 130/73 97 08/08/20 14:40 103 H 121/71 08/08/20 12:39 97.9 F 103 H 16 116/63 98 08/08/20 07:52 117 H 168/87 H 08/08/20 07:04 100.0 F H 118 H 18 123/70 100 Weight Weight 243 lb 4.8 oz Most Recent Monitor Data Heart Rate from ECG 117 NIBP 109/79 NIBP BP-Mean 89 Respiration from ECG 22 SpO2 99 I&O: 08/07/20 08/08/20 08/09/20 06:59 06:59 06:59 Intake Total 1310 3408.3 1560 Output Total 1470 1950 1450 Balance -160 1458.3 110 Result Diagrams: 08/07/20 23:10 08/08/20 09:40 Additional Labs: Accuchecks 08/08/20 08/08/20 08/08/20 16:51 11:22 05:26 POC Glucose 152 H 242 H 344 H 08/07/20 08/07/20 08/07/20 20:23 18:22 14:33 POC Glucose 208 H 171 H 172 H 08/07/20 08/07/20 12:56 09:28 POC Glucose 144 H 286 H Hospitalist ROS - Medication Medications: Active Medications Generic Name Dose Route Start Last Admin Trade Name Freq PRN Reason Stop Dose Admin Acetaminophen 650 mg 08/07/20 22:07 08/08/20 01:57 Acetaminophen 325 Mg Tab PO 650 mg Q4H PRN Administration Headache/Fever or Pain Allopurinol 300 mg 08/07/20 09:00 08/08/20 07:57 Allopurinol 300 Mg Tab PO 300 mg DAILY VENUS Administration Alogliptin Benzoate 12.5 mg 08/07/20 09:00 08/08/20 07:57 Alogliptin 6.25 Mg Tab PO 12.5 mg DAILY VENUS Administration Aspirin 325 mg 08/07/20 09:00 08/08/20 07:58 Aspirin 325 Mg Tab PO 325 mg DAILY VENUS Administration Buspirone HCl 10 mg 08/07/20 09:00 08/08/20 07:58 Buspirone Hcl 10 Mg Tab PO 10 mg BID VENUS Administration Clonidine 0.2 mg 08/07/20 15:00 08/08/20 14:56 Clonidine 0.2 Mg Tab PO Not Given TID VENUS Enoxaparin Sodium 40 mg 08/07/20 09:00 08/08/20 07:59 Enoxaparin Sodium 40 Mg/0.4 Ml Syringe SC 40 mg 0900 VENUS Administration Gabapentin 600 mg 08/07/20 09:00 08/08/20 14:35 Gabapentin 300 Mg Cap PO 600 mg TID VENUS Administration Hydrochlorothiazide 25 mg 08/07/20 09:00 08/08/20 07:59 Hydrochlorothiazide 25 Mg Tab PO 25 mg QAM VENUS Administration Insulin Glargine 10 units/ 0.1 mls @ 0 mls/hr 08/07/20 21:00 08/07/20 21:23 Miscellaneous Medication SC 0.1 mls HS VENUS Administration Insulin Glargine 10 units/ 0.1 mls @ 0 mls/hr 08/08/20 09:00 08/08/20 09:17 Miscellaneous Medication SC 0.1 mls QAM VENUS Administration Sodium Chloride 1,000 mls @ 50 mls/hr 08/07/20 13:30 08/08/20 09:19 Normal Saline 0.9% IV 1,000 mls .Q20H VENUS Administration Insulin Human Lispro 0 units 08/07/20 16:08 08/08/20 17:49 Humalog 300 Units/3 Ml Vial SC 3 unit .AGGRESSIVE SLIDING PRN Administration Aggressive Correctional Scale Insulin Human Lispro 0 units 08/07/20 16:08 08/07/20 21:28 Humalog 300 Units/3 Ml Vial SC 2 unit .BEDTIME SLIDING SC PRN Administration Bedtime Correctional Scale Labetalol HCl 10 mg 08/07/20 01:53 08/07/20 13:48 Labetalol Hcl 100 Mg/20 Ml Vial SLOW IVP 2 ml Q4H PRN Administration SBP Greater Than 180 Lisinopril 10 mg 08/07/20 09:00 08/08/20 07:59 Lisinopril 10 Mg Tab PO 10 mg DAILY VENUS Administration Melatonin 3 mg 08/07/20 22:08 08/08/20 01:58 Melatonin 3 Mg Tab PO 3 mg HSPRN PRN Administration Insomnia Metoclopramide HCl 10 mg 08/07/20 14:00 08/08/20 13:20 Metoclopramide Hcl 10 Mg/2 Ml Vial IVP 10 mg Q8HR VENUS Administration Morphine Sulfate 4 mg 08/07/20 08:56 08/08/20 14:39 Morphine 4 Mg/Ml Vial SLOW IVP 4 mg Q2H PRN Administration Pain Nifedipine 60 mg 08/07/20 09:00 08/08/20 08:00 Nifedipine Xl 60 Mg Tab PO 60 mg DAILY VENUS Administration Pantoprazole Sodium 40 mg 08/07/20 09:00 08/08/20 08:00 Pantoprazole 40 Mg Tab PO 40 mg DAILY VENUS Administration Simvastatin 10 mg 08/07/20 21:00 08/07/20 21:25 Simvastatin 10 Mg Tab PO 10 mg HS VENUS Administration Tramadol HCl 50 mg 08/07/20 08:28 08/08/20 17:51 Tramadol Hcl 50 Mg Tab PO 50 mg Q8H PRN Administration moderate pain - Exam General Appearance: NAD, awake alert General - other findings: Morbidly obese Heart: RRR, no murmur, no gallops, no rubs, normal peripheral pulses Respiratory: CTAB, no wheezes, no rales, no ronchi, normal chest expansion, no tachypnea, normal percussion Gastrointestinal: soft, non-distended, normal bowel sounds, no palpable masses, no hepatomegaly, no splenomegaly, no bruit, tender to palpation (Epigastrium) Extremities: no cyanosis, no clubbing, no edema Skin: normal turgor Musculoskeletal: normal tone Psychiatric: normal affect, normal behavior Hosp A/P (1) Nausea & vomiting Code(s): R11.2 - NAUSEA WITH VOMITING, UNSPECIFIED Status: Acute Qualifiers: Vomiting type: unspecified Vomiting Intractability: intractable Qualified Code(s): R11.2 - Nausea with vomiting, unspecified (2) Diabetic gastroparesis Code(s): E11.43 - TYPE 2 DIABETES W DIABETIC AUTONOMIC (POLY)NEUROPATHY; K31.84 - GASTROPARESIS Status: Chronic (3) JUAN (acute kidney injury) Code(s): N17.9 - ACUTE KIDNEY FAILURE, UNSPECIFIED Status: Acute (4) DM type 2, uncontrolled, with renal complications Code(s): E11.29 - TYPE 2 DIABETES MELLITUS W OTH DIABETIC KIDNEY COMPLICATION; E11.65 - TYPE 2 DIABETES MELLITUS WITH HYPERGLYCEMIA Status: Acute (5) Diabetes type 2, controlled Code(s): E11.9 - TYPE 2 DIABETES MELLITUS WITHOUT COMPLICATIONS Status: Chronic Qualifiers: Diabetes mellitus senior living insulin use: without senior living use Diabetes mellitus complication status: with unspecified complications Qualified Code(s): E11.8 - Type 2 diabetes mellitus with unspecified complications (6) HTN (hypertension) Code(s): I10 - ESSENTIAL (PRIMARY) HYPERTENSION Status: Chronic Qualifiers: Hypertension type: essential hypertension Qualified Code(s): I10 - Essential (primary) hypertension (7) DKA (diabetic ketoacidoses) Code(s): E11.10 - TYPE 2 DIABETES MELLITUS WITH KETOACIDOSIS WITHOUT COMA Status: Acute (8) Morbid obesity with BMI of 40.0-44.9, adult Code(s): E66.01 - MORBID (SEVERE) OBESITY DUE TO EXCESS CALORIES; Z68.41 - BODY MASS INDEX [BMI]40.0-44.9, ADULT Status: Acute (9) Abdominal pain Code(s): R10.9 - UNSPECIFIED ABDOMINAL PAIN Status: Acute - Plan Abdominal pain: Etiology is unclear. Patient says she has been told she has had gastroparesis but she has never had it formally diagnosed with any type of gastric emptying study. She does not have evidence of pancreatitis on CT scan and her lipase is normal. This patient has had 10 CT scans of the chest and 10 CT scans of the abdomen and pelvis in the last 5 years. All related to similar symptoms. She has also been on tramadol multiple times daily consistently over a number of years. She has had repeated admissions for similar symptoms and similar presentations. She needs to have a gastric emptying study once she is settled down from this acute episode. Nausea vomiting: Again this is presumably related to gastroparesis. Unfortunately the patient has been taking a lot of opioid pain medications. This is counterproductive with gastroparesis. If it is not improved by tomorrow we will start weaning back on the opioids. Continue with scheduled Reglan. It appears as though that she is taking in almost a liter p.o. JUAN: Patient's GFR is all over the place. Appears that that is been the case for quite some time. Very difficult to ascertain what her baseline is. It dropped almost 50 points overnight. Repeat showed that it was back up a bit. We will continue to monitor. DKA: Appears to be resolved. She had very minimal signs of DKA. Beta hydroxybutyrate was minimally elevated and her anion gap was only 21. Gap is now normalized. Metabolic acidosis: Secondary to hyperchloremic acidosis following DKA treatment. Very common. We will discontinue the normal saline. She is capable of taking adequate amounts of p.o. Need to push free water as her sodium is creeping up. Diabetes mellitus type 2: Continue with long-acting and sliding scale insulins. Continue Accu-Cheks and diabetic diet. Morbid obesity: Certainly mitigates against the patient having true chronic abdominal pain or gastroparesis symptoms.
[2020-08-08] MEDS: Simvastatin 10 MG TAB PO SCH (21:49)
[2020-08-09] MEDS: Morphine 4 MG/ML VIAL SLOW IVP PRN ×7 (01:56→23:37)
[2020-08-09 04:40] LABS: #Eosinphils 0.1 thou/uL (0.0-0.7); #Lymphocytes 2.9 thou/uL (1.20-3.40); #Monocytes 0.6 thou/uL (0.11-0.59); %Basophils 0.4 % (0.0-1.0); %Lymphocytes 30.1 % (21.0-51.0); %Monocytes 6.1 % (0.0-10.0); %Neutrophils 62.5 % (42.0-75.0); Hemoglobin 12.7 g/dL (12.0-16.0); Mean Corpuscular HGB CONC 32.5 g/dL (32.0-36.0); Mean Corpuscular Hemoglobin 30.4 pg (27.0-31.0); Mean Corpuscular Volume 93.6 fL (78.0-98.0); Mean Platelet Volume 7.9 fL (7.4-10.4); Platelet Count 329 thou/uL (130-400); RBC Distribution Width 12.4 % (11.5-14.5); Red Blood Cell (RBC) Count 4.19 mill/uL (4.20-5.40); White Blood Cell (WBC) Count 9.6 thou/uL (4.8-10.8)
[2020-08-09] MEDS: Metoclopramide HCl 10 MG/2 ML VIAL IVP SCH ×3 (05:04→20:47)
[2020-08-09 05:08] LABS: Anion Gap 14 mmol/L (10-20); BUN (Urea Nitrogen) 11 mg/dL (7.0-18.7); Calc. Creatinine Clearance 182 mL/min (70-130); Calcium 8.9 mg/dL (7.8-10.44); Carbon Dioxide 24 mmol/L (22-29); Chloride 104 mmol/L (98-107); Estimated GFR-MDRD Greater than 90; Glucose 188 mg/dL (70-105); Lipase 24 U/L (8-78); Potassium 3.2 mmol/L (3.5-5.1); Sodium 139 mmol/L (136-145)
[2020-08-09] MEDS: HumaLOG 300 UNITS/3 ML VIAL SC PRN ×4 (06:07→20:47)
[2020-08-09] MEDS: Alogliptin 6.25 MG TAB PO SCH (07:32)
[2020-08-09] MEDS: Allopurinol 300 MG TAB PO SCH (07:32)
[2020-08-09] MEDS: Enoxaparin Sodium 40 MG/0.4 ML SYRINGE SC SCH (07:33)
[2020-08-09] MEDS: busPIRone HCl 10 MG TAB PO SCH ×2 (07:33→20:47)
[2020-08-09] MEDS: cloNIDine 0.2 MG TAB PO SCH ×3 (07:33→20:46)
[2020-08-09] MEDS: Aspirin 325 MG TAB PO SCH (07:33)
[2020-08-09] MEDS: NIFEdipine XL 60 MG TAB PO SCH (07:34)
[2020-08-09] MEDS: Lisinopril 10 MG TAB PO SCH (07:34)
[2020-08-09] MEDS: Gabapentin 300 MG CAP PO SCH ×3 (07:34→20:46)
[2020-08-09] MEDS: Hydrochlorothiazide 25 MG TAB PO SCH (07:34)
[2020-08-09] MEDS: Potassium Chloride 20 MEQ in Premix Bag 1 BAG IVPB SCH ×2 (09:27→11:29)
[2020-08-09] MEDS: Insulin Glargine 10 UNITS in Pre-Filled Syringe 1 EACH SC SCH ×2 (09:28→20:47)
--- NOTE | 2020-08-09 19:07 | PDOC.HOSPP ---
- Subjective Encounter Date: 08/09/20 Subjective: Doing okay overall. She is feeling better. She still has some epigastric pain but it is not as bad. Seems to be somewhat positional and related to movement at times. - Objective Vital Signs & Weight: Vital Signs (12 hours) Temp Pulse Resp BP Pulse Ox 08/09/20 15:32 98.1 F 106 H 18 121/73 98 08/09/20 14:45 116 H 139/77 08/09/20 12:47 101 H 161/92 H 08/09/20 11:23 98.7 F 116 H 17 185/105 H 100 08/09/20 07:23 97.8 F 118 H 15 182/97 H 98 Weight Weight 243 lb 4.8 oz Most Recent Monitor Data Heart Rate from ECG 117 NIBP 109/79 NIBP BP-Mean 89 Respiration from ECG 22 SpO2 99 I&O: 08/08/20 08/09/20 08/10/20 06:59 06:59 06:59 Intake Total 3408.3 2160 1000 Output Total 1950 2650 1200 Balance 1458.3 -490 -200 Result Diagrams: 08/09/20 04:16 08/09/20 04:16 Additional Labs: Accuchecks 08/09/20 08/09/20 08/09/20 17:16 10:30 05:49 POC Glucose 200 H 263 H 167 H 08/08/20 20:22 POC Glucose 189 H Hospitalist ROS - Medication Medications: Active Medications Generic Name Dose Route Start Last Admin Trade Name Freq PRN Reason Stop Dose Admin Acetaminophen 650 mg 08/07/20 22:07 08/08/20 01:57 Acetaminophen 325 Mg Tab PO 650 mg Q4H PRN Administration Headache/Fever or Pain Allopurinol 300 mg 08/07/20 09:00 08/09/20 07:32 Allopurinol 300 Mg Tab PO 300 mg DAILY VENUS Administration Alogliptin Benzoate 12.5 mg 08/07/20 09:00 08/09/20 07:32 Alogliptin 6.25 Mg Tab PO 12.5 mg DAILY VENUS Administration Aspirin 325 mg 08/07/20 09:00 08/09/20 07:33 Aspirin 325 Mg Tab PO 325 mg DAILY VENUS Administration Buspirone HCl 10 mg 08/07/20 09:00 08/09/20 07:33 Buspirone Hcl 10 Mg Tab PO 10 mg BID VENUS Administration Clonidine 0.2 mg 08/07/20 15:00 08/09/20 14:46 Clonidine 0.2 Mg Tab PO 0.2 mg TID VENUS Administration Enoxaparin Sodium 40 mg 08/07/20 09:00 08/09/20 07:33 Enoxaparin Sodium 40 Mg/0.4 Ml Syringe SC 40 mg 0900 VENUS Administration Gabapentin 600 mg 08/07/20 09:00 08/09/20 14:46 Gabapentin 300 Mg Cap PO 600 mg TID VENUS Administration Hydrochlorothiazide 25 mg 08/07/20 09:00 08/09/20 07:34 Hydrochlorothiazide 25 Mg Tab PO 25 mg QAM VENUS Administration Insulin Glargine 10 units/ 0.1 mls @ 0 mls/hr 08/07/20 21:00 08/08/20 21:49 Miscellaneous Medication SC 0.1 mls HS VENUS Administration Insulin Glargine 10 units/ 0.1 mls @ 0 mls/hr 08/08/20 09:00 08/09/20 09:28 Miscellaneous Medication SC 0.1 mls QAM VENUS Administration Insulin Human Lispro 0 units 08/07/20 16:08 08/09/20 17:24 Humalog 300 Units/3 Ml Vial SC 3 unit .AGGRESSIVE SLIDING PRN Administration Aggressive Correctional Scale Insulin Human Lispro 0 units 08/07/20 16:08 08/07/20 21:28 Humalog 300 Units/3 Ml Vial SC 2 unit .BEDTIME SLIDING SC PRN Administration Bedtime Correctional Scale Labetalol HCl 10 mg 08/07/20 01:53 08/07/20 13:48 Labetalol Hcl 100 Mg/20 Ml Vial SLOW IVP 2 ml Q4H PRN Administration SBP Greater Than 180 Lisinopril 10 mg 08/07/20 09:00 08/09/20 07:34 Lisinopril 10 Mg Tab PO 10 mg DAILY VENUS Administration Melatonin 3 mg 08/07/20 22:08 08/08/20 21:47 Melatonin 3 Mg Tab PO 3 mg HSPRN PRN Administration Insomnia Metoclopramide HCl 10 mg 08/07/20 14:00 08/09/20 14:46 Metoclopramide Hcl 10 Mg/2 Ml Vial IVP 10 mg Q8HR VENUS Administration Morphine Sulfate 4 mg 08/07/20 08:56 08/09/20 19:04 Morphine 4 Mg/Ml Vial SLOW IVP 4 mg Q2H PRN Administration Pain Nifedipine 60 mg 08/07/20 09:00 08/09/20 07:34 Nifedipine Xl 60 Mg Tab PO 60 mg DAILY VENUS Administration Pantoprazole Sodium 40 mg 08/07/20 09:00 08/09/20 07:35 Pantoprazole 40 Mg Tab PO 40 mg DAILY VENUS Administration Simvastatin 10 mg 08/07/20 21:00 08/08/20 21:49 Simvastatin 10 Mg Tab PO 10 mg HS VENUS Administration Tramadol HCl 50 mg 08/07/20 08:28 08/08/20 17:51 Tramadol Hcl 50 Mg Tab PO 50 mg Q8H PRN Administration moderate pain - Exam General Appearance: NAD, awake alert General - other findings: Morbidly obese Heart: RRR, no murmur, no gallops, no rubs, normal peripheral pulses Respiratory: CTAB, no wheezes, no rales, no ronchi, normal chest expansion, no tachypnea, normal percussion Gastrointestinal: soft, non-distended, normal bowel sounds, no palpable masses, no hepatomegaly, no splenomegaly, no bruit, tender to palpation (Epigastrium) Extremities: no cyanosis, no clubbing, no edema Skin: normal turgor, no lesions, no rashes Neurological: cranial nerve grossly intact, normal sensation to touch, no weakness, no focal deficits, no new deficit Musculoskeletal: normal tone, normal strength, no muscle wasting Psychiatric: normal affect, normal behavior, A&O x 3 Hosp A/P (1) Nausea & vomiting Code(s): R11.2 - NAUSEA WITH VOMITING, UNSPECIFIED Status: Acute Qualifiers: Vomiting type: unspecified Vomiting Intractability: intractable Qualified Code(s): R11.2 - Nausea with vomiting, unspecified (2) Diabetic gastroparesis Code(s): E11.43 - TYPE 2 DIABETES W DIABETIC AUTONOMIC (POLY)NEUROPATHY; K31.84 - GASTROPARESIS Status: Chronic (3) JUAN (acute kidney injury) Code(s): N17.9 - ACUTE KIDNEY FAILURE, UNSPECIFIED Status: Acute (4) DM type 2, uncontrolled, with renal complications Code(s): E11.29 - TYPE 2 DIABETES MELLITUS W OTH DIABETIC KIDNEY COMPLICATION; E11.65 - TYPE 2 DIABETES MELLITUS WITH HYPERGLYCEMIA Status: Acute (5) Diabetes type 2, controlled Code(s): E11.9 - TYPE 2 DIABETES MELLITUS WITHOUT COMPLICATIONS Status: Chronic Qualifiers: Diabetes mellitus predatory animal exterminator insulin use: without usp use Diabetes mellitus complication status: with unspecified complications Qualified Code(s): E11.8 - Type 2 diabetes mellitus with unspecified complications (6) HTN (hypertension) Code(s): I10 - ESSENTIAL (PRIMARY) HYPERTENSION Status: Chronic Qualifiers: Hypertension type: essential hypertension Qualified Code(s): I10 - Essential (primary) hypertension (7) DKA (diabetic ketoacidoses) Code(s): E11.10 - TYPE 2 DIABETES MELLITUS WITH KETOACIDOSIS WITHOUT COMA Status: Acute (8) Morbid obesity with BMI of 40.0-44.9, adult Code(s): E66.01 - MORBID (SEVERE) OBESITY DUE TO EXCESS CALORIES; Z68.41 - BODY MASS INDEX [BMI]40.0-44.9, ADULT Status: Acute (9) Abdominal pain Code(s): R10.9 - UNSPECIFIED ABDOMINAL PAIN Status: Acute - Plan Abdominal pain: Etiology is unclear. Patient says she has been told she has had gastroparesis but she has never had it formally diagnosed with any type of gastric emptying s tudy. She does not have evidence of pancreatitis on CT scan and her lipase is normal. This patient has had 10 CT scans of the chest and 10 CT scans of the abdomen and pelvis in the last 5 years. All related to similar symptoms. She has also been on tramadol multiple times daily consistently over a number of years. She has had repeated admissions for similar symptoms and similar presentations. She needs to have a gastric emptying study once she is settled down from this acute episode. Nausea vomiting: Actually significantly better. She has been able to eat well throughout the day today. Again this is presumably related to gastroparesis. Unfortunately the patient has been taking a lot of opioid pain medications. This is counterproductive with gastroparesis. Continue with scheduled Reglan. JUAN: Patient's GFR is all over the place. Appears that that is been the case for quite some time. Very difficult to ascertain what her baseline is. It dropped almost 50 points overnight. Repeat showed that it was back up a bit. We will continue to monitor. DKA: Appears to be resolved. She had very minimal signs of DKA. Beta hydroxybutyrate was minimally elevated and her anion gap was only 21. Gap is now normalized. Metabolic acidosis: Secondary to hyperchloremic acidosis following DKA treatment. Very common. We will discontinue the normal saline. She is capable of taking adequate amounts of p.o. Need to push free water as her sodium is creeping up. Diabetes mellitus type 2: Continue with long-acting and sliding scale insulins. Continue Accu-Cheks and diabetic diet. Morbid obesity: Certainly mitigates against the patient having true chronic abdominal pain or g astroparesis symptoms. Disposition: Had a very long conversation with the patient today regarding the fact that her treatment plan needs to be altered. She needs to have appropriate work-up in order to establish that she has gastroparesis. She needs to avoid coming back to the emergency room repeatedly and getting numerous CT scans due to the large volume of radiation exposure. She is doing well this evening but given the late hour will anticipate discharge in the morning.
[2020-08-09] MEDS: Simvastatin 10 MG TAB PO SCH (20:47)
[2020-08-09] MEDS: traMADol HCl 50 MG TAB PO PRN (23:37)
[2020-08-10 04:50] LABS: Anion Gap 15 mmol/L (10-20); BUN (Urea Nitrogen) 15 mg/dL (7.0-18.7); Calc. Creatinine Clearance 168 mL/min (70-130); Calcium 9.4 mg/dL (7.8-10.44); Carbon Dioxide 23 mmol/L (22-29); Chloride 100 mmol/L (98-107); Estimated GFR-MDRD Greater than 90; Glucose 174 mg/dL (70-105); Potassium 4.4 mmol/L (3.5-5.1); Sodium 134 mmol/L (136-145)
[2020-08-10] MEDS: Morphine 4 MG/ML VIAL SLOW IVP PRN ×3 (05:14→10:18)
[2020-08-10] MEDS: HumaLOG 300 UNITS/3 ML VIAL SC PRN (06:06)
[2020-08-10] MEDS: Metoclopramide HCl 10 MG/2 ML VIAL IVP SCH (07:23)
[2020-08-10] MEDS: Alogliptin 6.25 MG TAB PO SCH (07:44)
[2020-08-10] MEDS: Allopurinol 300 MG TAB PO SCH (07:44)
[2020-08-10] MEDS: Enoxaparin Sodium 40 MG/0.4 ML SYRINGE SC SCH (07:45)
[2020-08-10] MEDS: busPIRone HCl 10 MG TAB PO SCH (07:45)
[2020-08-10] MEDS: Aspirin 325 MG TAB PO SCH (07:45)
[2020-08-10] MEDS: cloNIDine 0.2 MG TAB PO SCH (07:45)
[2020-08-10] MEDS: Hydrochlorothiazide 25 MG TAB PO SCH (07:46)
[2020-08-10] MEDS: Gabapentin 300 MG CAP PO SCH (07:46)
[2020-08-10] MEDS: NIFEdipine XL 60 MG TAB PO SCH (07:47)
[2020-08-10] MEDS: Lisinopril 10 MG TAB PO SCH (07:47)
[2020-08-10] MEDS: traMADol HCl 50 MG TAB PO PRN (07:57)
[2020-08-10] MEDS ORDERED: NIFEdipine XL 90 MG TAB PO SCH (09:00)
[2020-08-10] MEDS ORDERED: NIFEdipine XL 30 MG TAB PO SCH (09:15)
[2020-08-10] MEDS: Insulin Glargine 10 UNITS in Pre-Filled Syringe 1 EACH SC SCH (10:05)
--- NOTE | 2020-08-10 11:11 | DIS ---
DATE OF ADMISSION: 08/07/2020 DATE OF DISCHARGE: 08/10/2020 PRIMARY CARE PROVIDER: [facility]. DISCHARGE DIAGNOSES: 1. Diabetic ketoacidosis. 2. Hypertensive urgency. 3. Hyponatremia. 4. Acute kidney injury. 5. Intractable nausea and vomiting. CONDITION OF PATIENT ON THE DAY OF DISCHARGE: Stable. I assessed Ms. Berumen on the day of discharge. She denies any chest pain or shortness of breath. Nausea is better. Vital signs are stable. S1 and S2 are heard, regular. Lungs are clear to auscultation bilaterally. DISCHARGE MEDICATIONS: She has been started on Procardia XL 90 mg daily. Otherwise, no change was made to her pre-admission home medications. CONSULTATIONS DURING THIS HOSPITALIZATION: Pulmonary and Critical Care Medicine, Dr. Kamlesh aMscorro. HOSPITAL COURSE: Ms. Berumen is a pleasant 39-year-old lady who was admitted to [facility] on August 07, 2020 for diabetic ketoacidosis and hypertensive urgency. She was treated with intravenous insulin and intravenous fluids. She improved clinically. She was also found to be in hypertensive urgency. She has been started on Procardia XL. She was advised to check her blood pressure and heart rate 3 times a day and show the readings to primary care provider. She also had intractable nausea and vomiting, which improved with Reglan. She has been advised to follow up with primary care provider for possible gastric emptying study as an outpatient and other workup as needed. Many thanks for allowing me to participate in your patient's care. Please feel free to contact me with any questions or concerns. ACTIVITY: As tolerated. DIET: Heart healthy and diabetic. DISCHARGE DISPOSITION: Home. POST ACUTE CARE FOLLOWUP: With primary care provider in 3 days. TIME SPENT: Total amount of time spent coordinating this discharge: 25 minutes. Job ID: [id number]
[2020-08-10 11:18] VITALS: BP 170/93; TEMP 97.7
== END 2020-08-10 11:25 | disposition home or self-care (01) | DRG 304 ==
LOC: IMCU/EMU 00:45 → CCU 04:30 → 2NO 16:30
PROVIDERS: ADMIT Internal Medicine; ATTEND Internal Medicine
DX: I16.0 Hypertensive urgency (principal); E11.10 Type 2 diabetes mellitus with ketoacidosis without coma; N17.9 Acute kidney failure, unspecified; Z68.41 Body mass index [BMI] 40.0-44.9, adult; E87.1 Hypo-osmolality and hyponatremia; E11.22 Type 2 diabetes mellitus with diabetic chronic kidney disease; N18.30 Chronic kidney disease, stage 3 unspecified; I25.10 Atherosclerotic heart disease of native coronary artery without angina pectoris; Z88.8 Allergy status to other drugs, medicaments and biological substances; E66.01 Morbid (severe) obesity due to excess calories; E11.43 Type 2 diabetes mellitus with diabetic autonomic (poly)neuropathy; I12.9 Hypertensive chronic kidney disease with stage 1 through stage 4 chronic kidney disease, or unspecified chronic kidney disease; K31.84 Gastroparesis; M10.9 Gout, unspecified; I25.2 Old myocardial infarction; Z90.49 Acquired absence of other specified parts of digestive tract
CPT/HCPCS: 36415; 36416; 71275; 80048; 81001; 83605; 83690; 84443; 84484; 85025; J1650; J1815; J2175; J2270; J2405; J2550; J2765; J3480; J3490; J7050; Q9967; S0028

== ENCOUNTER 2021-08-01 23:55 | Inpatient (IN) | payer MEDICARE, MEDICAID ==
[2021-08-02 00:18] LABS: Hemoglobin 14.3 g/dL (12.0-16.0); Mean Corpuscular HGB CONC 35.1 g/dL (32.0-36.0); Mean Corpuscular Hemoglobin 31.7 pg (27.0-31.0); Mean Corpuscular Volume 90.4 fL (78.0-98.0); Mean Platelet Volume 9.2 fL (7.4-10.4); Platelet Count 258 thou/uL (130-400); RBC Distribution Width 12.5 % (11.5-14.5); Red Blood Cell (RBC) Count 4.51 mill/uL (4.20-5.40); White Blood Cell (WBC) Count 6.9 thou/uL (4.8-10.8)
[2021-08-02 00:33] LABS: Band 2 % (5-11); Lymphocytes 35 % (21-51); MDiff Complete? YES; Monocytes 3 % (0-10); Neutrophil 59 % (42-75); Platelet Morphology Comment Appears Adequate; RBC Morphology Normal; Reactive Lymphocytes 1 % (0-10)
[2021-08-02 00:42] LABS: ALT (SGPT) 80 U/L (8-55); AST (SGOT) 81 U/L (5-34); Alkaline Phosphatase 104 U/L (40-110); Anion Gap 19 mmol/L (10-20); BUN (Urea Nitrogen) 31 mg/dL (7.0-18.7); Bilirubin, Total Less than 0.2 mg/dL (0.2-1.2); Calc. Creatinine Clearance 0 mL/min (70-130); Carbon Dioxide 24 mmol/L (22-29); Chloride 101 mmol/L (98-107); Globulin 3.3 g/dL (2.4-3.5); Glucose 169 mg/dL (70-105); Protein, Total 7.3 g/dL (6.0-8.3); Sodium 141 mmol/L (136-145)
[2021-08-02] MEDS ORDERED: Morphine 4 MG/ML VIAL ONE ×2 (00:57→02:13)
[2021-08-02] MEDS ORDERED: hydrALAZINE 20 MG/ML VIAL ONE (01:11)
[2021-08-02 01:12] LABS: CKMB 7.7 ng/mL (0-6.6)
[2021-08-02] MEDS ORDERED: Aspirin 325 MG TAB ONE (01:19)
[2021-08-02] MEDS ORDERED: Labetalol HCl 100 MG/20 ML VIAL ONE (02:14)
[2021-08-02] MEDS ORDERED: Dextrose 5% in Water 1,000 ML IV PRN (02:44)
[2021-08-02] MEDS ORDERED: Dextrose 50% Abboject 50 ML SYRINGE SLOW IVP PRN (02:44)
[2021-08-02] MEDS ORDERED: Acetaminophen 325 MG TAB PO PRN (02:44)
[2021-08-02] MEDS ORDERED: hydrALAZINE 20 MG/ML VIAL SLOW IVP PRN (02:46)
[2021-08-02] MEDS ORDERED: Potassium Chloride 20 MEQ TAB PO SCH ×2 (03:00→10:45)
[2021-08-02] MEDS ORDERED: Magnesium Oxide 400 MG TAB PO SCH (03:45)
[2021-08-02] MEDS: HYDROcodone/Acetaminophen 7.5/325 mg Tablet PO PRN ×4 (04:02→23:18)
[2021-08-02 04:08] VITALS: BMI 42.5
[2021-08-02] MEDS: Sodium Chloride 0.9% 1,000 ML IV SCH ×3 (04:47→23:05)
[2021-08-02 05:02] LABS: #Basophils 0.1 thou/uL (0.0-0.2); #Eosinphils 0.1 thou/uL (0.0-0.7); #Monocytes 0.7 thou/uL (0.11-0.59); #Neutrophils 3.7 thou/uL (1.40-6.50); %Basophils 1.1 % (0.0-1.0); %Eosinophils 1.2 % (0.0-10.0); %Lymphocytes 46.2 % (21.0-51.0); %Monocytes 8.5 % (0.0-10.0); %Neutrophils 43.1 % (42.0-75.0); Hemoglobin 14.5 g/dL (12.0-16.0); Mean Corpuscular HGB CONC 33.7 g/dL (32.0-36.0); Mean Corpuscular Hemoglobin 30.5 pg (27.0-31.0); Mean Corpuscular Volume 90.6 fL (78.0-98.0); Mean Platelet Volume 9.3 fL (7.4-10.4); Platelet Count 246 thou/uL (130-400); RBC Distribution Width 12.5 % (11.5-14.5); Red Blood Cell (RBC) Count 4.74 mill/uL (4.20-5.40); White Blood Cell (WBC) Count 8.6 thou/uL (4.8-10.8)
[2021-08-02 05:44] LABS: Troponin I 0.449 ng/mL (< 0.028)
[2021-08-02] MEDS: Morphine 4 MG/ML VIAL SLOW IVP PRN ×5 (05:44→20:31)
[2021-08-02] MEDS: Ondansetron PF 4 MG/2 ML Vial IVP PRN (05:44)
[2021-08-02 05:45] LABS: ALT (SGPT) 81 U/L (8-55); AST (SGOT) 78 U/L (5-34); Albumin 4.2 g/dL (3.5-5.0); Alkaline Phosphatase 105 U/L (40-110); Anion Gap 18 mmol/L (10-20); BUN (Urea Nitrogen) 32 mg/dL (7.0-18.7); Bilirubin, Total 0.2 mg/dL (0.2-1.2); CK (CPK) 1569 U/L (29-168); Calc. Creatinine Clearance 75 mL/min (70-130); Calcium 9.9 mg/dL (7.8-10.44); Carbon Dioxide 23 mmol/L (22-29); Chloride 101 mmol/L (98-107); Globulin 3.5 g/dL (2.4-3.5); Glucose 158 mg/dL (70-105); Magnesium 1.9 mg/dL (1.6-2.6); Protein, Total 7.7 g/dL (6.0-8.3); Sodium 139 mmol/L (136-145)
[2021-08-02] MEDS: Heparin 10,000 UNITS/ 10 ML VIAL SLOW IVP SCH ×2 (06:02→17:17)
[2021-08-02] MEDS: Heparin 25,000 units/D5W 500 ML IVPB SCH (06:04)
[2021-08-02] MEDS: cloNIDine 0.2 MG TAB PO SCH ×3 (08:27→20:37)
[2021-08-02] MEDS: Sucralfate 1 GM TAB PO SCH ×4 (08:27→20:38)
[2021-08-02] MEDS ORDERED: Gabapentin 100 MG CAP PO SCH (09:00)
[2021-08-02] MEDS ORDERED: Morphine 4 MG/ML VIAL SLOW IVP SCH (09:30)
[2021-08-02 10:13] LABS: Critical Call Chem Troponin I RESULT DECREASING; Troponin I 0.436 ng/mL (< 0.028)
[2021-08-02 10:27] LABS: PTT 147.6 sec (22.9-36.1)
[2021-08-02] MEDS ORDERED: Gabapentin 300 MG CAP PO SCH (10:45)
[2021-08-02 12:01] LABS: SARS-CoV-2 PCR by NAA Not Detected (NotDetected)
[2021-08-02 14:05] LABS: Amphetamine Not Detected (NotDetected); Barbiturates Screen Not Detected (NotDetected); Benzodiazepine Screen Not Detected (NotDetected); Cocaine Metabolite Screen Not Detected (NotDetected); Methadone Not Detected (NotDetected); Methamphetamine Not Detected (NotDetected); Opiate Screen Detected (NotDetected); Oxycodone Screen Not Detected (NotDetected); Phencyclidine (PCP) Not Detected (NotDetected); THC/Cannabinoid Screen Not Detected (NotDetected); Tricyclic Screen Not Detected (NotDetected)
[2021-08-02 14:08] LABS: Bilirubin Negative (Negative); Blood, Urine 1+ (Negative); Clarity Clear (Clear); Glucose, Urine (Dipstick) 150 mg/dL (Negative); Ketone, Urine Negative (Negative); Leukocyte 25 Leu/uL (Negative); Nitrite Negative (Negative); Protein, Urine (Dipstick) 30 mg/dL (Neg-Trace); RBC/HPF 0-3 HPF (0-3); Specific Gravity, Urine 1.015 (1.002-1.036); Squamous Epithelial 0-3 HPF (0-3); Urobilinogen Normal mg/dL (Less than 2)
[2021-08-02 14:10] LABS: Bacteria/HPF 1+ HPF (None Seen)
[2021-08-02 17:10] LABS: Troponin I 0.465 ng/mL (< 0.028)
[2021-08-02 19:48] LABS: Troponin I 0.479 ng/mL (< 0.028)
[2021-08-02] MEDS: Gabapentin 300 MG CAP PO SCH (20:38)
[2021-08-02] MEDS: Zolpidem Tartrate 5 MG TAB PO PRN (20:38)
[2021-08-02 22:13] LABS: PTT Greater than 250.0 sec (22.9-36.1)
[2021-08-02] MEDS ORDERED: Labetalol HCl 100 MG/20 ML VIAL SLOW IVP SCH (23:30)
[2021-08-03] MEDS: Heparin 25,000 units/D5W 500 ML IVPB SCH (02:10)
[2021-08-03] MEDS: Morphine 4 MG/ML VIAL SLOW IVP PRN ×5 (02:10→20:45)
[2021-08-03] MEDS: HYDROcodone/Acetaminophen 7.5/325 mg Tablet PO PRN ×2 (04:33→23:55)
[2021-08-03 05:28] LABS: Calcium 9.5 mg/dL (7.8-10.44); Chloride 103 mmol/L (98-107); Potassium 3.1 mmol/L (3.5-5.1); Sodium 137 mmol/L (136-145)
[2021-08-03 05:39] LABS: ALT (SGPT) 65 U/L (8-55); AST (SGOT) 67 U/L (5-34); Albumin 3.9 g/dL (3.5-5.0); Alkaline Phosphatase 99 U/L (40-110); Anion Gap 19 mmol/L (10-20); BUN (Urea Nitrogen) 13 mg/dL (7.0-18.7); Bilirubin, Total 0.3 mg/dL (0.2-1.2); CK (CPK) 1209 U/L (29-168); Calc. Creatinine Clearance 127 mL/min (70-130); Carbon Dioxide 18 mmol/L (22-29); Globulin 3.2 g/dL (2.4-3.5); Glucose 201 mg/dL (70-105); Magnesium 1.5 mg/dL (1.6-2.6); Protein, Total 7.1 g/dL (6.0-8.3)
[2021-08-03 06:11] LABS: #Basophils 0.1 thou/uL (0.0-0.2); #Eosinphils 0.1 thou/uL (0.0-0.7); #Lymphocytes 4.1 thou/uL (1.20-3.40); #Monocytes 0.6 thou/uL (0.11-0.59); #Neutrophils 4.9 thou/uL (1.40-6.50); %Basophils 0.6 % (0.0-1.0); %Eosinophils 1.2 % (0.0-10.0); %Neutrophils 50.2 % (42.0-75.0); Hemoglobin 13.6 g/dL (12.0-16.0); Mean Corpuscular HGB CONC 33.5 g/dL (32.0-36.0); Mean Corpuscular Hemoglobin 30.4 pg (27.0-31.0); Mean Corpuscular Volume 90.9 fL (78.0-98.0); Mean Platelet Volume 10.1 fL (7.4-10.4); Platelet Count 285 thou/uL (130-400); RBC Distribution Width 12.6 % (11.5-14.5); Red Blood Cell (RBC) Count 4.46 mill/uL (4.20-5.40); White Blood Cell (WBC) Count 9.7 thou/uL (4.8-10.8)
[2021-08-03] MEDS: Gabapentin 300 MG CAP PO SCH ×2 (08:10→20:36)
[2021-08-03] MEDS: cloNIDine 0.2 MG TAB PO SCH ×3 (08:10→20:35)
[2021-08-03] MEDS: Sucralfate 1 GM TAB PO SCH ×4 (08:11→20:36)
[2021-08-03] MEDS ORDERED: VORTIOXETINE HYDROBROMIDE PO SCH (09:00)
[2021-08-03] MEDS ORDERED: sitaGLIPtin Phosphate 25 MG TAB PO SCH (09:00)
[2021-08-03] MEDS: Sodium Chloride 0.9% 1,000 ML IV SCH (09:56)
[2021-08-03] MEDS ORDERED: Labetalol HCl 100 MG/20 ML VIAL SLOW IVP PRN (10:04)
[2021-08-03] MEDS: Alogliptin 6.25 MG TAB PO SCH (10:10)
[2021-08-03] MEDS: Apixaban 5 MG TAB PO SCH ×2 (10:11→20:35)
[2021-08-03] MEDS: busPIRone HCl 5 MG TAB PO SCH ×2 (10:11→20:37)
[2021-08-03] MEDS: hydrALAZINE 25 MG TAB PO SCH ×3 (10:11→21:02)
[2021-08-03] MEDS: Lisinopril 20 MG TAB PO SCH (10:12)
[2021-08-03] MEDS ORDERED: Magnesium Sulfate 3 GM in Sodium Chloride 0.9% 100 ML IVPB SCH (12:45)
[2021-08-03] MEDS ORDERED: Potassium Chloride 20 MEQ TAB PO SCH (12:45)
[2021-08-03] MEDS: Ketorolac Tromethamine 30 MG/ML VIAL IVP PRN (15:17)
[2021-08-03] MEDS: HumaLOG 300 UNITS/3 ML VIAL SC PRN ×2 (16:46→21:00)
[2021-08-03] MEDS ORDERED: NIFEdipine XL 60 MG TAB PO SCH (17:15)
[2021-08-03] MEDS: Ondansetron PF 4 MG/2 ML Vial IVP PRN (18:39)
[2021-08-03] MEDS: Zolpidem Tartrate 5 MG TAB PO PRN (20:46)
[2021-08-03] MEDS ORDERED: Non-Formulary Item 1 EACH (Gabapentin [Gabapentin] 600 MG Tablet) PO SCH (21:00)
[2021-08-04] MEDS: HYDROcodone/Acetaminophen 7.5/325 mg Tablet PO PRN (04:04)
[2021-08-04] MEDS: HumaLOG 300 UNITS/3 ML VIAL SC PRN ×3 (06:00→17:33)
[2021-08-04] MEDS: Morphine 4 MG/ML VIAL SLOW IVP PRN ×4 (06:18→20:32)
[2021-08-04] MEDS: Gabapentin 300 MG CAP PO SCH ×3 (07:48→20:29)
[2021-08-04] MEDS: NIFEdipine XL 60 MG TAB PO SCH (07:49)
[2021-08-04] MEDS: Apixaban 5 MG TAB PO SCH ×2 (07:49→20:32)
[2021-08-04] MEDS: Alogliptin 6.25 MG TAB PO SCH (07:49)
[2021-08-04] MEDS: hydrALAZINE 25 MG TAB PO SCH ×3 (07:49→20:31)
[2021-08-04] MEDS: Sucralfate 1 GM TAB PO SCH ×4 (07:49→20:32)
[2021-08-04] MEDS: cloNIDine 0.2 MG TAB PO SCH ×3 (07:50→20:32)
[2021-08-04] MEDS: Lisinopril 20 MG TAB PO SCH (07:50)
[2021-08-04] MEDS: busPIRone HCl 5 MG TAB PO SCH ×2 (07:50→20:30)
[2021-08-04] MEDS ORDERED: VORTIOXETINE HYDROBROMIDE PO SCH (09:00)
[2021-08-04] MEDS: Furosemide 40 MG/4 ML VIAL SLOW IVP SCH (10:26)
[2021-08-04] MEDS: Ketorolac Tromethamine 30 MG/ML VIAL IVP PRN ×2 (10:27→18:45)
[2021-08-04] MEDS ORDERED: Furosemide 40 MG/4 ML VIAL SLOW IVP SCH (13:30)
[2021-08-04] MEDS ORDERED: Potassium Chloride 20 MEQ TAB PO SCH (15:30)
[2021-08-04] MEDS: Carvedilol 6.25 MG TAB PO SCH (15:51)
[2021-08-04 16:24] LABS: #Basophils 0.1 thou/uL (0.0-0.2); #Eosinphils 0.1 thou/uL (0.0-0.7); #Monocytes 0.6 thou/uL (0.11-0.59); #Neutrophils 5.7 thou/uL (1.40-6.50); %Basophils 0.9 % (0.0-1.0); %Eosinophils 0.7 % (0.0-10.0); %Lymphocytes 31.8 % (21.0-51.0); %Monocytes 6.3 % (0.0-10.0); %Neutrophils 60.2 % (42.0-75.0); Hemoglobin 13.9 g/dL (12.0-16.0); Mean Corpuscular HGB CONC 34.6 g/dL (32.0-36.0); Mean Corpuscular Hemoglobin 31.9 pg (27.0-31.0); Mean Corpuscular Volume 92.2 fL (78.0-98.0); Mean Platelet Volume 8.7 fL (7.4-10.4); Platelet Count 307 thou/uL (130-400); Red Blood Cell (RBC) Count 4.34 mill/uL (4.20-5.40); White Blood Cell (WBC) Count 9.5 thou/uL (4.8-10.8)
[2021-08-04 16:46] LABS: Magnesium 1.5 mg/dL (1.6-2.6)
[2021-08-04] MEDS: Potassium Chloride 20 MEQ TAB PO SCH (16:46)
[2021-08-04 22:48] LABS: Chlam.trachomatis by PCR,Urine Not Detected (NotDetected)
[2021-08-04] MEDS: Zolpidem Tartrate 5 MG TAB PO PRN (23:14)
[2021-08-05] MEDS: HYDROcodone/Acetaminophen 7.5/325 mg Tablet PO PRN ×3 (02:11→14:36)
[2021-08-05] MEDS: Ketorolac Tromethamine 30 MG/ML VIAL IVP PRN (05:41)
[2021-08-05] MEDS: HumaLOG 300 UNITS/3 ML VIAL SC PRN ×3 (05:43→17:34)
[2021-08-05] MEDS ORDERED: Potassium Chloride 20 MEQ TAB PO SCH (08:00)
[2021-08-05] MEDS ORDERED: FLU VACC QS2021-22(6MOS UP)/PF 60 MCG/0.5 ML SYRINGE IM ONE (09:00)
[2021-08-05] MEDS: Apixaban 5 MG TAB PO SCH ×2 (09:16→20:38)
[2021-08-05] MEDS: Alogliptin 6.25 MG TAB PO SCH (09:17)
[2021-08-05] MEDS: NIFEdipine XL 60 MG TAB PO SCH (09:17)
[2021-08-05] MEDS: Gabapentin 300 MG CAP PO SCH ×3 (09:17→20:36)
[2021-08-05] MEDS: cloNIDine 0.2 MG TAB PO SCH ×3 (09:17→20:36)
[2021-08-05] MEDS: Potassium Chloride 20 MEQ TAB PO SCH ×2 (09:18→17:04)
[2021-08-05] MEDS: Carvedilol 6.25 MG TAB PO SCH ×2 (09:18→17:03)
[2021-08-05] MEDS: Sucralfate 1 GM TAB PO SCH ×4 (09:19→20:37)
[2021-08-05] MEDS: busPIRone HCl 5 MG TAB PO SCH ×2 (09:19→20:37)
[2021-08-05] MEDS: hydrALAZINE 25 MG TAB PO SCH ×3 (09:20→20:37)
[2021-08-05] MEDS: Lisinopril 20 MG TAB PO SCH ×2 (09:20→20:38)
[2021-08-05] MEDS: Furosemide 40 MG/4 ML VIAL SLOW IVP SCH (09:21)
[2021-08-05 11:48] LABS: #Basophils 0.1 thou/uL (0.0-0.2); #Eosinphils 0.1 thou/uL (0.0-0.7); #Lymphocytes 2.7 thou/uL (1.20-3.40); #Monocytes 0.5 thou/uL (0.11-0.59); #Neutrophils 4.6 thou/uL (1.40-6.50); %Eosinophils 1.4 % (0.0-10.0); %Monocytes 5.8 % (0.0-10.0); %Neutrophils 57.9 % (42.0-75.0); Mean Corpuscular HGB CONC 33.8 g/dL (32.0-36.0); Mean Corpuscular Hemoglobin 31.3 pg (27.0-31.0); Mean Corpuscular Volume 92.7 fL (78.0-98.0); Platelet Count 328 thou/uL (130-400); RBC Distribution Width 12.9 % (11.5-14.5); Red Blood Cell (RBC) Count 4.46 mill/uL (4.20-5.40)
[2021-08-05 12:10] LABS: ALT (SGPT) 52 U/L (8-55); AST (SGOT) 47 U/L (5-34); Albumin 4.2 g/dL (3.5-5.0); Alkaline Phosphatase 95 U/L (40-110); Anion Gap 17 mmol/L (10-20); BUN (Urea Nitrogen) 16 mg/dL (7.0-18.7); Bilirubin, Total 0.4 mg/dL (0.2-1.2); CK (CPK) 367 U/L (29-168); CRP (Inflammatory) Less than 0.50 mg/dL (= or < 0.5); Calc. Creatinine Clearance 124 mL/min (70-130); Carbon Dioxide 24 mmol/L (22-29); Chloride 99 mmol/L (98-107); Globulin 3.4 g/dL (2.4-3.5); Glucose 237 mg/dL (70-105); Potassium 3.6 mmol/L (3.5-5.1); Protein, Total 7.6 g/dL (6.0-8.3); Sodium 136 mmol/L (136-145)
[2021-08-05] MEDS: Morphine 4 MG/ML VIAL SLOW IVP PRN (12:28)
[2021-08-05] MEDS ORDERED: oxyCODONE 5 MG TAB PO SCH (15:15)
[2021-08-05] MEDS ORDERED: predniSONE 20 MG TAB PO SCH (18:30)
[2021-08-05] MEDS: oxyCODONE/Acetaminophen 5 mg/325 mg Tablet PO PRN (20:38)
[2021-08-05] MEDS: Lantus 1000 UNITS/10 ML VIAL SC SCH (20:39)
[2021-08-05] MEDS: Zolpidem Tartrate 5 MG TAB PO PRN (23:40)
[2021-08-06] MEDS: oxyCODONE/Acetaminophen 5 mg/325 mg Tablet PO PRN ×5 (02:36→21:52)
[2021-08-06 04:10] LABS: Platelet Count 310 thou/uL (130-400)
[2021-08-06] MEDS: HYDROcodone/Acetaminophen 7.5/325 mg Tablet PO PRN ×2 (05:05→20:15)
[2021-08-06] MEDS: HumaLOG 300 UNITS/3 ML VIAL SC PRN ×4 (06:27→21:13)
[2021-08-06] MEDS: Alogliptin 6.25 MG TAB PO SCH (09:02)
[2021-08-06] MEDS: busPIRone HCl 5 MG TAB PO SCH ×2 (09:03→20:15)
[2021-08-06] MEDS: Lisinopril 20 MG TAB PO SCH ×2 (09:03→20:16)
[2021-08-06] MEDS: hydrALAZINE 25 MG TAB PO SCH ×3 (09:03→20:16)
[2021-08-06] MEDS: Carvedilol 6.25 MG TAB PO SCH ×2 (09:04→16:07)
[2021-08-06] MEDS: cloNIDine 0.2 MG TAB PO SCH ×3 (09:04→20:14)
[2021-08-06] MEDS: Apixaban 5 MG TAB PO SCH ×2 (09:04→20:17)
[2021-08-06] MEDS: Potassium Chloride 20 MEQ TAB PO SCH ×2 (09:04→16:06)
[2021-08-06] MEDS: Sucralfate 1 GM TAB PO SCH ×4 (09:04→20:17)
[2021-08-06] MEDS: Gabapentin 300 MG CAP PO SCH ×3 (09:04→20:16)
[2021-08-06] MEDS: Furosemide 40 MG/4 ML VIAL SLOW IVP SCH (09:05)
[2021-08-06] MEDS ORDERED: Pregabalin 50 MG CAP PO SCH (12:45)
[2021-08-06] MEDS ORDERED: Allopurinol 300 MG TAB PO SCH (12:45)
[2021-08-06] MEDS ORDERED: predniSONE 20 MG TAB PO SCH (12:45)
[2021-08-06] MEDS: Lantus 1000 UNITS/10 ML VIAL SC SCH (21:12)
[2021-08-07] MEDS: HYDROcodone/Acetaminophen 7.5/325 mg Tablet PO PRN ×3 (05:32→20:40)
[2021-08-07] MEDS: Lisinopril 20 MG TAB PO SCH ×2 (08:26→20:39)
[2021-08-07] MEDS: Alogliptin 6.25 MG TAB PO SCH (08:26)
[2021-08-07] MEDS: hydrALAZINE 25 MG TAB PO SCH ×3 (08:27→20:38)
[2021-08-07] MEDS: Apixaban 5 MG TAB PO SCH ×2 (08:28→20:38)
[2021-08-07] MEDS: Allopurinol 300 MG TAB PO SCH (08:29)
[2021-08-07] MEDS: Carvedilol 6.25 MG TAB PO SCH ×2 (08:29→17:22)
[2021-08-07] MEDS: busPIRone HCl 5 MG TAB PO SCH ×2 (08:29→20:36)
[2021-08-07] MEDS: Sucralfate 1 GM TAB PO SCH ×4 (08:30→20:39)
[2021-08-07] MEDS: cloNIDine 0.2 MG TAB PO SCH ×3 (08:30→20:38)
[2021-08-07] MEDS: Potassium Chloride 20 MEQ TAB PO SCH ×2 (08:30→17:22)
[2021-08-07] MEDS: Gabapentin 300 MG CAP PO SCH ×3 (08:30→20:39)
[2021-08-07] MEDS: Furosemide 40 MG/4 ML VIAL SLOW IVP SCH (08:32)
[2021-08-07] MEDS: oxyCODONE/Acetaminophen 5 mg/325 mg Tablet PO PRN ×3 (09:11→22:26)
[2021-08-07] MEDS: HumaLOG 300 UNITS/3 ML VIAL SC PRN ×3 (12:54→20:58)
[2021-08-07] MEDS: cefTRIAXone\\ROCEPHIN 1 GM in Sodium Chloride 0.9% 100 ML IVPB SCH (20:37)
[2021-08-07] MEDS: Zolpidem Tartrate 5 MG TAB PO PRN (20:40)
[2021-08-07] MEDS: Lantus 1000 UNITS/10 ML VIAL SC SCH (20:57)
[2021-08-08] MEDS: oxyCODONE/Acetaminophen 5 mg/325 mg Tablet PO PRN ×3 (05:50→21:14)
[2021-08-08] MEDS: HYDROcodone/Acetaminophen 7.5/325 mg Tablet PO PRN ×2 (08:52→18:57)
[2021-08-08] MEDS: Potassium Chloride 20 MEQ TAB PO SCH ×2 (08:54→17:35)
[2021-08-08] MEDS: busPIRone HCl 5 MG TAB PO SCH ×2 (08:54→21:15)
[2021-08-08] MEDS: Alogliptin 6.25 MG TAB PO SCH (08:55)
[2021-08-08] MEDS: hydrALAZINE 25 MG TAB PO SCH ×3 (08:55→20:47)
[2021-08-08] MEDS: Apixaban 5 MG TAB PO SCH ×2 (08:55→20:48)
[2021-08-08] MEDS: Gabapentin 300 MG CAP PO SCH ×3 (08:56→20:48)
[2021-08-08] MEDS: Carvedilol 6.25 MG TAB PO SCH ×2 (08:56→17:34)
[2021-08-08] MEDS: cloNIDine 0.2 MG TAB PO SCH ×3 (08:56→20:58)
[2021-08-08] MEDS: Allopurinol 300 MG TAB PO SCH (08:56)
[2021-08-08] MEDS: Furosemide 40 MG/4 ML VIAL SLOW IVP SCH (08:57)
[2021-08-08] MEDS: Sucralfate 1 GM TAB PO SCH ×4 (08:57→20:48)
[2021-08-08] MEDS: Lisinopril 20 MG TAB PO SCH ×2 (08:57→21:20)
[2021-08-08] MEDS: Ondansetron PF 4 MG/2 ML Vial IVP PRN (09:26)
[2021-08-08] MEDS ORDERED: predniSONE 20 MG TAB PO SCH (09:45)
[2021-08-08 10:03] LABS: #Basophils 0.1 thou/uL (0.0-0.2); #Eosinphils 0.1 thou/uL (0.0-0.7); #Lymphocytes 3.5 thou/uL (1.20-3.40); #Monocytes 0.4 thou/uL (0.11-0.59); #Neutrophils 4.8 thou/uL (1.40-6.50); %Basophils 0.9 % (0.0-1.0); %Eosinophils 0.9 % (0.0-10.0); %Lymphocytes 39.1 % (21.0-51.0); %Monocytes 4.9 % (0.0-10.0); %Neutrophils 54.1 % (42.0-75.0); Hemoglobin 12.5 g/dL (12.0-16.0); Mean Corpuscular HGB CONC 33.2 g/dL (32.0-36.0); Mean Corpuscular Hemoglobin 31.5 pg (27.0-31.0); Mean Corpuscular Volume 94.9 fL (78.0-98.0); Mean Platelet Volume 8.3 fL (7.4-10.4); Platelet Count 364 thou/uL (130-400); RBC Distribution Width 12.8 % (11.5-14.5); Red Blood Cell (RBC) Count 3.96 mill/uL (4.20-5.40); White Blood Cell (WBC) Count 8.9 thou/uL (4.8-10.8)
[2021-08-08 10:23] LABS: ALT (SGPT) 37 U/L (8-55); AST (SGOT) 22 U/L (5-34); Albumin 3.8 g/dL (3.5-5.0); Alkaline Phosphatase 72 U/L (40-110); Anion Gap 14 mmol/L (10-20); BUN (Urea Nitrogen) 21 mg/dL (7.0-18.7); Bilirubin, Total 0.3 mg/dL (0.2-1.2); Calc. Creatinine Clearance 127 mL/min (70-130); Calcium 9.5 mg/dL (7.8-10.44); Carbon Dioxide 26 mmol/L (22-29); Chloride 102 mmol/L (98-107); Glucose 210 mg/dL (70-105); Magnesium 1.6 mg/dL (1.6-2.6); Protein, Total 6.8 g/dL (6.0-8.3); Sodium 138 mmol/L (136-145)
[2021-08-08] MEDS: HumaLOG 300 UNITS/3 ML VIAL SC PRN ×2 (12:14→17:36)
[2021-08-08] MEDS: cefTRIAXone\\ROCEPHIN 1 GM in Sodium Chloride 0.9% 100 ML IVPB SCH (20:49)
[2021-08-08] MEDS: Zolpidem Tartrate 5 MG TAB PO PRN (20:49)
[2021-08-08] MEDS: Lantus 1000 UNITS/10 ML VIAL SC SCH (21:18)
[2021-08-09] MEDS: HYDROcodone/Acetaminophen 7.5/325 mg Tablet PO PRN ×3 (01:16→15:03)
[2021-08-09] MEDS: oxyCODONE/Acetaminophen 5 mg/325 mg Tablet PO PRN ×3 (04:12→17:33)
[2021-08-09] MEDS: Alogliptin 6.25 MG TAB PO SCH (09:03)
[2021-08-09] MEDS: cloNIDine 0.2 MG TAB PO SCH ×2 (09:04→15:04)
[2021-08-09] MEDS: busPIRone HCl 5 MG TAB PO SCH (09:04)
[2021-08-09] MEDS: Gabapentin 300 MG CAP PO SCH ×2 (09:04→15:03)
[2021-08-09] MEDS: Allopurinol 300 MG TAB PO SCH (09:05)
[2021-08-09] MEDS: Apixaban 5 MG TAB PO SCH (09:05)
[2021-08-09] MEDS: Carvedilol 6.25 MG TAB PO SCH ×2 (09:05→17:32)
[2021-08-09] MEDS: Potassium Chloride 20 MEQ TAB PO SCH ×2 (09:05→17:32)
[2021-08-09] MEDS: Lisinopril 20 MG TAB PO SCH (09:05)
[2021-08-09] MEDS: hydrALAZINE 25 MG TAB PO SCH ×2 (09:06→15:03)
[2021-08-09] MEDS: Sucralfate 1 GM TAB PO SCH ×3 (09:06→17:32)
[2021-08-09] MEDS: HumaLOG 300 UNITS/3 ML VIAL SC PRN ×2 (11:31→17:32)
[2021-08-09 15:22] VITALS: TEMP 98.8
[2021-08-09] MEDS ORDERED: predniSONE 20 MG TAB PO SCH (15:45)
[2021-08-09 17:33] VITALS: BP 129/61
[2021-08-11 15:16] LABS: ANA Symphony (Qualitative) Negative (Negative); ANA Symphony (Quantitative) 0.2 Ratio (< 0.7 Negative); dsDNA IgG Antibody 0.6 IU/mL (<10 Negative)
== END 2021-08-09 19:56 | disposition home or self-care (01) | DRG 602 ==
LOC: ERS 23:55 → 2NO 08-02 02:25
PROVIDERS: ADMIT Internal Medicine; ATTEND Internal Medicine
DX: L03.116 Cellulitis of left lower limb (principal); I21.A1 Myocardial infarction type 2; I82.441 Acute embolism and thrombosis of right tibial vein; M62.82 Rhabdomyolysis; N17.9 Acute kidney failure, unspecified; I50.22 Chronic systolic (congestive) heart failure; M10.9 Gout, unspecified; Z20.822 Contact with and (suspected) exposure to COVID-19; I16.0 Hypertensive urgency; E78.5 Hyperlipidemia, unspecified; F41.9 Anxiety disorder, unspecified; E11.40 Type 2 diabetes mellitus with diabetic neuropathy, unspecified; E87.6 Hypokalemia; I11.0 Hypertensive heart disease with heart failure; E66.01 Morbid (severe) obesity due to excess calories; G89.29 Other chronic pain; E11.43 Type 2 diabetes mellitus with diabetic autonomic (poly)neuropathy; K31.84 Gastroparesis; Z88.6 Allergy status to analgesic agent; Z90.49 Acquired absence of other specified parts of digestive tract; Z88.8 Allergy status to other drugs, medicaments and biological substances; Z79.82 Long term (current) use of aspirin; Z79.899 Other long term (current) drug therapy
CPT/HCPCS: 36415; 36416; 71045; 72148; 80053; 80306; 81001; 82550; 82553; 83735; 83880; 84443; 84484; 84550; 85014; 85018; 85025; 85049; 85652; 85730; 86038; 86140; 86225; 87491; 87591; 93005; 93923; 93970; 96374; 96375; 96376; J0360; J0696; J1644; J1815; J1885; J1940; J2270; J2405; J3475; J3490; J7050; J7512; U0003; U0005

== ENCOUNTER 2021-09-05 12:17 | Emergency (ER) | payer MEDICAID, MEDICARE ==
[2021-09-05] MEDS ORDERED: Cyclobenzaprine 10 MG TAB ONE (13:09)
[2021-09-05] MEDS ORDERED: HYDROcodone/Acetaminophen 10/325 mg Tablet ONE (13:09)
== END 2021-09-05 15:01 | disposition home or self-care (01) ==
LOC: ERS 12:17
DX: M54.16 Radiculopathy, lumbar region (principal); I10 Essential (primary) hypertension; E78.5 Hyperlipidemia, unspecified; E11.40 Type 2 diabetes mellitus with diabetic neuropathy, unspecified

== ENCOUNTER 2021-10-13 01:35 | Emergency (ER) | payer MEDICARE, OTHER, MEDICAID ==
[2021-10-13] MEDS ORDERED: cloNIDine 0.1 MG TAB ONE (04:44)
[2021-10-13] MEDS ORDERED: diphenhydrAMINE 25 MG CAP ONE (04:44)
[2021-10-13] MEDS ORDERED: Metoclopramide HCl 10 MG TAB ONE (04:44)
[2021-10-13] MEDS ORDERED: Ketorolac Tromethamine 30 MG/ML VIAL ONE (05:09)
== END 2021-10-13 05:57 | disposition home or self-care (01) ==
LOC: ERS 01:35
DX: I10 Essential (primary) hypertension (principal); E11.9 Type 2 diabetes mellitus without complications; E78.5 Hyperlipidemia, unspecified; I25.2 Old myocardial infarction
CPT/HCPCS: 93005; 96372; J1885

== ENCOUNTER 2021-11-30 00:19 | Emergency (ER) | payer MEDICARE, MEDICAID ==
[2021-11-30] MEDS ORDERED: cloNIDine 0.1 MG TAB ONE (00:56)
== END 2021-11-30 01:16 | disposition home or self-care (01) ==
LOC: ERS 00:19
DX: I10 Essential (primary) hypertension (principal); R51.9 Headache, unspecified; E11.40 Type 2 diabetes mellitus with diabetic neuropathy, unspecified; E78.5 Hyperlipidemia, unspecified; M10.9 Gout, unspecified; I25.2 Old myocardial infarction; Z87.19 Personal history of other diseases of the digestive system; Z86.718 Personal history of other venous thrombosis and embolism
CPT/HCPCS: 99283

== ENCOUNTER 2022-05-03 03:18 | Inpatient (IN) | payer OTHER, MEDICAID ==
[2022-05-03] MEDS ORDERED: Morphine 4 MG/ML VIAL ONE ×2 (03:32→08:11)
[2022-05-03] MEDS ORDERED: Promethazine HCl 6.25 MG in Sodium Chloride 0.9% 50 ML IVPB SCH (03:45)
[2022-05-03 04:06] LABS: #Basophils 0.1 thou/uL (0.0-0.2); #Eosinphils 0.1 thou/uL (0.0-0.7); #Lymphocytes 3.2 thou/uL (1.20-3.40); #Monocytes 0.5 thou/uL (0.11-0.59); #Neutrophils 6.8 thou/uL (1.40-6.50); %Basophils 0.8 % (0.0-1.0); %Eosinophils 0.7 % (0.0-10.0); %Monocytes 4.8 % (0.0-10.0); %Neutrophils 63.7 % (42.0-75.0); Hemoglobin 13.5 g/dL (12.0-16.0); Mean Corpuscular Hemoglobin 31.7 pg (27.0-31.0); Mean Corpuscular Volume 93.1 fL (78.0-98.0); Mean Platelet Volume 7.7 fL (7.4-10.4); Platelet Count 477 thou/uL (130-400); RBC Distribution Width 11.7 % (11.5-14.5); Red Blood Cell (RBC) Count 4.26 mill/uL (4.20-5.40); White Blood Cell (WBC) Count 10.7 thou/uL (4.8-10.8)
[2022-05-03 04:25] LABS: ALT (SGPT) 168 U/L (8-55); AST (SGOT) 69 U/L (5-34); Albumin 4.4 g/dL (3.5-5.0); Alkaline Phosphatase 162 U/L (40-110); Anion Gap 20 mmol/L (10-20); BUN (Urea Nitrogen) 30 mg/dL (7.0-18.7); Bilirubin, Total 0.7 mg/dL (0.2-1.2); Calc. Creatinine Clearance 0 mL/min (70-130); Calcium 10.2 mg/dL (7.8-10.44); Carbon Dioxide 20 mmol/L (22-29); Chloride 101 mmol/L (98-107); Estimated GFR 53; Globulin 4.1 g/dL (2.4-3.5); Glucose 200 mg/dL (70-105); Lipase 31 U/L (8-78); Magnesium 1.7 mg/dL (1.6-2.6); Protein, Total 8.5 g/dL (6.0-8.3); Sodium 138 mmol/L (136-145)
[2022-05-03 04:31] LABS: Potassium 2.8 mmol/L (3.5-5.1)
[2022-05-03 04:51] LABS: CKMB 0.7 ng/mL (0-6.6)
[2022-05-03] MEDS ORDERED: Magnesium 2 GM/50 ML BAG (IN WATER) ONE (05:18)
[2022-05-03] MEDS ORDERED: Lorazepam (BATCHED) 2 MG/ML SYR ONE (06:38)
[2022-05-03] MEDS ORDERED: Potassium Chloride 40 MEQ in Sodium Chloride 0.9% 250 ML 250 ML IVPB SCH (06:45)
[2022-05-03 07:02] LABS: BHCG - Serum Negative (NEGATIVE); Pregs Control Background? CLEAR/WHITE (CLR/WHITE); Pregs Control Bar Appear? YES (CONTROL BAR)
[2022-05-03] MEDS ORDERED: Iopamidol 370 76% 100 ML VIAL ONE (08:00)
[2022-05-03] MEDS ORDERED: Scopolamine 1.5 mg/72 hour Patch TOP SCH (08:45)
[2022-05-03 09:09] LABS: Troponin I 0.079 ng/mL (< 0.028)
[2022-05-03] MEDS ORDERED: Dextrose 50% Abboject 50 ML SYRINGE SLOW IVP PRN (10:14)
[2022-05-03] MEDS ORDERED: Dextrose 5% in Water 1,000 ML IV PRN (10:14)
[2022-05-03] MEDS ORDERED: Potassium Chloride 20 MEQ TAB PO SCH (10:15)
[2022-05-03 12:00] LABS: Troponin I 0.081 ng/mL (< 0.028)
[2022-05-03] MEDS ORDERED: Sodium Chloride 0.9% 1,000 ML IV SCH (13:45)
[2022-05-03] MEDS ORDERED: ADENOSINE 60 MG/20 ML VIAL ONE (13:58)
[2022-05-03] MEDS ORDERED: Mag-Al 1200 mg/1200 mg/30 ML UDCUP PO PRN (14:47)
[2022-05-03] MEDS ORDERED: Pantoprazole 40 MG VIAL IVP SCH (15:00)
[2022-05-03 15:20] VITALS: BMI 40.9
[2022-05-03 15:38] LABS: Anion Gap 15 mmol/L (10-20); BUN (Urea Nitrogen) 24 mg/dL (7.0-18.7); Calc. Creatinine Clearance 102 mL/min (70-130); Calcium 10.2 mg/dL (7.8-10.44); Carbon Dioxide 27 mmol/L (22-29); Chloride 98 mmol/L (98-107); Estimated GFR 56; Glucose 161 mg/dL (70-105); Sodium 137 mmol/L (136-145)
[2022-05-03 15:50] LABS: Potassium 2.8 mmol/L (3.5-5.1)
[2022-05-03] MEDS: Morphine 2 MG/ML VIAL SLOW IVP PRN ×2 (15:54→19:59)
[2022-05-03] MEDS ORDERED: Potassium Chloride 20 MEQ in Premix Bag 1 BAG IVPB SCH (16:30)
[2022-05-03] MEDS: Potassium Chloride 20 MEQ TAB PO SCH ×2 (17:39→20:00)
[2022-05-03] MEDS: NS 0.9% w/ 20 MEQ KCL 1,000 ML/1,000 ML BAG IV SCH (18:42)
[2022-05-03] MEDS: Carvedilol 25 MG TAB PO SCH (20:01)
[2022-05-03] MEDS: Pantoprazole 40 MG VIAL IVP SCH (20:01)
[2022-05-03] MEDS: Atorvastatin Calcium 10 MG TAB PO SCH (20:01)
[2022-05-03] MEDS: Lisinopril 20 MG TAB PO SCH (20:01)
[2022-05-03] MEDS: HumaLOG 300 UNITS/3 ML VIAL SC PRN (20:02)
[2022-05-03 22:15] LABS: Anion Gap 12 mmol/L (10-20); BUN (Urea Nitrogen) 21 mg/dL (7.0-18.7); Calc. Creatinine Clearance 113 mL/min (70-130); Calcium 9.5 mg/dL (7.8-10.44); Carbon Dioxide 25 mmol/L (22-29); Chloride 102 mmol/L (98-107); Estimated GFR 64; Glucose 178 mg/dL (70-105); Potassium 3.8 mmol/L (3.5-5.1); Sodium 135 mmol/L (136-145)
[2022-05-03] MEDS ORDERED: Zolpidem Tartrate 5 MG TAB PO SCH (22:30)
[2022-05-04] MEDS: Morphine 2 MG/ML VIAL SLOW IVP PRN ×4 (02:53→17:20)
[2022-05-04] MEDS: NS 0.9% w/ 20 MEQ KCL 1,000 ML/1,000 ML BAG IV SCH (05:48)
[2022-05-04 07:51] LABS: #Eosinphils 0.1 thou/uL (0.0-0.7); #Lymphocytes 2.8 thou/uL (1.20-3.40); #Monocytes 0.6 thou/uL (0.11-0.59); #Neutrophils 6.1 thou/uL (1.40-6.50); %Basophils 0.2 % (0.0-1.0); %Eosinophils 0.9 % (0.0-10.0); %Lymphocytes 29.2 % (21.0-51.0); %Monocytes 6.3 % (0.0-10.0); %Neutrophils 63.4 % (42.0-75.0); Hemoglobin 11.6 g/dL (12.0-16.0); Mean Corpuscular HGB CONC 32.5 g/dL (32.0-36.0); Mean Corpuscular Hemoglobin 31.1 pg (27.0-31.0); Mean Corpuscular Volume 95.8 fL (78.0-98.0); Mean Platelet Volume 7.8 fL (7.4-10.4); Platelet Count 351 thou/uL (130-400); RBC Distribution Width 11.8 % (11.5-14.5); Red Blood Cell (RBC) Count 3.73 mill/uL (4.20-5.40); White Blood Cell (WBC) Count 9.6 thou/uL (4.8-10.8)
[2022-05-04] MEDS: Pantoprazole 40 MG VIAL IVP SCH ×2 (07:58→20:04)
[2022-05-04 08:24] LABS: Anion Gap 17 mmol/L (10-20); BUN (Urea Nitrogen) 18 mg/dL (7.0-18.7); Calc. Creatinine Clearance 139 mL/min (70-130); Calcium 8.7 mg/dL (7.8-10.44); Carbon Dioxide 17 mmol/L (22-29); Chloride 107 mmol/L (98-107); Estimated GFR 82; Glucose 162 mg/dL (70-105); Potassium 3.8 mmol/L (3.5-5.1); Sodium 137 mmol/L (136-145)
[2022-05-04 08:25] LABS: Magnesium 1.9 mg/dL (1.6-2.6)
[2022-05-04] MEDS: ALPRAZolam 0.25 MG TAB PO PRN (08:53)
[2022-05-04] MEDS: Aspirin 81 mg Enteric Coated Tablet PO SCH (11:04)
[2022-05-04] MEDS: Carvedilol 25 MG TAB PO SCH ×2 (11:04→11:30)
[2022-05-04] MEDS: Lisinopril 20 MG TAB PO SCH ×2 (11:05→11:31)
[2022-05-04] MEDS: Enoxaparin Sodium 40 MG/0.4 ML SYRINGE SC SCH (11:05)
[2022-05-04] MEDS: Metoclopramide HCl 10 MG/2 ML VIAL IVP PRN (13:44)
[2022-05-04] MEDS: Gabapentin 300 MG CAP PO SCH ×2 (15:21→20:02)
[2022-05-04] MEDS ORDERED: Morphine 2 MG/ML VIAL SLOW IVP PRN (17:52)
[2022-05-04] MEDS: HYDROcodone/Acetaminophen 5/325 mg Tablet PO PRN (20:03)
[2022-05-04] MEDS: Atorvastatin Calcium 10 MG TAB PO SCH (20:04)
[2022-05-04] MEDS ORDERED: Zolpidem Tartrate 5 MG TAB PO SCH (21:00)
[2022-05-04] MEDS ORDERED: Lisinopril 20 MG TAB PO SCH (21:00)
[2022-05-05] MEDS: HYDROcodone/Acetaminophen 5/325 mg Tablet PO PRN ×3 (04:43→20:17)
[2022-05-05 05:18] LABS: #Eosinphils 0.2 thou/uL (0.0-0.7); #Lymphocytes 3.1 thou/uL (1.20-3.40); #Monocytes 0.5 thou/uL (0.11-0.59); #Neutrophils 5.1 thou/uL (1.40-6.50); %Basophils 0.5 % (0.0-1.0); %Eosinophils 2.3 % (0.0-10.0); %Lymphocytes 34.9 % (21.0-51.0); %Monocytes 5.7 % (0.0-10.0); %Neutrophils 56.7 % (42.0-75.0); Hemoglobin 11.2 g/dL (12.0-16.0); Mean Corpuscular HGB CONC 32.3 g/dL (32.0-36.0); Mean Corpuscular Hemoglobin 30.7 pg (27.0-31.0); Mean Corpuscular Volume 95.1 fL (78.0-98.0); Platelet Count 337 thou/uL (130-400); RBC Distribution Width 11.6 % (11.5-14.5); Red Blood Cell (RBC) Count 3.64 mill/uL (4.20-5.40)
[2022-05-05 05:30] LABS: Anion Gap 14 mmol/L (10-20); BUN (Urea Nitrogen) 19 mg/dL (7.0-18.7); Calc. Creatinine Clearance 125 mL/min (70-130); Calcium 9.4 mg/dL (7.8-10.44); Carbon Dioxide 22 mmol/L (22-29); Chloride 104 mmol/L (98-107); Estimated GFR 73; Glucose 154 mg/dL (70-105); Potassium 3.6 mmol/L (3.5-5.1); Sodium 136 mmol/L (136-145)
[2022-05-05 05:37] LABS: ALT (SGPT) 95 U/L (8-55); AST (SGOT) 36 U/L (5-34); Albumin 3.9 g/dL (3.5-5.0); Alkaline Phosphatase 120 U/L (40-110); Bilirubin, Direct 0.2 mg/dL (0.1-0.3); Bilirubin, Total 0.4 mg/dL (0.2-1.2); Protein, Total 7.6 g/dL (6.0-8.3)
[2022-05-05] MEDS ORDERED: Vortioxetine Hydrobromide [Trintellix] 10 MG Tablet PO SCH (09:00)
[2022-05-05] MEDS ORDERED: Allopurinol 300 MG TAB PO SCH (09:00)
[2022-05-05] MEDS: Aspirin 81 mg Enteric Coated Tablet PO SCH (09:10)
[2022-05-05] MEDS: Enoxaparin Sodium 40 MG/0.4 ML SYRINGE SC SCH (09:10)
[2022-05-05] MEDS: Pantoprazole 40 MG VIAL IVP SCH (09:11)
[2022-05-05] MEDS: HumaLOG 300 UNITS/3 ML VIAL SC PRN (11:16)
[2022-05-05] MEDS: Metoclopramide HCl 10 MG/2 ML VIAL IVP PRN (15:57)
[2022-05-05] MEDS: Atorvastatin Calcium 40 MG TAB PO SCH (20:18)
[2022-05-05] MEDS: ALPRAZolam 0.25 MG TAB PO PRN (20:18)
[2022-05-05] MEDS ORDERED: ALPRAZolam 0.25 MG TAB PO SCH (22:45)
[2022-05-06] MEDS ORDERED: Melatonin 3 MG TAB PO ONE (01:00)
[2022-05-06] MEDS: HYDROcodone/Acetaminophen 5/325 mg Tablet PO PRN (01:15)
[2022-05-06] MEDS ORDERED: Ketorolac Tromethamine 30 MG/ML VIAL IVP SCH (05:30)
[2022-05-06] MEDS: Enoxaparin Sodium 40 MG/0.4 ML SYRINGE SC SCH (09:35)
[2022-05-06] MEDS: Aspirin 81 mg Enteric Coated Tablet PO SCH (09:35)
[2022-05-06] MEDS: Morphine 4 MG/ML VIAL SLOW IVP PRN ×3 (09:37→20:10)
[2022-05-06] MEDS: Metoclopramide 10 MG/10 ML UDCUP PO SCH ×3 (09:42→20:12)
[2022-05-06] MEDS: HumaLOG 300 UNITS/3 ML VIAL SC PRN (10:33)
[2022-05-06] MEDS: ALPRAZolam 0.25 MG TAB PO PRN (15:16)
[2022-05-06] MEDS ORDERED: traZODone HCl 50 MG TAB PO PRN (18:28)
[2022-05-06] MEDS: Atorvastatin Calcium 40 MG TAB PO SCH (20:10)
[2022-05-06] MEDS ORDERED: Lisinopril 20 MG TAB PO SCH (21:00)
[2022-05-07] MEDS: Morphine 4 MG/ML VIAL SLOW IVP PRN ×2 (01:06→06:03)
[2022-05-07] MEDS: ALPRAZolam 0.25 MG TAB PO PRN ×3 (01:06→12:17)
[2022-05-07 05:25] LABS: Anion Gap 13 mmol/L (10-20); BUN (Urea Nitrogen) 11 mg/dL (7.0-18.7); Calc. Creatinine Clearance 135 mL/min (70-130); Carbon Dioxide 23 mmol/L (22-29); Chloride 107 mmol/L (98-107); Estimated GFR 79; Glucose 132 mg/dL (70-105); Potassium 3.3 mmol/L (3.5-5.1); Sodium 140 mmol/L (136-145)
[2022-05-07] MEDS ORDERED: Electrolyte Replacement Protocol 1 EACH FS SCH (08:30)
[2022-05-07] MEDS ORDERED: Potassium Chloride 20 MEQ TAB PO SCH (09:00)
[2022-05-07 09:50] LABS: Magnesium 1.4 mg/dL (1.6-2.6)
[2022-05-07] MEDS ORDERED: Acetaminophen 325 MG TAB PO PRN (10:00)
[2022-05-07] MEDS: Metoclopramide 10 MG/10 ML UDCUP PO SCH ×2 (10:07→11:30)
[2022-05-07] MEDS: Aspirin 81 mg Enteric Coated Tablet PO SCH (10:08)
[2022-05-07] MEDS: Gabapentin 300 MG CAP PO SCH (10:08)
[2022-05-07] MEDS: Enoxaparin Sodium 40 MG/0.4 ML SYRINGE SC SCH (10:08)
[2022-05-07 11:22] VITALS: BP 135/84; TEMP 98
[2022-05-07] MEDS: HumaLOG 300 UNITS/3 ML VIAL SC PRN (11:28)
[2022-05-07] MEDS: Magnesium Sulfate In Water 4 GM in Premix Bag 1 BAG IVPB SCH ×2 (11:30→11:32)
[2022-05-08] MEDS ORDERED: Magnesium Oxide 400 MG TAB PO SCH (09:00)
== END 2022-05-07 14:32 | disposition home or self-care (01) | DRG 74 ==
LOC: ERS 03:18 → ERHOLD 08:22 → OBSVTOIN 08:22 → 2SW 12:44
PROVIDERS: ADMIT Student in an Organized Health Care Education/Training Program; ATTEND Student in an Organized Health Care Education/Training Program
DX: E11.43 Type 2 diabetes mellitus with diabetic autonomic (poly)neuropathy (principal); N17.9 Acute kidney failure, unspecified; I43 Cardiomyopathy in diseases classified elsewhere; Z68.41 Body mass index [BMI] 40.0-44.9, adult; Z20.822 Contact with and (suspected) exposure to COVID-19; M10.9 Gout, unspecified; K29.70 Gastritis, unspecified, without bleeding; E86.0 Dehydration; E87.6 Hypokalemia; E83.42 Hypomagnesemia; R94.31 Abnormal electrocardiogram [ECG] [EKG]; E11.40 Type 2 diabetes mellitus with diabetic neuropathy, unspecified; K21.9 Gastro-esophageal reflux disease without esophagitis; I11.9 Hypertensive heart disease without heart failure; R77.8 Other specified abnormalities of plasma proteins; K76.0 Fatty (change of) liver, not elsewhere classified; E66.9 Obesity, unspecified; K31.84 Gastroparesis; I25.2 Old myocardial infarction; Z79.899 Other long term (current) drug therapy; Z88.5 Allergy status to narcotic agent; Z79.84 Long term (current) use of oral hypoglycemic drugs; Z79.4 Long term (current) use of insulin; Z79.82 Long term (current) use of aspirin; Z90.49 Acquired absence of other specified parts of digestive tract
CPT/HCPCS: 36415; 36416; 71045; 74177; 74181; 78452; 80048; 80053; 80076; 82553; 83690; 83735; 84484; 84703; 85025; 93005; 93017; 96365; 96366; 96367; 96375; 96376; A9500; C9113; J0153; J1650; J1815; J1885; J2060; J2270; J2550; J2765; J3475; J3480; J7050; Q9967; U0003; U0005

== ENCOUNTER 2022-05-18 17:31 | Inpatient (IN) | payer OTHER, MEDICAID ==
[~2022-05-18 17:31] MED LIST changes: -ISOVUE-370 76%-LOCM 1 ML ONE; +Iopamidol-370 76% 500 ML 1 ML ONE
[2022-05-18 19:16] LABS: #Eosinphils 0.2 thou/uL (0.0-0.7); #Lymphocytes 2.6 thou/uL (1.20-3.40); #Monocytes 0.3 thou/uL (0.11-0.59); #Neutrophils 8.4 thou/uL (1.40-6.50); %Basophils 0.2 % (0.0-1.0); %Eosinophils 1.6 % (0.0-10.0); %Lymphocytes 22.2 % (21.0-51.0); %Monocytes 2.9 % (0.0-10.0); %Neutrophils 73.2 % (42.0-75.0); Mean Corpuscular HGB CONC 32.8 g/dL (32.0-36.0); Mean Corpuscular Hemoglobin 30.5 pg (27.0-31.0); Mean Platelet Volume 7.4 fL (7.4-10.4); Platelet Count 335 thou/uL (130-400); RBC Distribution Width 12.1 % (11.5-14.5); Red Blood Cell (RBC) Count 3.95 mill/uL (4.20-5.40); White Blood Cell (WBC) Count 11.5 thou/uL (4.8-10.8)
[2022-05-18 19:33] LABS: BHCG - Serum Negative (NEGATIVE); Pregs Control Background? CLEAR/WHITE (CLR/WHITE); Pregs Control Bar Appear? YES (CONTROL BAR)
[2022-05-18 19:36] LABS: ALT (SGPT) 97 U/L (8-55); AST (SGOT) 61 U/L (5-34); Albumin 4.2 g/dL (3.5-5.0); Alkaline Phosphatase 145 U/L (40-110); Anion Gap 15 mmol/L (10-20); BUN (Urea Nitrogen) 18 mg/dL (7.0-18.7); Bilirubin, Total 0.4 mg/dL (0.2-1.2); Calc. Creatinine Clearance 0 mL/min (70-130); Calcium 9.6 mg/dL (7.8-10.44); Carbon Dioxide 26 mmol/L (22-29); Estimated GFR 74; Globulin 4.3 g/dL (2.4-3.5); Glucose 198 mg/dL (70-105); Lipase 48 U/L (8-78); Potassium 3.7 mmol/L (3.5-5.1); Protein, Total 8.5 g/dL (6.0-8.3); Sodium 139 mmol/L (136-145)
[2022-05-18 19:44] LABS: Chloride 102 mmol/L (98-107)
[2022-05-18 19:58] LABS: CKMB 0.9 ng/mL (0-6.6)
[2022-05-18] MEDS ORDERED: Ketorolac Tromethamine 30 MG/ML VIAL ONE (19:59)
[2022-05-18] MEDS ORDERED: Morphine 4 MG/ML VIAL ONE (20:05)
[2022-05-18] MEDS ORDERED: Ondansetron PF 4 MG/2 ML Vial ONE ×2 (20:24→22:04)
[2022-05-18] MEDS ORDERED: Nitroglycerin 2% Ointment 1 INCH/1 GM Packet ONE (22:04)
[2022-05-19] MEDS ORDERED: cloNIDine 0.1 MG TAB ONE (00:33)
[2022-05-19] MEDS ORDERED: HYDROcodone/Acetaminophen 5/325 mg Tablet ONE (00:57)
[2022-05-19] MEDS ORDERED: Enoxaparin Sodium 120 MG/0.8 ML SYRINGE SC SCH ×3 (01:15→21:00)
[2022-05-19 02:09] LABS: CKMB 0.8 ng/mL (0-6.6)
[2022-05-19] MEDS ORDERED: Morphine 4 MG/ML VIAL ONE ×2 (03:29→08:49)
[2022-05-19 07:42] LABS: Troponin I 0.073 ng/mL (< 0.028)
[2022-05-19] MEDS ORDERED: Acetaminophen 325 MG TAB PO PRN (08:45)
[2022-05-19] MEDS ORDERED: Morphine 4 MG/ML VIAL SLOW IVP SCH (08:45)
[2022-05-19] MEDS ORDERED: Ondansetron PF 4 MG/2 ML Vial IVP PRN (08:48)
[2022-05-19] MEDS ORDERED: Montelukast Sodium 10 mg Tablet PO PRN (09:20)
[2022-05-19] MEDS ORDERED: Morphine 4 MG/ML VIAL SLOW IVP PRN (11:07)
[2022-05-19] MEDS ORDERED: Dextrose 5% in Water 1,000 ML IV PRN (11:32)
[2022-05-19] MEDS ORDERED: Dextrose 50% Abboject 50 ML SYRINGE SLOW IVP PRN (11:32)
[2022-05-19] MEDS: cloNIDine 0.2 MG TAB PO SCH ×2 (13:44→20:54)
[2022-05-19] MEDS: HYDROcodone/Acetaminophen 7.5/325 mg Tablet PO PRN ×3 (13:45→23:15)
[2022-05-19 14:29] VITALS: BMI 42.9
[2022-05-19 14:47] LABS: SARS-CoV-2 NAA Rapid Test Not Detected (NotDetected)
[2022-05-19] MEDS: HumaLOG 300 UNITS/3 ML VIAL SC PRN (17:29)
[2022-05-19] MEDS: Lisinopril 20 MG TAB PO SCH (20:54)
[2022-05-19] MEDS: Atorvastatin Calcium 10 MG TAB PO SCH (20:54)
[2022-05-19] MEDS: Insulin Glargine 30 UNITS/0.3 ML VIAL SC SCH (20:55)
[2022-05-19] MEDS ORDERED: Amitriptyline HCl 25 MG TAB PO SCH (22:00)
[2022-05-19] MEDS ORDERED: Gabapentin 300 MG CAP PO SCH (22:00)
[2022-05-20] MEDS: HYDROcodone/Acetaminophen 7.5/325 mg Tablet PO PRN ×5 (04:39→22:15)
[2022-05-20 05:34] LABS: #Basophils 0.2 thou/uL (0.0-0.2); #Eosinphils 0.1 thou/uL (0.0-0.7); #Lymphocytes 2.7 thou/uL (1.20-3.40); #Monocytes 0.3 thou/uL (0.11-0.59); #Neutrophils 5.2 thou/uL (1.40-6.50); %Basophils 1.9 % (0.0-1.0); %Eosinophils 1.8 % (0.0-10.0); %Lymphocytes 31.7 % (21.0-51.0); %Monocytes 3.3 % (0.0-10.0); %Neutrophils 61.3 % (42.0-75.0); Mean Corpuscular HGB CONC 34.9 g/dL (32.0-36.0); Mean Corpuscular Hemoglobin 32.1 pg (27.0-31.0); Mean Corpuscular Volume 92.2 fL (78.0-98.0); Mean Platelet Volume 7.6 fL (7.4-10.4); Platelet Count 305 thou/uL (130-400); Red Blood Cell (RBC) Count 3.72 mill/uL (4.20-5.40); White Blood Cell (WBC) Count 8.5 thou/uL (4.8-10.8)
[2022-05-20 05:36] LABS: Hemoglobin A1c 7.3 % (4.0-6.0)
[2022-05-20 05:57] LABS: Anion Gap 12 mmol/L (10-20); BUN (Urea Nitrogen) 16 mg/dL (7.0-18.7); Calc. Creatinine Clearance 169 mL/min (70-130); Calcium 9.6 mg/dL (7.8-10.44); Carbon Dioxide 24 mmol/L (22-29); Chloride 104 mmol/L (98-107); Estimated GFR 98; Glucose 176 mg/dL (70-105); Magnesium 1.9 mg/dL (1.6-2.6); Potassium 4.3 mmol/L (3.5-5.1); Sodium 136 mmol/L (136-145)
[2022-05-20] MEDS: Lisinopril 20 MG TAB PO SCH ×2 (08:57→21:24)
[2022-05-20] MEDS: cloNIDine 0.2 MG TAB PO SCH ×3 (08:57→21:25)
[2022-05-20] MEDS: Apixaban 5 MG TAB PO SCH ×2 (08:57→21:25)
[2022-05-20] MEDS: Aspirin 81 mg Enteric Coated Tablet PO SCH (08:57)
[2022-05-20] MEDS: Hydrochlorothiazide 25 MG TAB PO SCH (08:57)
[2022-05-20] MEDS: Gabapentin 300 MG CAP PO SCH ×3 (08:57→21:26)
[2022-05-20] MEDS: Insulin Glargine 30 UNITS/0.3 ML VIAL SC SCH ×2 (08:58→21:24)
[2022-05-20] MEDS: HumaLOG 300 UNITS/3 ML VIAL SC PRN ×3 (11:17→21:23)
[2022-05-20] MEDS ORDERED: Amitriptyline HCl 25 MG TAB PO SCH (21:00)
[2022-05-20] MEDS: Atorvastatin Calcium 10 MG TAB PO SCH (21:25)
[2022-05-21] MEDS: HYDROcodone/Acetaminophen 7.5/325 mg Tablet PO PRN ×3 (02:28→11:48)
[2022-05-21 05:32] LABS: Troponin I 0.052 ng/mL (< 0.028)
[2022-05-21] MEDS: HumaLOG 300 UNITS/3 ML VIAL SC PRN (06:52)
[2022-05-21] MEDS: Aspirin 81 mg Enteric Coated Tablet PO SCH (07:35)
[2022-05-21] MEDS: Apixaban 5 MG TAB PO SCH (07:35)
[2022-05-21] MEDS: Gabapentin 300 MG CAP PO SCH (07:35)
[2022-05-21] MEDS: Lisinopril 20 MG TAB PO SCH (07:35)
[2022-05-21] MEDS: Hydrochlorothiazide 25 MG TAB PO SCH (07:36)
[2022-05-21] MEDS: Insulin Glargine 30 UNITS/0.3 ML VIAL SC SCH (07:36)
[2022-05-21] MEDS: cloNIDine 0.2 MG TAB PO SCH (07:36)
[2022-05-21 11:43] VITALS: BP 128/66; TEMP 98
[2022-05-26] MEDS ORDERED: Liraglutide [Victoza 3-Pak] 0.6 MG/0.1 ML Pen.Injctr SC SCH (09:00)
== END 2022-05-21 15:00 | disposition home or self-care (01) | DRG 176 ==
LOC: ERS 17:31 → ERHOLD 05-19 01:58 → 2SW 05-19 13:29 → OBSVTOIN 05-21 07:45
PROVIDERS: ADMIT Student in an Organized Health Care Education/Training Program; ATTEND Internal Medicine
DX: I26.94 Multiple subsegmental thrombotic pulmonary emboli without acute cor pulmonale (principal); Z68.41 Body mass index [BMI] 40.0-44.9, adult; Z20.822 Contact with and (suspected) exposure to COVID-19; I10 Essential (primary) hypertension; K21.9 Gastro-esophageal reflux disease without esophagitis; E11.41 Type 2 diabetes mellitus with diabetic mononeuropathy; M25.562 Pain in left knee; M25.572 Pain in left ankle and joints of left foot; E66.01 Morbid (severe) obesity due to excess calories; Z88.5 Allergy status to narcotic agent; Z88.8 Allergy status to other drugs, medicaments and biological substances; Z79.899 Other long term (current) drug therapy; Z79.4 Long term (current) use of insulin; Z79.82 Long term (current) use of aspirin; Z86.718 Personal history of other venous thrombosis and embolism
CPT/HCPCS: 36415; 36416; 71045; 71275; 80048; 80053; 82553; 83036; 83690; 83735; 84484; 84703; 85025; 85379; 93005; 93306; 96372; 96376; G0378; J1650; J1815; J1885; J2270; J2405; Q9967; U0002

== ENCOUNTER 2022-05-27 22:17 | Inpatient (IN) | payer OTHER, MEDICAID ==
[2022-05-27 23:20] LABS: #Basophils 0.1 thou/uL (0.0-0.2); #Eosinphils 0.1 thou/uL (0.0-0.7); #Lymphocytes 3.2 thou/uL (1.20-3.40); #Monocytes 0.4 thou/uL (0.11-0.59); #Neutrophils 7.5 thou/uL (1.40-6.50); %Basophils 0.5 % (0.0-1.0); %Eosinophils 0.9 % (0.0-10.0); %Lymphocytes 28.5 % (21.0-51.0); %Monocytes 3.8 % (0.0-10.0); %Neutrophils 66.2 % (42.0-75.0); Hemoglobin 12.5 g/dL (12.0-16.0); Mean Corpuscular HGB CONC 32.2 g/dL (32.0-36.0); Mean Corpuscular Hemoglobin 30.4 pg (27.0-31.0); Mean Corpuscular Volume 94.4 fL (78.0-98.0); Mean Platelet Volume 6.7 fL (7.4-10.4); Platelet Count 404 thou/uL (130-400); RBC Distribution Width 12.6 % (11.5-14.5); Red Blood Cell (RBC) Count 4.12 mill/uL (4.20-5.40); White Blood Cell (WBC) Count 11.3 thou/uL (4.8-10.8)
[2022-05-27 23:40] LABS: ALT (SGPT) 29 U/L (8-55); AST (SGOT) 17 U/L (5-34); Albumin 4.4 g/dL (3.5-5.0); Alkaline Phosphatase 119 U/L (40-110); Anion Gap 17 mmol/L (10-20); BUN (Urea Nitrogen) 20 mg/dL (7.0-18.7); Bilirubin, Total 0.3 mg/dL (0.2-1.2); Calc. Creatinine Clearance 0 mL/min (70-130); Calcium 9.9 mg/dL (7.8-10.44); Carbon Dioxide 26 mmol/L (22-29); Chloride 102 mmol/L (98-107); Estimated GFR 68; Globulin 4.4 g/dL (2.4-3.5); Glucose 128 mg/dL (70-105); Lipase 18 U/L (8-78); Potassium 3.7 mmol/L (3.5-5.1); Protein, Total 8.8 g/dL (6.0-8.3); Sodium 141 mmol/L (136-145)
[2022-05-27 23:49] LABS: BHCG - Serum Negative (NEGATIVE); Pregs Control Background? CLEAR/WHITE (CLR/WHITE); Pregs Control Bar Appear? YES (CONTROL BAR)
[2022-05-28 00:02] LABS: CKMB 0.5 ng/mL (0-6.6)
[2022-05-28] MEDS ORDERED: Metoclopramide HCl 10 MG/2 ML VIAL ONE (01:09)
[2022-05-28] MEDS ORDERED: diphenhydrAMINE 50 MG/ML VIAL ONE (01:09)
[2022-05-28] MEDS ORDERED: Pantoprazole 40 MG VIAL ONE (01:51)
[2022-05-28] MEDS ORDERED: Ketorolac Tromethamine 30 MG/ML VIAL ONE (01:51)
[2022-05-28] MEDS ORDERED: Famotidine/PF 20 mg/2ml Vial ONE (01:51)
[2022-05-28] MEDS ORDERED: Haloperidol Lactate 5 MG/ML VIAL ONE ×2 (02:23→03:56)
[2022-05-28] MEDS ORDERED: hydrALAZINE 20 MG/ML VIAL ONE ×2 (03:27→04:26)
[2022-05-28 05:13] VITALS: BMI 40.9
[2022-05-28] MEDS ORDERED: Labetalol HCl 100 MG/20 ML VIAL SLOW IVP PRN ×2 (05:42→07:31)
[2022-05-28] MEDS: Sodium Chloride 0.9% 1,000 ML IV SCH (05:54)
[2022-05-28 06:09] LABS: Troponin I 0.061 ng/mL (< 0.028)
[2022-05-28] MEDS ORDERED: Lorazepam (BATCHED) 2 MG/ML SYR SLOW IVP PRN (06:19)
[2022-05-28] MEDS ORDERED: Midazolam HCl 2 mg/2 ml Vial SLOW IVP PRN (06:21)
[2022-05-28] MEDS ORDERED: Morphine 4 MG/ML VIAL SLOW IVP SCH (06:30)
[2022-05-28 06:35] LABS: #Lymphocytes 0.8 thou/uL (1.20-3.40); #Monocytes 0.2 thou/uL (0.11-0.59); #Neutrophils 14.7 thou/uL (1.40-6.50); %Basophils 0.1 % (0.0-1.0); %Eosinophils 0.1 % (0.0-10.0); %Monocytes 1.1 % (0.0-10.0); %Neutrophils 93.7 % (42.0-75.0); Hemoglobin 12.7 g/dL (12.0-16.0); Mean Corpuscular HGB CONC 32.4 g/dL (32.0-36.0); Mean Corpuscular Hemoglobin 30.1 pg (27.0-31.0); Mean Corpuscular Volume 93.2 fL (78.0-98.0); Mean Platelet Volume 7.2 fL (7.4-10.4); Platelet Count 429 thou/uL (130-400); RBC Distribution Width 12.7 % (11.5-14.5); Red Blood Cell (RBC) Count 4.21 mill/uL (4.20-5.40); White Blood Cell (WBC) Count 15.7 thou/uL (4.8-10.8)
[2022-05-28 06:50] LABS: Lactic Acid 3.8 mmol/L (0.5-2.2)
[2022-05-28 06:53] LABS: Anion Gap 23 mmol/L (10-20); BUN (Urea Nitrogen) 16 mg/dL (7.0-18.7); Calc. Creatinine Clearance 125 mL/min (70-130); Calcium 9.9 mg/dL (7.8-10.44); Carbon Dioxide 19 mmol/L (22-29); Chloride 98 mmol/L (98-107); Estimated GFR 73; Glucose 309 mg/dL (70-105); Potassium 3.3 mmol/L (3.5-5.1); Sodium 137 mmol/L (136-145)
[2022-05-28] MEDS ORDERED: Montelukast Sodium 10 mg Tablet PO PRN (07:28)
[2022-05-28] MEDS ORDERED: Sodium Chloride 0.9% 500 ML IV SCH (08:00)
[2022-05-28] MEDS: HYDROcodone/Acetaminophen 5/325 mg Tablet PO PRN ×2 (08:30→14:52)
[2022-05-28] MEDS: Lisinopril 20 MG TAB PO SCH ×2 (08:32→21:13)
[2022-05-28] MEDS: cloNIDine 0.2 MG TAB PO SCH ×3 (08:32→21:13)
[2022-05-28] MEDS: Famotidine/PF 20 mg/2ml Vial SLOW IVP SCH ×2 (08:35→21:12)
[2022-05-28] MEDS: Ondansetron PF 4 MG/2 ML Vial IVP PRN (08:41)
[2022-05-28] MEDS: Insulin Glargine 30 UNITS/0.3 ML VIAL SC SCH ×2 (08:42→21:15)
[2022-05-28] MEDS ORDERED: Hydrochlorothiazide 25 MG TAB PO SCH (09:00)
[2022-05-28] MEDS ORDERED: Vortioxetine Hydrobromide [Trintellix] 10 MG Tablet PO SCH (09:00)
[2022-05-28] MEDS ORDERED: Non-Formulary Item 1 EACH (Omeprazole [Omeprazole] 20 MG Capsule.Dr) PO SCH (09:00)
[2022-05-28] MEDS ORDERED: Non-Formulary Item 1 EACH (Insulin Degludec [Tresiba] 100 UNIT/ML Vial) SC SCH (09:00)
[2022-05-28] MEDS ORDERED: cloNIDine 0.1 MG TAB PO SCH (09:00)
[2022-05-28] MEDS ORDERED: Non-Formulary Item 1 EACH (Vortioxetine Hydrobromide [Trintellix] 10 MG Tablet) PO SCH (09:00)
[2022-05-28 09:27] LABS: Bacteria/HPF None Seen HPF (None Seen); Bilirubin Negative (Negative); Blood, Urine Negative (Negative); Clarity Clear (Clear); Glucose, Urine (Dipstick) Greater than 1000 mg/dL (Negative); Ketone, Urine 40 mg/dL (Negative); Leukocyte Negative Leu/uL (Negative); Nitrite Negative (Negative); Protein, Urine (Dipstick) 50 mg/dL (Neg-Trace); RBC/HPF 0-3 HPF (0-3); Specific Gravity, Urine 1.013 (1.002-1.036); Squamous Epithelial 0-3 HPF (0-3); Urobilinogen Normal mg/dL (Less than 2); WBC/HPF None Seen HPF (0-3)
[2022-05-28] MEDS ORDERED: Dextrose 50% Abboject 50 ML SYRINGE SLOW IVP PRN (09:53)
[2022-05-28] MEDS ORDERED: HumaLOG 300 UNITS/3 ML VIAL SC PRN (09:53)
[2022-05-28] MEDS ORDERED: Dextrose 5% in Water 1,000 ML IV PRN (09:53)
[2022-05-28] MEDS ORDERED: hydrALAZINE 20 MG/ML VIAL SLOW IVP PRN (09:54)
[2022-05-28] MEDS: Potassium Chloride 20 MEQ in Premix Bag 1 BAG IVPB SCH ×2 (10:18→12:52)
[2022-05-28 11:11] LABS: Lactic Acid 3.4 mmol/L (0.5-2.2)
[2022-05-28] MEDS: Gabapentin 300 MG CAP PO SCH ×3 (11:13→21:11)
[2022-05-28] MEDS: Allopurinol 300 MG TAB PO SCH (11:20)
[2022-05-28] MEDS: Apixaban 5 MG TAB PO SCH ×2 (11:20→21:10)
[2022-05-28] MEDS: Aspirin 81 mg Enteric Coated Tablet PO SCH (11:20)
[2022-05-28] MEDS: Magnesium Oxide 400 MG TAB PO SCH (11:21)
[2022-05-28] MEDS ORDERED: Iopamidol-370 76% 500 ML 1 ML ONE (15:34)
[2022-05-28] MEDS: Promethazine HCl 25 MG/ML VIAL IM PRN (17:00)
[2022-05-28] MEDS ORDERED: Non-Formulary Item 1 EACH (Zolpidem Tartrate [Ambien] 10 MG Tablet) PO SCH (21:00)
[2022-05-28] MEDS: Amitriptyline HCl 25 MG TAB PO SCH (21:10)
[2022-05-28] MEDS: Atorvastatin Calcium 10 MG TAB PO SCH (21:10)
[2022-05-28] MEDS: Zolpidem Tartrate 5 MG TAB PO SCH (21:35)
[2022-05-29] MEDS: HYDROcodone/Acetaminophen 5/325 mg Tablet PO PRN ×4 (01:23→23:11)
[2022-05-29] MEDS: hydrOXYzine 25 MG TAB PO PRN ×2 (03:27→20:35)
[2022-05-29] MEDS: Sodium Chloride 0.9% 1,000 ML IV SCH ×2 (05:01→17:39)
[2022-05-29 06:07] LABS: Anion Gap 18 mmol/L (10-20); Calc. Creatinine Clearance 46 mL/min (70-130); Calcium 8.6 mg/dL (7.8-10.44); Carbon Dioxide 19 mmol/L (22-29); Chloride 102 mmol/L (98-107); Estimated GFR 22; Glucose 169 mg/dL (70-105); Potassium 3.9 mmol/L (3.5-5.1); Sodium 135 mmol/L (136-145)
[2022-05-29 06:47] LABS: BUN (Urea Nitrogen) 31 mg/dL (7.0-18.7)
[2022-05-29] MEDS: cloNIDine 0.2 MG TAB PO SCH ×3 (08:23→20:39)
[2022-05-29] MEDS: Aspirin 81 mg Enteric Coated Tablet PO SCH (08:23)
[2022-05-29] MEDS: Apixaban 5 MG TAB PO SCH ×2 (08:23→20:33)
[2022-05-29] MEDS: Gabapentin 300 MG CAP PO SCH ×3 (08:23→20:32)
[2022-05-29] MEDS: Magnesium Oxide 400 MG TAB PO SCH (08:23)
[2022-05-29] MEDS: Allopurinol 300 MG TAB PO SCH (08:23)
[2022-05-29] MEDS: Famotidine/PF 20 mg/2ml Vial SLOW IVP SCH (08:23)
[2022-05-29] MEDS: Insulin Glargine 30 UNITS/0.3 ML VIAL SC SCH ×3 (08:24→20:36)
[2022-05-29 08:46] LABS: #Eosinphils 0.1 thou/uL (0.0-0.7); #Lymphocytes 3.3 thou/uL (1.20-3.40); #Monocytes 0.8 thou/uL (0.11-0.59); #Neutrophils 12.5 thou/uL (1.40-6.50); %Basophils 0.3 % (0.0-1.0); %Eosinophils 0.5 % (0.0-10.0); %Lymphocytes 19.8 % (21.0-51.0); %Monocytes 4.9 % (0.0-10.0); %Neutrophils 74.6 % (42.0-75.0); Mean Corpuscular Hemoglobin 30.4 pg (27.0-31.0); Mean Corpuscular Volume 95.2 fL (78.0-98.0); Mean Platelet Volume 7.3 fL (7.4-10.4); Platelet Count 384 thou/uL (130-400); RBC Distribution Width 12.7 % (11.5-14.5); White Blood Cell (WBC) Count 16.7 thou/uL (4.8-10.8)
[2022-05-29] MEDS: Ondansetron PF 4 MG/2 ML Vial IVP PRN (09:41)
[2022-05-29] MEDS ORDERED: Piperacillin/Tazobactam 3.375 GM in Sodium Chloride 0.9% 100 ML IVPB SCH ×2 (12:00→12:15)
[2022-05-29] MEDS: Piperacillin/Tazobactam 3.375 GM in Sodium Chloride 0.9% 100 ML IVPB SCH (15:06)
[2022-05-29] MEDS: Promethazine HCl 25 MG/ML VIAL IM PRN ×2 (17:03→23:10)
[2022-05-29] MEDS: Atorvastatin Calcium 10 MG TAB PO SCH (20:33)
[2022-05-29] MEDS: Amitriptyline HCl 25 MG TAB PO SCH (20:33)
[2022-05-29] MEDS: Zolpidem Tartrate 5 MG TAB PO SCH (22:43)
[2022-05-30] MEDS: Piperacillin/Tazobactam 3.375 GM in Sodium Chloride 0.9% 100 ML IVPB SCH ×2 (00:59→09:03)
[2022-05-30] MEDS: hydrOXYzine 25 MG TAB PO PRN ×3 (04:06→18:21)
[2022-05-30] MEDS: HYDROcodone/Acetaminophen 5/325 mg Tablet PO PRN ×4 (06:32→23:46)
[2022-05-30] MEDS: Sodium Chloride 0.9% 1,000 ML IV SCH ×5 (07:10→23:30)
[2022-05-30] MEDS: Promethazine HCl 25 MG/ML VIAL IM PRN ×2 (08:02→14:51)
[2022-05-30] MEDS ORDERED: Famotidine/PF 20 mg/2ml Vial SLOW IVP SCH (09:00)
[2022-05-30] MEDS ORDERED: cloNIDine 0.2 MG TAB PO SCH ×2 (09:30→15:00)
[2022-05-30] MEDS ORDERED: Sodium Chloride 0.9% 500 ML IV SCH (09:30)
[2022-05-30 09:38] LABS: #Eosinphils 0.1 thou/uL (0.0-0.7); #Lymphocytes 2.7 thou/uL (1.20-3.40); #Monocytes 0.5 thou/uL (0.11-0.59); #Neutrophils 6.5 thou/uL (1.40-6.50); %Basophils 0.2 % (0.0-1.0); %Lymphocytes 27.2 % (21.0-51.0); %Monocytes 5.5 % (0.0-10.0); %Neutrophils 66.1 % (42.0-75.0); Hemoglobin 10.8 g/dL (12.0-16.0); Mean Corpuscular HGB CONC 32.6 g/dL (32.0-36.0); Mean Corpuscular Volume 95.3 fL (78.0-98.0); Mean Platelet Volume 8.1 fL (7.4-10.4); Platelet Count 282 thou/uL (130-400); RBC Distribution Width 12.3 % (11.5-14.5); Red Blood Cell (RBC) Count 3.47 mill/uL (4.20-5.40); White Blood Cell (WBC) Count 9.8 thou/uL (4.8-10.8)
[2022-05-30] MEDS: Gabapentin 300 MG CAP PO SCH ×3 (09:40→20:08)
[2022-05-30] MEDS: Magnesium Oxide 400 MG TAB PO SCH (09:40)
[2022-05-30] MEDS: Insulin Glargine 30 UNITS/0.3 ML VIAL SC SCH ×3 (09:40→20:06)
[2022-05-30] MEDS: Apixaban 5 MG TAB PO SCH ×2 (09:41→20:09)
[2022-05-30] MEDS: Aspirin 81 mg Enteric Coated Tablet PO SCH (09:41)
[2022-05-30 09:51] LABS: Lactic Acid 1.1 mmol/L (0.5-2.2)
[2022-05-30 10:02] LABS: ALT (SGPT) 20 U/L (8-55); AST (SGOT) 26 U/L (5-34); Albumin 3.7 g/dL (3.5-5.0); Alkaline Phosphatase 85 U/L (40-110); Anion Gap 14 mmol/L (10-20); BUN (Urea Nitrogen) 34 mg/dL (7.0-18.7); Bilirubin, Total 0.3 mg/dL (0.2-1.2); CRP (Inflammatory) 1.51 mg/dL (= or < 0.5); Calc. Creatinine Clearance 69 mL/min (70-130); Calcium 8.5 mg/dL (7.8-10.44); Carbon Dioxide 20 mmol/L (22-29); Chloride 106 mmol/L (98-107); Estimated GFR 36; Globulin 3.6 g/dL (2.4-3.5); Glucose 109 mg/dL (70-105); Phosphorus 2.9 mg/dL (2.3-4.7); Potassium 3.6 mmol/L (3.5-5.1); Protein, Total 7.3 g/dL (6.0-8.3); Sodium 136 mmol/L (136-145)
[2022-05-30] MEDS: cloNIDine 0.2 MG TAB PO SCH (10:16)
[2022-05-30] MEDS: Allopurinol 300 MG TAB PO SCH (10:16)
[2022-05-30 15:32] LABS: Bacteria/HPF 1+ HPF (None Seen); Bilirubin Negative (Negative); Blood, Urine Negative (Negative); Clarity Clear (Clear); Glucose, Urine (Dipstick) 300 mg/dL (Negative); Ketone, Urine Negative (Negative); Leukocyte Negative Leu/uL (Negative); Nitrite Negative (Negative); Protein, Urine (Dipstick) Negative (Neg-Trace); RBC/HPF None Seen HPF (0-3); Specific Gravity, Urine 1.007 (1.002-1.036); Squamous Epithelial 0-3 HPF (0-3); Urobilinogen Normal mg/dL (Less than 2); WBC/HPF 0-3 HPF (0-3)
[2022-05-30 15:33] LABS: Urine Culture Reflex Yes Yes
[2022-05-30] MEDS ORDERED: cloNIDine 0.1 MG TAB PO PRN (17:08)
[2022-05-30] MEDS: Amitriptyline HCl 25 MG TAB PO SCH (20:07)
[2022-05-30] MEDS: cloNIDine 0.1 MG TAB PO SCH (20:09)
[2022-05-30] MEDS: Atorvastatin Calcium 10 MG TAB PO SCH (20:09)
[2022-05-30] MEDS: Pantoprazole 40 MG VIAL IVP SCH (20:10)
[2022-05-30] MEDS: Zolpidem Tartrate 5 MG TAB PO SCH (20:11)
[2022-05-31] MEDS: hydrOXYzine 25 MG TAB PO PRN ×3 (01:55→17:57)
[2022-05-31] MEDS: HYDROcodone/Acetaminophen 5/325 mg Tablet PO PRN ×4 (04:14→20:38)
[2022-05-31 04:42] LABS: #Eosinphils 0.1 thou/uL (0.0-0.7); #Lymphocytes 2.8 thou/uL (1.20-3.40); #Monocytes 0.5 thou/uL (0.11-0.59); #Neutrophils 5.2 thou/uL (1.40-6.50); %Basophils 0.4 % (0.0-1.0); %Eosinophils 1.3 % (0.0-10.0); %Lymphocytes 32.8 % (21.0-51.0); %Monocytes 5.5 % (0.0-10.0); %Neutrophils 60.1 % (42.0-75.0); Hemoglobin 10.5 g/dL (12.0-16.0); Mean Corpuscular HGB CONC 32.3 g/dL (32.0-36.0); Mean Corpuscular Hemoglobin 30.6 pg (27.0-31.0); Mean Corpuscular Volume 94.7 fL (78.0-98.0); Mean Platelet Volume 7.4 fL (7.4-10.4); Platelet Count 347 thou/uL (130-400); RBC Distribution Width 12.4 % (11.5-14.5); Red Blood Cell (RBC) Count 3.43 mill/uL (4.20-5.40); White Blood Cell (WBC) Count 8.6 thou/uL (4.8-10.8)
[2022-05-31 05:34] LABS: ALT (SGPT) 16 U/L (8-55); AST (SGOT) 16 U/L (5-34); Albumin 3.6 g/dL (3.5-5.0); Alkaline Phosphatase 86 U/L (40-110); Anion Gap 12 mmol/L (10-20); BUN (Urea Nitrogen) 21 mg/dL (7.0-18.7); Bilirubin, Total Less than 0.2 mg/dL (0.2-1.2); Calc. Creatinine Clearance 109 mL/min (70-130); Calcium 8.6 mg/dL (7.8-10.44); Carbon Dioxide 22 mmol/L (22-29); Chloride 110 mmol/L (98-107); Estimated GFR 61; Globulin 3.5 g/dL (2.4-3.5); Glucose 157 mg/dL (70-105); Magnesium 1.7 mg/dL (1.6-2.6); Potassium 3.9 mmol/L (3.5-5.1); Protein, Total 7.1 g/dL (6.0-8.3); Sodium 140 mmol/L (136-145)
[2022-05-31] MEDS: Sodium Chloride 0.9% 1,000 ML IV SCH ×2 (07:25→14:21)
[2022-05-31] MEDS: Apixaban 5 MG TAB PO SCH ×2 (08:44→20:39)
[2022-05-31] MEDS: Promethazine HCl 25 MG/ML VIAL IM PRN ×3 (08:45→23:58)
[2022-05-31] MEDS: Insulin Glargine 30 UNITS/0.3 ML VIAL SC SCH (08:46)
[2022-05-31] MEDS: Gabapentin 300 MG CAP PO SCH ×3 (08:47→20:38)
[2022-05-31] MEDS: Aspirin 81 mg Enteric Coated Tablet PO SCH (08:47)
[2022-05-31] MEDS: cloNIDine 0.1 MG TAB PO SCH ×2 (08:47→20:39)
[2022-05-31] MEDS: Pantoprazole 40 MG VIAL IVP SCH ×2 (08:47→20:40)
[2022-05-31] MEDS: Magnesium Oxide 400 MG TAB PO SCH (08:47)
[2022-05-31] MEDS: Amitriptyline HCl 25 MG TAB PO SCH (20:39)
[2022-05-31] MEDS: Atorvastatin Calcium 10 MG TAB PO SCH (20:39)
[2022-05-31] MEDS: Zolpidem Tartrate 5 MG TAB PO SCH (21:45)
[2022-06-01] MEDS: Sodium Chloride 0.9% 1,000 ML IV SCH ×5 (01:21→15:16)
[2022-06-01] MEDS: HYDROcodone/Acetaminophen 5/325 mg Tablet PO PRN ×3 (03:32→17:19)
[2022-06-01 05:00] LABS: #Eosinphils 0.1 thou/uL (0.0-0.7); #Lymphocytes 2.7 thou/uL (1.20-3.40); #Monocytes 0.5 thou/uL (0.11-0.59); %Basophils 0.3 % (0.0-1.0); %Eosinophils 1.7 % (0.0-10.0); %Lymphocytes 32.2 % (21.0-51.0); %Monocytes 6.4 % (0.0-10.0); %Neutrophils 59.4 % (42.0-75.0); Hemoglobin 11.1 g/dL (12.0-16.0); Mean Corpuscular Hemoglobin 30.6 pg (27.0-31.0); Mean Platelet Volume 7.1 fL (7.4-10.4); Platelet Count 346 thou/uL (130-400); RBC Distribution Width 12.3 % (11.5-14.5); Red Blood Cell (RBC) Count 3.63 mill/uL (4.20-5.40); White Blood Cell (WBC) Count 8.4 thou/uL (4.8-10.8)
[2022-06-01 05:21] LABS: Anion Gap 11 mmol/L (10-20); BUN (Urea Nitrogen) 14 mg/dL (7.0-18.7); Calc. Creatinine Clearance 136 mL/min (70-130); Calcium 9.5 mg/dL (7.8-10.44); Carbon Dioxide 23 mmol/L (22-29); Chloride 108 mmol/L (98-107); Estimated GFR 80; Glucose 143 mg/dL (70-105); Potassium 3.4 mmol/L (3.5-5.1); Sodium 139 mmol/L (136-145)
[2022-06-01] MEDS: Aspirin 81 mg Enteric Coated Tablet PO SCH (09:24)
[2022-06-01] MEDS: Apixaban 5 MG TAB PO SCH ×2 (09:24→20:33)
[2022-06-01] MEDS: cloNIDine 0.1 MG TAB PO SCH ×3 (09:24→20:35)
[2022-06-01] MEDS: Insulin Glargine 30 UNITS/0.3 ML VIAL SC SCH (09:25)
[2022-06-01] MEDS: Gabapentin 300 MG CAP PO SCH ×3 (09:25→20:34)
[2022-06-01] MEDS: Pantoprazole 40 MG VIAL IVP SCH ×2 (09:25→20:36)
[2022-06-01] MEDS: Magnesium Oxide 400 MG TAB PO SCH (09:25)
[2022-06-01] MEDS: Promethazine HCl 25 MG/ML VIAL IM PRN ×2 (09:29→18:29)
[2022-06-01] MEDS ORDERED: Mag-Al 1200 mg/1200 mg/30 ML UDCUP PO PRN (14:20)
[2022-06-01] MEDS: Amitriptyline HCl 25 MG TAB PO SCH (20:32)
[2022-06-01] MEDS: Zolpidem Tartrate 5 MG TAB PO SCH (20:33)
[2022-06-01] MEDS: Atorvastatin Calcium 10 MG TAB PO SCH (20:34)
[2022-06-02] MEDS: HYDROcodone/Acetaminophen 5/325 mg Tablet PO PRN ×3 (01:55→20:26)
[2022-06-02] MEDS: Promethazine HCl 25 MG/ML VIAL IM PRN (03:45)
[2022-06-02] MEDS: hydrOXYzine 25 MG TAB PO PRN (03:46)
[2022-06-02] MEDS: Apixaban 5 MG TAB PO SCH ×2 (08:50→20:19)
[2022-06-02] MEDS: cloNIDine 0.1 MG TAB PO SCH ×3 (08:50→20:20)
[2022-06-02] MEDS: Gabapentin 300 MG CAP PO SCH ×3 (08:50→20:20)
[2022-06-02] MEDS: Aspirin 81 mg Enteric Coated Tablet PO SCH (08:50)
[2022-06-02] MEDS: Insulin Glargine 30 UNITS/0.3 ML VIAL SC SCH (08:50)
[2022-06-02] MEDS: Pantoprazole 40 MG VIAL IVP SCH ×2 (08:51→20:20)
[2022-06-02] MEDS: Magnesium Oxide 400 MG TAB PO SCH (08:51)
[2022-06-02] MEDS: Sodium Chloride 0.9% 1,000 ML IV SCH (18:36)
[2022-06-02] MEDS: Amitriptyline HCl 25 MG TAB PO SCH (20:19)
[2022-06-02] MEDS: Atorvastatin Calcium 10 MG TAB PO SCH (20:19)
[2022-06-02] MEDS: Zolpidem Tartrate 5 MG TAB PO SCH (20:20)
[2022-06-03] MEDS: Promethazine 25 MG TAB PO PRN ×2 (00:50→09:09)
[2022-06-03] MEDS: HYDROcodone/Acetaminophen 5/325 mg Tablet PO PRN ×2 (03:07→09:09)
[2022-06-03] MEDS: hydrOXYzine 25 MG TAB PO PRN ×2 (03:09→09:09)
[2022-06-03 05:28] LABS: Anion Gap 14 mmol/L (10-20); BUN (Urea Nitrogen) 11 mg/dL (7.0-18.7); Calc. Creatinine Clearance 146 mL/min (70-130); Calcium 8.9 mg/dL (7.8-10.44); Carbon Dioxide 21 mmol/L (22-29); Chloride 105 mmol/L (98-107); Estimated GFR 87; Glucose 203 mg/dL (70-105); Sodium 136 mmol/L (136-145)
[2022-06-03] MEDS: Sodium Chloride 0.9% 1,000 ML IV SCH (06:09)
[2022-06-03] MEDS: cloNIDine 0.1 MG TAB PO SCH (08:24)
[2022-06-03] MEDS: Aspirin 81 mg Enteric Coated Tablet PO SCH (08:24)
[2022-06-03] MEDS: Gabapentin 300 MG CAP PO SCH (08:24)
[2022-06-03] MEDS: Magnesium Oxide 400 MG TAB PO SCH (08:25)
[2022-06-03] MEDS: Apixaban 5 MG TAB PO SCH (08:25)
[2022-06-03] MEDS: Lisinopril 20 MG TAB PO SCH (08:25)
[2022-06-03] MEDS: Insulin Glargine 30 UNITS/0.3 ML VIAL SC SCH (08:25)
[2022-06-03 08:50] VITALS: BP 148/83; TEMP 98
== END 2022-06-03 10:33 | disposition home or self-care (01) | DRG 74 ==
LOC: ERS 22:17 → 2SW 05-28 01:50 → OBSVTOIN 05-29 11:31
PROVIDERS: ADMIT Internal Medicine; ATTEND Internal Medicine
DX: E11.43 Type 2 diabetes mellitus with diabetic autonomic (poly)neuropathy (principal); Z20.822 Contact with and (suspected) exposure to COVID-19; K31.84 Gastroparesis; E87.2 Acidosis; E87.1 Hypo-osmolality and hyponatremia; Z68.41 Body mass index [BMI] 40.0-44.9, adult; N17.9 Acute kidney failure, unspecified; I10 Essential (primary) hypertension; F41.9 Anxiety disorder, unspecified; K76.0 Fatty (change of) liver, not elsewhere classified; I16.0 Hypertensive urgency; R11.2 Nausea with vomiting, unspecified; F12.10 Cannabis abuse, uncomplicated; D72.829 Elevated white blood cell count, unspecified; E87.6 Hypokalemia; E83.42 Hypomagnesemia; R77.8 Other specified abnormalities of plasma proteins; E27.8 Other specified disorders of adrenal gland; E78.5 Hyperlipidemia, unspecified; G89.4 Chronic pain syndrome; E66.01 Morbid (severe) obesity due to excess calories; Z86.711 Personal history of pulmonary embolism; Z91.14 Patient's other noncompliance with medication regimen; Z79.01 Long term (current) use of anticoagulants; Z88.8 Allergy status to other drugs, medicaments and biological substances; Z79.899 Other long term (current) drug therapy; Z79.4 Long term (current) use of insulin; Z79.82 Long term (current) use of aspirin; Z86.718 Personal history of other venous thrombosis and embolism; Z90.49 Acquired absence of other specified parts of digestive tract
CPT/HCPCS: 36415; 36416; 36556; 71045; 71275; 74174; 80048; 80053; 81001; 82553; 83605; 83690; 83735; 84100; 84484; 84703; 85025; 86140; 87086; 93005; 96372; 96374; 96375; 96376; C9113; G0378; J0360; J1200; J1630; J1815; J1885; J2270; J2405; J2543; J2550; J2765; J3480; J3490; J7030; J7050; Q0169; Q9967; S0028; U0003; U0005

== ENCOUNTER 2022-06-23 22:06 | Emergency (ER) | payer OTHER ==
[2022-06-23] MEDS ORDERED: Ibuprofen 800 MG TAB ONE (23:48)
[2022-06-23] MEDS ORDERED: Acetaminophen 500 MG TAB ONE (23:48)
== END 2022-06-24 00:08 | disposition home or self-care (01) ==
LOC: ERS 22:06
DX: U07.1 COVID-19 (principal); I10 Essential (primary) hypertension; M10.9 Gout, unspecified; E11.40 Type 2 diabetes mellitus with diabetic neuropathy, unspecified; Z86.718 Personal history of other venous thrombosis and embolism
CPT/HCPCS: 71045; 93005

== ENCOUNTER 2022-06-26 13:55 | Inpatient (IN) | payer OTHER, MEDICAID ==
[2022-06-26] MEDS ORDERED: Fentanyl 100 MCG/2 ML VIAL ONE ×2 (14:25→16:32)
[2022-06-26 15:16] LABS: Bacteria/HPF 2+ HPF (None Seen); Bilirubin Negative (Negative); Blood, Urine Negative (Negative); Glucose, Urine (Dipstick) Normal (Negative); Ketone, Urine Negative (Negative); Leukocyte 75 Leu/uL (Negative); Nitrite Negative (Negative); Protein, Urine (Dipstick) 50 mg/dL (Neg-Trace); RBC/HPF 0-3 HPF (0-3); Specific Gravity, Urine 1.022 (1.002-1.036); Squamous Epithelial 21-50 HPF (0-3); pH, Urine 5.5 (5.0-9.0)
[2022-06-26 15:17] LABS: Clarity Turbid (Clear)
[2022-06-26 15:21] LABS: ALT (SGPT) 21 U/L (8-55); AST (SGOT) 24 U/L (5-34); Albumin 4.1 g/dL (3.5-5.0); Alkaline Phosphatase 121 U/L (40-110); Anion Gap 18 mmol/L (10-20); BUN (Urea Nitrogen) 26 mg/dL (7.0-18.7); Bilirubin, Total 0.4 mg/dL (0.2-1.2); CK (CPK) 167 U/L (29-168); Calc. Creatinine Clearance 0 mL/min (70-130); Carbon Dioxide 19 mmol/L (22-29); Chloride 98 mmol/L (98-107); Estimated GFR 16; Globulin 4.4 g/dL (2.4-3.5); Glucose 223 mg/dL (70-105); Lipase 16 U/L (8-78); Magnesium 1.3 mg/dL (1.6-2.6); Potassium 3.4 mmol/L (3.5-5.1); Protein, Total 8.5 g/dL (6.0-8.3); Sodium 132 mmol/L (136-145)
[2022-06-26] MEDS ORDERED: Morphine 2 MG/ML VIAL ONE ×2 (15:23→18:00)
[2022-06-26 15:34] LABS: #Eosinphils 0.1 thou/uL (0.0-0.7); #Lymphocytes 1.9 thou/uL (1.20-3.40); #Monocytes 0.4 thou/uL (0.11-0.59); #Neutrophils 4.6 thou/uL (1.40-6.50); %Basophils 0.2 % (0.0-1.0); %Lymphocytes 26.8 % (21.0-51.0); %Monocytes 6.2 % (0.0-10.0); %Neutrophils 65.7 % (42.0-75.0); Hemoglobin 11.1 g/dL (12.0-16.0); Mean Corpuscular HGB CONC 33.3 g/dL (32.0-36.0); Mean Corpuscular Hemoglobin 30.3 pg (27.0-31.0); Mean Corpuscular Volume 90.9 fL (78.0-98.0); Mean Platelet Volume 7.5 fL (7.4-10.4); Platelet Count 388 thou/uL (130-400); RBC Distribution Width 12.4 % (11.5-14.5); Red Blood Cell (RBC) Count 3.66 mill/uL (4.20-5.40)
[2022-06-26 15:41] LABS: CKMB 1.9 ng/mL (0-6.6)
[2022-06-26 15:47] LABS: INR-International Normal Ratio 1.1
[2022-06-26] MEDS ORDERED: Magnesium 2 GM/50 ML BAG (IN WATER) ONE (15:51)
[2022-06-26] MEDS ORDERED: Acetaminophen 325 MG TAB PO PRN (16:16)
[2022-06-26] MEDS ORDERED: Ondansetron PF 4 MG/2 ML Vial IVP PRN (16:16)
[2022-06-26] MEDS ORDERED: Heparin 10,000 UNITS/ 10 ML VIAL SLOW IVP SCH (16:30)
[2022-06-26] MEDS ORDERED: Heparin 25,000 units/D5W 500 ML IVPB SCH (16:30)
[2022-06-26] MEDS ORDERED: cefTRIAXone\\ROCEPHIN 2 GM VIAL ONE (16:32)
[2022-06-26] MEDS ORDERED: Heparin 25,000 units/D5W 500 ML ONE (16:43)
[2022-06-26] MEDS ORDERED: Heparin 10,000 UNITS/ 10 ML VIAL ONE (16:43)
[2022-06-26 16:46] LABS: Hemoglobin 12.2 g/dL (12.0-16.0); Platelet Count 417 thou/uL (130-400)
[2022-06-26 16:54] LABS: Hemoglobin A1c 7.4 % (4.0-6.0)
[2022-06-26] MEDS ORDERED: Azithromycin 500 MG in Sodium Chloride 0.9% 250 ML 250 ML IVPB SCH (17:00)
[2022-06-26] MEDS ORDERED: Dextrose 50% Abboject 50 ML SYRINGE SLOW IVP PRN (17:15)
[2022-06-26] MEDS ORDERED: Dextrose 5% in Water 1,000 ML IV PRN (17:15)
[2022-06-26] MEDS ORDERED: Potassium Bicarbonate/Cit Ac 20 MEQ TAB PO SCH (17:15)
[2022-06-26] MEDS ORDERED: Magnesium Sulfate In Water 4 GM in Premix Bag 1 BAG IVPB SCH (18:15)
[2022-06-26 20:23] LABS: Lactic Acid 1.1 mmol/L (0.5-2.2)
[2022-06-26 20:26] VITALS: BMI 49.3
[2022-06-26 20:46] LABS: CKMB 1.7 ng/mL (0-6.6)
[2022-06-26] MEDS: Lidocaine 5% Patch TD SCH (21:24)
[2022-06-26] MEDS ORDERED: Zolpidem Tartrate 5 MG TAB PO SCH (21:30)
[2022-06-26] MEDS: Morphine 4 MG/ML VIAL SLOW IVP PRN (22:03)
[2022-06-26 22:12] LABS: SARS-CoV-2 NAA Rapid Test DETECTED (NotDetected)
[2022-06-26] MEDS: Sodium Chloride 0.9% 1,000 ML IV SCH (23:10)
[2022-06-26] MEDS: cefTRIAXone\\ROCEPHIN 2 GM in Sodium Chloride 0.9% 100 ML IVPB SCH (23:11)
[2022-06-26] MEDS: Atorvastatin Calcium 10 MG TAB PO SCH (23:12)
[2022-06-26] MEDS ORDERED: Amitriptyline HCl 25 MG TAB PO SCH (23:46)
[2022-06-26 23:56] LABS: PTT Greater than 250.0 sec (22.9-36.1)
[2022-06-27] MEDS: Morphine 4 MG/ML VIAL SLOW IVP PRN (04:11)
[2022-06-27] MEDS: Sodium Chloride 0.9% 1,000 ML IV SCH ×3 (04:12→16:45)
[2022-06-27] MEDS: Transdermal Patch Removal TOP SCH (04:25)
[2022-06-27] MEDS: Morphine 2 MG/ML VIAL SLOW IVP PRN ×4 (08:14→20:52)
[2022-06-27] MEDS ORDERED: Iopamidol-370 76% 500 ML 1 ML ONE (09:05)
[2022-06-27] MEDS: hydrOXYzine 25 MG TAB PO PRN ×3 (10:31→16:53)
[2022-06-27 11:33] LABS: #Eosinphils 0.1 thou/uL (0.0-0.7); #Lymphocytes 2.5 thou/uL (1.20-3.40); #Monocytes 0.6 thou/uL (0.11-0.59); #Neutrophils 3.6 thou/uL (1.40-6.50); %Basophils 0.2 % (0.0-1.0); %Eosinophils 1.4 % (0.0-10.0); %Lymphocytes 36.9 % (21.0-51.0); %Monocytes 8.6 % (0.0-10.0); Mean Corpuscular HGB CONC 33.1 g/dL (32.0-36.0); Mean Corpuscular Hemoglobin 30.5 pg (27.0-31.0); Mean Corpuscular Volume 92.3 fL (78.0-98.0); Mean Platelet Volume 7.3 fL (7.4-10.4); Platelet Count 415 thou/uL (130-400); RBC Distribution Width 12.2 % (11.5-14.5); Red Blood Cell (RBC) Count 3.61 mill/uL (4.20-5.40); White Blood Cell (WBC) Count 6.8 thou/uL (4.8-10.8)
[2022-06-27] MEDS: HumaLOG 300 UNITS/3 ML VIAL SC PRN ×2 (11:38→16:54)
[2022-06-27 11:43] LABS: PTT 181.3 sec (22.9-36.1)
[2022-06-27 11:52] LABS: ALT (SGPT) 18 U/L (8-55); AST (SGOT) 26 U/L (5-34); Albumin 3.8 g/dL (3.5-5.0); Alkaline Phosphatase 109 U/L (40-110); Anion Gap 13 mmol/L (10-20); BUN (Urea Nitrogen) 15 mg/dL (7.0-18.7); Bilirubin, Direct 0.1 mg/dL (0.1-0.3); Bilirubin, Total 0.3 mg/dL (0.2-1.2); Calc. Creatinine Clearance 100 mL/min (70-130); Calcium 8.7 mg/dL (7.8-10.44); Carbon Dioxide 22 mmol/L (22-29); Cardiac Risk 3.5 (Less than 4.5); Chloride 104 mmol/L (98-107); Cholesterol 104 mg/dl (< 200 Desired); Estimated GFR 44; Glucose 221 mg/dL (70-105); HDL Cholesterol 30 mg/dL (>60 Neg Risk); LDL Cholesterol, Calculated 48 mg/dL; Magnesium 2.3 mg/dL (1.6-2.6); Potassium 3.1 mmol/L (3.5-5.1); Protein, Total 7.6 g/dL (6.0-8.3); Sodium 136 mmol/L (136-145); Triglycerides 129 mg/dL (Less than 150)
[2022-06-27 12:08] LABS: CKMB 2.8 ng/mL (0-6.6)
[2022-06-27] MEDS ORDERED: Potassium Chloride 20 MEQ TAB PO SCH (12:30)
[2022-06-27] MEDS: cefTRIAXone\\ROCEPHIN 2 GM in Sodium Chloride 0.9% 100 ML IVPB SCH (16:45)
[2022-06-27] MEDS: Lidocaine 5% Patch TD SCH (16:45)
[2022-06-27] MEDS: Enoxaparin Sodium 100 MG/ML SYRINGE SC SCH (20:53)
[2022-06-27] MEDS: Atorvastatin Calcium 10 MG TAB PO SCH (20:54)
[2022-06-27] MEDS: Amitriptyline HCl 25 MG TAB PO SCH (20:54)
[2022-06-27] MEDS: Zolpidem Tartrate 5 MG TAB PO SCH (20:54)
[2022-06-27] MEDS ORDERED: Enoxaparin Sodium 120 MG/0.8 ML SYRINGE SC SCH (21:00)
[2022-06-27] MEDS ORDERED: Carvedilol 6.25 MG TAB PO SCH (21:30)
[2022-06-27] MEDS: Enoxaparin Sodium 30 MG/0.3 ML SYRINGE SC SCH (22:11)
[2022-06-28] MEDS: Morphine 2 MG/ML VIAL SLOW IVP PRN ×3 (01:27→09:52)
[2022-06-28] MEDS: Sodium Chloride 0.9% 1,000 ML IV SCH ×2 (01:28→09:55)
[2022-06-28] MEDS: Labetalol HCl 100 MG/20 ML VIAL SLOW IVP PRN ×2 (04:17→20:55)
[2022-06-28 04:41] LABS: #Eosinphils 0.1 thou/uL (0.0-0.7); #Lymphocytes 2.5 thou/uL (1.20-3.40); #Monocytes 0.6 thou/uL (0.11-0.59); #Neutrophils 3.3 thou/uL (1.40-6.50); %Basophils 0.2 % (0.0-1.0); %Eosinophils 1.8 % (0.0-10.0); %Lymphocytes 38.1 % (21.0-51.0); %Monocytes 8.5 % (0.0-10.0); %Neutrophils 51.4 % (42.0-75.0); Hemoglobin 11.2 g/dL (12.0-16.0); Mean Corpuscular HGB CONC 34.1 g/dL (32.0-36.0); Mean Corpuscular Hemoglobin 31.6 pg (27.0-31.0); Mean Corpuscular Volume 92.8 fL (78.0-98.0); Mean Platelet Volume 7.4 fL (7.4-10.4); Platelet Count 440 thou/uL (130-400); RBC Distribution Width 12.1 % (11.5-14.5); Red Blood Cell (RBC) Count 3.55 mill/uL (4.20-5.40); White Blood Cell (WBC) Count 6.5 thou/uL (4.8-10.8)
[2022-06-28 05:10] LABS: Anion Gap 12 mmol/L (10-20); BUN (Urea Nitrogen) 8 mg/dL (7.0-18.7); Calc. Creatinine Clearance 170 mL/min (70-130); Carbon Dioxide 20 mmol/L (22-29); Chloride 108 mmol/L (98-107); Estimated GFR 84; Glucose 163 mg/dL (70-105); Magnesium 1.8 mg/dL (1.6-2.6); Potassium 3.6 mmol/L (3.5-5.1); Sodium 136 mmol/L (136-145)
[2022-06-28] MEDS: Transdermal Patch Removal TOP SCH (05:30)
[2022-06-28] MEDS: hydrOXYzine 25 MG TAB PO PRN ×4 (05:34→20:46)
[2022-06-28] MEDS: HumaLOG 300 UNITS/3 ML VIAL SC PRN ×4 (06:32→20:49)
[2022-06-28] MEDS ORDERED: Magnesium 2 GM/50 ML(in water) 2 GM in Premix Bag 1 BAG IVPB SCH (06:45)
[2022-06-28] MEDS ORDERED: Potassium Chloride 20 MEQ TAB PO SCH (06:45)
[2022-06-28] MEDS ORDERED: Carvedilol 6.25 MG TAB PO SCH ×2 (08:00)
[2022-06-28] MEDS: Enoxaparin Sodium 30 MG/0.3 ML SYRINGE SC SCH (09:50)
[2022-06-28] MEDS: Enoxaparin Sodium 100 MG/ML SYRINGE SC SCH (09:50)
[2022-06-28] MEDS ORDERED: Sodium Chloride 0.9% 1,000 ML IV SCH (11:13)
[2022-06-28] MEDS: HYDROcodone/Acetaminophen 10/325 mg Tablet PO PRN ×3 (12:04→20:48)
[2022-06-28] MEDS ORDERED: Amlodipine 5 MG TAB PO SCH (14:00)
[2022-06-28] MEDS: Lidocaine 5% Patch TD SCH ×2 (16:38→16:44)
[2022-06-28] MEDS: Carvedilol 25 MG TAB PO SCH (16:39)
[2022-06-28] MEDS: Amitriptyline HCl 25 MG TAB PO SCH (20:46)
[2022-06-28] MEDS: Atorvastatin Calcium 10 MG TAB PO SCH (20:48)
[2022-06-28] MEDS: Apixaban 5 MG TAB PO SCH (20:48)
[2022-06-28] MEDS: Zolpidem Tartrate 5 MG TAB PO SCH (20:48)
[2022-06-28] MEDS ORDERED: hydrALAZINE 20 MG/ML VIAL SLOW IVP PRN (23:46)
[2022-06-29] MEDS: Labetalol HCl 100 MG/20 ML VIAL SLOW IVP PRN (03:23)
[2022-06-29 04:19] LABS: #Eosinphils 0.2 thou/uL (0.0-0.7); #Lymphocytes 2.5 thou/uL (1.20-3.40); #Monocytes 0.5 thou/uL (0.11-0.59); %Basophils 0.2 % (0.0-1.0); %Eosinophils 4.3 % (0.0-10.0); %Lymphocytes 48.1 % (21.0-51.0); %Monocytes 9.9 % (0.0-10.0); %Neutrophils 37.6 % (42.0-75.0); Mean Corpuscular HGB CONC 34.2 g/dL (32.0-36.0); Mean Corpuscular Hemoglobin 31.6 pg (27.0-31.0); Mean Corpuscular Volume 92.3 fL (78.0-98.0); Mean Platelet Volume 7.7 fL (7.4-10.4); Platelet Count 431 thou/uL (130-400); RBC Distribution Width 12.2 % (11.5-14.5); Red Blood Cell (RBC) Count 3.79 mill/uL (4.20-5.40); White Blood Cell (WBC) Count 5.2 thou/uL (4.8-10.8)
[2022-06-29 04:27] LABS: Anion Gap 14 mmol/L (10-20); BUN (Urea Nitrogen) 6 mg/dL (7.0-18.7); Calc. Creatinine Clearance 176 mL/min (70-130); Calcium 9.8 mg/dL (7.8-10.44); Carbon Dioxide 18 mmol/L (22-29); Chloride 108 mmol/L (98-107); Estimated GFR 87; Glucose 206 mg/dL (70-105); Magnesium 1.6 mg/dL (1.6-2.6); Sodium 136 mmol/L (136-145)
[2022-06-29] MEDS: HumaLOG 300 UNITS/3 ML VIAL SC PRN ×3 (05:55→17:41)
[2022-06-29] MEDS: Transdermal Patch Removal TOP SCH (06:01)
[2022-06-29] MEDS: hydrOXYzine 25 MG TAB PO PRN ×2 (07:16→15:31)
[2022-06-29] MEDS: Carvedilol 25 MG TAB PO SCH ×2 (07:18→17:42)
[2022-06-29] MEDS: HYDROcodone/Acetaminophen 10/325 mg Tablet PO PRN ×3 (07:18→20:47)
[2022-06-29] MEDS: Amlodipine 10 MG TAB PO SCH (07:18)
[2022-06-29] MEDS: Lisinopril 20 MG TAB PO SCH ×2 (07:20→20:49)
[2022-06-29] MEDS: Apixaban 5 MG TAB PO SCH ×2 (07:20→20:48)
[2022-06-29] MEDS ORDERED: Amlodipine 5 MG TAB PO SCH (09:00)
[2022-06-29] MEDS: ALPRAZolam 0.25 MG TAB PO PRN ×2 (09:28→17:43)
[2022-06-29] MEDS ORDERED: Magnesium Sulfate In Water 4 GM in Premix Bag 1 BAG IVPB SCH (11:15)
[2022-06-29] MEDS: Atorvastatin Calcium 10 MG TAB PO SCH (20:48)
[2022-06-29] MEDS: Zolpidem Tartrate 5 MG TAB PO SCH (20:48)
[2022-06-29] MEDS: Amitriptyline HCl 25 MG TAB PO SCH (20:48)
[2022-06-29] MEDS: Lidocaine 5% Patch TD SCH (20:54)
[2022-06-30] MEDS: HYDROcodone/Acetaminophen 10/325 mg Tablet PO PRN ×3 (01:13→10:28)
[2022-06-30] MEDS: hydrOXYzine 25 MG TAB PO PRN (01:13)
[2022-06-30] MEDS ORDERED: ALPRAZolam 0.25 MG TAB PO PRN (01:25)
[2022-06-30 03:53] VITALS: TEMP 98.1
[2022-06-30 04:37] LABS: #Eosinphils 0.2 thou/uL (0.0-0.7); #Lymphocytes 3.1 thou/uL (1.20-3.40); #Monocytes 0.8 thou/uL (0.11-0.59); #Neutrophils 3.2 thou/uL (1.40-6.50); %Basophils 0.5 % (0.0-1.0); %Eosinophils 2.5 % (0.0-10.0); %Lymphocytes 42.5 % (21.0-51.0); %Monocytes 10.7 % (0.0-10.0); %Neutrophils 43.8 % (42.0-75.0); Hemoglobin 11.7 g/dL (12.0-16.0); Mean Corpuscular HGB CONC 33.5 g/dL (32.0-36.0); Mean Corpuscular Hemoglobin 30.5 pg (27.0-31.0); Mean Platelet Volume 7.3 fL (7.4-10.4); Platelet Count 536 thou/uL (130-400); RBC Distribution Width 12.2 % (11.5-14.5); Red Blood Cell (RBC) Count 3.84 mill/uL (4.20-5.40); White Blood Cell (WBC) Count 7.4 thou/uL (4.8-10.8)
[2022-06-30 05:00] LABS: Anion Gap 14 mmol/L (10-20); BUN (Urea Nitrogen) 10 mg/dL (7.0-18.7); Calc. Creatinine Clearance 144 mL/min (70-130); Carbon Dioxide 22 mmol/L (22-29); Chloride 101 mmol/L (98-107); Potassium 3.9 mmol/L (3.5-5.1); Sodium 133 mmol/L (136-145)
[2022-06-30 05:01] LABS: Estimated GFR 68; Glucose 203 mg/dL (70-105); Magnesium 1.8 mg/dL (1.6-2.6)
[2022-06-30] MEDS: HumaLOG 300 UNITS/3 ML VIAL SC PRN ×2 (05:40→12:06)
[2022-06-30] MEDS: Transdermal Patch Removal TOP SCH (05:51)
[2022-06-30 08:23] VITALS: BP 120/58
[2022-06-30] MEDS: Apixaban 5 MG TAB PO SCH (10:13)
[2022-06-30] MEDS: Lisinopril 20 MG TAB PO SCH (10:13)
[2022-06-30] MEDS: Carvedilol 25 MG TAB PO SCH (10:14)
[2022-06-30] MEDS: Amlodipine 10 MG TAB PO SCH (10:14)
[2022-06-30] MEDS: ALPRAZolam 0.25 MG TAB PO PRN (10:28)
== END 2022-06-30 12:40 | disposition home health service (06) | DRG 313 ==
LOC: SUATTDRO 13:55 → ERS 13:55 → 2NO 17:23
PROVIDERS: ADMIT Family Medicine; ATTEND Family Medicine
PROC: 8E0ZXY6 Isolation (ICD-10-PCS; principal; 2022-06-26)
DX: R07.89 Other chest pain (principal); U07.1 COVID-19; E87.1 Hypo-osmolality and hyponatremia; N17.9 Acute kidney failure, unspecified; E86.0 Dehydration; I10 Essential (primary) hypertension; E87.6 Hypokalemia; E83.42 Hypomagnesemia; R77.8 Other specified abnormalities of plasma proteins; E78.5 Hyperlipidemia, unspecified; M10.9 Gout, unspecified; E11.40 Type 2 diabetes mellitus with diabetic neuropathy, unspecified; F41.9 Anxiety disorder, unspecified; N83.209 Unspecified ovarian cyst, unspecified side; I95.9 Hypotension, unspecified; I25.2 Old myocardial infarction; Z86.718 Personal history of other venous thrombosis and embolism; Z86.711 Personal history of pulmonary embolism; Z88.8 Allergy status to other drugs, medicaments and biological substances; Z79.899 Other long term (current) drug therapy; Z79.84 Long term (current) use of oral hypoglycemic drugs; Z79.4 Long term (current) use of insulin; Z79.82 Long term (current) use of aspirin; Z79.01 Long term (current) use of anticoagulants; Z90.49 Acquired absence of other specified parts of digestive tract
CPT/HCPCS: 36415; 36416; 51701; 71045; 71275; 74174; 80048; 80053; 80061; 80076; 81003; 81015; 82550; 82553; 83036; 83605; 83690; 83735; 84443; 84484; 85025; 85379; 85610; 85730; 87040; 87086; 93005; 93970; 94760; 96361; 96365; 96367; 96375; 96376; J0360; J0456; J0696; J1644; J1650; J1815; J2270; J3010; J3475; J3490; J7050; Q9967

== ENCOUNTER 2022-09-26 13:23 | Outpatient (CLI) | payer OTHER | END 2022-09-26 13:24 | disposition home or self-care (01) | LOC: DTY/OP 13:23 | PROVIDERS: ATTEND Specialist | DX: E66.01 Morbid (severe) obesity due to excess calories (principal) | CPT/HCPCS: 36415; 80053; 80061; 82306; 82607; 82728; 82746; 83036; 83540; 83970; 84425; 84436; 84443; 85025; 97802 ==

== ENCOUNTER 2022-09-26 18:07 | Emergency (ER) | payer OTHER | END 2022-09-26 20:12 | disposition home or self-care (01) | LOC: ERS 18:07 | DX: G89.29 Other chronic pain (principal); M54.50 Low back pain, unspecified; E11.9 Type 2 diabetes mellitus without complications; I10 Essential (primary) hypertension; Z79.82 Long term (current) use of aspirin; Z79.01 Long term (current) use of anticoagulants; Z79.899 Other long term (current) drug therapy | CPT/HCPCS: 99283 ==

== ENCOUNTER 2022-09-27 06:57 | Outpatient (CLI) | payer OTHER | END 2022-09-27 06:58 | disposition home or self-care (01) | LOC: RAD 06:57 | PROVIDERS: ATTEND Specialist | DX: E66.01 Morbid (severe) obesity due to excess calories (principal); K21.9 Gastro-esophageal reflux disease without esophagitis | CPT/HCPCS: 74246 ==

== ENCOUNTER 2022-10-23 16:50 | Inpatient (IN) | payer OTHER, MEDICAID ==
[2022-10-23 17:55] LABS: #Eosinphils 0.1 thou/uL (0.0-0.7); #Lymphocytes 2.4 thou/uL (1.20-3.40); #Monocytes 0.4 thou/uL (0.11-0.59); #Neutrophils 7.7 thou/uL (1.40-6.50); %Basophils 0.1 % (0.0-1.0); %Eosinophils 0.6 % (0.0-10.0); %Lymphocytes 22.6 % (21.0-51.0); %Monocytes 3.7 % (0.0-10.0); %Neutrophils 72.9 % (42.0-75.0); Hemoglobin 12.3 g/dL (12.0-16.0); Mean Corpuscular HGB CONC 32.5 g/dL (32.0-36.0); Mean Corpuscular Hemoglobin 28.6 pg (27.0-31.0); Mean Corpuscular Volume 87.9 fl (78.0-98.0); Mean Platelet Volume 7.6 fL (7.4-10.4); Platelet Count 405 10x3/uL (130-400); RBC Distribution Width 13.8 % (11.5-14.5); White Blood Cell (WBC) Count 10.6 10x3/uL (4.8-10.8)
[2022-10-23 18:20] LABS: ALT (SGPT) 32 U/L (8-55); AST (SGOT) 39 U/L (5-34); Albumin 4.8 g/dL (3.5-5.0); Alkaline Phosphatase 135 U/L (40-110); Anion Gap 18 mmol/L (10-20); BUN (Urea Nitrogen) 13 mg/dL (7.0-18.7); Bilirubin, Total 0.2 mg/dL (0.2-1.2); Calc. Creatinine Clearance 0 mL/min (70-130); Calcium 10.5 mg/dL (7.8-10.44); Carbon Dioxide 23 mmol/L (22-29); Chloride 102 mmol/L (98-107); Estimated GFR 56; Globulin 4.5 g/dL (2.4-3.5); Glucose 209 mg/dL (70-105); Potassium 4.1 mmol/L (3.5-5.1); Protein, Total 9.3 g/dL (6.0-8.3); Sodium 139 mmol/L (136-145)
[2022-10-23] MEDS ORDERED: Ketorolac Tromethamine 30 MG/ML VIAL ONE (18:21)
[2022-10-23 18:27] LABS: BHCG - Serum Negative (NEGATIVE); Pregs Control Background? CLEAR/WHITE (CLR/WHITE); Pregs Control Bar Appear? YES (CONTROL BAR)
[2022-10-23 18:38] LABS: CKMB 0.6 ng/mL (0-6.6)
[2022-10-23] MEDS ORDERED: Morphine 4 MG/ML VIAL ONE (18:43)
[2022-10-23] MEDS ORDERED: Promethazine HCl 25 MG in Sodium Chloride 0.9% 50 ML IVPB SCH (18:45)
[2022-10-23] MEDS ORDERED: hydrALAZINE 20 MG/ML VIAL ONE (20:19)
[2022-10-23] MEDS ORDERED: Haloperidol Lactate 5 MG/ML VIAL ONE (20:37)
[2022-10-23] MEDS ORDERED: Metoprolol Tartrate 5 MG/5 ML VIAL ONE (21:53)
[2022-10-23] MEDS ORDERED: Zolpidem Tartrate 5 MG TAB PO SCH (22:30)
[2022-10-23] MEDS ORDERED: Labetalol HCl 100 MG/20 ML VIAL SLOW IVP SCH (22:30)
[2022-10-23] MEDS ORDERED: Zolpidem Tartrate 5 MG TAB ONE (22:31)
[2022-10-23] MEDS ORDERED: Labetalol HCl 100 MG/20 ML VIAL ONE (22:32)
[2022-10-23 22:37] LABS: Troponin I 0.052 ng/mL (< 0.028)
[2022-10-23] MEDS: Sodium Chloride 0.9% 1,000 ML IV SCH (22:49)
[2022-10-23 23:41] LABS: SARS-CoV-2 NAA Rapid Test Not Detected (NotDetected)
[2022-10-23] MEDS ORDERED: cloNIDine 0.2 MG TAB PO SCH (23:45)
[2022-10-24] MEDS ORDERED: niCARdipine 25 MG/10 ML VIAL ONE (00:16)
[2022-10-24] MEDS ORDERED: Ondansetron PF 4 MG/2 ML Vial ONE (00:23)
[2022-10-24] MEDS: Ondansetron PF 4 MG/2 ML Vial IVP PRN ×2 (00:25→08:50)
[2022-10-24] MEDS ORDERED: traMADol HCl 50 MG TAB ONE (00:51)
[2022-10-24] MEDS: traMADol HCl 50 MG TAB PO PRN ×3 (00:53→14:58)
[2022-10-24] MEDS ORDERED: Dextrose 5% in Water 1,000 ML IV PRN (01:07)
[2022-10-24] MEDS ORDERED: HumaLOG 300 UNITS/3 ML VIAL SC PRN (01:07)
[2022-10-24] MEDS ORDERED: Dextrose 50% Abboject 50 ML SYRINGE SLOW IVP PRN (01:07)
[2022-10-24 01:58] LABS: Bilirubin Negative (Negative); Blood, Urine Negative (Negative); Clarity Clear (Clear); Glucose, Urine (Dipstick) Greater than 1000 mg/dL (Negative); Ketone, Urine 80 mg/dL (Negative); Leukocyte Negative Leu/uL (Negative); Nitrite Negative (Negative); Protein, Urine (Dipstick) 20 mg/dL (Neg-Trace); Specific Gravity, Urine 1.015 (1.002-1.036); Urobilinogen Normal mg/dL (Less than 2)
[2022-10-24 02:07] LABS: Amphetamine Not Detected (NotDetected); Barbiturates Screen Not Detected (NotDetected); Benzodiazepine Screen Not Detected (NotDetected); Cocaine Metabolite Screen Not Detected (NotDetected); Methadone Not Detected (NotDetected); Methamphetamine Not Detected (NotDetected); Opiate Screen Detected (NotDetected); Oxycodone Screen Not Detected (NotDetected); Phencyclidine (PCP) Not Detected (NotDetected); THC/Cannabinoid Screen Detected (NotDetected); Tricyclic Screen Not Detected (NotDetected)
[2022-10-24] MEDS ORDERED: Acetaminophen 325 MG TAB PO PRN (02:15)
[2022-10-24] MEDS: niCARdipine 25 MG in Sodium Chloride 0.9% 250 ML 250 ML IVPB SCH ×5 (02:38→10:55)
[2022-10-24 05:23] VITALS: BMI 37.6
[2022-10-24] MEDS: HumaLOG 300 UNITS/3 ML VIAL SC PRN ×2 (06:13→12:24)
[2022-10-24 06:36] LABS: #Lymphocytes 1.3 thou/uL (1.20-3.40); #Monocytes 0.1 thou/uL (0.11-0.59); #Neutrophils 13.3 thou/uL (1.40-6.50); %Eosinophils 0.2 % (0.0-10.0); %Lymphocytes 8.7 % (21.0-51.0); %Neutrophils 90.1 % (42.0-75.0); Hemoglobin 12.1 g/dL (12.0-16.0); Mean Corpuscular HGB CONC 32.4 g/dL (32.0-36.0); Mean Corpuscular Hemoglobin 29.2 pg (27.0-31.0); Mean Corpuscular Volume 90.1 fl (78.0-98.0); Mean Platelet Volume 7.4 fL (7.4-10.4); Platelet Count 377 10x3/uL (130-400); Red Blood Cell (RBC) Count 4.16 mill/uL (4.20-5.40); White Blood Cell (WBC) Count 14.8 10x3/uL (4.8-10.8)
[2022-10-24 06:53] LABS: Anion Gap 18 mmol/L (10-20); BUN (Urea Nitrogen) 11 mg/dL (7.0-18.7); Calc. Creatinine Clearance 133 mL/min (70-130); Calcium 10.2 mg/dL (7.8-10.44); Carbon Dioxide 20 mmol/L (22-29); Chloride 102 mmol/L (98-107); Estimated GFR 84; Glucose 285 mg/dL (70-105); Potassium 3.5 mmol/L (3.5-5.1); Sodium 136 mmol/L (136-145)
[2022-10-24 06:58] LABS: Troponin I 0.054 ng/mL (< 0.028)
[2022-10-24] MEDS ORDERED: Electrolyte Replacement Protocol 1 EACH FS SCH (08:15)
[2022-10-24] MEDS: NIFEdipine XL 30 MG TAB PO SCH (08:45)
[2022-10-24] MEDS: Gabapentin 300 MG CAP PO SCH ×3 (08:46→20:24)
[2022-10-24] MEDS: cloNIDine 0.2 MG TAB PO SCH ×2 (08:48→15:12)
[2022-10-24] MEDS: Nebivolol HCl 5 MG TAB PO SCH (08:49)
[2022-10-24] MEDS ORDERED: Potassium Chloride 20 MEQ TAB PO SCH (09:00)
[2022-10-24] MEDS ORDERED: Electrolyte Replacement Protocol FS PRN (09:00)
[2022-10-24] MEDS: Heparin 5,000 UNITS/ML VIAL SC SCH ×3 (09:04→20:24)
[2022-10-24] MEDS: Sodium Chloride 0.9% 1,000 ML IV SCH (10:54)
[2022-10-24 15:11] LABS: Potassium 3.7 mmol/L (3.5-5.1)
[2022-10-24] MEDS ORDERED: cloNIDine 0.2 MG TAB PO PRN (15:59)
[2022-10-24] MEDS: Simvastatin 10 MG TAB PO SCH (20:24)
[2022-10-24] MEDS ORDERED: Atorvastatin Calcium 40 MG TAB PO SCH (21:00)
[2022-10-24] MEDS ORDERED: Zolpidem Tartrate 5 MG TAB PO SCH (21:15)
[2022-10-25 03:46] LABS: #Eosinphils 0.1 thou/uL (0.0-0.7); #Lymphocytes 2.6 thou/uL (1.20-3.40); #Monocytes 0.6 thou/uL (0.11-0.59); #Neutrophils 6.9 thou/uL (1.40-6.50); %Basophils 0.3 % (0.0-1.0); %Eosinophils 0.9 % (0.0-10.0); %Lymphocytes 25.8 % (21.0-51.0); %Monocytes 5.5 % (0.0-10.0); %Neutrophils 67.6 % (42.0-75.0); Hemoglobin 9.6 g/dL (12.0-16.0); Mean Corpuscular Volume 87.8 fl (78.0-98.0); Mean Platelet Volume 7.4 fL (7.4-10.4); Platelet Count 333 10x3/uL (130-400); Red Blood Cell (RBC) Count 3.31 mill/uL (4.20-5.40); White Blood Cell (WBC) Count 10.2 10x3/uL (4.8-10.8)
[2022-10-25 04:13] LABS: Anion Gap 13 mmol/L (10-20); BUN (Urea Nitrogen) 18 mg/dL (7.0-18.7); Calc. Creatinine Clearance 83 mL/min (70-130); Carbon Dioxide 22 mmol/L (22-29); Chloride 105 mmol/L (98-107); Estimated GFR 47; Glucose 161 mg/dL (70-105); Potassium 3.8 mmol/L (3.5-5.1); Sodium 136 mmol/L (136-145)
[2022-10-25] MEDS: traMADol HCl 50 MG TAB PO PRN ×4 (06:13→23:52)
[2022-10-25] MEDS: DULoxetine 30 MG CAP PO SCH (08:42)
[2022-10-25] MEDS: Gabapentin 300 MG CAP PO SCH ×3 (08:42→21:01)
[2022-10-25] MEDS: Heparin 5,000 UNITS/ML VIAL SC SCH ×3 (08:43→21:02)
[2022-10-25] MEDS: Lisinopril 20 MG TAB PO SCH (08:43)
[2022-10-25] MEDS: Nebivolol HCl 5 MG TAB PO SCH (08:43)
[2022-10-25] MEDS: NIFEdipine XL 30 MG TAB PO SCH (08:44)
[2022-10-25] MEDS ORDERED: VORTIOXETINE PO SCH (09:00)
[2022-10-25] MEDS ORDERED: Diclofenac Sodium 50 MG DR TAB PO PRN (09:21)
[2022-10-25] MEDS ORDERED: methylPREDNISolone 4 mg Tablet PO SCH (09:45)
[2022-10-25] MEDS: HumaLOG 300 UNITS/3 ML VIAL SC PRN ×2 (11:58→16:53)
[2022-10-25] MEDS: Simvastatin 10 MG TAB PO SCH (21:02)
[2022-10-25] MEDS ORDERED: Zolpidem Tartrate 5 MG TAB PO PRN (21:10)
[2022-10-26] MEDS ORDERED: hydrOXYzine Pamoate 25 mg Capsule PO SCH (00:30)
[2022-10-26] MEDS: traMADol HCl 50 MG TAB PO PRN (05:35)
[2022-10-26 07:17] LABS: #Basophils 0.1 thou/uL (0.0-0.2); #Eosinphils 0.1 thou/uL (0.0-0.7); #Lymphocytes 5.3 thou/uL (1.20-3.40); #Monocytes 0.8 thou/uL (0.11-0.59); %Basophils 0.5 % (0.0-1.0); %Eosinophils 0.7 % (0.0-10.0); %Monocytes 5.9 % (0.0-10.0); Hemoglobin 12.2 g/dL (12.0-16.0); Mean Corpuscular HGB CONC 32.8 g/dL (32.0-36.0); Mean Corpuscular Hemoglobin 29.2 pg (27.0-31.0); Mean Corpuscular Volume 89.1 fl (78.0-98.0); Mean Platelet Volume 7.3 fL (7.4-10.4); Platelet Count 465 10x3/uL (130-400); RBC Distribution Width 13.7 % (11.5-14.5); Red Blood Cell (RBC) Count 4.16 mill/uL (4.20-5.40); White Blood Cell (WBC) Count 13.2 10x3/uL (4.8-10.8)
[2022-10-26 07:43] LABS: Anion Gap 14 mmol/L (10-20); BUN (Urea Nitrogen) 14 mg/dL (7.0-18.7); Calc. Creatinine Clearance 123 mL/min (70-130); Calcium 9.8 mg/dL (7.8-10.44); Carbon Dioxide 24 mmol/L (22-29); Chloride 102 mmol/L (98-107); Estimated GFR 75; Glucose 117 mg/dL (70-105); Potassium 3.4 mmol/L (3.5-5.1); Sodium 137 mmol/L (136-145)
[2022-10-26 07:53] VITALS: TEMP 98
[2022-10-26] MEDS: DULoxetine 30 MG CAP PO SCH (08:49)
[2022-10-26] MEDS: Gabapentin 300 MG CAP PO SCH (08:49)
[2022-10-26] MEDS: NIFEdipine XL 30 MG TAB PO SCH (08:50)
[2022-10-26] MEDS: Nebivolol HCl 5 MG TAB PO SCH (08:50)
[2022-10-26] MEDS: Lisinopril 20 MG TAB PO SCH (08:50)
[2022-10-26] MEDS: Heparin 5,000 UNITS/ML VIAL SC SCH (08:51)
[2022-10-26 08:54] VITALS: BP 110/75
[2022-10-26] MEDS ORDERED: Potassium Chloride 20 MEQ TAB PO SCH (09:00)
[2022-10-26] MEDS ORDERED: methylPREDNISolone 4 mg Tablet PO SCH (09:00)
[2022-10-27] MEDS ORDERED: FLU VACC QS2022-23(6MOS UP)/PF 60 MCG/0.5 ML SYRINGE IM ONE (09:00)
== END 2022-10-26 11:54 | disposition home or self-care (01) | DRG 305 ==
LOC: ERS 16:50 → ERHOLD 21:28 → CCU 21:49 → SURG A 10-25 20:40
PROVIDERS: ADMIT Internal Medicine; ATTEND Internal Medicine
DX: I16.1 Hypertensive emergency (principal); N17.9 Acute kidney failure, unspecified; Z20.822 Contact with and (suspected) exposure to COVID-19; E11.65 Type 2 diabetes mellitus with hyperglycemia; D64.9 Anemia, unspecified; E66.9 Obesity, unspecified; Z68.39 Body mass index [BMI] 39.0-39.9, adult; M10.9 Gout, unspecified; I10 Essential (primary) hypertension; E11.42 Type 2 diabetes mellitus with diabetic polyneuropathy; K21.9 Gastro-esophageal reflux disease without esophagitis; F41.9 Anxiety disorder, unspecified; D72.829 Elevated white blood cell count, unspecified; F32.A Depression, unspecified; Z86.718 Personal history of other venous thrombosis and embolism; Z79.01 Long term (current) use of anticoagulants; Z88.8 Allergy status to other drugs, medicaments and biological substances; Z79.899 Other long term (current) drug therapy; Z79.84 Long term (current) use of oral hypoglycemic drugs; Z90.49 Acquired absence of other specified parts of digestive tract
CPT/HCPCS: 36415; 36416; 71045; 71275; 80048; 80053; 80306; 81003; 82553; 83690; 84484; 84703; 85025; 93005; 94760; 96372; 96374; 96375; J0360; J1630; J1644; J1650; J1885; J2270; J2405; J2550; J7050; J7509; Q0177; Q9967; U0002

== ENCOUNTER 2022-11-10 22:43 | Emergency (ER) | payer OTHER, MEDICAID ==
[2022-11-11 00:04] LABS: ALT (SGPT) 22 U/L (8-55); AST (SGOT) 29 U/L (5-34); Albumin 3.9 g/dL (3.5-5.0); Alkaline Phosphatase 107 U/L (40-110); Anion Gap 16 mmol/L (10-20); BUN (Urea Nitrogen) 10 mg/dL (7.0-18.7); Bilirubin, Total Less than 0.2 mg/dL (0.2-1.2); Calc. Creatinine Clearance 0 mL/min (70-130); Calcium 9.3 mg/dL (7.8-10.44); Carbon Dioxide 20 mmol/L (22-29); Chloride 103 mmol/L (98-107); Estimated GFR 77; Globulin 3.8 g/dL (2.4-3.5); Glucose 325 mg/dL (70-105); Lipase 23 U/L (8-78); Potassium 4.1 mmol/L (3.5-5.1); Protein, Total 7.7 g/dL (6.0-8.3); Sodium 135 mmol/L (136-145)
[2022-11-11 00:47] LABS: CKMB 0.5 ng/mL (0-6.6)
[2022-11-11] MEDS ORDERED: Aspirin Chewable 81 MG TAB ONE (03:36)
[2022-11-11] MEDS ORDERED: Ketorolac Tromethamine 30 MG/ML VIAL ONE (03:36)
[2022-11-11 03:50] LABS: #Eosinphils 0.2 thou/uL (0.0-0.7); #Lymphocytes 2.3 thou/uL (1.20-3.40); #Monocytes 0.4 thou/uL (0.11-0.59); #Neutrophils 4.5 thou/uL (1.40-6.50); %Basophils 0.4 % (0.0-1.0); %Eosinophils 2.4 % (0.0-10.0); %Lymphocytes 31.4 % (21.0-51.0); %Neutrophils 60.8 % (42.0-75.0); Hemoglobin 10.9 g/dL (12.0-16.0); Mean Corpuscular HGB CONC 33.8 g/dL (32.0-36.0); Mean Corpuscular Hemoglobin 29.1 pg (27.0-31.0); Mean Platelet Volume 7.9 fL (7.4-10.4); Platelet Count 349 10x3/uL (130-400); Red Blood Cell (RBC) Count 3.76 mill/uL (4.20-5.40); White Blood Cell (WBC) Count 7.4 10x3/uL (4.8-10.8)
[2022-11-11 04:12] LABS: Troponin I 0.065 ng/mL (< 0.028)
== END 2022-11-11 04:43 | disposition home or self-care (01) ==
LOC: ERS 22:43
DX: R07.9 Chest pain, unspecified (principal); M79.605 Pain in left leg; E11.9 Type 2 diabetes mellitus without complications; I10 Essential (primary) hypertension; Z79.82 Long term (current) use of aspirin; Z79.01 Long term (current) use of anticoagulants; Z79.899 Other long term (current) drug therapy
CPT/HCPCS: 36415; 71045; 80053; 82553; 83690; 84484; 85025; 93005; 96372; J1885

== ENCOUNTER 2022-11-30 11:40 | Outpatient (CLI) | payer OTHER ==
[2022-11-30 13:01] LABS: #Basophils 0.1 10x3/uL (0.0-0.2); #Eosinphils 0.2 10x3/uL (0.0-0.5); #Monocytes 0.5 10x3/uL (0.0-1.1); #Neutrophils 4.1 10x3/uL (1.5-8.4); %Basophils 0.6 % (0.0-2.0); %Eosinophils 2.1 % (0.0-6.0); %Lymphocytes 43.1 % (18.0-47.0); %Monocytes 6.1 % (0.0-10.0); %Neutrophils 47.9 % (40.0-75.0); Hemoglobin 11.6 g/dL (12.0-15.5); Mean Corpuscular HGB CONC 32.6 g/dL (32.0-36.0); Mean Corpuscular Hemoglobin 27.7 pg (27.0-33.0); Mean Platelet Volume 10.4 fl (7.4-10.4); Platelet Count 481 10x3/uL (150-450); RBC Distribution Width 13.1 % (11.5-14.5); Red Blood Cell (RBC) Count 4.19 10x6/uL (3.90-5.03); White Blood Cell (WBC) Count 8.5 10x3/uL (3.5-10.5)
[2022-11-30 13:15] LABS: BHCG - Serum Negative (NEGATIVE); Pregs Control Background? CLEAR/WHITE (CLR/WHITE); Pregs Control Bar Appear? YES (CONTROL BAR)
[2022-11-30 13:18] LABS: Anion Gap 15 mmol/L (10-20); BUN (Urea Nitrogen) 16 mg/dL (7.0-18.7); Calc. Creatinine Clearance 0 mL/min (70-130); Carbon Dioxide 21 mmol/L (22-29); Chloride 102 mmol/L (98-107); Estimated GFR 74; Glucose 130 mg/dL (70-105); Potassium 4.4 mmol/L (3.5-5.1); Sodium 134 mmol/L (136-145)
== END 2022-11-30 11:41 | disposition home or self-care (01) ==
LOC: LABBT 11:40
PROVIDERS: ATTEND Specialist
DX: Z01.818 Encounter for other preprocedural examination (principal); E66.01 Morbid (severe) obesity due to excess calories
CPT/HCPCS: 80048; 84703; 85025; 93005; 93010

== ENCOUNTER 2022-11-30 12:00 | Inpatient (IN) | payer OTHER, MEDICAID ==
[2022-12-05 10:14] VITALS: BMI 40.3
[2022-12-06] MEDS ORDERED: Scopolamine 1.5 mg/72 hour Patch ONE (06:14)
[2022-12-06] MEDS ORDERED: Acetaminophen 500 MG TAB ONE (06:14)
[2022-12-06] MEDS ORDERED: Ketorolac Tromethamine 30 MG/ML VIAL ONE ×2 (06:14→13:07)
[2022-12-06] MEDS ORDERED: HYDROmorphone 0.5 MG/0.5 ML SYRINGE ONE ×2 (06:41→09:51)
[2022-12-06] MEDS ORDERED: Bupivacaine/Epinephrine 0.25% 30 ML VIAL ONE (06:48)
[2022-12-06] MEDS ORDERED: Glycopyrrolate 0.2 MG/ML 5 ML SYRINGE ONE (07:00)
[2022-12-06] MEDS ORDERED: Dexamethasone 20 MG/5 ML VIAL ONE (07:00)
[2022-12-06] MEDS ORDERED: Rocuronium Bromide 10 MG/ML (10ML VIAL) ONE (07:00)
[2022-12-06] MEDS ORDERED: PROPOFOL 200 MG/20 ML VIAL ONE (07:00)
[2022-12-06] MEDS ORDERED: ePHEDrine 50 MG/ML VIAL ONE (07:00)
[2022-12-06] MEDS ORDERED: Lidocaine 1% PF 5 ML VIAL ONE (07:00)
[2022-12-06] MEDS ORDERED: NEOSTIGMINE 3 MG/3 ML SYR 3 MG/3 ML SYRINGE ONE (07:00)
[2022-12-06] MEDS ORDERED: PHENYLEPHRINE-NS 100 MCG/ML 10 ML SYRINGE ONE (07:00)
[2022-12-06] MEDS ORDERED: Midazolam HCl 2 mg/2 ml Vial ONE ×2 (07:16→11:22)
[2022-12-06 07:23] LABS: SARS-CoV-2 NAA Rapid Test Not Detected (NotDetected)
[2022-12-06] MEDS ORDERED: Sodium Chloride 0.9% 100 ML ONE (07:28)
[2022-12-06] MEDS ORDERED: cefOXitin 2 GM VIAL ONE ×2 (07:28→09:35)
[2022-12-06] MEDS ORDERED: Ondansetron PF 4 MG/2 ML Vial IVP PRN (09:50)
[2022-12-06] MEDS ORDERED: Ipratropium/Albuterol 3 ML NEB NEB PRN (09:50)
[2022-12-06] MEDS ORDERED: Dextrose 50% Abboject 50 ML SYRINGE SLOW IVP PRN (09:50)
[2022-12-06] MEDS ORDERED: Promethazine HCl 25 MG/ML VIAL IM PRN (09:50)
[2022-12-06] MEDS ORDERED: Dextrose 5% in Water 1,000 ML IV PRN (09:50)
[2022-12-06] MEDS ORDERED: diphenhydrAMINE 50 MG/ML VIAL IVP PRN (09:50)
[2022-12-06] MEDS ORDERED: hydrALAZINE 20 MG/ML VIAL SLOW IVP PRN (09:50)
[2022-12-06] MEDS ORDERED: Ondansetron HCl/PF 4 MG/2 ML Vial IVP PRN (10:37)
[2022-12-06] MEDS ORDERED: Promethazine HCl 25 MG/ML VIAL IM/IV PRN (10:37)
[2022-12-06] MEDS ORDERED: HYDROmorphone 2 MG/ML VIAL SLOW IVP PRN (10:37)
[2022-12-06] MEDS ORDERED: Fentanyl 100 MCG/2 ML VIAL ONE ×4 (10:48→13:33)
[2022-12-06] MEDS ORDERED: Ondansetron PF 4 MG/2 ML Vial ONE (11:12)
[2022-12-06] MEDS ORDERED: Pantoprazole 40 MG VIAL IVP SCH (11:30)
[2022-12-06] MEDS ORDERED: cloNIDine 0.2 MG TAB PO SCH (11:45)
[2022-12-06] MEDS ORDERED: Labetalol HCl 100 MG/20 ML VIAL ONE (11:50)
[2022-12-06] MEDS ORDERED: Alogliptin 6.25 MG TAB PO SCH (12:00)
[2022-12-06] MEDS ORDERED: hydrALAZINE 20 MG/ML VIAL ONE (12:13)
[2022-12-06 13:40] LABS: CKMB 2.1 ng/mL (0-6.6)
[2022-12-06] MEDS: Ketorolac Tromethamine 30 MG/ML VIAL IVP SCH ×2 (16:06→18:02)
[2022-12-06] MEDS: 1/2 NS w/KCL 20 mEq 1,000 ML IV SCH ×3 (16:07→23:30)
[2022-12-06] MEDS: cloNIDine 0.2 MG TAB PO SCH ×2 (16:07→21:09)
[2022-12-06] MEDS: Morphine 4 MG/ML VIAL SLOW IVP PRN ×2 (16:07→18:03)
[2022-12-06] MEDS: ALPRAZolam 0.5 MG TAB PO PRN (18:28)
[2022-12-06] MEDS: Insulin Regular 300 UNITS/3 ML VIAL SC PRN (19:04)
[2022-12-06] MEDS: Simvastatin 10 MG TAB PO SCH (21:07)
[2022-12-06] MEDS: Hydrocodone-Acetamin 15 ML UDCUP PO PRN (21:15)
[2022-12-06] MEDS: Morphine 2 MG/ML VIAL SLOW IVP PRN (21:16)
[2022-12-07] MEDS: Ketorolac Tromethamine 30 MG/ML VIAL IVP SCH ×2 (00:33→06:16)
[2022-12-07] MEDS: Zolpidem Tartrate 5 MG TAB PO PRN ×2 (00:33→20:37)
[2022-12-07] MEDS: Hydrocodone-Acetamin 15 ML UDCUP PO PRN ×5 (00:33→20:37)
[2022-12-07] MEDS: Insulin Regular 300 UNITS/3 ML VIAL SC PRN ×2 (00:51→07:55)
[2022-12-07 05:41] LABS: #Lymphocytes 1.8 thou/uL (1.20-3.40); #Monocytes 0.9 thou/uL (0.11-0.59); #Neutrophils 10.5 thou/uL (1.40-6.50); %Basophils 0.1 % (0.0-1.0); %Eosinophils 0.1 % (0.0-10.0); %Lymphocytes 13.3 % (21.0-51.0); %Monocytes 6.9 % (0.0-10.0); %Neutrophils 79.7 % (42.0-75.0); Hemoglobin 9.9 g/dL (12.0-16.0); Mean Corpuscular HGB CONC 33.2 g/dL (32.0-36.0); Mean Corpuscular Hemoglobin 29.5 pg (27.0-31.0); Mean Corpuscular Volume 88.9 fl (78.0-98.0); Platelet Count 272 10x3/uL (130-400); RBC Distribution Width 13.3 % (11.5-14.5); Red Blood Cell (RBC) Count 3.34 mill/uL (4.20-5.40); White Blood Cell (WBC) Count 13.2 10x3/uL (4.8-10.8)
[2022-12-07 06:03] LABS: Anion Gap 16 mmol/L (10-20); BUN (Urea Nitrogen) 31 mg/dL (7.0-18.7); Calc. Creatinine Clearance 85 mL/min (70-130); Calcium 9.6 mg/dL (7.8-10.44); Carbon Dioxide 21 mmol/L (22-29); Chloride 104 mmol/L (98-107); Estimated GFR 47; Glucose 224 mg/dL (70-105); Potassium 4.6 mmol/L (3.5-5.1); Sodium 136 mmol/L (136-145)
[2022-12-07] MEDS: Morphine 2 MG/ML VIAL SLOW IVP PRN (08:34)
[2022-12-07] MEDS: cloNIDine 0.2 MG TAB PO SCH ×3 (08:35→20:35)
[2022-12-07] MEDS: ALPRAZolam 0.5 MG TAB PO PRN ×2 (08:35→15:11)
[2022-12-07] MEDS: Pantoprazole 40 MG VIAL IVP SCH (08:36)
[2022-12-07] MEDS: 1/2 NS w/KCL 20 mEq 1,000 ML IV SCH ×2 (08:42→17:00)
[2022-12-07] MEDS: Alogliptin 6.25 MG TAB PO SCH (09:47)
[2022-12-07 12:48] LABS: Anion Gap 13 mmol/L (10-20); BUN (Urea Nitrogen) 33 mg/dL (7.0-18.7); Calc. Creatinine Clearance 96 mL/min (70-130); Calcium 9.5 mg/dL (7.8-10.44); Carbon Dioxide 22 mmol/L (22-29); Chloride 104 mmol/L (98-107); Estimated GFR 54; Glucose 148 mg/dL (70-105); Potassium 4.2 mmol/L (3.5-5.1); Sodium 135 mmol/L (136-145)
[2022-12-07 12:51] LABS: #Monocytes 0.7 thou/uL (0.11-0.59); #Neutrophils 8.9 thou/uL (1.40-6.50); %Basophils 0.1 % (0.0-1.0); %Eosinophils 0.4 % (0.0-10.0); %Lymphocytes 17.1 % (21.0-51.0); %Monocytes 6.1 % (0.0-10.0); %Neutrophils 76.4 % (42.0-75.0); Hemoglobin 9.3 g/dL (12.0-16.0); Mean Corpuscular HGB CONC 32.6 g/dL (32.0-36.0); Mean Platelet Volume 8.1 fL (7.4-10.4); Platelet Count 241 10x3/uL (130-400); RBC Distribution Width 13.2 % (11.5-14.5); Red Blood Cell (RBC) Count 3.23 mill/uL (4.20-5.40); White Blood Cell (WBC) Count 11.6 10x3/uL (4.8-10.8)
[2022-12-07] MEDS: Simvastatin 10 MG TAB PO SCH (20:35)
[2022-12-07] MEDS ORDERED: Morphine 4 MG/ML VIAL SLOW IVP PRN (23:04)
[2022-12-08] MEDS: Hydrocodone-Acetamin 15 ML UDCUP PO PRN ×4 (01:15→15:59)
[2022-12-08] MEDS: 1/2 NS w/KCL 20 mEq 1,000 ML IV SCH ×3 (01:52→16:58)
[2022-12-08] MEDS: ALPRAZolam 0.5 MG TAB PO PRN ×3 (03:05→14:56)
[2022-12-08 08:02] LABS: #Eosinphils 0.1 thou/uL (0.0-0.7); #Lymphocytes 2.8 thou/uL (1.20-3.40); #Monocytes 0.6 thou/uL (0.11-0.59); %Basophils 0.2 % (0.0-1.0); %Eosinophils 1.1 % (0.0-10.0); %Lymphocytes 26.9 % (21.0-51.0); %Monocytes 5.6 % (0.0-10.0); %Neutrophils 66.2 % (42.0-75.0); Hemoglobin 9.9 g/dL (12.0-16.0); Mean Corpuscular HGB CONC 32.2 g/dL (32.0-36.0); Mean Corpuscular Volume 89.9 fl (78.0-98.0); Mean Platelet Volume 7.9 fL (7.4-10.4); Platelet Count 265 10x3/uL (130-400); RBC Distribution Width 13.2 % (11.5-14.5); Red Blood Cell (RBC) Count 3.42 mill/uL (4.20-5.40); White Blood Cell (WBC) Count 10.5 10x3/uL (4.8-10.8)
[2022-12-08 08:12] LABS: Anion Gap 10 mmol/L (10-20); BUN (Urea Nitrogen) 22 mg/dL (7.0-18.7); Calc. Creatinine Clearance 145 mL/min (70-130); Calcium 9.5 mg/dL (7.8-10.44); Carbon Dioxide 25 mmol/L (22-29); Chloride 106 mmol/L (98-107); Estimated GFR 88; Glucose 143 mg/dL (70-105); Potassium 3.7 mmol/L (3.5-5.1); Sodium 137 mmol/L (136-145)
[2022-12-08] MEDS: cloNIDine 0.2 MG TAB PO SCH ×2 (08:57→14:56)
[2022-12-08] MEDS: Alogliptin 6.25 MG TAB PO SCH (08:57)
[2022-12-08] MEDS: Pantoprazole 40 MG VIAL IVP SCH (08:57)
[2022-12-08] MEDS: Morphine 4 MG/ML VIAL SLOW IVP PRN ×2 (08:59→17:24)
[2022-12-08 16:15] VITALS: BP 144/84; TEMP 97.5
== END 2022-12-08 18:05 | disposition home or self-care (01) | DRG 621 ==
LOC: SURG A 12-06 05:44 → EDSTATUS 12-06 12:00 → SJJU 12-06 16:16
PROVIDERS: ADMIT Specialist; ATTEND Specialist
PROC: 0D164ZA Bypass Stomach to Jejunum, Percutaneous Endoscopic Approach (ICD-10-PCS; principal; 2022-12-06)
DX: E66.01 Morbid (severe) obesity due to excess calories (principal); Z20.822 Contact with and (suspected) exposure to COVID-19; Z68.41 Body mass index [BMI] 40.0-44.9, adult; I10 Essential (primary) hypertension; G89.29 Other chronic pain; M54.9 Dorsalgia, unspecified; E11.43 Type 2 diabetes mellitus with diabetic autonomic (poly)neuropathy; E11.40 Type 2 diabetes mellitus with diabetic neuropathy, unspecified; K31.84 Gastroparesis; K21.9 Gastro-esophageal reflux disease without esophagitis; G47.00 Insomnia, unspecified; F32.9 Major depressive disorder, single episode, unspecified; Z79.899 Other long term (current) drug therapy; Z79.01 Long term (current) use of anticoagulants; Z86.718 Personal history of other venous thrombosis and embolism; Z79.84 Long term (current) use of oral hypoglycemic drugs; Z90.49 Acquired absence of other specified parts of digestive tract
CPT/HCPCS: 36415; 36416; 80048; 82553; 84484; 85025; 93005; 93010; A4649; C1713; C1889; C9113; J0360; J0694; J1100; J1170; J1650; J1815; J1885; J2250; J2270; J2272; J2405; J2704; J3010; J3475; J3480; J3490; U0002

== ENCOUNTER 2022-12-09 01:24 | Emergency (ER) | payer OTHER, MEDICAID ==
[2022-12-09] MEDS ORDERED: Loratadine 5 MG/5 ML UDCUP PO SCH (02:00)
== END 2022-12-09 02:46 | disposition home or self-care (01) ==
LOC: ERS 01:24
DX: G89.18 Other acute postprocedural pain (principal); E11.9 Type 2 diabetes mellitus without complications; I10 Essential (primary) hypertension; Z79.82 Long term (current) use of aspirin; Z79.01 Long term (current) use of anticoagulants

== ENCOUNTER 2022-12-09 18:41 | Emergency (ER) | payer OTHER ==
[2022-12-09] MEDS ORDERED: Ketorolac Tromethamine 30 MG/ML VIAL ONE (19:30)
[2022-12-09] MEDS ORDERED: Acetaminophen 325 MG/10.15 ML UDCUP ONE (19:30)
[2022-12-09 19:56] LABS: #Eosinphils 0.1 thou/uL (0.0-0.7); #Lymphocytes 2.2 thou/uL (1.20-3.40); #Monocytes 0.5 thou/uL (0.11-0.59); #Neutrophils 7.1 thou/uL (1.40-6.50); %Basophils 0.1 % (0.0-1.0); %Eosinophils 0.9 % (0.0-10.0); %Lymphocytes 22.2 % (21.0-51.0); %Monocytes 5.2 % (0.0-10.0); %Neutrophils 71.7 % (42.0-75.0); Hemoglobin 10.7 g/dL (12.0-16.0); Mean Corpuscular HGB CONC 34.3 g/dL (32.0-36.0); Mean Corpuscular Hemoglobin 30.8 pg (27.0-31.0); Mean Corpuscular Volume 89.7 fl (78.0-98.0); Mean Platelet Volume 7.4 fL (7.4-10.4); Platelet Count 276 10x3/uL (130-400); RBC Distribution Width 12.8 % (11.5-14.5); Red Blood Cell (RBC) Count 3.47 mill/uL (4.20-5.40); White Blood Cell (WBC) Count 9.9 10x3/uL (4.8-10.8)
[2022-12-09 20:01] LABS: ALT (SGPT) 138 U/L (8-55); AST (SGOT) 113 U/L (5-34); Albumin 3.9 g/dL (3.5-5.0); Alkaline Phosphatase 136 U/L (40-110); Anion Gap 17 mmol/L (10-20); BUN (Urea Nitrogen) 11 mg/dL (7.0-18.7); Bilirubin, Total 0.7 mg/dL (0.2-1.2); Calc. Creatinine Clearance 0 mL/min (70-130); Calcium 9.8 mg/dL (7.8-10.44); Carbon Dioxide 21 mmol/L (22-29); Chloride 105 mmol/L (98-107); Estimated GFR 103; Globulin 4.2 g/dL (2.4-3.5); Glucose 138 mg/dL (70-105); Lipase 4 U/L (8-78); Potassium 3.7 mmol/L (3.5-5.1); Protein, Total 8.1 g/dL (6.0-8.3); Sodium 139 mmol/L (136-145)
== END 2022-12-09 20:49 | disposition home or self-care (01) ==
LOC: ERS 18:41
DX: G89.18 Other acute postprocedural pain (principal); F11.20 Opioid dependence, uncomplicated; E11.9 Type 2 diabetes mellitus without complications; I10 Essential (primary) hypertension; Z79.82 Long term (current) use of aspirin
CPT/HCPCS: 36415; 80053; 83605; 83690; 85025; 96361; 96374; 99283; J1885

== ENCOUNTER 2022-12-24 00:56 | Observation (INO) | payer OTHER, MEDICAID ==
[2022-12-24] MEDS ORDERED: Lorazepam 1 MG TAB ONE (01:50)
[2022-12-24] MEDS ORDERED: Dicyclomine 20 MG/2 ML VIAL ONE (01:51)
[2022-12-24] MEDS ORDERED: Ondansetron PF 4 MG/2 ML Vial ONE (01:51)
[2022-12-24 02:05] LABS: #Eosinphils 0.2 thou/uL (0.0-0.7); #Lymphocytes 2.6 thou/uL (1.20-3.40); #Monocytes 0.3 thou/uL (0.11-0.59); #Neutrophils 4.8 thou/uL (1.40-6.50); %Basophils 0.3 % (0.0-1.0); %Eosinophils 2.1 % (0.0-10.0); %Lymphocytes 33.1 % (21.0-51.0); %Monocytes 3.6 % (0.0-10.0); %Neutrophils 60.9 % (42.0-75.0); Hemoglobin 12.1 g/dL (12.0-16.0); Mean Corpuscular HGB CONC 33.6 g/dL (32.0-36.0); Mean Corpuscular Hemoglobin 29.9 pg (27.0-31.0); Mean Platelet Volume 8.1 fL (7.4-10.4); Platelet Count 377 10x3/uL (130-400); RBC Distribution Width 12.4 % (11.5-14.5); Red Blood Cell (RBC) Count 4.04 mill/uL (4.20-5.40); White Blood Cell (WBC) Count 7.9 10x3/uL (4.8-10.8)
[2022-12-24 02:25] LABS: Albumin 3.7 g/dL (3.5-5.0); Alkaline Phosphatase 92 U/L (40-110); Anion Gap 15 mmol/L (10-20); Bilirubin, Total 0.2 mg/dL (0.2-1.2); Calcium 8.7 mg/dL (7.8-10.44); Carbon Dioxide 17 mmol/L (22-29); Chloride 109 mmol/L (98-107); Globulin 3.5 g/dL (2.4-3.5); Glucose 191 mg/dL (70-105); Protein, Total 7.2 g/dL (6.0-8.3); Sodium 138 mmol/L (136-145)
[2022-12-24 02:26] LABS: Calc. Creatinine Clearance 0 mL/min (70-130); Estimated GFR 68
[2022-12-24 02:27] LABS: BUN (Urea Nitrogen) 25 mg/dL (7.0-18.7)
[2022-12-24 02:30] LABS: ALT (SGPT) 15 U/L (8-55); AST (SGOT) 17 U/L (5-34); Lipase 49 U/L (8-78); Magnesium 1.3 mg/dL (1.6-2.6)
[2022-12-24 02:47] LABS: CKMB 0.6 ng/mL (0-6.6)
[2022-12-24] MEDS ORDERED: Potassium Chloride 20 MEQ/100 ML PREMIX BAG ONE ×2 (04:24→06:09)
[2022-12-24] MEDS ORDERED: Thiamine HCl 100 MG, Folic Acid 1 MG in Dextrose 5 %-0.45 % NaCl 1,000 ML IVPB SCH (04:30)
[2022-12-24 05:11] LABS: Lactic Acid 1.1 mmol/L (0.5-2.2)
[2022-12-24] MEDS ORDERED: Ketorolac Tromethamine 30 MG/ML VIAL ONE (07:26)
[2022-12-24 10:22] LABS: Troponin I 0.267 ng/mL (< 0.028)
[2022-12-24] MEDS ORDERED: Morphine 4 MG/ML VIAL ONE (10:30)
[2022-12-24] MEDS ORDERED: Iopamidol 370 76% 100 ML VIAL ONE (10:57)
[2022-12-24] MEDS ORDERED: Senokot S 8.6-50 MG TAB PO PRN (11:13)
[2022-12-24] MEDS ORDERED: Acetaminophen 325 MG TAB PO PRN (11:13)
[2022-12-24] MEDS ORDERED: Magnesium Sulfate In Water 4 GM in Premix Bag 1 BAG IVPB SCH ×2 (11:30→13:00)
[2022-12-24] MEDS ORDERED: Zolpidem Tartrate 5 MG TAB PO PRN (12:17)
[2022-12-24] MEDS: Potassium Chloride 20 MEQ TAB PO SCH ×2 (12:52→17:08)
[2022-12-24 13:14] LABS: Troponin I 0.186 ng/mL (< 0.028)
[2022-12-24 13:29] VITALS: BMI 39.3
[2022-12-24] MEDS: ALPRAZolam 0.25 MG TAB PO SCH ×2 (13:36→21:14)
[2022-12-24] MEDS: HYDROcodone/Acetaminophen 7.5/325 mg Tablet PO PRN ×2 (13:41→21:13)
[2022-12-24 15:55] LABS: Troponin I 0.269 ng/mL (< 0.028)
[2022-12-24] MEDS: Gabapentin 300 MG CAP PO SCH ×2 (17:07→21:12)
[2022-12-24] MEDS: cloNIDine 0.2 MG TAB PO SCH ×2 (17:08→21:13)
[2022-12-24] MEDS ORDERED: Dextrose 5% in Water 1,000 ML IV PRN (18:00)
[2022-12-24] MEDS ORDERED: HumaLOG 300 UNITS/3 ML VIAL SC PRN (18:00)
[2022-12-24] MEDS ORDERED: Sodium Chloride 0.9% 1,000 ML IV SCH (18:00)
[2022-12-24] MEDS ORDERED: Dextrose 50% Abboject 50 ML SYRINGE SLOW IVP PRN (18:00)
[2022-12-24] MEDS ORDERED: Bupropion 150 MG SR TAB PO SCH (21:00)
[2022-12-24] MEDS ORDERED: Simvastatin 10 MG TAB PO SCH (21:00)
[2022-12-24 22:33] LABS: Critical Call Chem Troponin I RESULT DECREASING; Troponin I 0.221 ng/mL (< 0.028)
[2022-12-24 22:37] LABS: Anion Gap 14 mmol/L (10-20); BUN (Urea Nitrogen) 12 mg/dL (7.0-18.7); Calc. Creatinine Clearance 142 mL/min (70-130); Calcium 8.9 mg/dL (7.8-10.44); Carbon Dioxide 16 mmol/L (22-29); Chloride 114 mmol/L (98-107); Estimated GFR 89; Glucose 130 mg/dL (70-105); Sodium 140 mmol/L (136-145)
[2022-12-25] MEDS: HYDROcodone/Acetaminophen 7.5/325 mg Tablet PO PRN ×2 (03:39→10:02)
[2022-12-25 05:43] LABS: #Eosinphils 0.2 thou/uL (0.0-0.7); #Lymphocytes 2.9 thou/uL (1.20-3.40); #Monocytes 0.3 thou/uL (0.11-0.59); #Neutrophils 2.6 thou/uL (1.40-6.50); %Basophils 0.5 % (0.0-1.0); %Lymphocytes 49.1 % (21.0-51.0); %Monocytes 4.6 % (0.0-10.0); %Neutrophils 42.8 % (42.0-75.0); Mean Corpuscular HGB CONC 32.1 g/dL (32.0-36.0); Mean Corpuscular Hemoglobin 28.9 pg (27.0-31.0); Mean Corpuscular Volume 90.1 fl (78.0-98.0); Platelet Count 375 10x3/uL (130-400); RBC Distribution Width 12.4 % (11.5-14.5)
[2022-12-25 05:58] LABS: Anion Gap 11 mmol/L (10-20); BUN (Urea Nitrogen) 10 mg/dL (7.0-18.7); Calc. Creatinine Clearance 155 mL/min (70-130); Calcium 9.3 mg/dL (7.8-10.44); Carbon Dioxide 19 mmol/L (22-29); Cardiac Risk 3.4 (Less than 4.5); Chloride 116 mmol/L (98-107); Cholesterol 117 mg/dl (< 200 Desired); Estimated GFR 99; Glucose 118 mg/dL (70-105); HDL Cholesterol 34 mg/dL (>60 Neg Risk); LDL Cholesterol, Calculated 62 mg/dL; Potassium 4.1 mmol/L (3.5-5.1); Sodium 142 mmol/L (136-145); Triglycerides 105 mg/dL (Less than 150)
[2022-12-25] MEDS: ALPRAZolam 0.25 MG TAB PO SCH (08:09)
[2022-12-25] MEDS: cloNIDine 0.2 MG TAB PO SCH (08:09)
[2022-12-25] MEDS: Gabapentin 300 MG CAP PO SCH (08:09)
[2022-12-25] MEDS ORDERED: Aspirin 81 mg Enteric Coated Tablet PO SCH (09:00)
[2022-12-25] MEDS ORDERED: Alogliptin 6.25 MG TAB PO SCH (09:00)
[2022-12-25 09:10] VITALS: BP 140/82; TEMP 97.9
== END 2022-12-25 13:56 | disposition home or self-care (01) ==
LOC: ERS 00:56 → 2SW 12:03
PROVIDERS: ADMIT Hospitalist; ATTEND Hospitalist
DX: R07.89 Other chest pain (principal); R10.31 Right lower quadrant pain; E11.9 Type 2 diabetes mellitus without complications; E83.42 Hypomagnesemia; E87.6 Hypokalemia; R77.8 Other specified abnormalities of plasma proteins; I11.9 Hypertensive heart disease without heart failure; E78.5 Hyperlipidemia, unspecified; I25.2 Old myocardial infarction; E66.01 Morbid (severe) obesity due to excess calories; Z68.39 Body mass index [BMI] 39.0-39.9, adult; Z86.718 Personal history of other venous thrombosis and embolism; Z79.4 Long term (current) use of insulin; Z79.82 Long term (current) use of aspirin; Z79.84 Long term (current) use of oral hypoglycemic drugs; Z79.899 Other long term (current) drug therapy; Z88.8 Allergy status to other drugs, medicaments and biological substances; Z98.84 Bariatric surgery status; Z20.822 Contact with and (suspected) exposure to COVID-19
CPT/HCPCS: 71045; 71275; 74177; 80048 ×2; 80053; 80061; 82553; 82962; 83605; 83690; 83735; 84484 ×2; 85025 ×2; 93005; 96361; 96365; 96366; 96367; 96368; 96372 ×2; 96375; 99285; G0378 ×3; J3475; U0003; U0005; 36415; 36416; J1650; J1885; J2270; J2405; J3411; J3480; J7042; J7050; Q9967

== ENCOUNTER 2023-04-19 22:52 | Emergency (ER) | payer OTHER, MEDICARE ==
[2023-04-19] MEDS ORDERED: Acetaminophen 500 MG TAB ONE (23:31)
[2023-04-19] MEDS ORDERED: cloNIDine 0.1 MG TAB ONE (23:31)
[2023-04-20 00:25] LABS: Anion Gap 15 mmol/L (10-20); BUN (Urea Nitrogen) 12 mg/dL (7.0-18.7); Calc. Creatinine Clearance 0 mL/min (70-130); Calcium 10.5 mg/dL (7.8-10.44); Carbon Dioxide 26 mmol/L (22-29); Chloride 102 mmol/L (98-107); Estimated GFR 64; Glucose 108 mg/dL (70-105); Potassium 3.4 mmol/L (3.5-5.1); Sodium 140 mmol/L (136-145)
[2023-04-20] MEDS ORDERED: Ondansetron ODT 4 MG TAB ONE (01:16)
== END 2023-04-20 01:19 | disposition home or self-care (01) ==
LOC: ERS 22:52
DX: I10 Essential (primary) hypertension (principal); E11.40 Type 2 diabetes mellitus with diabetic neuropathy, unspecified; I25.2 Old myocardial infarction; M10.9 Gout, unspecified; Z76.0 Encounter for issue of repeat prescription; Z86.718 Personal history of other venous thrombosis and embolism
CPT/HCPCS: 36415; 80048; 93005; Q0162

== ENCOUNTER 2023-05-09 08:09 | Inpatient (IN) | payer OTHER, MEDICAID ==
[2023-05-09] MEDS ORDERED: Morphine 4 MG/ML VIAL ONE ×2 (08:29→12:01)
[2023-05-09] MEDS ORDERED: Promethazine HCl 25 MG/ML VIAL ONE ×2 (08:30→12:02)
[2023-05-09] MEDS ORDERED: Aspirin Chewable 81 MG TAB ONE (08:30)
[2023-05-09 08:56] LABS: Hemoglobin 11.5 g/dL (12.0-16.0); Red Blood Cell (RBC) Count 3.88 mill/uL (4.20-5.40); White Blood Cell (WBC) Count 20.9 10x3/uL (4.8-10.8)
[2023-05-09 08:57] LABS: Mean Corpuscular HGB CONC 32.4 g/dL (32.0-36.0); Mean Corpuscular Hemoglobin 29.6 pg (27.0-31.0); Mean Corpuscular Volume 91.5 fl (78.0-98.0); RBC Distribution Width 13.5 % (11.5-14.5)
[2023-05-09 08:58] LABS: #Monocytes 0.4 thou/uL (0.11-0.59); #Neutrophils 19.7 thou/uL (1.40-6.50); %Basophils 0.1 % (0.0-1.0); %Lymphocytes 3.8 % (21.0-51.0); %Monocytes 1.7 % (0.0-10.0); %Neutrophils 93.9 % (42.0-75.0); Mean Platelet Volume 9.9 fL (7.4-10.4); Platelet Count 533 10x3/uL (130-400)
[2023-05-09 09:28] LABS: ALT (SGPT) 207 U/L (8-55); AST (SGOT) 226 U/L (5-34); Albumin 4.1 g/dL (3.5-5.0); Alkaline Phosphatase 308 U/L (40-110); Anion Gap 20 mmol/L (10-20); BUN (Urea Nitrogen) 12 mg/dL (7.0-18.7); Bilirubin, Total 0.5 mg/dL (0.2-1.2); Calc. Creatinine Clearance 0 mL/min (70-130); Calcium 9.4 mg/dL (7.8-10.44); Carbon Dioxide 19 mmol/L (22-29); Chloride 103 mmol/L (98-107); Estimated GFR 60; Glucose 297 mg/dL (70-105); Protein, Total 8.1 g/dL (6.0-8.3); Sodium 139 mmol/L (136-145)
[2023-05-09 09:51] LABS: CKMB 1.6 ng/mL (0-6.6)
[2023-05-09] MEDS ORDERED: Potassium Chloride 20 MEQ/100 ML PREMIX BAG ONE ×2 (10:23→10:38)
[2023-05-09] MEDS ORDERED: Ondansetron PF 4 MG/2 ML Vial ONE (11:01)
[2023-05-09 11:29] LABS: Acetaminophen Less than 10 mcg/mL (10.0-30.0); Alcohol Less than 10.0 mg/dL (Less than 10); Salicylate Less than 8.0 mg/dL (15.0-30.0)
[2023-05-09] MEDS ORDERED: Cefepime 2 GM VIAL ONE (11:42)
[2023-05-09] MEDS ORDERED: VANCOMYCIN 2 GRAM/500 ML BAG 2 GM in Premix Bag 1 BAG IVPB SCH (11:45)
[2023-05-09] MEDS ORDERED: Metoprolol Tartrate 5 MG/5 ML VIAL ONE (11:53)
[2023-05-09] MEDS ORDERED: Metoprolol Tartrate 5 MG/5 ML VIAL IVP SCH (11:54)
[2023-05-09 11:56] LABS: Bacteria/HPF None Seen HPF (None Seen); Bilirubin Negative (Negative); Blood, Urine Negative (Negative); CAUTI Indications for Culture Dysuria,urgency,freq; Clarity Clear (Clear); Glucose, Urine (Dipstick) >=1000 mg/dL (Negative); Ketone, Urine 20 mg/dL (Negative); Leukocyte 25 Leu/uL (Negative); Nitrite Negative (Negative); Protein, Urine (Dipstick) Negative (Neg-Trace); RBC/HPF 0-3 HPF (0-3); Specific Gravity, Urine 1.018 (1.002-1.036); Squamous Epithelial 0-3 HPF (0-3); Urobilinogen Normal mg/dL (Less than 2); WBC/HPF 0-3 HPF (0-3); pH, Urine 6.5 (5.0-9.0)
[2023-05-09 11:59] LABS: Urine Culture Reflex No No
[2023-05-09] MEDS ORDERED: Morphine 4 MG/ML VIAL SLOW IVP SCH (12:00)
[2023-05-09 12:02] LABS: Amphetamine Not Detected (NotDetected); Barbiturates Screen Not Detected (NotDetected); Benzodiazepine Screen Not Detected (NotDetected); Cocaine Metabolite Screen Not Detected (NotDetected); Methadone Not Detected (NotDetected); Methamphetamine Not Detected (NotDetected); Opiate Screen Detected (NotDetected); Oxycodone Screen Not Detected (NotDetected); Phencyclidine (PCP) Not Detected (NotDetected); THC/Cannabinoid Screen Detected (NotDetected); Tricyclic Screen Not Detected (NotDetected)
[2023-05-09 12:22] LABS: Lactic Acid 5.9 mmol/L (0.5-2.2)
[2023-05-09] MEDS ORDERED: Sodium Chloride 0.9% 1,000 ML IV SCH ×2 (12:30→13:00)
[2023-05-09 12:45] LABS: Troponin I 0.131 ng/mL (< 0.028)
[2023-05-09] MEDS ORDERED: Ondansetron PF 4 MG/2 ML Vial IVP PRN (12:45)
[2023-05-09] MEDS ORDERED: Acetaminophen 325 MG TAB PO PRN (12:45)
[2023-05-09] MEDS ORDERED: Ondansetron ODT 4 MG TAB SL PRN (12:45)
[2023-05-09] MEDS ORDERED: Dextrose 5% in Water 1,000 ML IV PRN (12:51)
[2023-05-09] MEDS ORDERED: HumaLOG 300 UNITS/3 ML VIAL SC PRN (12:51)
[2023-05-09] MEDS ORDERED: Glucagon 1 MG/ML KIT IM PRN (12:51)
[2023-05-09] MEDS ORDERED: Dextrose 50% Abboject 50 ML SYRINGE SLOW IVP PRN (12:51)
[2023-05-09] MEDS ORDERED: Labetalol HCl 100 MG/20 ML VIAL SLOW IVP PRN (13:58)
[2023-05-09] MEDS: Sodium Chloride 0.9% 1,000 ML IV SCH ×2 (14:05→20:23)
[2023-05-09 14:12] VITALS: BMI 34.0
[2023-05-09] MEDS: Heparin 5,000 UNITS/ML VIAL SC SCH ×2 (14:24→20:23)
[2023-05-09] MEDS ORDERED: niCARdipine 40MG In NaCl 40 MG/200 ML BAG IVPB SCH ×2 (15:00→15:30)
[2023-05-09] MEDS ORDERED: Iopamidol-370 76% 500 ML MDV (1 ML CHARGE) ONE (15:09)
[2023-05-09] MEDS ORDERED: niCARdipine 50 MG, Admixture Fee 1 EACH in Sodium Chloride 0.9% 250 ML 230 ML IV SCH ×2 (15:15→15:30)
[2023-05-09 15:55] LABS: Potassium 3.4 mmol/L (3.5-5.1)
[2023-05-09] MEDS: Morphine 2 MG/ML VIAL SLOW IVP PRN ×2 (16:03→20:29)
[2023-05-09 16:31] LABS: HBCM Index 0.13 S/CO (0-0.79); HBSAg Index 0.23 S/CO (0-0.99); Hep A IgM AB Non-Reactive S/CO (NonReactive); Hep A IgM S/CO 0.16 S/CO (0-0.79); Hep B Surf Ag Non-Reactive S/CO (NonReactive); Hep C IgG Ab Non-Reactive S/CO (NonReactive); Hep C Index 0.13 S/CO (0-0.79); Hepatitis B Core IgM Abs Non-Reactive S/CO (NonReactive)
[2023-05-09] MEDS: Labetalol HCl 100 MG/20 ML VIAL SLOW IVP PRN (17:45)
[2023-05-09 19:28] LABS: Troponin I 0.387 ng/mL (< 0.028)
[2023-05-09] MEDS: Promethazine HCl 12.5 MG in Sodium Chloride 0.9% 50 ML IVPB PRN (19:29)
[2023-05-09] MEDS ORDERED: Potassium Chloride 20 MEQ in Premix Bag 1 BAG IVPB SCH (19:30)
[2023-05-09] MEDS: Cefepime 1 GM in Sodium Chloride 0.9% 100 ML IVPB SCH (20:23)
[2023-05-09] MEDS ORDERED: Melatonin 3 MG TAB PO PRN (20:55)
[2023-05-09] MEDS: cloNIDine 0.2 MG TAB PO SCH (21:15)
[2023-05-09] MEDS: hydrALAZINE 25 MG TAB PO SCH (21:16)
[2023-05-09] MEDS: Gabapentin 300 MG CAP PO SCH (21:16)
[2023-05-09] MEDS: Zolpidem Tartrate 5 MG TAB PO PRN (21:55)
[2023-05-09 23:44] LABS: Troponin I 0.445 ng/mL (< 0.028)
[2023-05-10] MEDS: Labetalol HCl 100 MG/20 ML VIAL SLOW IVP PRN ×2 (02:34→06:07)
[2023-05-10] MEDS: Cefepime 1 GM in Sodium Chloride 0.9% 100 ML IVPB SCH (03:13)
[2023-05-10 04:01] LABS: #Monocytes 1.2 thou/uL (0.11-0.59); #Neutrophils 14.8 thou/uL (1.40-6.50); %Basophils 0.2 % (0.0-1.0); %Eosinophils 0.1 % (0.0-10.0); %Lymphocytes 16.5 % (21.0-51.0); %Neutrophils 76.8 % (42.0-75.0); Hemoglobin 10.5 g/dL (12.0-16.0); Mean Corpuscular HGB CONC 33.3 g/dL (32.0-36.0); Mean Corpuscular Hemoglobin 30.1 pg (27.0-31.0); Mean Corpuscular Volume 90.3 fl (78.0-98.0); Mean Platelet Volume 9.9 fL (7.4-10.4); RBC Distribution Width 13.9 % (11.5-14.5); Red Blood Cell (RBC) Count 3.49 mill/uL (4.20-5.40); White Blood Cell (WBC) Count 19.2 10x3/uL (4.8-10.8)
[2023-05-10] MEDS: Morphine 2 MG/ML VIAL SLOW IVP PRN (04:15)
[2023-05-10] MEDS: Sodium Chloride 0.9% 1,000 ML IV SCH ×3 (04:19→21:32)
[2023-05-10 04:30] LABS: ALT (SGPT) 232 U/L (8-55); AST (SGOT) 224 U/L (5-34); Albumin 3.8 g/dL (3.5-5.0); Alkaline Phosphatase 240 U/L (40-110); Anion Gap 15 mmol/L (10-20); BUN (Urea Nitrogen) 8 mg/dL (7.0-18.7); Bilirubin, Total 0.6 mg/dL (0.2-1.2); Calc. Creatinine Clearance 128 mL/min (70-130); Calcium 9.4 mg/dL (7.8-10.44); Carbon Dioxide 22 mmol/L (22-29); Chloride 108 mmol/L (98-107); Estimated GFR 93; Globulin 3.7 g/dL (2.4-3.5); Glucose 127 mg/dL (70-105); Protein, Total 7.5 g/dL (6.0-8.3); Sodium 142 mmol/L (136-145)
[2023-05-10 05:01] LABS: CKMB 2.2 ng/mL (0-6.6)
[2023-05-10] MEDS: Lorazepam 2 MG/ML VIAL SLOW IVP PRN (05:02)
[2023-05-10 05:30] LABS: Platelet Count 387 10x3/uL (130-400)
[2023-05-10] MEDS: cloNIDine 0.2 MG TAB PO SCH ×3 (08:26→20:11)
[2023-05-10] MEDS: Atorvastatin Calcium 40 MG TAB PO SCH ×2 (08:26→09:48)
[2023-05-10] MEDS: Escitalopram Oxalate 10 mg Tablet PO SCH ×2 (08:26→09:49)
[2023-05-10] MEDS: Heparin 5,000 UNITS/ML VIAL SC SCH ×3 (08:26→20:14)
[2023-05-10] MEDS: Lisinopril 20 MG TAB PO SCH (08:26)
[2023-05-10] MEDS: Gabapentin 300 MG CAP PO SCH ×3 (08:26→20:09)
[2023-05-10] MEDS: Aspirin 81 mg Enteric Coated Tablet PO SCH ×2 (08:26→09:48)
[2023-05-10] MEDS: hydrALAZINE 25 MG TAB PO SCH ×4 (08:27→20:11)
[2023-05-10] MEDS ORDERED: Acetaminophen 500 MG TAB PO PRN (08:55)
[2023-05-10] MEDS ORDERED: Ketorolac Tromethamine 30 MG/ML VIAL IVP SCH (12:30)
[2023-05-10 14:24] LABS: BHCG - Serum Negative (NEGATIVE); Pregs Control Background? CLEAR/WHITE (CLR/WHITE); Pregs Control Bar Appear? YES (CONTROL BAR)
[2023-05-10] MEDS: Promethazine HCl 12.5 MG in Sodium Chloride 0.9% 50 ML IVPB PRN (14:24)
[2023-05-10] MEDS ORDERED: Ibuprofen 200 MG TAB PO PRN (14:29)
[2023-05-10] MEDS: Zolpidem Tartrate 5 MG TAB PO PRN (21:33)
[2023-05-11] MEDS: Lorazepam 2 MG/ML VIAL SLOW IVP PRN ×2 (02:51→10:03)
[2023-05-11] MEDS ORDERED: Morphine 2 MG/ML VIAL SLOW IVP SCH (05:00)
[2023-05-11] MEDS ORDERED: Mag-Al 1200 mg/1200 mg/30 ML UDCUP PO SCH (05:00)
[2023-05-11] MEDS: Sodium Chloride 0.9% 1,000 ML IV SCH (05:04)
[2023-05-11] MEDS: Promethazine HCl 12.5 MG in Sodium Chloride 0.9% 50 ML IVPB PRN ×2 (05:53→11:19)
[2023-05-11 07:05] LABS: Troponin I 0.309 ng/mL (< 0.028)
[2023-05-11] MEDS: Heparin 5,000 UNITS/ML VIAL SC SCH (08:00)
[2023-05-11] MEDS: cloNIDine 0.2 MG TAB PO SCH (08:00)
[2023-05-11] MEDS: Gabapentin 300 MG CAP PO SCH (08:00)
[2023-05-11] MEDS: Aspirin 81 mg Enteric Coated Tablet PO SCH (08:01)
[2023-05-11] MEDS: Escitalopram Oxalate 10 mg Tablet PO SCH (08:01)
[2023-05-11] MEDS: hydrALAZINE 25 MG TAB PO SCH (08:01)
[2023-05-11] MEDS: Lisinopril 20 MG TAB PO SCH (08:01)
[2023-05-11 10:20] LABS: #Eosinphils 0.1 thou/uL (0.0-0.7); #Monocytes 0.5 thou/uL (0.11-0.59); #Neutrophils 4.5 thou/uL (1.40-6.50); %Basophils 0.3 % (0.0-1.0); %Eosinophils 1.4 % (0.0-10.0); %Lymphocytes 40.3 % (21.0-51.0); %Monocytes 6.1 % (0.0-10.0); %Neutrophils 51.6 % (42.0-75.0); Hemoglobin 8.6 g/dL (12.0-16.0); Mean Corpuscular HGB CONC 32.7 g/dL (32.0-36.0); Mean Corpuscular Volume 91.6 fl (78.0-98.0); Mean Platelet Volume 9.8 fL (7.4-10.4); Platelet Count 294 10x3/uL (130-400); RBC Distribution Width 14.5 % (11.5-14.5); Red Blood Cell (RBC) Count 2.87 mill/uL (4.20-5.40); White Blood Cell (WBC) Count 8.7 10x3/uL (4.8-10.8)
[2023-05-11 10:41] LABS: Anion Gap 9 mmol/L (10-20); BUN (Urea Nitrogen) 10 mg/dL (7.0-18.7); Calc. Creatinine Clearance 118 mL/min (70-130); Calcium 8.3 mg/dL (7.8-10.44); Carbon Dioxide 24 mmol/L (22-29); Chloride 114 mmol/L (98-107); Estimated GFR 87; Glucose 119 mg/dL (70-105); Potassium 3.1 mmol/L (3.5-5.1); Sodium 144 mmol/L (136-145)
[2023-05-11] MEDS ORDERED: Potassium Chloride 20 MEQ TAB PO SCH (11:30)
[2023-05-11 11:50] VITALS: BP 122/81; TEMP 98.5
== END 2023-05-11 11:56 | disposition home or self-care (01) | DRG 281 ==
LOC: ERS 08:09 → IMCU/EMU 12:54 → CCU 17:19 → T4-A 05-10 13:35
PROVIDERS: ADMIT Internal Medicine; ATTEND Internal Medicine
DX: I16.0 Hypertensive urgency (principal); I21.A1 Myocardial infarction type 2; E87.1 Hypo-osmolality and hyponatremia; E87.20 Acidosis, unspecified; N17.9 Acute kidney failure, unspecified; I47.1 Supraventricular tachycardia; I10 Essential (primary) hypertension; E78.5 Hyperlipidemia, unspecified; E11.40 Type 2 diabetes mellitus with diabetic neuropathy, unspecified; E87.6 Hypokalemia; E11.43 Type 2 diabetes mellitus with diabetic autonomic (poly)neuropathy; F41.9 Anxiety disorder, unspecified; F32.A Depression, unspecified; Z90.49 Acquired absence of other specified parts of digestive tract; Z79.899 Other long term (current) drug therapy; Z88.8 Allergy status to other drugs, medicaments and biological substances; Z79.82 Long term (current) use of aspirin; Z79.4 Long term (current) use of insulin; Z98.890 Other specified postprocedural states
CPT/HCPCS: 36415; 36416; 36556; 51701; 71045; 71275; 74174; 76705; 80048; 80053; 80074; 80306; 80307; 81001; 82553; 83605; 84443; 84484; 84703; 85025; 87040; 87086; 93005; 93010; 96361; 96365; 96366; 96368; 96375; 96376; J0692; J1644; J1815; J1885; J2060; J2270; J2272; J2405; J2550; J3370; J3480; J3490; J7050; Q9967

== ENCOUNTER 2023-06-26 10:16 | Observation (INO) | payer OTHER, MEDICAID ==
[2023-06-26] MEDS ORDERED: cloNIDine 0.1 MG TAB ONE (11:13)
[2023-06-26 11:28] LABS: ALT (SGPT) 25 U/L (8-55); AST (SGOT) 36 U/L (5-34); Albumin 4.8 g/dL (3.5-5.0); Alkaline Phosphatase 140 U/L (40-110); Anion Gap 21 mmol/L (10-20); BUN (Urea Nitrogen) 22 mg/dL (7.0-18.7); Bilirubin, Total 0.4 mg/dL (0.2-1.2); Calc. Creatinine Clearance 0 mL/min (70-130); Carbon Dioxide 19 mmol/L (22-29); Chloride 103 mmol/L (98-107); Estimated GFR 42; Globulin 4.4 g/dL (2.4-3.5); Glucose 235 mg/dL (70-105); Lipase 62 U/L (8-78); Potassium 4.1 mmol/L (3.5-5.1); Protein, Total 9.2 g/dL (6.0-8.3); Sodium 139 mmol/L (136-145)
[2023-06-26 11:31] LABS: #Monocytes 0.8 thou/uL (0.11-0.59); #Neutrophils 13.6 thou/uL (1.40-6.50); %Basophils 0.2 % (0.0-1.0); %Eosinophils 0.1 % (0.0-10.0); %Lymphocytes 13.9 % (21.0-51.0); %Monocytes 4.4 % (0.0-10.0); %Neutrophils 80.6 % (42.0-75.0); Hematocrit 38.7 % (36.0-47.0); Hemoglobin 12.8 g/dL (12.0-16.0); Mean Corpuscular HGB CONC 33.1 g/dL (32.0-36.0); Mean Corpuscular Hemoglobin 29.2 pg (27.0-31.0); Mean Corpuscular Volume 88.2 fl (78.0-98.0); Mean Platelet Volume 10.8 fL (7.4-10.4); Platelet Count 249 10x3/uL (130-400); RBC Distribution Width 13.1 % (11.5-14.5); Red Blood Cell (RBC) Count 4.39 mill/uL (4.20-5.40); White Blood Cell (WBC) Count 16.9 10x3/uL (4.8-10.8)
[2023-06-26 11:32] LABS: Troponin I 0.081 ng/mL (< 0.028)
[2023-06-26] MEDS ORDERED: Promethazine HCl 25 MG/ML VIAL ONE ×2 (11:45→17:36)
[2023-06-26] MEDS ORDERED: hydrALAZINE 20 MG/ML VIAL ONE (11:55)
[2023-06-26] MEDS ORDERED: Acetaminophen 325 MG TAB PO PRN (14:06)
[2023-06-26] MEDS ORDERED: Ondansetron ODT 4 MG TAB PO PRN (14:06)
[2023-06-26] MEDS ORDERED: Amlodipine 10 MG TAB PO SCH (14:15)
[2023-06-26] MEDS ORDERED: Spironolactone 25 MG TAB PO SCH (14:30)
[2023-06-26 15:01] LABS: Troponin I 0.075 ng/mL (< 0.028)
[2023-06-26] MEDS ORDERED: hydrALAZINE 25 MG TAB ONE ×2 (15:31→21:32)
[2023-06-26] MEDS: hydrALAZINE 25 MG TAB PO SCH ×2 (15:38→21:37)
[2023-06-26] MEDS ORDERED: Acetaminophen 325 MG TAB ONE (17:24)
[2023-06-26] MEDS ORDERED: Ondansetron PF 4 MG/2 ML Vial ONE (17:24)
[2023-06-26] MEDS ORDERED: hydrOXYzine 25 MG TAB ONE (17:24)
[2023-06-26] MEDS: hydrOXYzine 25 MG TAB PO PRN (17:27)
[2023-06-26] MEDS ORDERED: Ketorolac Tromethamine 30 MG/ML VIAL IVP SCH (17:30)
[2023-06-26] MEDS ORDERED: Lidocaine 4% Patch TD SCH ×2 (17:30→18:00)
[2023-06-26] MEDS ORDERED: Ketorolac Tromethamine 30 MG/ML VIAL ONE (17:36)
[2023-06-26] MEDS ORDERED: Promethazine HCl 12.5 MG in Sodium Chloride 0.9% 50 ML IVPB SCH (17:56)
[2023-06-26] MEDS ORDERED: Atorvastatin Calcium 40 MG TAB PO SCH (21:00)
[2023-06-26 22:54] VITALS: BMI 31.4
[2023-06-26] MEDS ORDERED: Promethazine 25 MG TAB PO PRN (23:16)
[2023-06-26] MEDS ORDERED: Zolpidem Tartrate 5 MG TAB PO SCH (23:30)
[2023-06-26] MEDS ORDERED: Promethazine 25 MG TAB PO SCH (23:30)
[2023-06-27] MEDS: hydrOXYzine 25 MG TAB PO PRN (02:45)
[2023-06-27] MEDS ORDERED: hydrOXYzine 25 MG TAB PO SCH (03:00)
[2023-06-27 03:40] VITALS: BP 145/75; TEMP 98.6
[2023-06-27] MEDS ORDERED: Transdermal Patch Removal TOP SCH (06:00)
[2023-06-27] MEDS ORDERED: Spironolactone 25 MG TAB PO SCH (08:00)
[2023-06-27] MEDS ORDERED: Amlodipine 10 MG TAB PO SCH (09:00)
[2023-06-27] MEDS ORDERED: Losartan 25 MG TAB PO SCH (09:00)
[2023-06-27] MEDS ORDERED: Aspirin Chewable 81 MG TAB PO SCH (09:00)
[2023-06-27 13:37] LABS: Troponin I 0.085 ng/mL (< 0.028)
== END 2023-06-27 03:44 | disposition left against medical advice (07) ==
LOC: ERS 10:16 → MERGE 13:49 → ERHOLD 13:49 → 2SW 22:02
PROVIDERS: ADMIT Internal Medicine; ATTEND Nurse Practitioner Acute Care
DX: R07.9 Chest pain, unspecified (principal); I12.9 Hypertensive chronic kidney disease with stage 1 through stage 4 chronic kidney disease, or unspecified chronic kidney disease; N18.9 Chronic kidney disease, unspecified; N17.9 Acute kidney failure, unspecified; D72.829 Elevated white blood cell count, unspecified; F41.9 Anxiety disorder, unspecified; R51.9 Headache, unspecified; Z88.8 Allergy status to other drugs, medicaments and biological substances; K29.70 Gastritis, unspecified, without bleeding; M10.9 Gout, unspecified; N83.209 Unspecified ovarian cyst, unspecified side; E11.40 Type 2 diabetes mellitus with diabetic neuropathy, unspecified; Z90.49 Acquired absence of other specified parts of digestive tract; Z98.84 Bariatric surgery status; Z87.59 Personal history of other complications of pregnancy, childbirth and the puerperium; Z79.899 Other long term (current) drug therapy
CPT/HCPCS: 71045; 80053; 83690; 84484 ×2; 85025; 93005; 94760 ×2; 96365; 96366; 96375; 99285; J0360; 36415; J1885; J2405; J2550; Q0169

== ENCOUNTER 2023-08-17 06:54 | Emergency (ER) | payer OTHER, MEDICAID ==
[2023-08-17] MEDS ORDERED: Ketorolac Tromethamine 30 MG (1 mL) VIAL ONE (07:12)
[2023-08-17] MEDS ORDERED: HYDROcodone/Acetaminophen 5/325 mg Tablet ONE (08:46)
== END 2023-08-17 09:15 | disposition home or self-care (01) ==
LOC: ERS 06:54
DX: M25.562 Pain in left knee (principal); I10 Essential (primary) hypertension; E11.40 Type 2 diabetes mellitus with diabetic neuropathy, unspecified; M79.605 Pain in left leg
CPT/HCPCS: 96372; J1885

== ENCOUNTER 2024-02-18 13:05 | Emergency (ER) | payer OTHER ==
[~2024-02-18 13:05] MED LIST changes: -Iopamidol-370 76% 500 ML 1 ML ONE; +Iopamidol-370 76% 500 ML MDV (1 ML CHARGE) ONE
[2024-02-18 14:25] LABS: Troponin I 0.025 ng/mL (< 0.028)
[2024-02-18] MEDS ORDERED: Ketorolac Tromethamine 30 MG (1 mL) VIAL ONE (15:40)
[2024-02-18] MEDS ORDERED: Promethazine 25 MG TAB ONE (16:59)
[2024-02-18 17:10] LABS: #Basophils 0.03 10x3/uL (0.0-0.2); %Basophils 0.5 % (0.0-1.0); %Eosinophils 2.4 % (0.0-10.0); %Lymphocytes 51.9 % (21.0-51.0); %Monocytes 5.5 % (0.0-10.0); %Neutrophils 39.7 % (42.0-75.0); Hematocrit 32.6 % (36.0-47.0); Hemoglobin 10.5 g/dL (12.0-16.0); Mean Corpuscular HGB CONC 32.2 g/dL (32.0-36.0); Mean Corpuscular Hemoglobin 30.6 pg (27.0-31.0); Mean Platelet Volume 11.1 fL (7.4-10.4); Platelet Count 311 10x3/uL (130-400); RBC Distribution Width 13.5 % (11.5-14.5); Red Blood Cell (RBC) Count 3.43 mill/uL (4.20-5.40)
[2024-02-18 19:03] LABS: Globulin 3.7 g/dL (2.4-3.5)
[2024-02-18 19:08] LABS: ALT (SGPT) 24 U/L (8-55); AST (SGOT) 29 U/L (5-34); Albumin 3.4 g/dL (3.5-5.0); Alkaline Phosphatase 87 U/L (40-110); Anion Gap 16 mmol/L (10-20); BUN (Urea Nitrogen) 12 mg/dL (7.0-18.7); Bilirubin, Total 0.3 mg/dL (0.2-1.2); Calc. Creatinine Clearance 0 mL/min (70-130); Calcium 9.6 mg/dL (7.8-10.44); Carbon Dioxide 22 mmol/L (22-29); Chloride 103 mmol/L (98-107); Estimated GFR 97; Glucose 129 mg/dL (70-105); Protein, Total 7.1 g/dL (6.0-8.3); Sodium 136 mmol/L (136-145)
== END 2024-02-18 19:02 | disposition home or self-care (01) ==
LOC: ERS 13:05
DX: R07.9 Chest pain, unspecified (principal); I10 Essential (primary) hypertension; E11.40 Type 2 diabetes mellitus with diabetic neuropathy, unspecified; I25.2 Old myocardial infarction; Z86.718 Personal history of other venous thrombosis and embolism; Z55.6 Problems related to health literacy; W06.XXXA Fall from bed, initial encounter; M79.605 Pain in left leg; M79.604 Pain in right leg
CPT/HCPCS: 36415; 71045; 71275; 80053; 84484; 85025; 93005; 96372; J1885; Q0169; Q9967

== ENCOUNTER 2024-04-17 18:32 | Emergency (ER) | payer MEDICAID, OTHER ==
[2024-04-17 19:58] LABS: #Basophils Less than 0.03 10x3/uL (0.0-0.2); %Basophils 0.3 % (0.0-1.0); %Eosinophils 1.3 % (0.0-10.0); %Lymphocytes 54.6 % (21.0-51.0); %Monocytes 4.7 % (0.0-10.0); Hematocrit 30.2 % (36.0-47.0); Hemoglobin 10.3 g/dL (12.0-16.0); Mean Corpuscular HGB CONC 34.1 g/dL (32.0-36.0); Mean Corpuscular Hemoglobin 29.7 pg (27.0-31.0); Mean Platelet Volume 10.5 fL (7.4-10.4); Platelet Count 337 10x3/uL (130-400); RBC Distribution Width 12.3 % (11.5-14.5); Red Blood Cell (RBC) Count 3.47 mill/uL (4.20-5.40)
[2024-04-17 20:07] LABS: BHCG - Serum Negative (NEGATIVE); Pregs Control Background? CLEAR/WHITE (CLR/WHITE); Pregs Control Bar Appear? YES (CONTROL BAR)
[2024-04-17 20:18] LABS: ALT (SGPT) 12 U/L (8-55); AST (SGOT) 24 U/L (5-34); Albumin 3.6 g/dL (3.5-5.0); Alkaline Phosphatase 95 U/L (40-110); Anion Gap 13 mmol/L (10-20); BUN (Urea Nitrogen) 24 mg/dL (7.0-18.7); Bilirubin, Total 0.1 mg/dL (0.2-1.2); Calc. Creatinine Clearance 0 mL/min (70-130); Calcium 9.4 mg/dL (7.8-10.44); Carbon Dioxide 28 mmol/L (22-29); Chloride 102 mmol/L (98-107); Estimated GFR 63; Globulin 3.8 g/dL (2.4-3.5); Glucose 120 mg/dL (70-105); Lipase 16 U/L (8-78); Magnesium 3.1 mg/dL (1.6-2.6); Potassium 4.4 mmol/L (3.5-5.1); Protein, Total 7.4 g/dL (6.0-8.3); Sodium 139 mmol/L (136-145); Troponin I 0.036 ng/mL (< 0.028)
[2024-04-17 20:39] LABS: Influenza A by NAA Not Detected (NotDetected); Influenza B by NAA Not Detected (NotDetected); SARS-CoV-2 NAA Rapid Test Not Detected (NotDetected)
[2024-04-17 21:56] LABS: Bacteria/HPF None Seen HPF (None Seen); Bilirubin Negative (Negative); Blood, Urine Negative (Negative); CAUTI Indications for Culture Fever or rigors; Clarity Clear (Clear); Glucose, Urine (Dipstick) Normal (Negative); Ketone, Urine Negative (Negative); Leukocyte Negative Leu/uL (Negative); Nitrite Negative (Negative); Protein, Urine (Dipstick) Negative (Neg-Trace); RBC/HPF None Seen HPF (0-3); Specific Gravity, Urine 1.009 (1.002-1.036); Urobilinogen Normal mg/dL (Less than 2); WBC/HPF 0-3 HPF (0-3)
[2024-04-17 22:04] LABS: Amphetamine Not Detected (NotDetected); Barbiturates Screen Not Detected (NotDetected); Benzodiazepine Screen Not Detected (NotDetected); Cocaine Metabolite Screen Not Detected (NotDetected); Methadone Not Detected (NotDetected); Methamphetamine Not Detected (NotDetected); Opiate Screen Not Detected (NotDetected); Oxycodone Screen Not Detected (NotDetected); Phencyclidine (PCP) Not Detected (NotDetected); THC/Cannabinoid Screen Not Detected (NotDetected); Tricyclic Screen Not Detected (NotDetected)
[2024-04-17 22:05] LABS: Urine Culture Reflex No No
[2024-04-17 23:49] LABS: Troponin I 0.036 ng/mL (< 0.028)
== END 2024-04-18 00:06 | disposition home or self-care (01) ==
LOC: ERS 18:32
DX: R42 Dizziness and giddiness (principal); E11.40 Type 2 diabetes mellitus with diabetic neuropathy, unspecified; Z79.899 Other long term (current) drug therapy
CPT/HCPCS: 0240U; 71045; 80053; 80306; 81001; 83690; 83735; 84484 ×2; 84703; 85025; 93005

== ENCOUNTER 2024-04-21 02:55 | Inpatient (IN) | payer OTHER ==
[2024-04-21 04:21] LABS: #Basophils 0.04 10x3/uL (0.0-0.2); %Basophils 0.3 % (0.0-1.0); %Eosinophils 0.2 % (0.0-10.0); %Lymphocytes 31.3 % (21.0-51.0); %Monocytes 3.7 % (0.0-10.0); %Neutrophils 64.3 % (42.0-75.0); Hematocrit 37.1 % (36.0-47.0); Hemoglobin 11.9 g/dL (12.0-16.0); Mean Corpuscular HGB CONC 32.1 g/dL (32.0-36.0); Mean Corpuscular Hemoglobin 30.1 pg (27.0-31.0); Mean Corpuscular Volume 93.9 fL (78.0-98.0); Mean Platelet Volume 10.2 fL (7.4-10.4); Platelet Count 460 10x3/uL (130-400); RBC Distribution Width 12.9 % (11.5-14.5); Red Blood Cell (RBC) Count 3.95 mill/uL (4.20-5.40)
[2024-04-21] MEDS ORDERED: Morphine 4 MG/ML VIAL ONE (04:47)
[2024-04-21] MEDS ORDERED: Aspirin Chewable 81 MG TAB ONE (04:48)
[2024-04-21 04:54] LABS: ALT (SGPT) 28 U/L (8-55); AST (SGOT) 48 U/L (5-34); Albumin 4.4 g/dL (3.5-5.0); Alkaline Phosphatase 100 U/L (40-110); Anion Gap 19 mmol/L (10-20); BUN (Urea Nitrogen) 15 mg/dL (7.0-18.7); Bilirubin, Total 0.2 mg/dL (0.2-1.2); Calc. Creatinine Clearance 0 mL/min (70-130); Calcium 10.2 mg/dL (7.8-10.44); Carbon Dioxide 17 mmol/L (22-29); Chloride 107 mmol/L (98-107); Estimated GFR 58; Glucose 157 mg/dL (70-105); Lipase 20 U/L (8-78); Magnesium 1.8 mg/dL (1.6-2.6); Potassium 3.6 mmol/L (3.5-5.1); Protein, Total 9.4 g/dL (6.0-8.3); Sodium 139 mmol/L (136-145)
[2024-04-21 04:55] LABS: BHCG - Serum Negative (NEGATIVE); Pregs Control Background? CLEAR/WHITE (CLR/WHITE); Pregs Control Bar Appear? YES (CONTROL BAR)
[2024-04-21 05:03] LABS: Troponin I 0.089 ng/mL (< 0.028)
[2024-04-21] MEDS ORDERED: cloNIDine 0.1 MG TAB ONE ×2 (05:25→06:12)
[2024-04-21] MEDS ORDERED: Nitroglycerin 0.4 MG TAB 1 EACH ONE (06:12)
[2024-04-21] MEDS ORDERED: Morphine 4 MG/ML VIAL SLOW IVP PRN (06:50)
[2024-04-21] MEDS ORDERED: niCARdipine 25 MG/10 ML SDV ONE (06:52)
[2024-04-21] MEDS ORDERED: Senokot S 8.6-50 MG TAB PO PRN (07:44)
[2024-04-21] MEDS ORDERED: tiZANidine HCl 4 MG TAB PO PRN (07:45)
[2024-04-21] MEDS ORDERED: Dextrose 50% Abboject 50 ML SYRINGE SLOW IVP PRN (07:46)
[2024-04-21] MEDS ORDERED: Glucagon 1 MG/ML KIT IM PRN (07:46)
[2024-04-21] MEDS ORDERED: HumaLOG 300 UNITS/3 ML VIAL SC PRN ×2 (07:46)
[2024-04-21] MEDS ORDERED: Dextrose 5% in Water 1,000 ML IV PRN (07:46)
[2024-04-21] MEDS ORDERED: niCARdipine 25 MG in Sodium Chloride 0.9% 250 ML 250 ML IVPB SCH (08:00)
[2024-04-21] MEDS: Promethazine HCl 25 MG in Sodium Chloride 0.9% 50 ML IVPB SCH (08:03)
[2024-04-21] MEDS ORDERED: Insulin Lispro 100 UNIT/ML 10 ML VIAL SC PRN (08:15)
[2024-04-21] MEDS ORDERED: Non-Formulary Item 1 EACH (Sitagliptin Phosphate [Januvia] 50 MG Tab) PO SCH (09:00)
[2024-04-21] MEDS ORDERED: Non-Formulary Item 1 EACH (Omeprazole [Omeprazole] 20 MG Capsule.Dr) PO SCH (09:00)
[2024-04-21] MEDS: Ondansetron PF 4 MG/2 ML Vial IVP PRN (09:06)
[2024-04-21] MEDS: traMADol HCl 50 MG TAB PO PRN (09:30)
[2024-04-21] MEDS: Insulin Glargine 30 UNITS/0.3 ML VIAL SC SCH (09:31)
[2024-04-21] MEDS: Aspirin 81 mg Enteric Coated Tablet PO SCH (09:31)
[2024-04-21] MEDS: Alogliptin 6.25 MG TAB PO SCH (09:31)
[2024-04-21] MEDS: Gabapentin 300 MG CAP PO SCH (09:31)
[2024-04-21] MEDS: Pantoprazole DR 40 MG TAB PO SCH (09:31)
[2024-04-21] MEDS: cloNIDine 0.2 MG TAB PO SCH (09:32)
[2024-04-21] MEDS: Labetalol HCl 100 MG/20 ML VIAL SLOW IVP SCH (09:49)
[2024-04-21] MEDS: Atorvastatin Calcium 40 MG TAB PO SCH (10:04)
[2024-04-21] MEDS ORDERED: Mag-Al Plus 1200/1200/120 MG (30 mL) UDCUP PO PRN (10:54)
[2024-04-21 11:32] LABS: Amphetamine Not Detected (NotDetected); Barbiturates Screen Not Detected (NotDetected); Benzodiazepine Screen Not Detected (NotDetected); Cocaine Metabolite Screen Not Detected (NotDetected); Methadone Not Detected (NotDetected); Methamphetamine Not Detected (NotDetected); Opiate Screen Detected (NotDetected); Oxycodone Screen Not Detected (NotDetected); Phencyclidine (PCP) Not Detected (NotDetected); THC/Cannabinoid Screen Not Detected (NotDetected); Tricyclic Screen Not Detected (NotDetected)
[2024-04-21 11:46] LABS: Troponin I 0.166 ng/mL (< 0.028)
[2024-04-21] MEDS: Acetaminophen 325 MG TAB PO SCH (11:54)
[2024-04-21] MEDS: Lactated Ringer's 1,000 ML IV SCH ×2 (13:45→14:44)
[2024-04-21] MEDS ORDERED: hydrALAZINE 20 MG/ML VIAL SLOW IVP PRN (13:49)
[2024-04-21] MEDS ORDERED: Labetalol HCl 100 MG/20 ML VIAL SLOW IVP PRN (13:49)
[2024-04-21 13:52] LABS: Base Excess -6.1 mEq/L (-2.0 to +3.0); Calcium, Ionized (venous) 1.08 mmol/L (1.16-1.32); Chloride (VBG) 105 mmol/L (98-106); Hematocrit-VBG 39 % (36.0-47.0); Hemoglobin (Hb) 13.2 g/dL (11.7-16.0); Potassium (VBG) 3.44 mmol/L (3.70-5.30); Sodium 143 mmol/L (133-146); pH (venous) 7.451 (7.32-7.43)
[2024-04-21 14:29] LABS: Hemoglobin A1c 6.3 % (4.0-6.0)
[2024-04-21] MEDS: Ondansetron PF 4 MG/2 ML Vial IVP SCH (14:38)
[2024-04-21] MEDS: Amlodipine 10 MG TAB PO SCH (14:38)
[2024-04-21] MEDS: Metoclopramide HCl 10 MG (2 mL) VIAL IVP SCH (14:38)
[2024-04-21] MEDS: Promethazine HCl 12.5 MG in Sodium Chloride 0.9% 50 ML IVPB PRN (15:01)
[2024-04-21] MEDS: Insulin Lispro 100 UNIT/ML 10 ML VIAL SC PRN (16:26)
[2024-04-21] MEDS: Zolpidem Tartrate 5 MG TAB PO SCH (20:46)
[2024-04-21] MEDS ORDERED: Non-Formulary Item 1 EACH (Zolpidem Tartrate [Ambien] 10 MG Tablet) PO SCH (21:00)
[2024-04-22 06:35] VITALS: BMI 23.8
[2024-04-22] MEDS: Enoxaparin 40 MG (0.4 mL) SYRINGE SC SCH (07:55)
[2024-04-22] MEDS: Pantoprazole 40 MG VIAL IVP SCH (07:55)
[2024-04-22] MEDS: Amlodipine 10 MG TAB PO SCH (08:00)
[2024-04-22 08:13] LABS: #Basophils 0.03 10x3/uL (0.0-0.2); %Basophils 0.3 % (0.0-1.0); %Eosinophils 0.4 % (0.0-10.0); %Lymphocytes 30.7 % (21.0-51.0); %Monocytes 7.7 % (0.0-10.0); %Neutrophils 60.7 % (42.0-75.0); Hematocrit 31.9 % (36.0-47.0); Hemoglobin 10.5 g/dL (12.0-16.0); Mean Corpuscular HGB CONC 32.9 g/dL (32.0-36.0); Mean Corpuscular Volume 91.1 fL (78.0-98.0); Mean Platelet Volume 9.9 fL (7.4-10.4); Platelet Count 327 10x3/uL (130-400); RBC Distribution Width 13.2 % (11.5-14.5)
[2024-04-22 09:22] LABS: ALT (SGPT) 17 U/L (8-55); AST (SGOT) 28 U/L (5-34); Albumin 3.3 g/dL (3.5-5.0); Alkaline Phosphatase 71 U/L (40-110); Anion Gap 14 mmol/L (10-20); BUN (Urea Nitrogen) 21 mg/dL (7.0-18.7); Bilirubin, Total 0.4 mg/dL (0.2-1.2); Calc. Creatinine Clearance 54 mL/min (70-130); Calcium 9.1 mg/dL (7.8-10.44); Carbon Dioxide 22 mmol/L (22-29); Chloride 107 mmol/L (98-107); Estimated GFR 51; Globulin 3.3 g/dL (2.4-3.5); Glucose 148 mg/dL (70-105); Potassium 3.2 mmol/L (3.5-5.1); Protein, Total 6.6 g/dL (6.0-8.3); Sodium 140 mmol/L (136-145)
[2024-04-22] MEDS: Calcium Carbonate 500 MG ChewTAB PO PRN (16:46)
[2024-04-23 00:25] VITALS: BP 94/61; TEMP 98.6
[2024-04-23] MEDS ORDERED: Metoprolol Tartrate 50 MG TAB PO SCH (09:00)
== END 2024-04-23 03:14 | disposition home or self-care (01) | DRG 281 ==
LOC: SUATTDRO 02:55 → ERS 02:55 → ERHOLD 06:47 → CCU 09:01 → MSONC 04-22 15:18
PROVIDERS: ADMIT Internal Medicine; ATTEND Internal Medicine
DX: I16.1 Hypertensive emergency (principal); N17.9 Acute kidney failure, unspecified; I21.A1 Myocardial infarction type 2; I12.9 Hypertensive chronic kidney disease with stage 1 through stage 4 chronic kidney disease, or unspecified chronic kidney disease; I25.2 Old myocardial infarction; M10.9 Gout, unspecified; F41.9 Anxiety disorder, unspecified; N18.9 Chronic kidney disease, unspecified; E11.22 Type 2 diabetes mellitus with diabetic chronic kidney disease; K21.9 Gastro-esophageal reflux disease without esophagitis; E11.40 Type 2 diabetes mellitus with diabetic neuropathy, unspecified; E11.43 Type 2 diabetes mellitus with diabetic autonomic (poly)neuropathy; K31.84 Gastroparesis; Z88.8 Allergy status to other drugs, medicaments and biological substances; Z90.49 Acquired absence of other specified parts of digestive tract; Z98.890 Other specified postprocedural states; Z79.82 Long term (current) use of aspirin; Z79.4 Long term (current) use of insulin; Z79.899 Other long term (current) drug therapy; R07.9 Chest pain, unspecified; R10.13 Epigastric pain
CPT/HCPCS: 36415; 36416; 71045; 80053; 80306; 80307; 82010; 82805; 83036; 83690; 83735; 83880; 84443; 84484; 84703; 85025; 93005; 93010; 96365; 96366; 96374; 96375; C9113; J0360; J0780; J1200; J1650; J1815; J2270; J2405; J2550; J2765; J7120; S0028

== ENCOUNTER 2025-08-09 22:51 | Inpatient (IN) | payer OTHER, MEDICAID ==
[2025-08-10 01:32] LABS: #Basophils Less than 0.03 10x3/uL (0.0-0.2); #Eosinophils 0.04 10x3/uL (0.0-0.7); #Monocytes 0.31 10x3/uL (0.11-0.59); #Neutrophils 2.96 10x3/uL (1.40-6.50); %Basophils 0.2 % (0.0-1.0); %Eosinophils 0.7 % (0.0-10.0); %Lymphocytes 43.8 % (21.0-51.0); %Monocytes 5.2 % (0.0-10.0); %Neutrophils 49.9 % (42.0-75.0); Hematocrit 31.6 % (36.0-47.0); Hemoglobin 10.3 g/dL (12.0-16.0); Mean Corpuscular Hemoglobin 28.6 pg (27.0-31.0); Mean Corpuscular Volume 87.8 fL (78.0-98.0); Platelet Count 276 10x3/uL (130-400); Red Blood Cell (RBC) Count 3.60 mill/uL (4.20-5.40); White Blood Cell (WBC) Count 5.93 10x3/uL (4.8-10.8)
[2025-08-10 01:48] LABS: Lipase 15 U/L (8-78); Magnesium 1.7 mg/dL (1.6-2.6)
[2025-08-10 01:50] LABS: ALT (SGPT) Less than 7 U/L (Less than 34); AST (SGOT) 27 U/L (11-34); Albumin 4.1 g/dL (3.1-4.5); Alkaline Phosphatase 96 U/L (40-110); Anion Gap 17 mmol/L (10-20); BUN (Urea Nitrogen) 15 mg/dL (7.0-18.7); Bilirubin, Total 0.2 mg/dL (0.3-1.2); Calc. Creatinine Clearance 0 mL/min (70-130); Calcium 9.6 mg/dL (7.8-10.44); Carbon Dioxide 19 mmol/L (22-29); Chloride 110 mmol/L (98-107); Globulin 3.9 g/dL (2.4-3.5); Glucose 149 mg/dL (70-105); Potassium 3.8 mmol/L (3.5-5.1); Sodium 142 mmol/L (136-145)
[2025-08-10 01:51] LABS: BHCG - Serum Negative (NEGATIVE); Pregs Control Background? CLEAR/WHITE (CLR/WHITE); Pregs Control Bar Appear? YES (CONTROL BAR)
[2025-08-10] MEDS ORDERED: Ketorolac Tromethamine 30 MG (1 mL) VIAL ONE (02:07)
[2025-08-10] MEDS ORDERED: Aspirin Chewable 81 MG TAB ONE (02:11)
[2025-08-10 02:43] LABS: Acetaminophen Less than 10 mcg/mL (Less than 10); Salicylate Less than 8.0 mg/dL (Less than 8.0)
[2025-08-10] MEDS ORDERED: niCARdipine 25 MG/10 ML SDV ONE (03:07)
[2025-08-10 04:20] LABS: Bacteria/HPF None Seen HPF (None Seen); CAUTI Indications for Culture Alt mental st,lethar; Glucose, Urine (Dipstick) 300 mg/dL (Negative); Leukocyte 25 Leu/uL (Negative); Protein, Urine (Dipstick) 20 mg/dL (Neg-Trace); RBC/HPF None Seen HPF (0-3); Specific Gravity, Urine 1.026 (1.002-1.036); WBC/HPF 0-3 HPF (0-3)
[2025-08-10 04:22] LABS: Cocaine Metabolite Screen Negative (Negative); THC/Cannabinoid Screen Negative (Negative); Tricyclic Screen Negative (Negative)
[2025-08-10 04:52] LABS: Urine Culture Reflex No No
[2025-08-10 08:27] VITALS: BMI 25.0
[2025-08-10] MEDS: HYDROcodone/Acetaminophen 5/325 mg Tablet PO PRN (10:01)
[2025-08-10] MEDS: Gabapentin 300 MG CAP PO SCH (10:02)
[2025-08-10] MEDS: Aspirin 81 mg Enteric Coated Tablet PO SCH (10:02)
[2025-08-10] MEDS ORDERED: Iopamidol-370 76% 500 ML MDV (1 ML CHARGE) ONE (11:02)
[2025-08-10] MEDS: Acetaminophen 500 MG TAB PO PRN (20:03)
[2025-08-11] MEDS: FLU (Fluarix Triv) 25-26 (6MOS UP)/PF 45 MCG/0.5 ML Syringe IM ONE (08:45)
[2025-08-11] MEDS: Losartan 25 MG TAB PO SCH (11:09)
[2025-08-11] MEDS: Methocarbamol 500 MG TAB PO SCH ×2 (11:10→16:18)
[2025-08-11] MEDS: Ondansetron PF 4 MG/2 ML Vial IVP PRN (19:47)
[2025-08-11] MEDS: Ketorolac Tromethamine 30 MG (1 mL) VIAL IVP PRN (21:47)
[2025-08-11] MEDS: HYDROcodone/Acetaminophen 7.5/325 mg Tablet PO PRN (22:52)
[2025-08-12 05:35] LABS: #Basophils Less than 0.03 10x3/uL (0.0-0.2); #Eosinophils 0.08 10x3/uL (0.0-0.7); #Monocytes 0.21 10x3/uL (0.11-0.59); #Neutrophils 1.46 10x3/uL (1.40-6.50); %Basophils 0.5 % (0.0-1.0); %Eosinophils 1.9 % (0.0-10.0); %Lymphocytes 56.9 % (21.0-51.0); %Monocytes 5.1 % (0.0-10.0); %Neutrophils 35.6 % (42.0-75.0); Hematocrit 30.8 % (36.0-47.0); Hemoglobin 10.0 g/dL (12.0-16.0); Mean Corpuscular Hemoglobin 30.0 pg (27.0-31.0); Mean Corpuscular Volume 92.5 fL (78.0-98.0); Platelet Count 196 10x3/uL (130-400); Red Blood Cell (RBC) Count 3.33 mill/uL (4.20-5.40); White Blood Cell (WBC) Count 4.11 10x3/uL (4.8-10.8)
[2025-08-12 05:48] LABS: Anion Gap 13 mmol/L (10-20); BUN (Urea Nitrogen) 15 mg/dL (7.0-18.7); Calc. Creatinine Clearance 73 mL/min (70-130); Calcium 8.7 mg/dL (7.8-10.44); Carbon Dioxide 18 mmol/L (22-29); Chloride 112 mmol/L (98-107); Glucose 106 mg/dL (70-105); Potassium 4.0 mmol/L (3.5-5.1); Sodium 139 mmol/L (136-145)
[2025-08-12] MEDS: Losartan 25 MG TAB PO SCH (09:38)
[2025-08-12] MEDS ORDERED: Cyanocobalamin 1000 MCG/ML VIAL IM SCH (14:15)
[2025-08-12] MEDS: Multivit, Therapeutic 1 TAB PO SCH (14:24)
[2025-08-12] MEDS: Ergocalciferol 1.25 MG(50,000 UNITS) CAP PO SCH (14:25)
[2025-08-12] MEDS: Cyanocobalamin (Vitamin B-12) 1,000 MCG TAB PO SCH (14:37)
[2025-08-12] MEDS: Gabapentin 400 MG CAP PO SCH (14:39)
[2025-08-12] MEDS: hydrALAZINE 20 MG/ML VIAL SLOW IVP PRN (14:48)
[2025-08-12 15:42] VITALS: BP 135/86; TEMP 98.3
== END 2025-08-12 19:23 | disposition home or self-care (01) | DRG 282 ==
LOC: ERS 22:51 → 2SE 08-10 06:23
PROVIDERS: ADMIT Internal Medicine; ATTEND Internal Medicine
DX: I11.0 Hypertensive heart disease with heart failure (principal); I21.A1 Myocardial infarction type 2; R51.9 Headache, unspecified; I50.32 Chronic diastolic (congestive) heart failure; I25.10 Atherosclerotic heart disease of native coronary artery without angina pectoris; E11.9 Type 2 diabetes mellitus without complications; I25.2 Old myocardial infarction; F41.1 Generalized anxiety disorder; M79.671 Pain in right foot; M79.642 Pain in left hand; Z88.8 Allergy status to other drugs, medicaments and biological substances; Z79.899 Other long term (current) drug therapy
CPT/HCPCS: 36415; 36416; 70450; 71045; 71275; 74177; 80048; 80053; 80306; 80307; 81001; 83690; 83735; 84484; 84703; 85025; 87428; 90656; 93005; 93306; 96361; 96365; 96375; J0360; J1885; J2270; J2272; J2405; Q9967

== ENCOUNTER 2025-10-10 20:58 | Emergency (ER) | payer MEDICARE, OTHER ==
[2025-10-10 22:01] LABS: #Basophils 0.03 10x3/uL (0.0-0.2); #Eosinophils 0.08 10x3/uL (0.0-0.7); #Monocytes 0.40 10x3/uL (0.11-0.59); #Neutrophils 2.71 10x3/uL (1.40-6.50); %Basophils 0.5 % (0.0-1.0); %Eosinophils 1.3 % (0.0-10.0); %Lymphocytes 49.1 % (21.0-51.0); %Monocytes 6.3 % (0.0-10.0); %Neutrophils 42.6 % (42.0-75.0); Hematocrit 30.6 % (36.0-47.0); Hemoglobin 10.2 g/dL (12.0-16.0); Mean Corpuscular Hemoglobin 29.3 pg (27.0-31.0); Mean Corpuscular Volume 87.9 fL (78.0-98.0); Platelet Count 250 10x3/uL (130-400); Red Blood Cell (RBC) Count 3.48 mill/uL (4.20-5.40); White Blood Cell (WBC) Count 6.34 10x3/uL (4.8-10.8)
[2025-10-10 22:20] LABS: ALT (SGPT) 13 U/L (Less than 34); AST (SGOT) 23 U/L (11-34); Albumin 3.7 g/dL (3.1-4.5); Alkaline Phosphatase 77 U/L (40-110); Anion Gap 15 mmol/L (10-20); BUN (Urea Nitrogen) 16 mg/dL (7.0-18.7); Bilirubin, Total 0.1 mg/dL (0.3-1.2); Calc. Creatinine Clearance 0 mL/min (70-130); Calcium 9.1 mg/dL (7.8-10.44); Carbon Dioxide 24 mmol/L (22-29); Chloride 108 mmol/L (98-107); Globulin 3.4 g/dL (2.4-3.5); Glucose 121 mg/dL (70-105); Potassium 3.6 mmol/L (3.5-5.1); Sodium 143 mmol/L (136-145)
[2025-10-10] MEDS ORDERED: Ketorolac Tromethamine 30 MG (1 mL) VIAL ONE (22:58)
== END 2025-10-11 01:20 | disposition home or self-care (01) ==
LOC: ERS 20:58
DX: R07.89 Other chest pain (principal); E11.9 Type 2 diabetes mellitus without complications; I10 Essential (primary) hypertension; I25.2 Old myocardial infarction; Z86.718 Personal history of other venous thrombosis and embolism
CPT/HCPCS: 71045; 80053; 84484; 85025; 93005; J1885; J2270; 96374; 96375